=== PATIENT | male | born 1955 | race Caucasian/White ===

== ENCOUNTER → 2016-07-22 | Outpatient (CLI) | payer BC ==
[~2016-07-22] MED LIST: AMLO-110 PO; AMLO2.5T PO; ASCA500 PO; ASPEC81 PO; ATOR-26 PO; BRL90 PO; FLAX12003; GLUC10007; GLUC10007 PO; LSN5 PO; NTRSLP4 SL; OMEG10007 PO; VITACAP26; VNTHFA/IN INH; ZINC1CAP PO; ZINC1TAB PO
--- NOTE | 2016-07-22 14:02 | DIAGNOSTIC IMAGING REPORT ---
CHEST 2 VIEWS ROUTINE CLINICAL HISTORY: ACUTE BRONCHITIS dyspnea COMPARISON STUDY: No previous studies for comparison. FINDINGS: The bones soft tissues and hemidiaphragms are normal. The cardiomediastinal silhouette is normal. The lungs are clear. The pulmonary vasculature is normal. IMPRESSION: Negative chest. Electronically signed by: Diallo Lopes M.D. 07/22/2016 2:00 PM Dictated Date/Time: 07/22/2016 2:00 PM
== END | disposition home or self-care (01) ==
LOC: C.RAD 13:43
PROVIDERS: ATTEND Physician Assistant
DX: J20.9 Acute bronchitis, unspecified (principal)

== ENCOUNTER → 2016-08-01 | Outpatient (CLI) | payer BC ==
[~2016-08-01] MED LIST changes: +OPTIRAY 320 IV PRN
--- NOTE | 2016-08-01 13:07 | DIAGNOSTIC IMAGING REPORT ---
CHEST CT WITH CONTRAST CT DOSE: 258.64 mGy.cm HISTORY: Bronchiectasis CHEST PAIN TECHNIQUE: Multiaxial CT images of the chest were performed following the intravenous administration of contrast. COMPARISON: None. FINDINGS: The lungs are clear. The mediastinal vascular structures are within normal limits. No mediastinal or hilar lymphadenopathy. No pleural effusion or pneumothorax. Limited views of the upper abdomen demonstrate a normal liver and spleen. IMPRESSION: No significant abnormality identified within the chest. Electronically signed by: Diallo Lopes M.D. 08/01/2016 1:06 PM Dictated Date/Time: 08/01/2016 1:02 PM
== END | disposition home or self-care (01) ==
LOC: C.CTS 12:00
PROVIDERS: ATTEND Physician Assistant
DX: J20.9 Acute bronchitis, unspecified (principal); R07.9 Chest pain, unspecified; R13.10 Dysphagia, unspecified

== ENCOUNTER 2016-08-05 11:36 | Inpatient (IN) | payer BC ==
[~2016-08-05] VITALS: Ht 172.7 cm; Wt 76.5 kg
[~2016-08-05 11:36] MED LIST changes: -AMLO2.5T PO; -ASPEC81 PO; -ATOR-26 PO; -BRL90 PO; -FLAX12003; -GLUC10007 PO; -LSN5 PO; -NTRSLP4 SL; -OPTIRAY 320 IV PRN; -VITACAP26; -VNTHFA/IN INH; -ZINC1CAP PO; -ZINC1TAB PO
[2016-08-05] MEDS ORDERED: ALUMINUM/MAGNESIUM SUSP 30 ML UDC PO STA (11:47)
[2016-08-05] MEDS ORDERED: ASPIRIN 81 MG CHEW PO STA (11:47)
[2016-08-05] MEDS ORDERED: PANTOprazole SOD 40 MG TAB PO STA (11:47)
--- NOTE | 2016-08-05 11:56 | EMERGENCY ROOM VISIT NOTE ---
History Report prepared by Meseret: Bruna Beckham Under the Supervision of: Dr. Ari Bello D.O. First contact with patient: 11:45 Chief Complaint: CARDIAC ASSESSMENT Stated Complaint: BURNING & CHEST TIGHTNESS AND THROAT, DIZZY Nursing Triage Summary: pt to the ED with c/o worsening chest pain that has went into his jaw and throat and feels like it gets worse with movement and feeling light headed has been seeing PMD for this previously but got worse today History of Present Illness The patient is a 60 year old male who presents to the Emergency Room with complaints of intermittent chest pain that he describes as a burning over the last several weeks. The patient states that he has noticed the pain with exertion. He states that he has followed with his PCP for his discomfort and has had several tests done for his symptoms, but denies any cardiac workup. The patient states that a few months ago he had the flu and was on antibiotics and a steroid. He states that 1 week ago he had a normal CT scan done. The patient states that over the past week he has noticed increased burning in his chest. He additionally associates tightness in his sternum that radiates into his throat and jaw. The patient associates dizziness with his symptoms today. He denies any history of lung problems, previous [place] or previous heart catheterization. The patient denies any tobacco use, but reports occasional alcohol use. He reports a history of hypertension and a partial colectomy for a polyp that was precancerous. Source of History: patient Onset: last several weeks Position: chest Quality: burning Timing: intermittent Modifying Factors (Worsening): exertion Note: Associated Symptoms: tightness in sternum, tightness in jaw and throat, dizziness Review of Systems See HPI for pertinent positives & negatives. A total of 10 systems reviewed and were otherwise negative. Past Medical & Surgical Medical Problems: (1) Colonoscopic polypectomy (2) Hyperlipidemia Nec/Nos (3) Hypertension Nos (4) Lower gastrointestinal hemorrhage Family History No pertinent family history stated. Social History Smoking Status: Never Smoker Smokeless Tobacco Use: No Alcohol Use: occasionally Marital Status: Occupation Status: employed Current/Historical Medications Scheduled Amlodipine (Norvasc), 5 MG PO DAILY Glucosamine Sulfate (Glucosamine), DAILY Zinc Sulfate (Zinc Sulfate), 220 MG PO TID Miscellaneous Medications Flaxseed (Linseed) (Flaxseed Oil) Vitamins C & E (Vitamin C) Allergies Coded Allergies: Penicillamine (Verified Allergy, Severe, THROAT INFECTION, 06/17/10) Erythromycin (Verified Allergy, Unknown, UNKNOWN, 06/08/15) Penicillins (Verified Allergy, Unknown, RASH, 06/08/15) Azithromycin (Verified Adverse Reaction, Intermediate, DIGESTIVE PROBLEMS , 08/01/16) Macrolides and Ketolides (Verified Adverse Reaction, Mild, MILD, 08/01/16) Physical Exam Vital Signs Date Time Temp Pulse Resp B/P (MAP) Pulse Ox O2 Delivery O2 Flow Rate FiO2 08/05/16 16:20 87 18 155/94 96 Room Air 08/05/16 14:03 79 18 162/96 08/05/16 12:50 74 16 150/106 96 Room Air 08/05/16 12:12 95 Room Air 08/05/16 12:12 97 Room Air 08/05/16 12:11 89 17 167/108 97 Room Air 08/05/16 11:53 93 08/05/16 11:40 36.7 90 16 181/104 98 Room Air Physical Exam GENERAL: Patient is awake, alert, and in no acute distress. Patient is resting comfortably and showing no signs of anxiety EYES: The conjunctivae are clear. The pupils are round and reactive. EARS, NOSE, MOUTH AND THROAT: The nose is without any evidence of any deformity. Mucous membranes are moist tongue is midline NECK: The neck is nontender and supple. RESPIRATORY: Normal respiratory effort is noted there is no evidence of wheezing rhonchi or rales CARDIOVASCULAR: Regular rate and rhythm noted there no murmurs rubs or gallops normal S1 normal S2 GASTROINTESTINAL: The abdomen is soft. Bowel sounds are present in all quadrants. Abdomen is nontender MUSCULOSKELETAL/EXTREMITIES: There is no evidence of gross deformity full range of motion is noted in the hips and shoulders SKIN: There is no obvious evidence of any rash. There are no petechiae, pallor or cyanosis noted. NEUROLOGIC: Patient is awake alert and oriented x3 strength is symmetric patellar reflexes are 2+ bilaterally Medical Decision & Procedures ER Provider Diagnostic Interpretation: X-ray results as stated below per interpretation by me and the radiologist. CHEST ONE VIEW PORTABLE CLINICAL HISTORY: CHEST PAIN dyspnea COMPARISON STUDY: 07/22/2016 FINDINGS: The bones soft tissues and hemidiaphragms are normal. The cardiomediastinal silhouette is normal. The lungs are clear. The pulmonary vasculature is normal. IMPRESSION: Negative chest. Electronically signed by: Diallo Lopes M.D. 08/05/2016 12:16 PM Dictated Date/Time: 08/05/2016 12:16 PM Laboratory Results 08/05/16 12:00 Red Blood Count 5.48, Mean Corpuscular Volume 87.8, Mean Corpuscular Hemoglobin 30.1, Mean Corpuscular Hemoglobin Concent 34.3, Mean Platelet Volume 9.2, Neutrophils (%) (Auto) 67.9, Lymphocytes (%) (Auto) 16.9, Monocytes (%) (Auto) 12.7, Eosinophils (%) (Auto) 1.7, Basophils (%) (Auto) 0.4, Neutrophils # (Auto ) 3.25, Lymphocytes # (Auto) 0.81, Monocytes # (Auto) 0.61, Eosinophils # (Auto ) 0.08, Basophils # (Auto) 0.02 08/05/16 12:00 Test 08/05/16 12:00 White Blood Count 4.79 K/uL (4.8-10.8) Red Blood Count 5.48 M/uL (4.7-6.1) Hemoglobin 16.5 g/dL (14.0-18.0) Hematocrit 48.1 % (42-52) Mean Corpuscular Volume 87.8 fL (80-100) Mean Corpuscular Hemoglobin 30.1 pg (25-34) Mean Corpuscular Hemoglobin Concent 34.3 g/dl (32-36) Platelet Count 229 K/uL (130-400) Mean Platelet Volume 9.2 fL (7.4-10.4) Neutrophils (%) (Auto) 67.9 % Lymphocytes (%) (Auto) 16.9 % Monocytes (%) (Auto) 12.7 % Eosinophils (%) (Auto) 1.7 % Basophils (%) (Auto) 0.4 % Neutrophils # (Auto) 3.25 K/uL (1.4-6.5) Lymphocytes # (Auto) 0.81 K/uL (1.2-3.4) Monocytes # (Auto) 0.61 K/uL (0.11-0.59) Eosinophils # (Auto) 0.08 K/uL (0-0.5) Basophils # (Auto) 0.02 K/uL (0-0.2) RDW Standard Deviation 42.3 fL (36.4-46.3) RDW Coefficient of Variation 13.3 % (11.5-14.5) Immature Granulocyte % (Auto) 0.4 % Immature Granulocyte # (Auto) 0.02 K/uL (0.00-0.02) Prothrombin Time 10.7 SECONDS (9.0-12.0) Prothromb Time International Ratio 1.0 (0.9-1.1) Activated Partial Thromboplast Time 26.8 SECONDS (21.0-31.0) Partial Thromboplastin Ratio 1.0 D-Dimer 320 ug/L FEU (0-500) Anion Gap 7.0 mmol/L (3-11) Est Creatinine Clear Calc Drug Dose 102.6 ml/min Estimated GFR () 116.4 Estimated GFR (Non- 100.4 BUN/Creatinine Ratio 23.4 (10-20) Calcium Level 8.2 mg/dl (8.5-10.1) Total Bilirubin 0.5 mg/dl (0.2-1) Direct Bilirubin 0.1 mg/dl (0-0.2) Aspartate Amino Transf (AST/SGOT) 20 U/L (15-37) Alanine Aminotransferase (ALT/SGPT) 30 U/L (12-78) Alkaline Phosphatase 89 U/L (45-117) Total Creatine Kinase 70 U/L (39-308) Creatine Kinase MB < 0.5 ng/ml (0.5-3.6) Creatine Kinase MB Ratio (0-3.0) Troponin I < 0.015 ng/ml (0-0.045) Total Protein 7.2 gm/dl (6.4-8.2) Albumin 3.9 gm/dl (3.4-5.0) Lipase 127 U/L (73-393) Laboratory results per my review. Medications Administered Medications (Trade) Dose Ordered Sig/Shannan Route Start Time Stop Time Status Last Admin Dose Admin Aspirin (Aspirin Chew) 324 mg NOW STAT PO 08/05/16 11:47 08/05/16 11:49 DC 08/05/16 12:11 324 MG Al Hydroxide/Mg Hydroxide (Maalox Susp) 30 ml NOW STAT PO 08/05/16 11:47 08/05/16 11:49 DC 08/05/16 12:11 30 ML Pantoprazole Sodium (Protonix Tab) 40 mg NOW STAT PO 08/05/16 11:47 08/05/16 11:49 DC 08/05/16 12:11 40 MG Heparin Sodium (Porcine) (Heparin Sq 5000 Unit/0.5ml) 10,000 unit STK-MED ONCE .ROUTE 08/05/16 15:54 08/05/16 15:55 DC 08/05/16 16:04 6,000 UNIT Heparin Sodium/ Dextrose (Heparin 25,000 Unit/500ml D5W) 25,000 unit STK-MED ONCE .ROUTE 08/05/16 15:55 08/05/16 15:56 DC 08/05/16 16:06 25,000 UNIT ECG Rate (beats per minute): 89 Rhythm: normal sinus Findings: no ectopy, other (no acute ST segment abnormalities) Comparison ECG Date: 06/05/10 Change: no significant change ED Course 1146: The patient was evaluated in room A4B. A complete history and physical examination were performed. 1147: Ordered Protonix Tab 40 mg PO, Maalox Susp 30 ml PO, Aspirin 324 mg PO. 1309: I discussed the patients case with ROBBI Mcknight PA-C. She suggests having the patient stressed today. She will talk to Stephen Rodriguez, Cardiology about stressing the patient. 1310: I reevaluated the patient and he is resting comfortably. I discussed the exam findings with him and I discussed the treatment plan. He verbalized complete understanding and agreement. 1508: I discussed the patients case with Dr. Worthington, Cardiology. He state that the stress test was positive and should stay for further evaluation. ROBBI Mcknight PA-C is going to evaluate the patient for further treatment. 1509: Ordered Heparin Sodium/Dextrose 1 ea NA. Medical Decision Differential diagnosis: Etiologies such as cardiac ischemia, aortic dissection, pulmonary embolism, pneumonia, pneumothorax, musculoskeletal, infections, pericarditis, myocarditis , esophageal rupture, gastrointestinal, as well as others were entertained. Medication Reconciliation: I attest that I have personally reviewed the patient' s current medications list. Patient was found to have a slightly elevated blood pressure due to circumstances. I do not believe that the patient requires hypertension monitoring. The patient is a 60-year-old male who presented to the emergency department for an evaluation of discomfort in his chest. The patient has been noticing exertional chest pain for the last month. He states that he's been seen by his primary care physician but testing has not revealed a cause for his discomfort. The patient has no pain at this time. His EKG did not show any acute ST segment abnormalities in his initial cardiac biomarkers were negative. I discussed his case with the on-call [facility] hospitalist group and because of the patient 's symptoms and his timing to the emergency department we discussed his case with the on-call [facility] software testing specialist and he was able to have a stress test while he was in the emergency department. The stress test was very worrisome for cardiac ischemia. The patient was started on IV heparin in the emergency department. I discussed the patient's laboratory and radiographic studies with him. I also discussed the limitations of the emergency department workup for chest pain with him. The patient was agreeable to staying in the hospital and would likely require heart catheterization within the next 24-48 hours unless his symptoms were to change or his EKG become more consistent with an ST segment elevation [place]. Consults Time Called: 1309 Consulting Physician: ROBBI Mcknight PA-C Returned Call: 1304 I discussed the patients case with ROBBI Mcknight PA-C. She suggests having the patient stressed today. She will talk to Stephen Rodriguez Cardiology about stressing the patient. Additional Consults: Time Called: 1508 Consulted Physician: Dr. Worthington, Cardiology Returned Call: 1508 Additional Comments: I discussed the patients case with Dr. Worthington, Cardiology. He state that the stress test was positive and should stay for further evaluation. ROBBI Mcknight PA-C is going to evaluate the patient for further treatment. Impression Primary Impression: Unstable angina Additional Impression: Exertional chest pain Critical Care I have personally spent greater than 45 minutes of critical care time in the direct management of this patient. This includes bedside care, interpretation of diagnostic studies, and testing, discussion with consultants, patient, and family members, and other required patient management activities. This 45 minutes is in excess of all separately billable procedures. Scribe Attestation The scribe's documentation has been prepared under my direction and personally reviewed by me in its entirety. I confirm that the note above accurately reflects all work, treatment, procedures, and medical decision making performed by me. Departure Information Dispostion Being Evaluated By Hospitalist Referrals Ari Bartlett M.D. (PCP) Problem Qualifiers
[2016-08-05] MEDS ORDERED: VITACAP26 (12:09)
[2016-08-05] MEDS ORDERED: ZINC1CAP PO (12:09)
[2016-08-05] MEDS ORDERED: FLAX12003 (12:09)
[2016-08-05 12:11] LABS: BASO % 0.4 %; BASO ABS # 0.02 K/uL (0-0.2); COMPLETE YES; EOS % 1.7 %; HEMATOCRIT 48.1 % (42-52); IG% 0.4 %; LYMPH % 16.9 %; LYMPH ABS # 0.81 K/uL (1.2-3.4); MEAN CELL VOLUME 87.8 fL (80-100); MEAN CORPUSCULAR HEMOGLOBIN 30.1 pg (25-34); MEAN CORPUSCULAR HGB CONC 34.3 g/dl (32-36); MEAN PLATELET VOLUME 9.2 fL (7.4-10.4); MONO % 12.7 %; NEUT % 67.9 %; PLATELET COUNT 229 K/uL (130-400); RED BLOOD COUNT 5.48 M/uL (4.7-6.1); WHITE BLOOD COUNT 4.79 K/uL (4.8-10.8)
--- NOTE | 2016-08-05 12:18 | DIAGNOSTIC IMAGING REPORT ---
CHEST ONE VIEW PORTABLE CLINICAL HISTORY: CHEST PAIN dyspnea COMPARISON STUDY: 07/22/2016 FINDINGS: The bones soft tissues and hemidiaphragms are normal. The cardiomediastinal silhouette is normal. The lungs are clear. The pulmonary vasculature is normal. IMPRESSION: Negative chest. Electronically signed by: Diallo Lopes M.D. 08/05/2016 12:16 PM Dictated Date/Time: 08/05/2016 12:16 PM
[2016-08-05 12:20] LABS: PROTHROMBIN TIME (PATIENT) 10.7 SECONDS (9.0-12.0)
[2016-08-05 12:58] LABS: ALT/SGPT 30 U/L (12-78); AST/SGOT 20 U/L (15-37); BLOOD UREA NITROGEN 18 mg/dl (7-18); BUN/CREATININE RATIO 23.4 (10-20); CALCIUM 8.2 mg/dl (8.5-10.1); CARBON DIOXIDE 28 mmol/L (21-32); CHLORIDE 107 mmol/L (98-107); CREATININE 0.75 mg/dl (0.60-1.40); GLUCOSE 94 mg/dl (70-99); POTASSIUM 4.3 mmol/L (3.5-5.1); SODIUM 142 mmol/L (136-145)
[2016-08-05 13:04] LABS: ALKALINE PHOSPHATASE 89 U/L (45-117)
--- NOTE | 2016-08-05 14:07 | Medical Consult ---
Consultation Note Date of Service Aug 05, 2016. Consultation Note [facility] [address] [place] [address] Consultation Patient Name: Jose Martin Villalpando Unit Number: [id number] Date of : 1955 Patient Status: Registered Emergency Room Attending Doctor: Ari Bello DO Consultation Date & Time of Service: Aug 05, 2016 at 13:53 Chief Complaint: Burning & Chest Tightness And Throat, Dizzy Primary Care Physician: Ari You M.D. History of Present Illness Source: patient, clinic records, hospital records This patient is a pleasant 60-year-old male that presents emergency department with complaints of intermittent burning chest pain over the last month. The chest pain seems to be worse with any exertion. It is relieved with rest. Pain occasionally radiates to both sides of his neck. She denies any shortness of breath. He has noticed some intermittent dizziness that was particularly bad today while he was at work. He was walking when this occurred. He denies any heart palpitations. He denies any known cardiac history, but has never had a stress test. He follows with Geovanny Conner from pulmonary. The patient had a CT of his chest with contrast on 08/01 that did not reveal any significant abnormalities. Past Medical/Surgical History Medical Problems: Hypertension History of tubular adenoma of the colon status post partial colectomy Seasonal allergies Family History Family history of diabetes, heart disease, high blood pressure and cancer reported Father of suicide Social History Smoking Status: Never Smoker Smokeless Tobacco Use: No Drug Use: none Marital Status: Housing status: lives alone Occupational Status: employed Immunizations History of Influenza Vaccine: No History of Tetanus Vaccine?: Yes History of Pneumococcal: No History of Hepatitis B Vaccine: Unknown Multi-Drug Resistant Organisms History of MDRO: No Allergies Coded Allergies: Penicillamine (Verified Allergy, Severe, THROAT INFECTION, 06/17/10) Erythromycin (Verified Allergy, Unknown, UNKNOWN, 06/08/15) Penicillins (Verified Allergy, Unknown, RASH, 06/08/15) Azithromycin (Verified Adverse Reaction, Intermediate, DIGESTIVE PROBLEMS , 08/01/16) Macrolides and Ketolides (Verified Adverse Reaction, Mild, MILD, 08/01/16) Home Medications Scheduled Amlodipine (Norvasc), 5 MG PO DAILY Glucosamine Sulfate (Glucosamine), DAILY Zinc Sulfate (Zinc Sulfate), 220 MG PO TID Miscellaneous Medications Flaxseed (Linseed) (Flaxseed Oil) Vitamins C & E (Vitamin C) Review of Systems 10 system review performed and negative unless noted in HPI or below Physical Ex - H&P Physical Exam Vital Signs Date Time Temp Pulse Resp B/P (MAP) Pulse Ox O2 Delivery O2 Flow Rate FiO2 08/05/16 12:50 74 16 150/106 96 Room Air 08/05/16 12:12 95 Room Air 08/05/16 12:12 97 Room Air 08/05/16 12:11 89 17 167/108 97 Room Air 08/05/16 11:53 93 08/05/16 11:40 36.7 90 16 181/104 98 Room Air General Appearance: no apparent distress Head: normocephalic Eyes: EOMI Neck: no JVD Respiratory/Chest: chest non-tender, lungs clear Cardiovascular: regular rate, rhythm Abdomen/GI: normal bowel sounds, non tender, soft Extremities/Musculoskelatal: no calf tenderness, no pedal edema Neurologic/Psych: no motor/sensory deficits, oriented x 3 Skin: warm/dry Diagnostics - H&P Diagnostics Laboratory Results 08/05/16 12:00 Red Blood Count 5.48, Mean Corpuscular Volume 87.8, Mean Corpuscular Hemoglobin 30.1, Mean Corpuscular Hemoglobin Concent 34.3, Mean Platelet Volume 9.2, Neutrophils (%) (Auto) 67.9, Lymphocytes (%) (Auto) 16.9, Monocytes (%) (Auto) 12.7, Eosinophils (%) (Auto) 1.7, Basophils (%) (Auto) 0.4, Neutrophils # (Auto ) 3.25, Lymphocytes # (Auto) 0.81, Monocytes # (Auto) 0.61, Eosinophils # (Auto ) 0.08, Basophils # (Auto) 0.02 Test 08/05/16 12:00 White Blood Count 4.79 K/uL (4.8-10.8) Red Blood Count 5.48 M/uL (4.7-6.1) Hemoglobin 16.5 g/dL (14.0-18.0) Hematocrit 48.1 % (42-52) Mean Corpuscular Volume 87.8 fL (80-100) Mean Corpuscular Hemoglobin 30.1 pg (25-34) Mean Corpuscular Hemoglobin Concent 34.3 g/dl (32-36) Platelet Count 229 K/uL (130-400) Mean Platelet Volume 9.2 fL (7.4-10.4) Neutrophils (%) (Auto) 67.9 % Lymphocytes (%) (Auto) 16.9 % Monocytes (%) (Auto) 12.7 % Eosinophils (%) (Auto) 1.7 % Basophils (%) (Auto) 0.4 % Neutrophils # (Auto) 3.25 K/uL (1.4-6.5) Lymphocytes # (Auto) 0.81 K/uL (1.2-3.4) Monocytes # (Auto) 0.61 K/uL (0.11-0.59) Eosinophils # (Auto) 0.08 K/uL (0-0.5) Basophils # (Auto) 0.02 K/uL (0-0.2) RDW Standard Deviation 42.3 fL (36.4-46.3) RDW Coefficient of Variation 13.3 % (11.5-14.5) Immature Granulocyte % (Auto) 0.4 % Immature Granulocyte # (Auto) 0.02 K/uL (0.00-0.02) Prothrombin Time 10.7 SECONDS (9.0-12.0) Prothromb Time International Ratio 1.0 (0.9-1.1) Activated Partial Thromboplast Time 26.8 SECONDS (21.0-31.0) Partial Thromboplastin Ratio 1.0 Anion Gap 7.0 mmol/L (3-11) Est Creatinine Clear Calc Drug Dose 102.6 ml/min Estimated GFR () 116.4 Estimated GFR (Non- 100.4 BUN/Creatinine Ratio 23.4 (10-20) Calcium Level 8.2 mg/dl (8.5-10.1) Total Bilirubin 0.5 mg/dl (0.2-1) Direct Bilirubin 0.1 mg/dl (0-0.2) Aspartate Amino Transf (AST/SGOT) 20 U/L (15-37) Alanine Aminotransferase (ALT/SGPT) 30 U/L (12-78) Alkaline Phosphatase 89 U/L (45-117) Total Creatine Kinase 70 U/L (39-308) Creatine Kinase MB < 0.5 ng/ml (0.5-3.6) Creatine Kinase MB Ratio (0-3.0) Troponin I < 0.015 ng/ml (0-0.045) Total Protein 7.2 gm/dl (6.4-8.2) Albumin 3.9 gm/dl (3.4-5.0) Lipase 127 U/L (73-393) Results Past 24 Hours Test 08/05/16 12:00 Range/Units White Blood Count 4.79 4.8-10.8 K/uL Red Blood Count 5.48 4.7-6.1 M/uL Hemoglobin 16.5 14.0-18.0 g/dL Hematocrit 48.1 42-52 % Mean Corpuscular Volume 87.8 80-100 fL Mean Corpuscular Hemoglobin 30.1 25-34 pg Mean Corpuscular Hemoglobin Concent 34.3 32-36 g/dl Platelet Count 229 130-400 K/uL Mean Platelet Volume 9.2 7.4-10.4 fL Neutrophils (%) (Auto) 67.9 % Lymphocytes (%) (Auto) 16.9 % Monocytes (%) (Auto) 12.7 % Eosinophils (%) (Auto) 1.7 % Basophils (%) (Auto) 0.4 % Neutrophils # (Auto) 3.25 1.4-6.5 K/uL Lymphocytes # (Auto) 0.81 1.2-3.4 K/uL Monocytes # (Auto) 0.61 0.11-0.59 K/uL Eosinophils # (Auto) 0.08 0-0.5 K/uL Basophils # (Auto) 0.02 0-0.2 K/uL RDW Standard Deviation 42.3 36.4-46.3 fL RDW Coefficient of Variation 13.3 11.5-14.5 % Immature Granulocyte % (Auto) 0.4 % Immature Granulocyte # (Auto) 0.02 0.00-0.02 K/uL Prothrombin Time 10.7 9.0-12.0 SECONDS Prothromb Time International Ratio 1.0 0.9-1.1 Activated Partial Thromboplast Time 26.8 21.0-31.0 SECONDS Partial Thromboplastin Ratio 1.0 Sodium Level 142 136-145 mmol/L Potassium Level 4.3 3.5-5.1 mmol/L Chloride Level 107 98-107 mmol/L Carbon Dioxide Level 28 21-32 mmol/L Anion Gap 7.0 3-11 mmol/L Blood Urea Nitrogen 18 7-18 mg/dl Creatinine 0.75 0.60-1.40 mg/dl Est Creatinine Clear Calc Drug Dose 102.6 ml/min Estimated GFR () 116.4 Estimated GFR (Non- 100.4 BUN/Creatinine Ratio 23.4 10-20 Random Glucose 94 70-99 mg/dl Calcium Level 8.2 8.5-10.1 mg/dl Total Bilirubin 0.5 0.2-1 mg/dl Direct Bilirubin 0.1 0-0.2 mg/dl Aspartate Amino Transf (AST/SGOT) 20 15-37 U/L Alanine Aminotransferase (ALT/SGPT) 30 12-78 U/L Alkaline Phosphatase 89 45-117 U/L Total Creatine Kinase 70 39-308 U/L Creatine Kinase MB < 0.5 0.5-3.6 ng/ml Creatine Kinase MB Ratio 0-3.0 Troponin I < 0.015 0-0.045 ng/ml Total Protein 7.2 6.4-8.2 gm/dl Albumin 3.9 3.4-5.0 gm/dl Lipase 127 73-393 U/L Diagnostic Radiology Patient: JOSE MARTIN VILLALPANDO Address1: [address] [place] [address] Rec: [id number] Address2: [facility] ID: [id number] [facility] Zip: [place] [address] Date: 1955 Sex: M Room/Bed: Ref Phy: Ari Bartlett M.D. SC: MONO Marina Phy: Report #: [id number] [facility] Phy: Ari Bartlett M.D. Test: [id number] Admit Phy: Armament Aircraft Mechanic: TERESA Interpreting Phy: Diallo Lopes M.D. Diagnosis: BURNING & CHEST TIGHTNESS AND THROAT, DIZZY Ordering Phy: Ari Bello D.O. Service Date: 08/05/16 Admit Date: 08/05/16 MNE: [id number] CONF: DICTATED BY: Diallo Lopes M.D.]] CC: Ari Bello, Ari Obando M.D. [facility]: [~ rep ct add3]] CHEST ONE VIEW PORTABLE CLINICAL HISTORY: CHEST PAIN dyspnea COMPARISON STUDY: 07/22/2016 FINDINGS: The bones soft tissues and hemidiaphragms are normal. The cardiomediastinal silhouette is normal. The lungs are clear. The pulmonary vasculature is normal. IMPRESSION: Negative chest. Electronically signed by: Diallo Lopes M.D. 08/05/2016 12:16 PM Dictated Date/Time: 08/05/2016 12:16 PM The status of this report is Signed. Draft = Not yet reviewed or approved by Radiologist. Signed = Reviewed and approved by Radiologist. <AttendingPhy></AttendingPhy> <FamilyP EKG Normal sinus rhythm 89 bpm No ischemic changes noted Impression - Impression Assessment and Plan 60-year-old male presents emergency department with complaints of exertional chest pain over the last month. EKG shows no signs of ischemia. Initial troponin is negative. Regarding the patient's chest pain, differential dx include stable angina, GERD , PE, pulmonary infection, dissection among others. -I have added on a D dimer to r/o dissection and PE (he had a CT chest, but it was not a PE study). We will order a stress test today. If this is negative , the patient is stable to be discharged home. Follow-up will be arranged with his primary care provider within one week. If the stress test is abnormal, he will be admitted. The patient was also noted to be hypertensive. He does admit to having white coat hypertension. He was instructed to check his blood pressure at home twice daily. We will continue his Norvasc 5 mg daily as prescribed. Adjustments can be made as an oupt if necessary Thank you for this consultation. This chart was completed in part utilizing [employer] Voice Recognition software. Attempts were made to minimize the grammatical errors, random word insertions, pronoun errors and incomplete sentences. Any formal questions or concerns about the content, text or information contained within the body of this dictation should be directly addressed to the provider for clarification.
--- NOTE | 2016-08-05 15:49 | History and Physical ---
History & Physical Date of Service Aug 05, 2016. History & Physical Consultation Note [facility] [address] [place] [address] history and physical Patient Name: Jose Martin Villalpando Unit Number: [id number] Date of : 1955 Patient Status: Registered Emergency Room Attending Doctor: Ari Bello DO history and physical Date & Time of Service: Aug 05, 2016 at 13:53 Chief Complaint: Burning & Chest Tightness And Throat, Dizzy Primary Care Physician: Ari You M.D. History of Present Illness Source: patient, clinic records, hospital records This patient is a pleasant 60-year-old male that presents emergency department with complaints of intermittent burning chest pain over the last month. The chest pain seems to be worse with any exertion. It is relieved with rest. Pain occasionally radiates to both sides of his neck. She denies any shortness of breath. He has noticed some intermittent dizziness that was particularly bad today while he was at work. He was walking when this occurred. He denies any heart palpitations. He denies any known cardiac history, but has never had a stress test. He follows with Geovanny Conner from pulmonary. The patient had a CT of his chest with contrast on 08/01 that did not reveal any significant abnormalities. Past Medical/Surgical History Medical Problems: Hypertension History of tubular adenoma of the colon status post partial colectomy Seasonal allergies Family History Family history of diabetes, heart disease, high blood pressure and cancer reported Father of suicide Social History Smoking Status: Never Smoker Smokeless Tobacco Use: No Drug Use: none Marital Status: Housing status: lives alone Occupational Status: employed Immunizations History of Influenza Vaccine: No History of Tetanus Vaccine?: Yes History of Pneumococcal: No History of Hepatitis B Vaccine: Unknown Multi-Drug Resistant Organisms History of MDRO: No Allergies Coded Allergies: Penicillamine (Verified Allergy, Severe, THROAT INFECTION, 06/17/10) Erythromycin (Verified Allergy, Unknown, UNKNOWN, 06/08/15) Penicillins (Verified Allergy, Unknown, RASH, 06/08/15) Azithromycin (Verified Adverse Reaction, Intermediate, DIGESTIVE PROBLEMS , 08/01/16) Macrolides and Ketolides (Verified Adverse Reaction, Mild, MILD, 08/01/16) Home Medications Scheduled Amlodipine (Norvasc), 5 MG PO DAILY Glucosamine Sulfate (Glucosamine), DAILY Zinc Sulfate (Zinc Sulfate), 220 MG PO TID Miscellaneous Medications Flaxseed (Linseed) (Flaxseed Oil) Vitamins C & E (Vitamin C) Review of Systems 10 system review performed and negative unless noted in HPI or below Physical Ex - H&P Physical Exam Vital Signs Date Time Temp Pulse Resp B/P (MAP) Pulse Ox O2 Delivery O2 Flow Rate FiO2 08/05/16 12:50 74 16 150/106 96 Room Air 08/05/16 12:12 95 Room Air 08/05/16 12:12 97 Room Air 08/05/16 12:11 89 17 167/108 97 Room Air 08/05/16 11:53 93 08/05/16 11:40 36.7 90 16 181/104 98 Room Air General Appearance: no apparent distress Head: normocephalic Eyes: EOMI Neck: no JVD Respiratory/Chest: chest non-tender, lungs clear Cardiovascular: regular rate, rhythm Abdomen/GI: normal bowel sounds, non tender, soft Extremities/Musculoskelatal: no calf tenderness, no pedal edema Neurologic/Psych: no motor/sensory deficits, oriented x 3 Skin: warm/dry Diagnostics - H&P Diagnostics Laboratory Results 08/05/16 12:00 Red Blood Count 5.48, Mean Corpuscular Volume 87.8, Mean Corpuscular Hemoglobin 30.1, Mean Corpuscular Hemoglobin Concent 34.3, Mean Platelet Volume 9.2, Neutrophils (%) (Auto) 67.9, Lymphocytes (%) (Auto) 16.9, Monocytes (%) (Auto) 12.7, Eosinophils (%) (Auto) 1.7, Basophils (%) (Auto) 0.4, Neutrophils # (Auto ) 3.25, Lymphocytes # (Auto) 0.81, Monocytes # (Auto) 0.61, Eosinophils # (Auto ) 0.08, Basophils # (Auto) 0.02 Test 08/05/16 12:00 White Blood Count 4.79 K/uL (4.8-10.8) Red Blood Count 5.48 M/uL (4.7-6.1) Hemoglobin 16.5 g/dL (14.0-18.0) Hematocrit 48.1 % (42-52) Mean Corpuscular Volume 87.8 fL (80-100) Mean Corpuscular Hemoglobin 30.1 pg (25-34) Mean Corpuscular Hemoglobin Concent 34.3 g/dl (32-36) Platelet Count 229 K/uL (130-400) Mean Platelet Volume 9.2 fL (7.4-10.4) Neutrophils (%) (Auto) 67.9 % Lymphocytes (%) (Auto) 16.9 % Monocytes (%) (Auto) 12.7 % Eosinophils (%) (Auto) 1.7 % Basophils (%) (Auto) 0.4 % Neutrophils # (Auto) 3.25 K/uL (1.4-6.5) Lymphocytes # (Auto) 0.81 K/uL (1.2-3.4) Monocytes # (Auto) 0.61 K/uL (0.11-0.59) Eosinophils # (Auto) 0.08 K/uL (0-0.5) Basophils # (Auto) 0.02 K/uL (0-0.2) RDW Standard Deviation 42.3 fL (36.4-46.3) RDW Coefficient of Variation 13.3 % (11.5-14.5) Immature Granulocyte % (Auto) 0.4 % Immature Granulocyte # (Auto) 0.02 K/uL (0.00-0.02) Prothrombin Time 10.7 SECONDS (9.0-12.0) Prothromb Time International Ratio 1.0 (0.9-1.1) Activated Partial Thromboplast Time 26.8 SECONDS (21.0-31.0) Partial Thromboplastin Ratio 1.0 Anion Gap 7.0 mmol/L (3-11) Est Creatinine Clear Calc Drug Dose 102.6 ml/min Estimated GFR () 116.4 Estimated GFR (Non- 100.4 BUN/Creatinine Ratio 23.4 (10-20) Calcium Level 8.2 mg/dl (8.5-10.1) Total Bilirubin 0.5 mg/dl (0.2-1) Direct Bilirubin 0.1 mg/dl (0-0.2) Aspartate Amino Transf (AST/SGOT) 20 U/L (15-37) Alanine Aminotransferase (ALT/SGPT) 30 U/L (12-78) Alkaline Phosphatase 89 U/L (45-117) Total Creatine Kinase 70 U/L (39-308) Creatine Kinase MB < 0.5 ng/ml (0.5-3.6) Creatine Kinase MB Ratio (0-3.0) Troponin I < 0.015 ng/ml (0-0.045) Total Protein 7.2 gm/dl (6.4-8.2) Albumin 3.9 gm/dl (3.4-5.0) Lipase 127 U/L (73-393) Results Past 24 Hours Test 08/05/16 12:00 Range/Units White Blood Count 4.79 4.8-10.8 K/uL Red Blood Count 5.48 4.7-6.1 M/uL Hemoglobin 16.5 14.0-18.0 g/dL Hematocrit 48.1 42-52 % Mean Corpuscular Volume 87.8 80-100 fL Mean Corpuscular Hemoglobin 30.1 25-34 pg Mean Corpuscular Hemoglobin Concent 34.3 32-36 g/dl Platelet Count 229 130-400 K/uL Mean Platelet Volume 9.2 7.4-10.4 fL Neutrophils (%) (Auto) 67.9 % Lymphocytes (%) (Auto) 16.9 % Monocytes (%) (Auto) 12.7 % Eosinophils (%) (Auto) 1.7 % Basophils (%) (Auto) 0.4 % Neutrophils # (Auto) 3.25 1.4-6.5 K/uL Lymphocytes # (Auto) 0.81 1.2-3.4 K/uL Monocytes # (Auto) 0.61 0.11-0.59 K/uL Eosinophils # (Auto) 0.08 0-0.5 K/uL Basophils # (Auto) 0.02 0-0.2 K/uL RDW Standard Deviation 42.3 36.4-46.3 fL RDW Coefficient of Variation 13.3 11.5-14.5 % Immature Granulocyte % (Auto) 0.4 % Immature Granulocyte # (Auto) 0.02 0.00-0.02 K/uL Prothrombin Time 10.7 9.0-12.0 SECONDS Prothromb Time International Ratio 1.0 0.9-1.1 Activated Partial Thromboplast Time 26.8 21.0-31.0 SECONDS Partial Thromboplastin Ratio 1.0 Sodium Level 142 136-145 mmol/L Potassium Level 4.3 3.5-5.1 mmol/L Chloride Level 107 98-107 mmol/L Carbon Dioxide Level 28 21-32 mmol/L Anion Gap 7.0 3-11 mmol/L Blood Urea Nitrogen 18 7-18 mg/dl Creatinine 0.75 0.60-1.40 mg/dl Est Creatinine Clear Calc Drug Dose 102.6 ml/min Estimated GFR () 116.4 Estimated GFR (Non- 100.4 BUN/Creatinine Ratio 23.4 10-20 Random Glucose 94 70-99 mg/dl Calcium Level 8.2 8.5-10.1 mg/dl Total Bilirubin 0.5 0.2-1 mg/dl Direct Bilirubin 0.1 0-0.2 mg/dl Aspartate Amino Transf (AST/SGOT) 20 15-37 U/L Alanine Aminotransferase (ALT/SGPT) 30 12-78 U/L Alkaline Phosphatase 89 45-117 U/L Total Creatine Kinase 70 39-308 U/L Creatine Kinase MB < 0.5 0.5-3.6 ng/ml Creatine Kinase MB Ratio 0-3.0 Troponin I < 0.015 0-0.045 ng/ml Total Protein 7.2 6.4-8.2 gm/dl Albumin 3.9 3.4-5.0 gm/dl Lipase 127 73-393 U/L Diagnostic Radiology Patient: JOSE MARTIN VILLALPANDO Address1: [address] [place] [address] Rec: [id number] Address2: Acct ID: [id number] [facility] Zip: [place] [address] Date: 1955 Sex: M Room/Bed: Ref Phy: Ari Bartlett M.D. SC: MONO Att Phy: Report #: [id number] Chely Phy: Ari Bartlett M.D. Test: CXR1P Admit Phy: Machine Joiner Cementer: TERESA Interpreting Phy: Diallo Lopes M.D. Diagnosis: BURNING & CHEST TIGHTNESS AND THROAT, DIZZY Ordering Phy: Ari Bello D.O. Service Date: 08/05/16 Admit Date: 08/05/16 MNE: [id number] CONF: DICTATED BY: Diallo Lopes M.D.]] CC: Ace, Ari R., rAi Obando M.D. End: [~ rep ct add3]] CHEST ONE VIEW PORTABLE CLINICAL HISTORY: CHEST PAIN dyspnea COMPARISON STUDY: 07/22/2016 FINDINGS: The bones soft tissues and hemidiaphragms are normal. The cardiomediastinal silhouette is normal. The lungs are clear. The pulmonary vasculature is normal. IMPRESSION: Negative chest. Electronically signed by: Diallo Lopes M.D. 08/05/2016 12:16 PM Dictated Date/Time: 08/05/2016 12:16 PM The status of this report is Signed. Draft = Not yet reviewed or approved by Radiologist. Signed = Reviewed and approved by Radiologist. <AttendingPhy></AttendingPhy> <FamilyP EKG Normal sinus rhythm 89 bpm No ischemic changes noted Impression - Impression Assessment and Plan 60-year-old male presents emergency department with complaints of exertional chest pain over the last month. EKG shows no signs of ischemia. Initial troponin is negative. Regarding the patient's chest pain, differential dx include stable angina, GERD , PE, pulmonary infection, dissection among others. -stress test was ordered by ED physician. Telemarketing Sales Representative called with a + stress. -Admit to telemetry -begin heparin gtt -begin ASA 81 mg daily, Lopressor 12.5 mg po BID, lisinopril 2.5 mg daily, atorvastatin 20 mg daily -cardiology consult -NPO after midnight, likely cath in AM HTN -continue patient's Norvasc 5 mg daily if pressure stable DVT prophylaxis -heparin gtt -TEDS, SCDs CODE STATUS -LEVEL I FULL CODE This chart was completed in part utilizing [employer] Speech Voice Recognition software. Attempts were made to minimize the grammatical errors, random word insertions, pronoun errors and incomplete sentences. Any formal questions or concerns about the content, text or information contained within the body of this dictation should be directly addressed to the provider for clarification. I personally and independently interviewed and examined the patient I reviewed labs and imaging I agree with above mentioned physical exam, History and ROS I discussed and formulated the assessment and plan with Mrs. Urban 60-year-old male P/W recurrent , intermittent exertional chest pain (burning) rest of ROS is negative PE as above assessment: Chest pain R/O ACS dyslipidemia Plan: Stress test was positive for ischemia start heparin drip cardiac consult for cath SCD continue home meds lipitor/ASA Arcelia Mayberry [facility] Hospitalist
[2016-08-05] MEDS ORDERED: HEPARIN SOD 5000 UNIT/0.5 ML CARP ONE (15:54)
[2016-08-05] MEDS ORDERED: HEPARIN 25000 UNIT/500 ML D5W ONE (15:55)
[2016-08-05] MEDS ORDERED: NITROGLYCERIN 0.4 MG SL PER TAB CHARGE SL PRN (16:00)
[2016-08-05] MEDS ORDERED: ONDANSETRON INJ 2 MG/ML 2 ML VIAL IV PRN (16:00)
[2016-08-05] MEDS ORDERED: ACETAMINOPHEN 325 MG TAB PO PRN (16:00)
--- NOTE | 2016-08-05 16:10 | EXERCISE STRESS ECHO ---
*NOTICE TO RECEIVING [employer] This information is strictly Confidential and protected under [place] law. [place] law prohibits you from making any further disclosure of this information unless further disclosure is expressly permitted by the written consent of the person to whom it pertains or is authorized by law. A general authorization for the release of medical or other information is not sufficient for this purpose. Hospital accepts no responsibility if the information is made available to any other person, INCLUDING THE PATIENT. Interpretation Summary * Name: JOSE MARTIN RIVERA Study Date: 08/05/2016 02:17 PM BP: 167/103 mmHg * Patient Location: [facility] HR: 87 * : 1955 (M/d/yyyy) Gender: Male Height: 68 in * Age: 60 yrs Ethnicity: CA Weight: 176 lb * Ordering Physician: Ari Bello * Referring Physician: Self, Referred * Performed By: Yecenia Conner RCS * * Reason For Study: CHEST PAIN \\T\\ TIGHTNESS / CHEST BURNING / DIZZY / * BSA: 1.9 m2 * -- Conclusions -- * The left ventricle is borderline dilated. * There is borderline concentric left ventricular hypertrophy. * Left ventricular systolic function is normal. * Mild aortic regurgitation. * Markedly positive stress echocardiogram with both EKG and echocardiographic signs of inducible ischemia. Procedure Details * ECHOEX, CPT #35566 Left Ventricular Findings with Stress * Markedly positive stress echocardiogram with both EKG and echocardiographic signs of inducible ischemia. Left Ventricle * The left ventricle is borderline dilated. * There is borderline concentric left ventricular hypertrophy. * Left ventricular systolic function is normal. * The left ventricular wall motion is normal at rest. Right Ventricle * The right ventricle is normal in size and function. Atria * The left atrial size is normal. * Right atrial size is normal. Mitral Valve * The mitral valve is grossly normal. * Significant mitral regurgitation is absent. Tricuspid Valve * The tricuspid valve is not well visualized, but is grossly normal. Aortic Valve * The aortic valve opens well. * No hemodynamically significant valvular aortic stenosis. * Mild aortic regurgitation. Great Vessels * The aortic root is normal size. Pericardium * There is no pericardial effusion. Stress Parameters * The stress portion of this study was personally supervised by the undersigned interpreting physician. * Rest heart rate was '87' BPM. * Rest blood pressure was '167/103' * Maximum heart rate achieved was 157 bpm. * Maximum heart rate was 97 % of maximum age-predicted heart rate. * Maximum blood pressure was '199/108' * Total exercise time was '04:30' * Maximum exercise MET level achieved was '6.40' METS * Maximum treadmill speed was '2.50' miles per hour. * Maximum treadmill elevation was '12.00'% grade. Left Ventricular Findings with Stress * Baseline EKG was normal There were 1-2mm Upsloping and flate ST segment depressions at peak exertion whcih correlated with the onset of chest "burning" ST segments resolved after 10 minutes of recovery Baseline echo images were normal. Stress images reveal reduced augmentation, most pronounced on the anterior and lateral rogers. Chamber dilation was seen. Baseline BP was elevated with a normal BP response to exercise MMode 2D Measurements and Calculations IVSd 1.2 cm IVSs 1.1 cm LVIDd 5.3 cm LVIDs 3.9 cm LVPWd 1.3 cm LVPWs 1.4 cm IVS/LVPW 0.96 FS 26.6 % EDV(Teich) 133.0 ml ESV(Teich) 64.3 ml EF(Teich) 51.7 % EDV(cubed) 145.6 ml ESV(cubed) 57.5 ml EF(cubed) 60.5 % % IVS thick -7.96 % % LVPW thick 5.5 % LV mass(C)d 272.3 grams LV mass(C)dI 140.7 grams/m\\S\\2 LV mass(C)s 166.6 grams LV mass(C)sI 86.1 grams/m\\S\\2 SV(Teich) 68.7 ml SI(Teich) 35.5 ml/m\\S\\2 SV(cubed) 88.1 ml SI(cubed) 45.5 ml/m\\S\\2 Ao root diam 3.6 cm Ao root area 10.0 cm\\S\\2 LA dimension 2.8 cm LA/Ao 0.79 LVOT diam 2.0 cm LVOT area 3.0 cm\\S\\2 Doppler Measurements and Calculations Ao V2 max 131.8 cm/sec Ao max PG 7.0 mmHg Ao max PG (full) 2.1 mmHg ZAINA(V,A) 2.5 cm\\S\\2 ZAINA(V,D) 2.5 cm\\S\\2 AI max renzo 448.5 cm/sec AI max PG 80.4 mmHg AI dec slope 121.2 cm/sec\\S\\2 AI P1/2t 1083.7 msec LV V1 max PG 4.9 mmHg LV V1 max 110.2 cm/sec
[2016-08-05 16:48] VITALS: BP 173/104; PULSE 92; TEMP 36.9; O2SAT 99; Ht 172.7 cm; Wt 76.5 kg
[2016-08-05] MEDS ORDERED: HEPARIN 25,000 UNIT/500ML D5W 500 ML IV PRN ×2 (17:00→23:30)
[2016-08-05] MEDS ORDERED: ATORVASTATIN 40 MG TAB PO ONE (17:30)
[2016-08-05] MEDS: METOPROLOL TARTRATE 25 MG TAB PO SCH ×2 (17:40→23:05)
[2016-08-05 17:46] VITALS: BP 178/99
[2016-08-05] MEDS ORDERED: ENOXAPARIN 80 MG/0.8 ML SYR SQ ONE (18:00)
--- NOTE | 2016-08-05 18:41 | CARDIOLOGY CONSULTATION ---
DATE OF CONSULTATION: 08/05/2016 REFERRING PHYSICIAN: Dr. Arcelia Mayberry. CHIEF COMPLAINT: Chest pain. HISTORY OF PRESENT ILLNESS: Mr. João Villalpando is a 60-year-old gentleman without a known history of cardiac disease who has been struggling with exertional chest discomfort for nearly 2 months. The patient states that in the spring he suffered flu-like symptoms and was diagnosed with a pulmonary infection. The patient underwent 2 courses of antibiotics and steroid administration with relief of his constitutional symptoms and some breathing difficulties. However, the patient did notice that with exertion, he would experience a "burning" sensation in the precordium. This initially occurred with fairly strenuous activity and was relieved with rest. Over the past several weeks; however, it has progressed to the point where with even mild activity the patient had these symptoms. He has not had any symptoms at rest. He does not have radiation of the pain to the arms, neck, or back. The pain is moderate in intensity and once again is relieved with rest. Occasionally, the patient will have associated dizziness, but has not had presyncope or syncope. He denies orthopnea or paroxysmal nocturnal dyspnea. He is not aware of any additional palpitations. In general, the patient is an active individual who is accustomed to performing routine exercise; however, he has been severely limited over the past several months initially due to some pulmonary symptoms and more recently this chest discomfort. He has also had an element of fatigue and general tiredness recently. PAST MEDICAL HISTORY: Significant for 1. History of tubular adenoma and resection. 2. Gastroesophageal reflux disease. 3. Nephrolithiasis. 4. Allergic rhinitis. PAST SURGICAL HISTORY: Significant for bilateral hernia repair as well as a partial colectomy. FAMILY HISTORY: Significant for brother who has coronary artery disease in his 50s. SOCIAL HISTORY: The patient is a lifelong nonsmoker. He denies significant alcohol abuse. 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 REVIEW OF SYSTEMS: A complete review of systems was performed and the pertinent positives noted in the history of present illness, the remainder being negative. PHYSICAL EXAMINATION: GENERAL: The patient does not appear to be in acute distress. He is a pleasant individual who is alert and oriented. His mood and affect appeared normal. He answered all questions appropriately. VITAL SIGNS: Include a blood pressure of 155/94 with a pulse of 87. HEENT: Sclerae are anicteric. Pupils are equal, reactive to light and accommodation. Extraocular movements were intact. NECK: Palpation of submandibular region did not reveal any significant lymphadenopathy. The carotids are palpable bilaterally. There were no bruits on auscultation. There is no jugular venous distention. Thyroid is not enlarged. LUNGS: Auscultation of both lung knowles reveal them to be clear. There were no rales, wheezes or rhonchi. CARDIAC: Revealed him to be in a regular rhythm. There were no murmurs appreciated. S1, S2 appear to be normal and the PMI is not markedly displaced on palpation. ABDOMEN: Soft and nontender. EXTREMITIES: Evaluation of both wrists revealed radial pulses that were equal in intensity. There is no evidence of cyanosis or clubbing. Evaluation of the lower extremities did not reveal any significant peripheral edema. I did not appreciate any rashes on exam today. LABORATORY STUDIES: Include a white cell count of 4.7, hemoglobin of 16.5, and a platelet count of 229. Sodium is 142, potassium is 4.3, BUN was 18, creatinine was 0.75. Cardiac troponin was less than detectable limit. PT and INR was 10.7 and 1.0 respectively. The patient had a 12-lead EKG at the time of admission which was normal. There was no significant ST or T-wave changes. The patient did undergo stress echocardiography earlier today which not only reproduced his symptoms, but he had both EKG and echo evidence of inducible ischemia. Single view chest x-ray was obtained in the Emergency Room today which revealed no active cardiopulmonary disease. ASSESSMENT AND PLAN: 1. Unstable angina: The patient has exclusively exertional symptoms; however, they have been rapidly progressive over the past several weeks. This would suggest an unstable situation. Additionally, his stress test was concerning for ischemia at a very low work load and evidence of chamber dilation with symptoms suggestive of either multivessel or possibly left main disease. He has few risk factors for coronary disease other than his age and possibly family history. He has a history of hypertension that appears to be treated. His lipid status is unknown, but he is not currently on a lipid agent. Based on the nature of his symptoms and noninvasive testing, he was advised to consider coronary angiography. I described the risks, benefits, and alternatives to the patient and we will plan on proceeding tomorrow. The patient has been started on heparin, although he is not currently experiencing any symptoms and has normal biomarkers. He has received an aspirin. He has no contraindications to anticoagulation or history of significant bleeding subsequent to his colon resection remotely.
[2016-08-05 19:35] VITALS: BP 148/91; PULSE 77; TEMP 37.1; O2SAT 96
[2016-08-05 23:02] VITALS: BP_SYST 146; BP_SYST 168; BP_DIAS 94; BP_DIAS 97; PULSE 67; TEMP 36.7; O2SAT 99
[2016-08-05 23:49] LABS: PARTIAL THROMBOPLASTIN RATIO 1.3
[2016-08-06] VITALS (19 sets, daily range): BP systolic 109–165; BP diastolic 71–108; PULSE 58–104; TEMP 36.5–36.9; O2SAT 96–100
[2016-08-06 06:17] LABS: BASO % 0.8 %; BASO ABS # 0.04 K/uL (0-0.2); COMPLETE YES; EOS % 3.4 %; HEMATOCRIT 47.1 % (42-52); IG% 0.4 %; LYMPH % 20.8 %; LYMPH ABS # 1.04 K/uL (1.2-3.4); MEAN CELL VOLUME 86.4 fL (80-100); MEAN CORPUSCULAR HEMOGLOBIN 30.3 pg (25-34); MEAN PLATELET VOLUME 9.3 fL (7.4-10.4); MONO % 13.6 %; PLATELET COUNT 235 K/uL (130-400); RED BLOOD COUNT 5.45 M/uL (4.7-6.1)
[2016-08-06 06:33] LABS: PARTIAL THROMBOPLASTIN RATIO 2.5
[2016-08-06 06:59] LABS: BLOOD UREA NITROGEN 13 mg/dl (7-18); BUN/CREATININE RATIO 16.7 (10-20); CALCIUM 8.6 mg/dl (8.5-10.1); CARBON DIOXIDE 30 mmol/L (21-32); CHLORIDE 106 mmol/L (98-107); CREATININE 0.79 mg/dl (0.60-1.40); GLUCOSE 89 mg/dl (70-99); MAGNESIUM 2.4 mg/dl (1.8-2.4); POTASSIUM 4.2 mmol/L (3.5-5.1); SODIUM 140 mmol/L (136-145)
[2016-08-06 07:04] LABS: CHOLESTEROL 276 mg/dl (0-200); CHOLESTEROL/HDL RATIO 4.7; CKMB/CK RATIO 0.9 (0-3.0); HDL CHOLESTEROL 59 mg/dl; LDL CHOLESTEROL CALCULATED 195 mg/dl; TRIGLYCERIDES 111 mg/dl (0-150); VERY LOW DENSITY LIPOPROT CALC 22 mg/dl
[2016-08-06] MEDS: METOPROLOL TARTRATE 25 MG TAB PO SCH ×2 (07:37→21:36)
[2016-08-06] MEDS: ASPIRIN 81 MG ECTAB PO SCH (07:38)
[2016-08-06] MEDS: LISINOPRIL 2.5 MG TAB PO SCH (07:38)
[2016-08-06] MEDS ORDERED: HEPARIN SOD (PORCINE) 1000 UNIT/ML 10 ML VIAL ONE (08:50)
[2016-08-06] MEDS ORDERED: NiCARDipine HCL INJ 2.5 MG/ML 10 ML AMP ONE (08:50)
[2016-08-06] MEDS ORDERED: NITROGLYCERIN/D5W 100MCG/ML 20ML SYR ONE (08:51)
[2016-08-06] MEDS ORDERED: FENTANYL CITRATE INJ 50 MCG/1 ML 2 ML VIAL ONE ×2 (08:51→10:07)
[2016-08-06] MEDS ORDERED: MIDAZOLAM HCL 1 MG/ML 2ML VIAL ONE ×3 (08:51→10:07)
[2016-08-06] MEDS ORDERED: AMLODIPINE BESYLATE 5 MG TAB PO SCH (09:00)
[2016-08-06] MEDS ORDERED: ATORVASTATIN 20 MG TAB PO SCH (09:00)
--- NOTE | 2016-08-06 09:43 | Procedure Note ---
Pre-Mod Sedation Assessment General Date of Moderate Sedation: Aug 06, 2016. Vital Signs: Vital Signs Past 12 Hours Date Time Temp Pulse Resp B/P (MAP) Pulse Ox O2 Delivery O2 Flow Rate FiO2 08/06/16 08:00 Room Air 08/06/16 07:56 36.5 64 18 165/93 (117) 97 Room Air 08/06/16 04:08 36.6 62 18 150/79 (102) 98 08/06/16 04:00 Room Air 08/06/16 01:16 36.5 64 18 165/93 97 Room Air 08/06/16 00:01 Room Air 08/05/16 23:02 36.7 67 18 168/94 (118) 99 Room Air 146/97 (113) Review Cardiovascular: regular rate, rhythm, + extra beats Airway Class: III Pre-Sedation Airway Assessment Oral Cavity: WNL Able to Visualize Vocal Cords: No Short Thick Neck: No Hx of Sleep Apnea: No Smoking Status: Never Smoker Mallampati Classification: Class III ASA Classification: Class III Procedure Planning Contraindications-for Mod Sed: None Yes Notes The planned sedation has been discussed with the patient and consent obtained. I have identified the patient, determined the appropriateness of sedation and have assessed the patient immediately prior to the procedure. All medicine(s) and interventions are by my order.
[2016-08-06] MEDS ORDERED: TICAGRELOR 90 MG TAB PO ONE (10:08)
[2016-08-06] MEDS ORDERED: EPTIFIBATIDE 0.75 MG/ML 75MG VIAL IV ONE (10:48)
[2016-08-06] MEDS ORDERED: EPTIFIBATIDE 2 MG/ML 10 ML VIAL IV ONE (10:48)
[2016-08-06] MEDS ORDERED: SODIUM CHLORIDE 0.9% 1000ML 1,000 ML IV SCH (11:15)
--- NOTE | 2016-08-06 11:19 | DIAGNOSTIC IMAGING REPORT ---
HEAD CT NONCONTRAST CT DOSE: 614.27 mGy.cm HISTORY: Stroke Confusion s/p cath TECHNIQUE: Multiaxial CT images of the head were performed without the use of intravenous contrast. Comparison: None. Findings: The paranasal sinuses and mastoid air cells are clear. The calvarium and skull base are intact. The ventricles and sulci are within normal limits. There is no mass, hematoma, midline shift, or acute infarct. Note is made that there is contrast present from cardiac catheterization procedure. Impression: No acute intracranial abnormality. Electronically signed by: Diallo Lopes M.D. 08/06/2016 11:17 AM Dictated Date/Time: 08/06/2016 11:15 AM
--- NOTE | 2016-08-06 11:21 | Procedure Note ---
Post-Mod Sedation Assessment General Date of Moderate Sedation Aug 06, 2016. Vital Signs: Vital Signs Past 12 Hours Date Time Temp Pulse Resp B/P (MAP) Pulse Ox O2 Delivery O2 Flow Rate FiO2 08/06/16 08:00 Room Air 08/06/16 07:56 36.5 64 18 165/93 (117) 97 Room Air 08/06/16 04:08 36.6 62 18 150/79 (102) 98 08/06/16 04:00 Room Air 08/06/16 01:16 36.5 64 18 165/93 97 Room Air 08/06/16 00:01 Room Air Review - Discharge Criteria Vital Signs Stable: Yes Alert/Oriented/Conversant: No Returned to Baseline Mental St: No Nausea Absent/Minimal: Yes Pain/Discomfort/Absent/Minimal: No Normal/Baseline Respirations: Yes Active Bleeding?: No Pt Received D/C Instructions: N/A Prescriptions Given: None Specific Proced. D/C Criteria Distal Pulses Present (Cardiac: Yes Groin site assessed-Card Cath: N/A Voided Prior To Discharge: N/A Discharged Patients Adult Escort/Transportation: Yes
--- NOTE | 2016-08-06 13:12 | Critical Care Consultation ---
Critical Care Consultation Date of Consultation: Aug 06, 2016. Attending Physician: Marilyn Pedersen MD Reason for Consultation: PCI with drug-eluting stent to the LAD followed by confusion - rule out CVA Patient on Integrilin drip History of Present Illness Attending: Dr. Ramirez This is a 60-year-old male who was admitted yesterday for chest pain. Apparently he has had unstable angina for several weeks which has progressively gotten worse. Patient had a stress test yesterday which was concerning. He was then taken to the cardiac catheterization lab this morning by Dr. Archibald. He was found to have significant lesions in the LAD and received a drug-eluting stent. Patient also was found to have a small clot. During the process of trying to aspirate the clot, the patient became confused. The procedure was aborted and a stroke alert was called overhead. We responded to the cardiac catheterization lab and escorted the patient to the CT scanner. A CT scan of the head was completed and showed no evidence of acute stroke or acute changes. Patient was then transferred to intensive care room 111. 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 NIH scale was zero. There is no evidence of stroke other than the fact the patient could not recall what month this was. The patient had no loss of strength or function and no other neurological focal deficits. He was determined that TPA was not indicated. It was also suggested by the [facility] neurologist that patient undergo MRI/MRA of the brain and neck. The patient admits to some very mild chest burning which was similar to what occurred during the procedure. Otherwise he denies any pain, numbness, tingling. He does state that his memory recall is hazy like he is in a dream. The more discussion we have the more recollection he has. He has no slurred speech. He denies headache. With his glasses on he denies any blurred vision or diplopia. He has no shortness of breath. He has no leg pain. He denies recent illness or travel. He has no other acute complaints. Past Medical/Surgical History Medical Problems: (1) Colonoscopic polypectomy (2) Hyperlipidemia Nec/Nos (3) Hypertension Nos (4) Lower gastrointestinal hemorrhage Family History No history of stroke Family history of diabetes, heart disease, high blood pressure and cancer reported Father committed suicide Social History Smoking Status: Never Smoker Smokeless Tobacco Use: No Alcohol Use: occasionally Drug Use: none Marital Status: (many years ago. 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[employer]) Allergies Coded Allergies: Penicillamine (Verified Allergy, Severe, THROAT INFECTION, 06/17/10) Erythromycin (Verified Allergy, Unknown, UNKNOWN, 06/08/15) Penicillins (Verified Allergy, Unknown, RASH, 06/08/15) Azithromycin (Verified Adverse Reaction, Intermediate, DIGESTIVE PROBLEMS , 08/01/16) Macrolides and Ketolides (Verified Adverse Reaction, Mild, MILD, 08/01/16) Home Medications Scheduled Amlodipine (Norvasc), 5 MG PO DAILY Glucosamine Sulfate (Glucosamine), DAILY Zinc Sulfate (Zinc Sulfate), 220 MG PO TID Miscellaneous Medications Flaxseed (Linseed) (Flaxseed Oil) Vitamins C & E (Vitamin C) Current Inpatient Medications Current Inpatient Medications Medications (Trade) Dose Ordered Sig/Shannan Route Start Time Stop Time Status Last Admin Dose Admin Metoprolol Tartrate (Lopressor Tab) 12.5 mg BID PO 08/05/16 17:30 09/04/16 17:29 08/06/16 07:37 12.5 MG Lisinopril (Zestril Tab) 2.5 mg QAM PO 08/06/16 09:00 09/05/16 08:59 08/06/16 07:38 2.5 MG Aspirin (Ecotrin Tab) 81 mg QAM PO 08/06/16 09:00 09/05/16 08:59 08/06/16 07:38 81 MG Atorvastatin Calcium (Lipitor Tab) 20 mg QAM PO 08/06/16 09:00 09/05/16 08:59 08/06/16 07:38 20 MG Amlodipine Besylate (Norvasc Tab) 5 mg DAILY PO 08/06/16 09:00 09/05/16 08:59 08/06/16 07:38 5 MG Acetaminophen (Tylenol Tab) 650 mg Q4H PRN PO 08/05/16 16:00 09/04/16 15:59 Ondansetron HCl (Zofran Inj) 4 mg Q6H PRN IV 08/05/16 16:00 09/04/16 15:59 Nitroglycerin (Nitrostat Tab) 0.4 mg UD PRN SL 08/05/16 16:00 09/04/16 15:59 Heparin Sodium/ Dextrose 500 ml @ 26 mls/hr [id number] PRN IV 08/05/16 23:30 09/04/16 23:29 08/06/16 00:00 26 MLS/HR Sodium Chloride 1,000 ml @ 100 mls/hr Q10H IV 08/06/16 11:15 08/06/16 18:44 Ticagrelor (Brilinta Cap) 90 mg BID PO 08/06/16 21:00 09/05/16 20:59 Review of Systems A total of 12 systems was reviewed and is negative other than as listed above in the HPI Physical Exam Date Time Temp Pulse Resp B/P (MAP) Pulse Ox O2 Delivery O2 Flow Rate FiO2 08/06/16 11:00 76 16 145/66 (92) 97 Room Air 08/06/16 08:00 Room Air 08/06/16 07:56 36.5 64 18 165/93 (117) 97 Room Air 08/06/16 04:08 36.6 62 18 150/79 (102) 98 08/06/16 04:00 Room Air 08/06/16 01:16 36.5 64 18 165/93 97 Room Air 08/06/16 00:01 Room Air 08/05/16 23:02 36.7 67 18 168/94 (118) 99 Room Air 146/97 (113) 08/05/16 20:00 Room Air 08/05/16 19:35 37.1 77 16 148/91 (110) 96 Room Air 08/05/16 17:46 178/99 (125) 08/05/16 16:48 36.9 92 18 173/104 99 Room Air 08/05/16 16:48 36.7 87 18 155/94 96 08/05/16 16:20 87 18 155/94 96 Room Air 08/05/16 14:03 79 18 162/96 GENERAL : No acute distress. Some disorientation EYES: No icterus, gaze conjugate. PERRLA NOSE: No evidence of epistaxis MOUTH: No lesions or candidiasis. No facial droop NECK: Supple. No carotid bruits LUNGS: CTA B/L, no wheezes, rales or rhonchi HEART: Regular, rate controlled. No ectopy ABDOMEN: Soft, NT, ND, BS Present. No rebound tenderness EXTREMITIES: No LE edema, pedal pulses intact NEURO: A&OX3. Cerebellar function intact with rapid alternating movements and finger to nose. DTRs 2/4 bilaterally to bicep, brachioradialis, and patellar tendons.Gait and Romberg deferred. Able to lift both legs. Strength equal and appropriate to both upper extremities Laboratory Results Last 24 Hours Test 08/05/16 21:57 08/05/16 23:30 08/06/16 05:58 08/06/16 09:40 Total Creatine Kinase 63 U/L 69 U/L Creatine Kinase MB < 0.5 ng/ml 0.6 ng/ml Creatine Kinase MB Ratio 0.9 Troponin I 0.080 ng/ml < 0.015 ng/ml Activated Partial Thromboplast Time 32.8 SECONDS 64.4 SECONDS Partial Thromboplastin Ratio 1.3 2.5 White Blood Count 5.00 K/uL Red Blood Count 5.45 M/uL Hemoglobin 16.5 g/dL Hematocrit 47.1 % Mean Corpuscular Volume 86.4 fL Mean Corpuscular Hemoglobin 30.3 pg Mean Corpuscular Hemoglobin Concent 35.0 g/dl Platelet Count 235 K/uL Mean Platelet Volume 9.3 fL Neutrophils (%) (Auto) 61.0 % Lymphocytes (%) (Auto) 20.8 % Monocytes (%) (Auto) 13.6 % Eosinophils (%) (Auto) 3.4 % Basophils (%) (Auto) 0.8 % Neutrophils # (Auto) 3.05 K/uL Lymphocytes # (Auto) 1.04 K/uL Monocytes # (Auto) 0.68 K/uL Eosinophils # (Auto) 0.17 K/uL Basophils # (Auto) 0.04 K/uL RDW Standard Deviation 41.8 fL RDW Coefficient of Variation 13.2 % Immature Granulocyte % (Auto) 0.4 % Immature Granulocyte # (Auto) 0.02 K/uL Sodium Level 140 mmol/L Potassium Level 4.2 mmol/L Chloride Level 106 mmol/L Carbon Dioxide Level 30 mmol/L Anion Gap 4.0 mmol/L Blood Urea Nitrogen 13 mg/dl Creatinine 0.79 mg/dl Est Creatinine Clear Calc Drug Dose 97.4 ml/min Estimated GFR () 113.9 Estimated GFR (Non- 98.3 BUN/Creatinine Ratio 16.7 Random Glucose 89 mg/dl Calcium Level 8.6 mg/dl Magnesium Level 2.4 mg/dl Triglycerides Level 111 mg/dl Cholesterol Level 276 mg/dl HDL Cholesterol 59 mg/dl LDL Cholesterol, Calculated 195 mg/dl VLDL Cholesterol, Calculated 22 mg/dl Cholesterol/HDL Ratio 4.7 Hepatitis C Antibody Screen NEG Kaolin Activated Coagulation Time 279 SECONDS Test 08/06/16 10:18 Kaolin Activated Coagulation Time 114 SECONDS Diagnostic Results HEAD CT NONCONTRAST CT DOSE: 614.27 mGy.cm HISTORY: Stroke Confusion s/p cath TECHNIQUE: Multiaxial CT images of the head were performed without the use of intravenous contrast. Comparison: None. Findings: The paranasal sinuses and mastoid air cells are clear. The calvarium and skull base are intact. The ventricles and sulci are within normal limits. There is no mass, hematoma, midline shift, or acute infarct. Note is made that there is contrast present from cardiac catheterization procedure. Impression: No acute intracranial abnormality. Electronically signed by: Diallo Lopes M.D. 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 Aside from some residual confusion, no other focal deficits CT scan of the head negative May be residual from Versed Reviewed with [facility] neurologist via telemedicine No indication for TPA Monitor with strict precautions Obtain MRI/MRA of brain and neck Continue Ticagrelor (Brilinta) No indication for Plavix or aspirin for stroke symptoms per neurologist at [facility] consult Outpatient follow-up to resolution CAD Stress test yesterday with inducible ischemia Preserved LVEF, mild aoritc regur Cardiac catheterization today with lesion found at the LAD Drug-eluting stent placed Continue Integrilin drip per Dr. Archibald Monitor in ICU for 24 hours First troponin was negative at less than 0.015. Second troponin 0.080. Third troponin less than 0.015. Continue Brilinta per cardiology Continue beta westley for hypertension On Norvasc at home Monitor on telemetry Two for hyperlipidemia cholesterol 276 HDL 59 ELECTROLYTES Sodium 140 Potassium 4.2 Magnesium 2.4 Calcium 8.6 HEME Hemoglobin 16.5 Hematocrit 47.1 Platelet count 235 No active bleeding TR band in place to right radial access point RENAL BUN 13 Creatinine 0.79 Significant dye load with PCI Follow serial labs ID No recent illness or travel WBC 5.0 Neutrophil count 3.05 Lymphocytes 1.04 Eosinophils 0.17 Afebrile Check MRSA screening IV ACCESS Peripheral access in place No indication for central line NEURO See #1 above No other focal deficits Consult neuro MRI/MRA pending PULMONARY No smoking history Oxygenating well on room air CXR negative NUTRITION AHA diet as tolerated GI PROPHYLAXIS No indication at this point Continue to monitor DVT PROPHYLAXIS Currently on Integrilin and Brilinta Additional chemical prophylaxis per cardiology SCDs Ambulate as tolerated CCT: 40 minutes Thank you for including us in the care of this patient. Please refer to Dr. Ramirez's addendum for further recommendations I have personally evaluated and examined this patient. I agree with assessment and plan of Althea Cullen PA-C. MRI report reviewed, area concerning for possible small embolic CVA given temporal correlation to clot seen in coronary. Not a candidate for TPA, discussed with Jorge Archibald will need drooling antiplatelet therapy with Brilinta and aspirin. We'll continue Integrilin for 8 hours. My INH stroke scale was 0, the patient is having some mild word finding difficulties which may have been complicated with his procedural sedation.
--- NOTE | 2016-08-06 13:19 | DIAGNOSTIC IMAGING REPORT ---
MRI OF THE BRAIN WITHOUT IV CONTRAST CLINICAL HISTORY: Strokelike symptoms. COMPARISON STUDY: CT of the brain dated 08/06/2016. MRI of the brain dated 11/29/2012. TECHNIQUE: MRI of the brain was performed utilizing various T1 and T2-weighted sequences in the axial, sagittal, and coronal planes. IV contrast was not administered for this examination. FINDINGS: Brain parenchyma: There is minimal patchy subcortical and periventricular microangiopathic disease. There is no hemorrhage or mass effect. There is a questionable 6 mm focus of restricted diffusion versus artifact within the right genu of the corpus callosum. This is seen on axial diffusion image #15. No additional foci of restricted diffusion are identified. Yi-white matter differentiation is preserved. No extra-axial fluid collection is seen. The cerebellar tonsils are normal in configuration. Ventricles, sulci, and cisterns: Normal in configuration. Pituitary and sella: Unremarkable. Intracranial vasculature: Normal flow voids are maintained at the skull base. Orbits: The bony orbits are grossly intact. Orbital contents are normal in appearance. Sinuses and mastoids: There is trace mucosal thickening within the maxillary antra. The remaining paranasal sinuses are clear. The mastoid air cells are well pneumatized. Calvarium: Unremarkable. Cervical cord: Partially visualized cervical spinal cord is normal in morphology and signal intensity. IMPRESSION: 1. There is a questionable 6 mm focus of restricted diffusion versus artifact suggested within the right genu of the corpus callosum. Although the location is atypical, a tiny lacunar infarct is not excluded. 2. No additional foci of restricted diffusion are suspected. There is no hemorrhage or mass effect. Electronically signed by: Kraig Elias M.D. 08/06/2016 1:18 PM Dictated Date/Time: 08/06/2016 1:11 PM
[2016-08-06] MEDS ORDERED: EPTIFIBATIDE BOLUS / DRIP IV STA (13:39)
[2016-08-06] MEDS ORDERED: EPTIFIBATIDE INJ 75 MG PREMIXED IV SCH (14:00)
--- NOTE | 2016-08-06 14:09 | Cardiac Catheterization ---
Procedure Note Procedure Date Aug 06, 2016. 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 Worthington for high risk stress test in the setting of accelerating angina. Fount to have severe 90% ostial LAD disease with moderate to severe OM disease. Decision made to proceed with PCI of LAD. IVUS pre-procedure assessment - mildly calcified stenosis extending back from proximal segment to ostium. No significant involvement of left main or circumflex ostium. -- PCI -- Antithrombotic therapy: Heparin, Ticagrelor, Integrilin Procedure: Initial ACT prior to beginning PCI was >270. Ticagrelor 180mg administered when decision made to proceed with PCI LM cannulated with JL3.5 guide Rehabilitation Manager 50 wire passed across lesion into distal vessel LAD lesion predilated with 2.5 compliant balloon Dilated lesion stented with 3.5 x 28 Xience UDAY Subsequent ACT <150. Given 5000 heparin Additional sedation administered Stent post-dilated with 4.0 noncompliant balloon Post dilation angiogram revealed haziness in the left main concerning for thrombus Repeat IVUS showed no distal vessel complications, well-expanded stent landed proximally just at the ostium. Echodensity noted at the proximal end of stent/ distal LM c/w thrombus. Aspiration thrombectomy performed with removal of minimal debris IC integrilin bolus administered Soon after aspiration patient developed acute confusion, repeating questions, unable to remember where/when he was. No focal neurologic deficits On post angiogram LM thrombus no longer present in LM but new acute occlusion of very distal LAD as wrapped around apex. IC nicardipine and 2nd bolus of integrilin administered. ECG changes improved and minimal residual chest pain but acute confusion remained present. Decision made to complete procedure. Stat noncontrast head CT ordered and Stroke alert called for further evaluation. Arterial Closure: TR Band Summary: 1. Multivessel coronary artery disease - 95% ostial LAD stenosis - 60-70% OM disease 2. Successful PCI of ostial LAD with 3.5x28 Xience UDAY, post-dilated with 4.0 balloon. 3. Post procedure complicated by LM/intrastent thrombus treated with aspiration thrombectomy, IC integrilin with residual very distal/apical occlusion managed medically 4. Acute intraprocedure confusion/Stroke Alert Recommendations: Stat Head CT prior to transfer to ICU for additional neuro/critical care evaluation. Trend troponins, repeat limited echo. If no intracranial hemorrhage, continue integrilin for 10hrs. Continue DAPT with ASA/Ticagrelor for at least 1 year. Continue statin and ASCVD risk factor modification Further assessment of circumflex disease as an outpatient Hemodynamics Rest Ao: -- Final Ao: -- LV: -- Recommendations PCI without planned CABG Specimens None Radiation Exposure (mGy) -- Contrast (mls) -- Drains None Anesthesia Moderate Procedural Complication(s) distal LAD thrombus Disposition ICU ACC Data Cardiac Status Clinical evaluation leading to the procedure CAD Presntation: Positive Stress Test Anginal Classification: CCS III Heart Failure: No, NYHA Class: CCS I Cardiogenic Shock w/in 24Hrs: No Cardiac Arrest w/in 24Hrs: No Imaging studies past 6 months: Yes Stress studies past 6 months: Yes Standard Exercise Stress Test: No Stress Echocardiogram: Yes - Positive, Risk/Extent of Ischemia (High) Diagnostic Physician's Name: Lalito Worthingotn MD Closure Device Percutaneous Entry Location: Radial Closure Device: Radial Band Recommendations: PCI without planned CABG PCI Indication: + Stress Test Lesion Segment Name: Ostial LAD Culprit Artery: Yes Stenosis Prior to Rx (%): 95 Chronic Total Occlusion: No IVUS: Yes FFR: No Pre-Procedure AVIS Flow: 3 Previously Treated Lesion: No Lesion Complexity: Non-High/Non-C Lesion Length (mm): 20 Thrombus Present: Yes Bifurcation Lesion: No Guidewire Across Lesion: Yes Guidewire: Stenosis Post-Procedure (%): 0 Post-Procedure AVIS Flow: 3 Device(s) Deployed: Yes Intraprocedure Events Significant Dissection: No Perforation: No
[2016-08-06] MEDS ORDERED: PHARMACIST DISCHARGE MED REC CONSULT PRN (17:00)
--- NOTE | 2016-08-06 19:46 | DIAGNOSTIC IMAGING REPORT ---
ULTRASOUND OF THE CAROTID ARTERIES CLINICAL HISTORY: Stroke COMPARISON STUDY: None. TECHNIQUE: Real-time, grayscale, and color Doppler sonography of the carotid arteries was performed. Imaging reviewed in the transverse and longitudinal planes. NASCET criteria was utilized for stenosis calcification. FINDINGS: There is minimal atherosclerotic plaque present . The peak systolic velocity within the right internal carotid artery is 100 cm/sec. The systolic velocity ratio of right internal to common carotid artery is 0.8. The peak systolic velocity within the left internal carotid artery is 114 cm/sec. The systolic velocity ratio left internal to common carotid artery is 0.9. Antegrade flow is seen in the vertebral arteries. The external carotid arteries are patent. IMPRESSION: No evidence of hemodynamically significant carotid stenosis. Electronically signed by: Joe Blunt M.D. 08/06/2016 7:44 PM Dictated Date/Time: 08/06/2016 7:43 PM
--- NOTE | 2016-08-06 20:39 | DIAGNOSTIC IMAGING REPORT ---
MR ANGIOGRAPHY OF THE [place] OF MAN NO CONTRAST CLINICAL HISTORY: Acute stroke COMPARISON STUDY: None. A 3-D [id number] MR angiographic sequence of the [place] was performed. Both the source and projection images were reviewed. There is no evidence of major intracranial branch occlusion. There is a 50% diameter stenosis of the mid basilar artery. 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 IMPRESSION: 1. 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 08/06/2016 8:37 PM Dictated Date/Time: 08/06/2016 8:29 PM
[2016-08-06] MEDS: TICAGRELOR 90 MG TAB PO SCH (21:36)
[2016-08-06] MEDS ORDERED: Integrelin infusion --> STOP ORDER ONE (22:00)
[2016-08-07] VITALS (19 sets, daily range): BP systolic 108–164; BP diastolic 74–93; PULSE 53–99; TEMP 36.5–36.7; O2SAT 90–99
--- NOTE | 2016-08-07 00:18 | Hospitalist Progress Note ---
Hospitalist Progress Note Date of Service Aug 06, 2016. Subjective Pt evaluation today including: conversation w/ patient, conversation w/ hearing aid consultant (Critical Care, Cardiology, Neurology) Pt seen upon arrival to ICU after Stroke Alert this AM and then again in the late afternoon. He developed confusion in cathead worker after stent placement and aspiration thrombectomy performed prompting Stroke Alert being called. Pt had NIH stroke score of 0, but had some dissociative-like features, confusion, had trouble remembering sequence of events in time and space. Seemed to be more likely secondary to midazolam he received for sedation. CT head reviewed by me and was negative for hemorrhage. [place] Telestroke was performed with Viscose Department Worker and no TPA was given. MRI brain showed questionable 6 mm focus in corpus callosum that may be acute lacunar infarct. When seen later in day, pt had no further confusion. 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 He has these episodes about 4x/year. No further chest burning since his LAD stent placement. No SOB Remains on Integrilin gtt. BPs were running higher on diastolic side and RN reported to me she turned off his NS IVFs because of this. All tests and pt's condition were reviewed with him in detail All Other Systems: Reviewed and Negative Objective Vital Signs Date Time Temp Pulse Resp B/P (MAP) Pulse Ox O2 Delivery O2 Flow Rate FiO2 08/06/16 22:01 76 15 136/91 (106) 98 Room Air 08/06/16 21:30 79 16 133/93 (106) 99 Room Air 08/06/16 21:00 36.6 81 15 118/78 (91) 99 Room Air 08/06/16 20:00 Room Air 08/06/16 19:30 80 22 148/86 (106) 97 Room Air 08/06/16 19:00 104 18 141/90 (107) 97 Room Air 08/06/16 19:00 77 16 141/90 (107) 98 08/06/16 15:38 85 18 136/76 (96) 99 Room Air 08/06/16 15:18 36.8 77 18 150/100 (117) 99 Room Air 08/06/16 14:21 83 18 142/104 (117) 99 Room Air 08/06/16 13:41 66 16 146/99 (115) 100 Room Air 08/06/16 13:20 36.6 76 14 157/96 (116) 97 Room Air 08/06/16 12:15 79 14 97 Room Air 08/06/16 12:00 80 14 97 Room Air 08/06/16 12:00 97 Room Air 08/06/16 11:45 36.6 80 14 165/108 (127) 97 Room Air 08/06/16 11:30 36.5 67 16 146/80 (102) 97 Room Air 08/06/16 11:00 76 16 145/66 (92) 97 Room Air 08/06/16 08:00 Room Air 08/06/16 07:56 36.5 64 18 165/93 (117) 97 Room Air 08/06/16 04:08 36.6 62 18 150/79 (102) 98 08/06/16 04:00 Room Air 08/06/16 01:16 36.5 64 18 165/93 97 Room Air 08/06/16 00:01 Room Air Physical Exam General Appearance: WD/WN, no apparent distress Eyes: normal inspection, EOMI, sclerae normal ENT: hearing grossly normal, pharynx normal Neck: no JVD, no carotid bruits, trachea midline Respiratory/Chest: lungs clear, normal breath sounds, no respiratory distress, no accessory muscle use Cardiovascular: regular rate, rhythm, no edema, no gallop, no JVD, no murmur Abdomen: normal bowel sounds, non tender, soft, no organomegaly Extremities: normal range of motion, non-tender, normal inspection, no pedal edema, no calf tenderness Neurologic/Psychiatric: public health sanitarian technician II-XII nml as tested, no motor/sensory deficits, alert, normal mood/affect, oriented x 3 Skin: normal color, warm/dry, no rash Laboratory Results Last 24 Hours Test 08/06/16 05:58 08/06/16 06:18 08/06/16 09:40 08/06/16 10:18 White Blood Count 5.00 K/uL Red Blood Count 5.45 M/uL Hemoglobin 16.5 g/dL Hematocrit 47.1 % Mean Corpuscular Volume 86.4 fL Mean Corpuscular Hemoglobin 30.3 pg Mean Corpuscular Hemoglobin Concent 35.0 g/dl Platelet Count 235 K/uL Mean Platelet Volume 9.3 fL Neutrophils (%) (Auto) 61.0 % Lymphocytes (%) (Auto) 20.8 % Monocytes (%) (Auto) 13.6 % Eosinophils (%) (Auto) 3.4 % Basophils (%) (Auto) 0.8 % Neutrophils # (Auto) 3.05 K/uL Lymphocytes # (Auto) 1.04 K/uL Monocytes # (Auto) 0.68 K/uL Eosinophils # (Auto) 0.17 K/uL Basophils # (Auto) 0.04 K/uL RDW Standard Deviation 41.8 fL RDW Coefficient of Variation 13.2 % Immature Granulocyte % (Auto) 0.4 % Immature Granulocyte # (Auto) 0.02 K/uL Activated Partial Thromboplast Time 64.4 SECONDS Partial Thromboplastin Ratio 2.5 Sodium Level 140 mmol/L Potassium Level 4.2 mmol/L Chloride Level 106 mmol/L Carbon Dioxide Level 30 mmol/L Anion Gap 4.0 mmol/L Blood Urea Nitrogen 13 mg/dl Creatinine 0.79 mg/dl Est Creatinine Clear Calc Drug Dose 97.4 ml/min Estimated GFR () 113.9 Estimated GFR (Non- 98.3 BUN/Creatinine Ratio 16.7 Random Glucose 89 mg/dl Calcium Level 8.6 mg/dl Magnesium Level 2.4 mg/dl Total Creatine Kinase 69 U/L Creatine Kinase MB 0.6 ng/ml Creatine Kinase MB Ratio 0.9 Troponin I < 0.015 ng/ml Triglycerides Level 111 mg/dl Cholesterol Level 276 mg/dl HDL Cholesterol 59 mg/dl LDL Cholesterol, Calculated 195 mg/dl VLDL Cholesterol, Calculated 22 mg/dl Cholesterol/HDL Ratio 4.7 Hepatitis C Antibody Screen NEG Kaolin Activated Coagulation Time 279 SECONDS 114 SECONDS Test 08/06/16 11:28 08/06/16 23:00 Bedside Glucose 130 mg/dl Troponin I 5.880 ng/ml Assessment and Plan Pt is a 60-year-old male with a h/o HTN, hyperlipidemia (treated with flaxseed oil and lifestyle modification), who presents with exertional chest pain over the last 2 months seemingly getting worse. EKG initially shows no signs of ischemia. Initial troponin was negative. He had a stress ECHO which was grossly abnormal and positive for ischemia. He was placed on a heparin gtt overnight. Second troponin 0.08. He went for left heart cath and had severe CAD , multivessel, with UDAY placed at proximal LAD for 95% occlusion. He did require an aspiration thrombectomy during cath and a small clot went into distal LAD. SHortly after thrombectomy, he developed confusion during cath and stroke alert called. MRI brain shows possible 6mm lacunar infarct carpus callosum, but does not seem to fit clinically with his symptoms which were more likely related to effect of midazolam. Unstable angina, CAD now s/p UDAY ostial LAD for 95% occlusion, also with 60-70% stenosis OM. Small clot in distal LAD. Now troponin up to 5. Likely with Familial hypercholesterolemia with LDL 195. Brother with [place] age 62, father with hyperlipidemia but committed suicide age 48 so unknown if had premature CAD. -continue DAPT with ASA, Brillinta for at least 1 year -start high intensity statin Lipitor 80mg daily -check lipids and LFTs in 4-6 weeks -start lisinopril, metoprolol -check limited ECHO -Will need Cardiac Rehab after cleared by Cardiology -Appreciate Cardiology management-will need office f/u within 1-2 weeks -continue tele monitoring -trend troponin Confusion/Acute toxic encephalopathy likely secondary to Versed vs acute CVA of embolic nature. MRI brain with questionable 6 mm lacunar infarct corpus callosum -Neuro checks PT/OT/ST -Neuro consult-discussed case with Dr. Sherman -check Carotid US, MRA head -on ASA, statin -Neuro recommends consideration to repeat MRI in 1-2 days to see if artifact vs true CVA HTN-ok to keep MAP aorund 100 given possible acute CVA -hold home Norvasc 5 mg to keep MAP up now that on lisinopril and metoprolol DVT prophylaxis -TEDS, SCDs, could add on heparin SQ tomorrow after Integrilin gtt completed CODE STATUS -LEVEL I FULL CODE
[2016-08-07 05:23] LABS: BASO % 0.1 %; BASO ABS # 0.01 K/uL (0-0.2); COMPLETE YES; EOS % 1.5 %; HEMATOCRIT 44.8 % (42-52); IG% 0.4 %; LYMPH % 9.9 %; LYMPH ABS # 0.75 K/uL (1.2-3.4); MEAN CELL VOLUME 86.8 fL (80-100); MEAN CORPUSCULAR HEMOGLOBIN 30.8 pg (25-34); MEAN CORPUSCULAR HGB CONC 35.5 g/dl (32-36); MEAN PLATELET VOLUME 9.4 fL (7.4-10.4); MONO % 12.9 %; NEUT % 75.2 %; PLATELET COUNT 217 K/uL (130-400); RED BLOOD COUNT 5.16 M/uL (4.7-6.1); WHITE BLOOD COUNT 7.57 K/uL (4.8-10.8)
[2016-08-07 05:39] LABS: PARTIAL THROMBOPLASTIN RATIO 1.1
[2016-08-07 05:42] LABS: BUN/CREATININE RATIO 15.3 (10-20); CALCIUM 8.8 mg/dl (8.5-10.1); CREATININE 0.83 mg/dl (0.60-1.40); MAGNESIUM 2.3 mg/dl (1.8-2.4); POTASSIUM 4.2 mmol/L (3.5-5.1)
[2016-08-07 06:19] LABS: PHOSPHORUS 2.4 mg/dl (2.5-4.9)
[2016-08-07 07:57] LABS: ESTIMATED AVERAGE GLUCOSE 100 mg/dl; HA1C FLAG Normal (Normal)
[2016-08-07] MEDS: METOPROLOL TARTRATE 25 MG TAB PO SCH ×2 (07:58→20:57)
[2016-08-07] MEDS: ASPIRIN 81 MG ECTAB PO SCH (07:59)
[2016-08-07] MEDS ORDERED: OPTIRAY 320 IV PRN (08:00)
[2016-08-07] MEDS: LISINOPRIL 2.5 MG TAB PO SCH (08:00)
[2016-08-07] MEDS: ATORVASTATIN 40 MG TAB PO SCH (08:00)
[2016-08-07] MEDS: TICAGRELOR 90 MG TAB PO SCH ×2 (08:01→20:57)
--- NOTE | 2016-08-07 09:06 | DIAGNOSTIC IMAGING REPORT ---
CT brain angiogram HEAD ANGIO WITH CONTRAST CLINICAL HISTORY: Abnormal MRI atherosclerosis. TECHNIQUE: Transaxial acquisition with multi axial reformatted images COMPARISON STUDY: MRI dated 08/06/2016 FINDINGS: Smoothly marginated 40-50% narrowing of the mid basilar artery. Defect appears somewhat extrinsic or extraluminal although no abnormality in terms of brain parenchyma is identified. All remaining intracranial vessels are unremarkable. All major components of the anterior middle and posterior cerebral circulations are intact. IMPRESSION: 1. Smoothly marginated 40-50% narrowing of the mid basilar artery. 2. Intracranial vasculature is otherwise negative. Electronically signed by: Diallo Lopes M.D. 08/07/2016 9:05 AM Dictated Date/Time: 08/07/2016 8:59 AM
--- NOTE | 2016-08-07 09:18 | DIAGNOSTIC IMAGING REPORT ---
CT NECK ANGIO WITH CONTRAST CLINICAL HISTORY: Atherosclerotic disease. Unstable angina. ] ANEURYSM, COMPARISON STUDY: Carotid Doppler ultrasound dated 08/06/2016 , MR angiography dated 08/06/2016 TECHNIQUE: CT angiography was performed from the aortic arch to the skull base. MIP imaging was performed. The patient was scanned in a dynamic helical fashion during intravenous administration of 118 cc of Optiray 320. CT DOSE: Technique: CT angiogram of the carotid and vertebral arteries was obtained using intravenous contrast and 3-D reconstruction. NASCET criteria was utilized. Findings: The right internal carotid revealed a focal dissection of the high cervical right internal carotid. Superior to the dissection, there is a 7 mm saccular aneurysm. There is a 50% right internal carotid artery origin stenosis.. There is a 40% diameter stenosis of the right external carotid origin. The left internal carotid revealed a 40% stenosis of the internal carotid origin.. There is focal ectasia of the high cervical internal carotid. There is no evidence of focal aneurysm. There is no evidence of dissection. Both cervical internal carotids demonstrate a somewhat beaded appearance. There is no evidence of hemodynamically significant vertebral stenosis. There is no evidence of vertebral dissection. There is a 50% diameter basilar artery stenosis. IMPRESSION: 1. 50% stenosis of the right internal carotid artery origin 2. 40% stenosis of the left internal carotid artery origin 3. 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 Beaded ectasia of both cervical internal carotids 6. 50% basilar artery stenosis Electronically signed by: Joe Blunt M.D. 08/07/2016 9:17 AM Dictated Date/Time: 08/07/2016 8:59 AM
--- NOTE | 2016-08-07 09:33 | Critical Care Progress Note ---
Critical Care Progress Note Date of Service Aug 07, 2016. ICU Day ICU Day Number: [address] Ramirez Subjective No events overnight. States that he felt well overnight. oriented x 3. Denies any chest pain, SOB, weakness, numbness/ tingling of limbs ROS negative aside from above Objective General: ambulatory, not in acute distress Skin: no rashes noted, no suspicious lesions, no areas of inflammations/ lacerations/ erythema noted CVS: S1/ S2 noted, RRR, no rubs/ murmurs noted, no cyanosis RVS: Clear throughout bilaterally, not in acute respiratory distress, no wheezing/ rales/ crackles noted ENT:no erythema/ injection/ ulcerations noted in the pharynx, no lymphadenopathy , tongue midline Neck: inspection WNL, full ROM of neck, no bruits noted ABD: BSx4, no pain/ tenderness on palpation, no organomegaly MSK: inspection of all limbs WNL, motor and sensation intact in all limbs, no swelling/ pain on palpation of joints NVS: CN ii-xii WNL, PERRL, EOMI, sensation intact in all extremities Lymph: No lymphadenopathy palpable Current SOFA Score SOFA Score Response (Comments) Value Platelets (x10) > 150 0 Bilirubin (mg/dL) < 1.2 0 Panchito Coma Score 15 0 Level of Hypotension No Hypotension 0 Creatinine (mg/dL) < 1.2 0 Total 0 Assessment & Plan 1. Metabolic encephalopathy secondary to hypotensive episode during procedure vs TIA/ CVA 2. S/P stent placement LAD and partial clot removal 3. Elevated troponin most likely secondary to recent intervention 4. Hyperlipidemia NVS - alert and oriented x 3 this am - MRI revealed a questionable hypodensity in the corpus callosum - MRA revealed 50 % stenosis of mid basilar a and 7 mm Aneurysm of high right cervical - discussed with Dr Sherman, will repeat MRI and CTA H&N to assess the patient further CVS - continue to monitor on tele - continue ASA, Lisinopril, Atorvastatin and Metoprolol per CVS - amlodipine has been held - FLP reflected hyperlipidemia - Continue Brilinta RESP - O2 per nursing protocol GI - AHA diet - continue to monitor I&O DVT Prophylaxis - Brilinta and SCD Resident Physician Supervision Note: Dr. Staruss was resident physician during care of patient. I separately evaluated patient and did history and exam. I discussed the case with the resident and generally agree with the findings and plan. repeat imaging ordered, and stable for downgrade to telemetry status Documented By: Bruce Ramirez DO Consults & Procedures Consultants: Dr Archibald [facility] Dr Lane ANDERSON Procedures: Cardiac cath with stent Data Medications: Current Inpatient Medications Medications (Trade) Dose Ordered Sig/Shannan Route Start Time Stop Time Status Last Admin Dose Admin Metoprolol Tartrate (Lopressor Tab) 12.5 mg BID PO 08/05/16 17:30 09/04/16 17:29 08/07/16 07:58 12.5 MG Lisinopril (Zestril Tab) 2.5 mg QAM PO 08/06/16 09:00 09/05/16 08:59 08/07/16 08:00 2.5 MG Aspirin (Ecotrin Tab) 81 mg QAM PO 08/06/16 09:00 09/05/16 08:59 08/07/16 07:59 81 MG Amlodipine Besylate (Norvasc Tab) 5 mg DAILY PO 08/06/16 09:00 09/05/16 08:59 Future Hold 08/06/16 07:38 5 MG Acetaminophen (Tylenol Tab) 650 mg Q4H PRN PO 08/05/16 16:00 09/04/16 15:59 Ondansetron HCl (Zofran Inj) 4 mg Q6H PRN IV 08/05/16 16:00 09/04/16 15:59 Nitroglycerin (Nitrostat Tab) 0.4 mg UD PRN SL 08/05/16 16:00 09/04/16 15:59 Ticagrelor (Brilinta Cap) 90 mg BID PO 08/06/16 21:00 09/05/16 20:59 08/07/16 08:01 90 MG Atorvastatin Calcium (Lipitor Tab) 80 mg QAM PO 08/07/16 09:00 09/05/16 08:59 08/07/16 08:00 80 MG Miscellaneous Information (Pharmacist Discharge Med Rec Consult) 1 ea UD PRN N/A 08/06/16 17:00 09/05/16 16:59 Ioversol (Optiray 320) 100 ml UD PRN IV 08/07/16 08:00 08/11/16 07:59 Vital Signs: Date Time Temp Pulse Resp B/P (MAP) Pulse Ox O2 Delivery O2 Flow Rate FiO2 08/07/16 08:00 82 15 98 08/07/16 07:46 36.5 99 19 123/85 (98) 98 Room Air 08/07/16 07:45 Room Air 08/07/16 07:30 64 20 123/85 (98) 97 08/07/16 07:00 53 18 125/78 (94) 96 08/07/16 04:00 Room Air 08/07/16 03:30 54 14 121/75 (90) 98 Room Air 08/07/16 03:01 71 16 114/83 (93) 90 Room Air 08/07/16 02:30 68 18 108/79 (89) 97 Room Air 08/07/16 02:00 60 17 129/89 (102) 99 Room Air 08/07/16 01:30 70 16 138/80 (99) 97 Room Air 08/07/16 01:00 61 8 127/85 (99) 98 Room Air 08/07/16 00:30 58 15 122/87 (99) 99 Room Air 08/07/16 00:01 Room Air 08/07/16 00:00 36.7 65 18 138/84 (102) 99 Room Air 08/06/16 23:30 58 14 124/84 (97) 99 Room Air 08/06/16 22:30 64 18 134/88 (103) 96 Room Air 08/06/16 22:01 76 15 136/91 (106) 98 Room Air 08/06/16 21:30 79 16 133/93 (106) 99 Room Air 08/06/16 21:00 36.6 81 15 118/78 (91) 99 Room Air 08/06/16 20:00 Room Air 08/06/16 19:30 80 22 148/86 (106) 97 Room Air 08/06/16 19:00 104 18 141/90 (107) 97 Room Air 08/06/16 19:00 77 16 141/90 (107) 98 08/06/16 15:38 85 18 136/76 (96) 99 Room Air 08/06/16 15:18 36.8 77 18 150/100 (117) 99 Room Air 08/06/16 14:21 83 18 142/104 (117) 99 Room Air 08/06/16 13:41 66 16 146/99 (115) 100 Room Air 08/06/16 13:20 36.6 76 14 157/96 (116) 97 Room Air 08/06/16 12:15 79 14 97 Room Air 08/06/16 12:00 80 14 97 Room Air 08/06/16 12:00 97 Room Air 08/06/16 11:45 36.6 80 14 165/108 (127) 97 Room Air 08/06/16 11:30 36.5 67 16 146/80 (102) 97 Room Air 08/06/16 11:00 76 16 145/66 (92) 97 Room Air Laboratory Results: Last 24 Hours Test 08/06/16 09:40 08/06/16 10:18 08/06/16 11:28 08/06/16 23:00 Kaolin Activated Coagulation Time 279 SECONDS 114 SECONDS Bedside Glucose 130 mg/dl Troponin I 5.880 ng/ml Test 08/07/16 00:05 08/07/16 05:04 08/07/16 06:07 Bedside Glucose 84 mg/dl 91 mg/dl White Blood Count 7.57 K/uL Red Blood Count 5.16 M/uL Hemoglobin 15.9 g/dL Hematocrit 44.8 % Mean Corpuscular Volume 86.8 fL Mean Corpuscular Hemoglobin 30.8 pg Mean Corpuscular Hemoglobin Concent 35.5 g/dl Platelet Count 217 K/uL Mean Platelet Volume 9.4 fL Neutrophils (%) (Auto) 75.2 % Lymphocytes (%) (Auto) 9.9 % Monocytes (%) (Auto) 12.9 % Eosinophils (%) (Auto) 1.5 % Basophils (%) (Auto) 0.1 % Neutrophils # (Auto) 5.69 K/uL Lymphocytes # (Auto) 0.75 K/uL Monocytes # (Auto) 0.98 K/uL Eosinophils # (Auto) 0.11 K/uL Basophils # (Auto) 0.01 K/uL RDW Standard Deviation 41.8 fL RDW Coefficient of Variation 13.2 % Immature Granulocyte % (Auto) 0.4 % Immature Granulocyte # (Auto) 0.03 K/uL Activated Partial Thromboplast Time 27.3 SECONDS Partial Thromboplastin Ratio 1.1 Sodium Level 140 mmol/L Potassium Level 4.2 mmol/L Chloride Level 106 mmol/L Carbon Dioxide Level 30 mmol/L Anion Gap 4.0 mmol/L Blood Urea Nitrogen 13 mg/dl Creatinine 0.83 mg/dl Est Creatinine Clear Calc Drug Dose 92.7 ml/min Estimated GFR () 111.6 Estimated GFR (Non- 96.3 BUN/Creatinine Ratio 15.3 Random Glucose 90 mg/dl Calcium Level 8.8 mg/dl Phosphorus Level 2.4 mg/dl Magnesium Level 2.3 mg/dl Troponin I 7.530 ng/ml
--- NOTE | 2016-08-07 09:43 | DIAGNOSTIC IMAGING REPORT ---
MRI OF THE BRAIN WITHOUT AND WITH IV CONTRAST CLINICAL HISTORY: reevaluate questionable density on previous MRI mental status change COMPARISON STUDY: 08/06/2016 TECHNIQUE: Utilizing a 1.5 Tiffany magnet and dedicated coil, multiplanar, multiecho imaging of the brain was performed pre and postcontrast administration. IV administration of 8.5 mL of Gadavist contrast was uneventful. FINDINGS: Diffusion-weighted images again shows a focus of increased signal within the right corpus callosum. Current study shows punctate additional foci of increased signal or acute cortical ischemic environmental change analyst the right frontoparietal convexity. At least 3 and possibly 4 foci are present with none exceeding 4 mm in greatest diameter. Small punctate foci of increased signal are also seen within the right occipital lobe as well as medially adjacent to the temporal horn of the right lateral ventricle. These foci are not well seen at all additional sequences. Internal auditory canals are symmetric. Signal characteristics of the remainder of the cerebellar as well as cerebral hemispheres appear unremarkable. No significant or abnormal focus of abnormal postcontrast enhancement. IMPRESSION: 1. Progressive punctate foci of acute ischemic change. 2. These involve pre-existing foci within the right corpus callosum, as well as new foci of acute punctate ischemic change of the right frontoparietal convexity, right occipital lobe, and right temporal lobe. 3. No evidence for abnormal postcontrast enhancement. Electronically signed by: Diallo Lopes M.D. 08/07/2016 9:42 AM Dictated Date/Time: 08/07/2016 9:34 AM
--- NOTE | 2016-08-07 11:21 | Neurology Consultation ---
Neurology Consultation Date of Consultation: Aug 07, 2016. Attending Physician: Marilyn Pedersen MD Primary Care Physician: Ari You M.D. Reason for Consultation: Patient is a 60-year-old, who was asked see the request of Dr. Elver Chambers, for neurologic consultation regarding stroke History of Present Illness Source: patient, caregiver, hospital records This patient has a history of hypertension and dyslipidemia. He has a history of partial colectomy years ago for bleeding, precancerous polyp which resolved that problem. 3 years, the patient has had episodes of jagged flashing lights in his vision bilaterally lasting 20 minutes. These can be triggered by bright lights or other factors. They occur about 3 or 4 times a year. He never gets a headache afterwards. Patient has been having some chest pain. The last 3 weeks. 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 He's been having pain with exertion and has been worse over the last week. Pain is radiating up to the jaw and into the left arm. He is been dizzy and lightheaded with this. He came to the emergency room on August 05 at 1140 hours with a temperature 36.7, pulse 90 and regular, respiratory rate 16, O2 saturation 98%, and blood pressure 181/104. CBC and chem profile were unremarkable. Cholesterol was 276. Echocardiogram showed some borderline left ventricular hypertrophy no source of embolus. He was taken to the [facility] and he had a significant stenosis of the LAD. A stent was placed. During this procedure small clot was noted intravascularly. During aspiration piece broke off the patient became confused. There were no focal deficits including weakness, numbness, or aphasia. A stroke alert was called and a CT scan of the head was unremarkable. His age stroke scale is 0. Tele-stroke at [place] recommended no TPA. About 2 hours after the incident, patient was still slightly confused but much improved. MRI of the brain showed a questionable small acute infarct in the genu of the right corpus callosum . There were no other abnormalities noted. MR angiography of the head showed a possible 7 mm aneurysm high up on the right internal carotid artery. There was a 50% stenosis of the mid basilar artery as well. Carotid ultrasound was unremarkable. The patient did well clinically overnight with no new symptoms or problems. His mental status cleared to baseline. Around 0700 hours today, I discussed the imaging studies with the radiologist. Because of the questionable stroke and questionable aneurysm we decided to get additional studies today. Repeat MRI of the brain shows multiple (3 or 4) is new, punctate acute stroke in the right hemisphere and mostly a middle cerebral artery distribution. In addition there was the acute stroke seen again in the right corpus callosum genu. Finally, there were 2 right occipital acute infarcts of a punctate nature. None of these were present in the MRI of 08-06. CT angiography of the head and neck were remarkable for the 40-50% stenosis of the mid basilar artery. In addition the 7 mm saccular aneurysm at the top of the right internal carotid artery was seen and, in addition, just below this aneurysm, was a focal area of dissection. This dissection looks old. He had a trace amount of thrombus in it. In retrospect, comparing the MR angiography of the head from 08-[address] angiography of today, there seems to have been an area below the aneurysm where the vessel was wider with thrombus that was not present today. Patient has no complaint of headache, dizziness, vision problems, speech problems, weakness, numbness, pain, or balance problems. Past Medical/Surgical History Medical Problems: (1) Exertional chest pain Status: Acute (2) Unstable angina Status: Acute Acute stroke, likely embolic from cardiac cath procedure Hypertension Dyslipidemia History of lower GI hemorrhage and partial colectomy for precancerous, hemorrhagic polyp Bilateral inguinal hernia repair Pilonidal cyst removal as a teenager. Family History Mother age 78 of pancreatic cancer. She had a history of hypertension also. Father age 48 from suicide. He had a history of hypercholesterolemia. Social History The patient never smoked cigarettes. He will drink 1 glass of alcohol perhaps as much is once a week but mostly goes several months without alcohol. 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 He has no exposure to toxins or chemicals. Smoking Status: Never smoker Smokeless Tobacco Use: No Alcohol Use: occasionally Drug Use: none Marital Status: (many years ago. No children) Housing Status: lives alone Occupation Status: employed (industrial methods consultant at [employer]) Allergies Coded Allergies: Penicillamine (Verified Allergy, Severe, THROAT INFECTION, 06/17/10) Erythromycin (Verified Allergy, Unknown, UNKNOWN, 06/08/15) Penicillins (Verified Allergy, Unknown, RASH, 06/08/15) Azithromycin (Verified Adverse Reaction, Intermediate, DIGESTIVE PROBLEMS , 08/01/16) Macrolides and Ketolides (Verified Adverse Reaction, Mild, MILD, 08/01/16) Current Inpatient Medications Current Inpatient Medications Medications (Trade) Dose Ordered Sig/Shannan Route Start Time Stop Time Status Last Admin Dose Admin Metoprolol Tartrate (Lopressor Tab) 12.5 mg BID PO 08/05/16 17:30 09/04/16 17:29 08/07/16 07:58 12.5 MG Lisinopril (Zestril Tab) 2.5 mg QAM PO 08/06/16 09:00 09/05/16 08:59 08/07/16 08:00 2.5 MG Aspirin (Ecotrin Tab) 81 mg QAM PO 08/06/16 09:00 09/05/16 08:59 08/07/16 07:59 81 MG Amlodipine Besylate (Norvasc Tab) 5 mg DAILY PO 08/06/16 09:00 09/05/16 08:59 Future Hold 08/06/16 07:38 5 MG Acetaminophen (Tylenol Tab) 650 mg Q4H PRN PO 08/05/16 16:00 09/04/16 15:59 Ondansetron HCl (Zofran Inj) 4 mg Q6H PRN IV 08/05/16 16:00 09/04/16 15:59 Nitroglycerin (Nitrostat Tab) 0.4 mg UD PRN SL 08/05/16 16:00 09/04/16 15:59 Ticagrelor (Brilinta Cap) 90 mg BID PO 08/06/16 21:00 09/05/16 20:59 08/07/16 08:01 90 MG Atorvastatin Calcium (Lipitor Tab) 80 mg QAM PO 08/07/16 09:00 09/05/16 08:59 08/07/16 08:00 80 MG Miscellaneous Information (Pharmacist Discharge Med Rec Consult) 1 ea UD PRN N/A 08/06/16 17:00 09/05/16 16:59 Ioversol (Optiray 320) 100 ml UD PRN IV 08/07/16 08:00 08/11/16 07:59 Review of Systems Constitutional: No fever, No weakness, No fatigue Eyes: No worsening of vision, No diplopia ENT: No hearing loss, No tinnitus, No trouble swallowing Respiratory: No cough, No shortness of breath Cardiovascular: No chest pain, No palpitations Abdomen: No pain, No diarrhea Musculoskeletal: No joint pain, No muscle pain Genitourinary - Male: No dysuria, No urinary incontinence Neurologic: No memory loss, No weakness, No numbness/tingling, No vertigo, No balance problems Psychiatric: No depression symptoms, No anxiety Endocrine: No fatigue Hematologic / Lymphatic: No abnormal bleeding/bruising Integumentary: No rash Allergic / Immunologic: No hives Physical Exam Vital Signs (Past 24 Hrs): Date Time Temp Pulse Resp B/P (MAP) Pulse Ox O2 Delivery O2 Flow Rate FiO2 08/07/16 08:00 82 15 98 08/07/16 07:46 36.5 99 19 123/85 (98) 98 Room Air 08/07/16 07:45 Room Air 08/07/16 07:30 64 20 123/85 (98) 97 08/07/16 07:00 53 18 125/78 (94) 96 08/07/16 04:00 Room Air 08/07/16 03:30 54 14 121/75 (90) 98 Room Air 08/07/16 03:01 71 16 114/83 (93) 90 Room Air 08/07/16 02:30 68 18 108/79 (89) 97 Room Air 08/07/16 02:00 60 17 129/89 (102) 99 Room Air 08/07/16 01:30 70 16 138/80 (99) 97 Room Air 08/07/16 01:00 61 8 127/85 (99) 98 Room Air 08/07/16 00:30 58 15 122/87 (99) 99 Room Air 08/07/16 00:01 Room Air 08/07/16 00:00 36.7 65 18 138/84 (102) 99 Room Air 08/06/16 23:30 58 14 124/84 (97) 99 Room Air 08/06/16 22:30 64 18 134/88 (103) 96 Room Air 08/06/16 22:01 76 15 136/91 (106) 98 Room Air 08/06/16 21:30 79 16 133/93 (106) 99 Room Air 08/06/16 21:00 36.6 81 15 118/78 (91) 99 Room Air 08/06/16 20:00 Room Air 08/06/16 19:30 80 22 148/86 (106) 97 Room Air 08/06/16 19:00 104 18 141/90 (107) 97 Room Air 08/06/16 19:00 77 16 141/90 (107) 98 08/06/16 15:38 85 18 136/76 (96) 99 Room Air 08/06/16 15:18 36.8 77 18 150/100 (117) 99 Room Air 08/06/16 14:21 83 18 142/104 (117) 99 Room Air 08/06/16 13:41 66 16 146/99 (115) 100 Room Air 08/06/16 13:20 36.6 76 14 157/96 (116) 97 Room Air 08/06/16 12:15 79 14 97 Room Air 08/06/16 12:00 80 14 97 Room Air 08/06/16 12:00 97 Room Air 08/06/16 11:45 36.6 80 14 165/108 (127) 97 Room Air 08/06/16 11:30 36.5 67 16 146/80 (102) 97 Room Air 08/06/16 11:00 76 16 145/66 (92) 97 Room Air Patient is right-handed. The patient is awake and alert. Speech is normal without aphasia or dysarthria. Mentation and thought processes are intact with orientation and normal fund of knowledge. Mood and affect are normal and appropriate. Appearance and grooming are normal. The discs are sharp with positive venous pulsations. There are no exudates, hemorrhages, or blood vessel changes seen. Pupils are 4mm bilaterally and reactive to light. Extraocular eye muscles are intact without nystagmus. Visual acuity and visual knowles seem normal grossly to confrontation. There are no deficits to sensation of the face bilaterally. Corneal reflexes are positive bilaterally. Facial strength and symmetry is normal bilaterally. Hearing seems intact grossly to voice and finger rub. Palate moves well without asymmetry. There is normal sternocleidomastoid and trapezius strength bilaterally. Tongue is midline with good strength bilaterally. Neck is with full range of motion without discomfort. There are no cervical bruits. There are no cranial or ocular bruits. Heart is without murmur. Cervical, thoracic, and lumbar spine are nontender to palpation. Gait is narrow based with good arm swing bilaterally. Turns are stable. Stance with eyes open is normal. There is no ataxia with [id number] testing. There is good facility in the hands. There are no abnormal involuntary movements noted. Motor strength is 5/5 diffusely in the arms bilaterally including deltoids, biceps, brachioradialis, wrist flexors and extensors, insulation power unit tender, and intrinsic hand muscles. Motor strength is 5/5 diffusely in the legs bilaterally including hip flexors, quadriceps, hamstring, gastrocnemius, tibialis anterior, tibialis posterior, and peroneii muscles bilaterally. Toe extensors are normal and there is good bulk in the extensor digitorum brevis muscle bilaterally. The limbs have good tone without rigidity or spasticity, and there is no atrophy noted. Muscle bulk is normal, there is no tenderness, no myotonia noted to percussion, and no fasciculations seen. Sensory examination is intact to pin and touch throughout all four limbs. Reflexes are 1/4 in the biceps, triceps, brachioradialis, quadriceps, and Achilles tendons bilaterally. Toes are downgoing with plantar stimulation bilaterally. Peripheral pulses are present and of normal quality distally in all four limbs. There is no peripheral edema noted. Laboratory Results Past 24 Hours: 08/07/16 05:04 Red Blood Count 5.16, Mean Corpuscular Volume 86.8, Mean Corpuscular Hemoglobin 30.8, Mean Corpuscular Hemoglobin Concent 35.5, Mean Platelet Volume 9.4, Neutrophils (%) (Auto) 75.2, Lymphocytes (%) (Auto) 9.9, Monocytes (%) (Auto) 12.9, Eosinophils (%) (Auto) 1.5, Basophils (%) (Auto) 0.1, Neutrophils # (Auto ) 5.69, Lymphocytes # (Auto) 0.75, Monocytes # (Auto) 0.98, Eosinophils # (Auto ) 0.11, Basophils # (Auto) 0.01 08/07/16 05:04 Test 08/07/16 05:04 08/07/16 06:07 White Blood Count 7.57 K/uL (4.8-10.8) Red Blood Count 5.16 M/uL (4.7-6.1) Hemoglobin 15.9 g/dL (14.0-18.0) Hematocrit 44.8 % (42-52) Mean Corpuscular Volume 86.8 fL (80-100) Mean Corpuscular Hemoglobin 30.8 pg (25-34) Mean Corpuscular Hemoglobin Concent 35.5 g/dl (32-36) Platelet Count 217 K/uL (130-400) Mean Platelet Volume 9.4 fL (7.4-10.4) Neutrophils (%) (Auto) 75.2 % Lymphocytes (%) (Auto) 9.9 % Monocytes (%) (Auto) 12.9 % Eosinophils (%) (Auto) 1.5 % Basophils (%) (Auto) 0.1 % Neutrophils # (Auto) 5.69 K/uL (1.4-6.5) Lymphocytes # (Auto) 0.75 K/uL (1.2-3.4) Monocytes # (Auto) 0.98 K/uL (0.11-0.59) Eosinophils # (Auto) 0.11 K/uL (0-0.5) Basophils # (Auto) 0.01 K/uL (0-0.2) RDW Standard Deviation 41.8 fL (36.4-46.3) RDW Coefficient of Variation 13.2 % (11.5-14.5) Immature Granulocyte % (Auto) 0.4 % Immature Granulocyte # (Auto) 0.03 K/uL (0.00-0.02) Activated Partial Thromboplast Time 27.3 SECONDS (21.0-31.0) Partial Thromboplastin Ratio 1.1 Anion Gap 4.0 mmol/L (3-11) Est Creatinine Clear Calc Drug Dose 92.7 ml/min Estimated GFR () 111.6 Estimated GFR (Non- 96.3 BUN/Creatinine Ratio 15.3 (10-20) Calcium Level 8.8 mg/dl (8.5-10.1) Phosphorus Level 2.4 mg/dl (2.5-4.9) Magnesium Level 2.3 mg/dl (1.8-2.4) Troponin I 7.530 ng/ml (0-0.045) Bedside Glucose 91 mg/dl (70-99) Date/Time Source Procedure Growth Status 08/06/16 23:59 Nasal MRSA DNA Surveillance Screen - Final Specimen Negative for MRSA by DNA Probe Complete Imaging MRI OF THE BRAIN WITHOUT AND WITH IV CONTRAST CLINICAL HISTORY: reevaluate questionable density on previous MRI mental status change COMPARISON STUDY: 08/06/2016 TECHNIQUE: Utilizing a 1.5 Tiffany magnet and dedicated coil, multiplanar, multiecho imaging of the brain was performed pre and postcontrast administration. IV administration of 8.5 mL of Gadavist contrast was uneventful. FINDINGS: Diffusion-weighted images again shows a focus of increased signal within the right corpus callosum. 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 At least 3 and possibly 4 foci are present with none exceeding 4 mm in greatest diameter. Small punctate foci of increased signal are also seen within the right occipital lobe as well as medially adjacent to the temporal horn of the right lateral ventricle. These foci are not well seen at all additional sequences. Internal auditory canals are symmetric. Signal characteristics of the remainder of the cerebellar as well as cerebral hemispheres appear unremarkable. No significant or abnormal focus of abnormal postcontrast enhancement. IMPRESSION: 1. Progressive punctate foci of acute ischemic change. 2. These involve pre-existing foci within the right corpus callosum, as well as new foci of acute punctate ischemic change of the right frontoparietal convexity, right occipital lobe, and right temporal lobe. 3. No evidence for abnormal postcontrast enhancement. Electronically signed by: Diallo Lopes M.D. 08/07/2016 9:[address] brain angiogram HEAD ANGIO WITH CONTRAST CLINICAL HISTORY: Abnormal MRI atherosclerosis. TECHNIQUE: Transaxial acquisition with multi axial reformatted images COMPARISON STUDY: MRI dated 08/06/2016 FINDINGS: Smoothly marginated 40-50% narrowing of the mid basilar artery. Defect appears somewhat extrinsic or extraluminal although no abnormality in terms of brain parenchyma is identified. All remaining intracranial vessels are unremarkable. All major components of the anterior middle and posterior cerebral circulations are intact. IMPRESSION: 1. Smoothly marginated 40-50% narrowing of the mid basilar artery. 2. Intracranial vasculature is otherwise negative. Electronically signed by: Diallo Lopes M.D. 08/07/2016 9:[address] NECK ANGIO WITH CONTRAST CLINICAL HISTORY: Atherosclerotic disease. Unstable angina. ] ANEURYSM, COMPARISON STUDY: Carotid Doppler ultrasound dated 08/06/2016 , MR angiography dated 08/06/2016 TECHNIQUE: CT angiography was performed from the aortic arch to the skull base. MIP imaging was performed. The patient was scanned in a dynamic helical fashion during intravenous administration of 118 cc of Optiray 320. CT DOSE: Technique: CT angiogram of the carotid and vertebral arteries was obtained using intravenous contrast and 3-D reconstruction. NASCET criteria was utilized. Findings: The right internal carotid revealed a focal dissection of the high cervical right internal carotid. Superior to the dissection, there is a 7 mm saccular aneurysm. There is a 50% right internal carotid artery origin stenosis.. There is a 40% diameter stenosis of the right external carotid origin. The left internal carotid revealed a 40% stenosis of the internal carotid origin.. There is focal ectasia of the high cervical internal carotid. There is no evidence of focal aneurysm. There is no evidence of dissection. Both cervical internal carotids demonstrate a somewhat beaded appearance. There is no evidence of hemodynamically significant vertebral stenosis. There is no evidence of vertebral dissection. There is a 50% diameter basilar artery stenosis. IMPRESSION: 1. 50% stenosis of the right internal carotid artery origin 2. 40% stenosis of the left internal carotid artery origin 3. 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 Beaded ectasia of both cervical internal carotids 6. 50% basilar artery stenosis Electronically signed by: Joe Blunt M.D. Impression This patient is complicated radiographically and somewhat clinically and considerable time was spent consulting the radiologist in reviewing imaging studies, consulting with other clinicians on this case, and direct consultation with the patient at his bedside. 1. Acute stroke 6-21 This is likely embolic from his cardiac cath procedure. This is a very unusual series of events because the MRI yesterday only shows 1 acute infarct whereas today's MRI shows multiple right-sided infarcts in 2 different vascular distributions. The strokes are very small and clinically he is doing very well with an NIH stroke scale of 0. He is asymptomatic today. It is possible that he flipped a clot and most of the home on the area of focal dissection high up in the right carotid artery. It then flaked off and created a new events since yesterday afternoon. He has no other source of embolus. He has atherosclerosis with carotid narrowing and basilar artery narrowing. His risk factors for this are hypertension and hypercholesterolemia. 2. Incidental 7 mm saccular aneurysm seen high up on the right internal carotid artery. 3. Small area of focal dissection in the carotid artery just below the aneurysm which looks old. 4. Basilar artery narrowing 50% and carotid artery narrowing at origins up to 50% Plan 1. Continue duel antiplatelet therapy with 81 mg aspirin and 75 mg clopidogrel (or equivalent) 2. I really cannot see a reason to initiate anticoagulation in this patient. 3. Increase activity as able with physical, occupational, and speech therapy consults. 4. High-dose statin is indicated because of his elevated cholesterol. 5. Consultation with [facility] vascular neurosurgeons regarding the aneurysm, as an outpatient. I have spoken with Dr. Pedersen and Dr. Ramirez regarding this case including differential diagnosis, radiographic imaging results, and treatment decision making. Overall I spent a total of 120 minutes with this case.
--- NOTE | 2016-08-07 17:02 | CARDIOLOGY PROGRESS NOTE ---
DATE: 08/07/2016 SUBJECTIVE: This morning Mr. Villa claims to be feeling well. He states he has felt better today than he has in several weeks. He does not appear to have any difficulty with word finding limitation. He has no pain at the access site. He has been ambulatory around the room without his regular symptoms of burning in the epigastrium and substernal area. PHYSICAL EXAMINATION: GENERAL: On physical examination, he was alert and oriented. His mood and affect appeared normal. He answered all questions appropriately. VITAL SIGNS: Include blood pressure of 123/85 with pulse of 99. HEENT: Sclerae are anicteric. LUNGS: Auscultation of his lungs revealed them to be clear. CARDIAC: Revealed him to be in a regular rhythm. I do not appreciate any difficulty with mentation. LABORATORY STUDIES: Today included a white cell count of 7.5, hemoglobin of 15 and a platelet count of 217. Sodium is 140, potassium is 4.3, BUN was 13, creatinine was 0.83. Serial cardiac biomarkers were drawn, most recent was 4.9 down from 7.5 earlier this morning. A 12-lead EKG was obtained earlier this morning which revealed the patient to be in a sinus bradycardia, otherwise unremarkable. I reviewed the patient's imaging studies from earlier today including the results of his brain MRI and CT angiography. The patient also underwent a carotid duplex which did not reveal any evidence of stenosis. ASSESSMENT AND PLAN: 1. Unstable angina: The patient underwent percutaneous intervention involving the proximal LAD yesterday. He appears to have had some improvement in his symptoms and we have to see how he does in cardiac rehab. Based on the nature of his disease and recent intervention, he will be on high dose atorvastatin, and dual antiplatelet therapy. The patient does have residual disease in the circumflex distribution of unclear significance. At this point, it is unclear whether he has symptoms associated with this degree of stenosis, I think we will be able to materials handler this better once he has resumed some of his activity. 2. Neurologic event: The patient did appear to have some neurologic event during yesterdays procedure likely related to thrombus. This event is well detailed in Dr. Sherman's note. At this point, he appears to be neurologically intact without focal deficits. Naturally treatment of his coronary disease is also efficacious in treatment of his cerebrovascular disease. He will be maintained on dual antiplatelet therapy and high dose atorvastatin. 3. Hypertension. The patient was previously on amlodipine, it seems reasonable to change him to lisinopril, perhaps 5 mg daily. At this point, there does not appear to be any indication for beta blockade in addition to his other medical therapy. The patient has not had a myocardial infarction, has preserved LV systolic function. I think in this young individual with a baseline bradycardia who is also active, we can eliminate the beta-westley from his medical regimen.
--- NOTE | 2016-08-07 19:22 | CARDIAC CATH REPORT ---
PROCEDURES PERFORMED: 1. Left heart catheterization. 2. Selective coronary angiography. STAFF MEATMAN: Lalito Worthington MD INDICATIONS: Mr. João Villalpando is a 60-year-old gentleman, with a history of exertional chest discomfort. Prior to today's procedure, the patient underwent a stress echocardiography which was markedly positive for inducible ischemia. Based on the presence of his symptoms and noninvasive technique he was advised to undergo coronary angiography today. PROCEDURE IN DETAIL: The patient was informed of the risks, benefits and alternatives to the intended procedure. He understood such and wished to proceed. He was taken to the cardiac catheterization suite in a fasting state, conscious sedation was administered per protocol and the patient was monitored electrocardiographically throughout today's procedure. The right wrist was prepped and draped in the usual sterile fashion. This area was anesthetized using subcutaneous administration of lidocaine solution. The right radial artery was subsequently accessed using modified Seldinger technique and a sheath was placed over the guidewire at this site. This sheath was used to facilitate passage of the cardiac catheter for engagement of the coronary arteries. Coronary angiography as well as left heart catheterization. Images were taken in multiple orthogonal views prior to removal of the catheter. The patient tolerated this portion of the procedure well. There were no immediate complications. EQUIPMENT USED: 5-[employer] [place] 4. FINDINGS: HEMODYNAMICS: Opening aortic pressure was 130/88. Left ventricular pressure was 129/4 with an end-diastolic pressure of 8. SELECTIVE CORONARY ANGIOGRAPHY: 1. LEFT MAIN: The left main coronary artery was normal in size and caliber and trifurcated normally into the left anterior descending and left circumflex artery. 2. LEFT ANTERIOR DESCENDING: The left anterior descending artery was a large transapical artery which gave rise to two medium sized diagonal branches. Immediately after bifurcating from the left main there was an 80% stenosis in the proximal LAD. 3. LEFT CIRCUMFLEX: The left circumflex vessel is a nondominant vessel which had disease in two branches of the second OM which compromised 60-70% of the lumen. 4. RIGHT CORONARY ARTERY: The right coronary artery was a dominant vessel providing the PDA. There was discrete 50% stenosis in the mid portion of the vessel just prior to takeoff of the posterior descending artery. IMPRESSION: Obstructive coronary artery disease involving the left anterior descending and possibly the distal circumflex. PLAN: Based on the nature of the patient's symptoms he will be referred for immediate percutaneous intervention involving the left anterior descending artery.
--- NOTE | 2016-08-07 22:19 | Hospitalist Progress Note ---
Hospitalist Progress Note Date of Service Aug 07, 2016. Subjective Pt evaluation today including: conversation w/ patient, conversation w/ integrity consultant (Neurology, Cardiology) Pt feels very well today. No CP at all, no headache, no weakness, numbness, or tingling. We spent over 30 min discussing the findings on all of his imaging studies and in concert with Dr. Sherman from neurology who joined us later on in the conversation. All Other Systems: Reviewed and Negative Objective Vital Signs Date Time Temp Pulse Resp B/P (MAP) Pulse Ox O2 Delivery O2 Flow Rate FiO2 08/07/16 20:00 Room Air 08/07/16 19:08 36.5 82 18 119/74 (89) 95 Room Air 08/07/16 17:00 95 17 08/07/16 15:30 Room Air 08/07/16 15:00 98 20 08/07/16 13:00 84 23 08/07/16 12:31 36.7 80 18 164/93 (116) 98 Room Air 08/07/16 12:30 Room Air 08/07/16 11:00 87 20 08/07/16 08:00 82 15 98 08/07/16 07:46 36.5 99 19 123/85 (98) 98 Room Air 08/07/16 07:45 Room Air 08/07/16 07:30 64 20 123/85 (98) 97 08/07/16 07:00 53 18 125/78 (94) 96 08/07/16 04:00 Room Air 08/07/16 03:30 54 14 121/75 (90) 98 Room Air 08/07/16 03:01 71 16 114/83 (93) 90 Room Air 08/07/16 02:30 68 18 108/79 (89) 97 Room Air 08/07/16 02:00 60 17 129/89 (102) 99 Room Air 08/07/16 01:30 70 16 138/80 (99) 97 Room Air 08/07/16 01:00 61 8 127/85 (99) 98 Room Air 08/07/16 00:30 58 15 122/87 (99) 99 Room Air 08/07/16 00:01 Room Air 08/07/16 00:00 36.7 65 18 138/84 (102) 99 Room Air 08/06/16 23:30 58 14 124/84 (97) 99 Room Air 08/06/16 22:30 64 18 134/88 (103) 96 Room Air Physical Exam General Appearance: WD/WN, no apparent distress Eyes: normal inspection, sclerae normal ENT: hearing grossly normal Neck: trachea midline Respiratory/Chest: lungs clear, no accessory muscle use Cardiovascular: regular rate, rhythm, no edema, no gallop, no murmur Abdomen: normal bowel sounds, non tender, soft, no organomegaly Extremities: non-tender, normal inspection, no pedal edema, no calf tenderness Neurologic/Psychiatric: alert, normal mood/affect, oriented x 3 Skin: normal color, warm/dry, no rash Laboratory Results Last 24 Hours Test 08/06/16 23:00 08/07/16 00:05 08/07/16 05:04 08/07/16 06:07 Troponin I 5.880 ng/ml 7.530 ng/ml Bedside Glucose 84 mg/dl 91 mg/dl White Blood Count 7.57 K/uL Red Blood Count 5.16 M/uL Hemoglobin 15.9 g/dL Hematocrit 44.8 % Mean Corpuscular Volume 86.8 fL Mean Corpuscular Hemoglobin 30.8 pg Mean Corpuscular Hemoglobin Concent 35.5 g/dl Platelet Count 217 K/uL Mean Platelet Volume 9.4 fL Neutrophils (%) (Auto) 75.2 % Lymphocytes (%) (Auto) 9.9 % Monocytes (%) (Auto) 12.9 % Eosinophils (%) (Auto) 1.5 % Basophils (%) (Auto) 0.1 % Neutrophils # (Auto) 5.69 K/uL Lymphocytes # (Auto) 0.75 K/uL Monocytes # (Auto) 0.98 K/uL Eosinophils # (Auto) 0.11 K/uL Basophils # (Auto) 0.01 K/uL RDW Standard Deviation 41.8 fL RDW Coefficient of Variation 13.2 % Immature Granulocyte % (Auto) 0.4 % Immature Granulocyte # (Auto) 0.03 K/uL Activated Partial Thromboplast Time 27.3 SECONDS Partial Thromboplastin Ratio 1.1 Sodium Level 140 mmol/L Potassium Level 4.2 mmol/L Chloride Level 106 mmol/L Carbon Dioxide Level 30 mmol/L Anion Gap 4.0 mmol/L Blood Urea Nitrogen 13 mg/dl Creatinine 0.83 mg/dl Est Creatinine Clear Calc Drug Dose 92.7 ml/min Estimated GFR () 111.6 Estimated GFR (Non- 96.3 BUN/Creatinine Ratio 15.3 Random Glucose 90 mg/dl Calcium Level 8.8 mg/dl Phosphorus Level 2.4 mg/dl Magnesium Level 2.3 mg/dl Test 08/07/16 11:58 Troponin I 4.960 ng/ml Assessment and Plan Pt is a 60-year-old male with a h/o HTN, hyperlipidemia (treated with flaxseed oil and lifestyle modification), who presents with exertional chest pain over the last 2 months seemingly getting worse. EKG initially shows no signs of ischemia. Initial troponin was negative. He had a stress ECHO which was grossly abnormal and positive for ischemia. He was placed on a heparin gtt overnight. Second troponin 0.08. He went for left heart cath and had severe CAD , multivessel, with UDAY placed at proximal LAD for 95% occlusion. He did require an aspiration thrombectomy during cath and a small clot went into distal LAD. SHortly after thrombectomy, he developed confusion during cath and stroke alert called. Initial MRI brain showed possible 6mm lacunar infarct carpus callosum, but does not seem to fit clinically with his symptoms which were more likely related to effect of midazolam. The following day he had repeat brain MRI which showed multiple tiny punctate foci of acute ischemia all in right hemisphere but in multiple distributions of circulation, consistent with showered emboli. 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 Also found to have 50% stenosis of basilar artery and some moderate stenosis of LICA as well. Completely asymptomatic at this point. Unstable angina, CAD now s/p UDAY ostial LAD for 95% occlusion, also with 60-70% stenosis OM. Small clot in distal LAD. Troponin peaked at 7 after stent placement and then trended back down to 4. Likely with Familial hypercholesterolemia with LDL 195. Brother with OH age 62, father with hyperlipidemia but committed suicide age 48 so unknown if had premature CAD. -continue DAPT with ASA, Brillinta for at least 1 year -started high intensity statin Lipitor 80mg daily -check lipids and LFTs in 4-6 weeks -start lisinopril and increase dose to 5mg tomorrow -was initially started on metoprolol but Cardiology recommends discontinuing this as he did not have OH and is active with typical resting bradycardia -Will need Cardiac Rehab after cleared by Cardiology -Appreciate Cardiology management-will need office f/u within 1-2 weeks -continue tele monitoring Confusion/Acute toxic encephalopathy likely secondary to Versed/Acute CVA of embolic nature. Repeat MRI with multiple showered foci of punctate ischemia right hemisphere. Embolic CVAs from cardiac cath procedure. Pt asymptomatic now. 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 Sherman and Dr. Contreras of Vascular Surgery-- > Dr. Contreras recommends outpatient evaluation with Interventional Neuroradiology at [facility] for the aneurysm, no need for anticoagulation for the dissection as it is not the source of the acute CVAs as there were CVAs in the posterior circulation as well -continue on ASA, Brillinta, and high intensity statin -f/u with Neuroradiology interventional at [facility] as outpat -will need routine follow up on the ROYER HTN-ok to keep MAP around 100 given acute CVA -dc home Norvasc 5 mg -started lisinopril 5mg daily DVT prophylaxis -TEDS, SCDs, will not give chemical DVT prophylaxis given aneurysm and risk of bleeding CODE STATUS -LEVEL I FULL CODE Dispo-to home tomorrow
[2016-08-08 04:42] VITALS: BP 138/74; PULSE 74; TEMP 36.5; O2SAT 99
[2016-08-08 06:27] LABS: BASO % 0.2 %; BASO ABS # 0.01 K/uL (0-0.2); COMPLETE YES; EOS % 2.2 %; HEMATOCRIT 46.6 % (42-52); IG% 0.2 %; LYMPH % 15.1 %; LYMPH ABS # 0.96 K/uL (1.2-3.4); MEAN CELL VOLUME 86.8 fL (80-100); MEAN CORPUSCULAR HEMOGLOBIN 30.4 pg (25-34); MEAN PLATELET VOLUME 9.2 fL (7.4-10.4); MONO % 13.9 %; NEUT % 68.4 %; PLATELET COUNT 211 K/uL (130-400); RED BLOOD COUNT 5.37 M/uL (4.7-6.1); WHITE BLOOD COUNT 6.35 K/uL (4.8-10.8)
[2016-08-08 06:56] LABS: BUN/CREATININE RATIO 19.6 (10-20); CALCIUM 8.9 mg/dl (8.5-10.1); CREATININE 0.89 mg/dl (0.60-1.40); POTASSIUM 4.1 mmol/L (3.5-5.1)
[2016-08-08] MEDS: ASPIRIN 81 MG ECTAB PO SCH (08:01)
[2016-08-08] MEDS: ATORVASTATIN 40 MG TAB PO SCH (08:01)
[2016-08-08] MEDS: TICAGRELOR 90 MG TAB PO SCH (08:02)
[2016-08-08 08:04] VITALS: BP 103/72; PULSE 92; TEMP 36.8; O2SAT 99
--- NOTE | 2016-08-08 08:36 | Neurology Progress Notes ---
Neurology Progress Note Date of Service Aug 08, 2016. Subjective Patient is doing well. He has no complaint of pain or headache. He has no dizziness or vision problems. There is no new weakness or numbness. He has no balance problems. This morning, for short period of time, he had some slight burning in his lower chest/upper abdomen. He graded as a 1 out of 10. It is not present now. Nursing reports no events overnight. Blood pressure is normal and stable. CBC and chem profile were unremarkable. Objective Date Time Temp Pulse Resp B/P (MAP) Pulse Ox O2 Delivery O2 Flow Rate FiO2 08/08/16 08:04 36.8 92 16 103/72 (82) 99 Room Air 08/08/16 04:42 36.5 74 20 138/74 (95) 99 Room Air 08/08/16 04:00 Room Air 08/08/16 00:00 Room Air 08/07/16 23:42 36.7 99 18 138/75 (96) 99 Room Air 08/07/16 20:00 Room Air 08/07/16 19:08 36.5 82 18 119/74 (89) 95 Room Air 08/07/16 17:00 95 17 08/07/16 15:30 Room Air 08/07/16 15:00 98 20 08/07/16 13:00 84 23 08/07/16 12:31 36.7 80 18 164/93 (116) 98 Room Air 08/07/16 12:30 Room Air 08/07/16 11:00 87 20 Last 24 Hours Test 08/07/16 11:58 08/08/16 05:55 Troponin I 4.960 ng/ml White Blood Count 6.35 K/uL Red Blood Count 5.37 M/uL Hemoglobin 16.3 g/dL Hematocrit 46.6 % Mean Corpuscular Volume 86.8 fL Mean Corpuscular Hemoglobin 30.4 pg Mean Corpuscular Hemoglobin Concent 35.0 g/dl Platelet Count 211 K/uL Mean Platelet Volume 9.2 fL Neutrophils (%) (Auto) 68.4 % Lymphocytes (%) (Auto) 15.1 % Monocytes (%) (Auto) 13.9 % Eosinophils (%) (Auto) 2.2 % Basophils (%) (Auto) 0.2 % Neutrophils # (Auto) 4.35 K/uL Lymphocytes # (Auto) 0.96 K/uL Monocytes # (Auto) 0.88 K/uL Eosinophils # (Auto) 0.14 K/uL Basophils # (Auto) 0.01 K/uL RDW Standard Deviation 41.9 fL RDW Coefficient of Variation 13.3 % Immature Granulocyte % (Auto) 0.2 % Immature Granulocyte # (Auto) 0.01 K/uL Sodium Level 141 mmol/L Potassium Level 4.1 mmol/L Chloride Level 106 mmol/L Carbon Dioxide Level 26 mmol/L Anion Gap 9.0 mmol/L Blood Urea Nitrogen 17 mg/dl Creatinine 0.89 mg/dl Est Creatinine Clear Calc Drug Dose 86.4 ml/min Estimated GFR () 108.5 Estimated GFR (Non- 93.6 BUN/Creatinine Ratio 19.6 Random Glucose 87 mg/dl Calcium Level 8.9 mg/dl Exam: He is awake and alert. Speech and mentation is normal without aphasia or dysarthria. Mood and affect are normal and appropriate. Thought processes are intact. Extraocular eye muscles are intact without nystagmus. There is no facial droop. With outstretched arms, there is no drift. There is no resting, postural, or action tremor. Strength is symmetrical the limbs. Current Inpatient Medications Medications (Trade) Dose Ordered Sig/Shannan Route Start Time Stop Time Status Last Admin Dose Admin Aspirin (Ecotrin Tab) 81 mg QAM PO 08/06/16 09:00 09/05/16 08:59 08/08/16 08:01 81 MG Acetaminophen (Tylenol Tab) 650 mg Q4H PRN PO 08/05/16 16:00 09/04/16 15:59 Ondansetron HCl (Zofran Inj) 4 mg Q6H PRN IV 08/05/16 16:00 09/04/16 15:59 Nitroglycerin (Nitrostat Tab) 0.4 mg UD PRN SL 08/05/16 16:00 09/04/16 15:59 Ticagrelor (Brilinta Cap) 90 mg BID PO 08/06/16 21:00 09/05/16 20:59 08/08/16 08:02 90 MG Atorvastatin Calcium (Lipitor Tab) 80 mg QAM PO 08/07/16 09:00 09/05/16 08:59 08/08/16 08:01 80 MG Miscellaneous Information (Pharmacist Discharge Med Rec Consult) 1 ea UD PRN N/A 08/06/16 17:00 09/05/16 16:59 Ioversol (Optiray 320) 100 ml UD PRN IV 08/07/16 08:00 08/11/16 07:59 Lisinopril (Zestril Tab) 5 mg QAM PO 08/08/16 09:00 09/05/16 08:59 08/08/16 08:09 5 MG Impression 1. Acute stroke 08-06 This is likely embolic from his cardiac cath procedure. This is a very unusual series of events because the MRI 08-06 only showed 1 acute infarct, whereas MRI showed multiple right-sided infarcts in 2 different vascular distributions. The strokes are very small and clinically he is doing very well with an NIH stroke scale of 0. He is asymptomatic today and maintains an NIHSS of 0 It is possible that he flipped a clot during the procedure 08-06and most of it originally "hung up" on the area of focal dissection high up in the right carotid artery. It then flaked off by 08-07 and created the new punctate acute CVA's seen on MRI 08-07 . He has no other source of embolus. He has atherosclerosis with bilateral carotid narrowing and basilar artery narrowing. His risk factors for stroke are hypertension and hypercholesterolemia. 2. Incidental 7 mm saccular aneurysm seen high up on the right internal carotid artery. 3. Small area of focal dissection in the carotid artery just below the aneurysm , which looks old. 4. Basilar artery narrowing 50% and carotid artery narrowing at origins up to 50% Plan 1. Continue duel antiplatelet therapy with 81 mg aspirin and 75 mg clopidogrel (or equivalent) 2. I really cannot see a reason to initiate anticoagulation in this patient. 3. Increase activity as able with physical, occupational, and speech therapy consults. 4. High-dose statin is indicated because of his elevated cholesterol. 5. Consultation with [facility] vascular neurosurgeons regarding the aneurysm, as an outpatient. 6. No further neurologic testing or treatment recommendations to make on this patient, at this time. Please contact me if I can be of further assistance. I can follow-up as an outpatient in the next 1-2 weeks. No work or increased activity of any kind until I see him again in clinic.
[2016-08-08] MEDS ORDERED: LISINOPRIL 5 MG TAB PO SCH (09:00)
[2016-08-08 11:50] VITALS: BP 136/73; PULSE 81; TEMP 36.7; O2SAT 97
[2016-08-08] MEDS ORDERED: BRL90 PO (12:53)
[2016-08-08] MEDS ORDERED: ATOR-26 PO (12:53)
[2016-08-08] MEDS ORDERED: ASPEC81 PO (12:53)
[2016-08-08] MEDS ORDERED: NTRSLP4 SL (12:53)
[2016-08-08] MEDS ORDERED: LSN5 PO (12:53)
[2016-08-08 12:56] VITALS: BP 136/73; PULSE 81; TEMP 36.7; O2SAT 97
--- NOTE | 2016-08-08 13:02 | Discharge Instructions ---
Discharge Instructions Date of Service Aug 08, 2016. Admission Reason for Admission: Unstable Angina Discharge Discharge Diagnosis / Problem: Acute CVA, CAD and stent placement Discharge Goals Goal(s): Improve disease control, Diagnostic testing, Therapeutic intervention Activity Recommendations Activity Limitations: as noted below Exercise/Sports Limitations: until after follow-up appointment Shower/Bathe: no limitations Driving or Machine Use: no limitations . Instructions / Follow-Up Instructions / Follow-Up You were admitted with chest pain and found to have a severe blockage in your heart that was opened up with a stent. After your stent placement, you suffered several very tiny strokes as a result of blood clot formed in your heart that went to your brain. You will need to stay on the aspirin and Brillinta to prevent clot formation in your heart and brain in the future. Your cholesterol was extremely high and you were also started on atorvastatin to bring this down. You were found to have some moderate blockages of the carotid and basilar arteries that feed blood to your brain. These are managed with atorvastatin and your aspirin and should be followed routinely to assess for worsening. You were also found to have an aneurysm and a small dissection of the right carotid artery. A referral to the Vascular Neurosurgery team at [facility] is being arranged. You should expect to hear from [facility] within 1 week. If you do not, please reach out to us and we can facilitate that appointment further. Home Care: * Take your medications exactly as directed. Don't skip doses. * Remember that recovery after a heart stent takes time. Plan to rest for at lease 4-8 weeks while you recover. Then return to normal activity when your doctor says it's okay. * Ask your doctor about joining a heart rehabilitation program. * Tell your doctor if you are feeling depressed. Feelings of sadness are common Activity Recommendations: See above Activation of Emergency Medical System: Call 911, immediately, if you experience any of the following: Warning Signs and Symptoms of Stroke: * Sudden numbness or weakness of the face, arm or leg, especially on one side of the body * Sudden confusion, trouble speaking or understanding * Sudden trouble seeing in one or both eyes * Sudden trouble walking, dizziness, loss of balance or coordination * Sudden severe headache with no cause Do not delay calling 911 if you experience any warning signs or symptoms of a stroke. Delay in seeking medical attention may affect what treatments can be given to you. Risk Factors for Stroke: You can reduce your chances of stroke by working with your medical provider to adopt a healthy lifestyle. Some specific ways to lower your chance of stroke are: * If you are a smoker, now is the time to stop smoking cigarettes * If you are diabetic, improve the control of your blood sugars * Avoid excessive amounts of alcohol * Control high blood pressure * Lose weight if you are overweight * Be sure to lead an active lifestyle * Eat a healthy diet low in salt, cholesterol and fat You should know about other risk factors for stroke that you are unable to control. These include: * Age 55 years or older * Male gender * Certain racial groups: , or / * Family History of Stroke, Mini stroke or Heart Attack * Sickle Cell Disease Follow Up: It is important for you to keep your follow up appointments with your medical provider. , but it is important that you speak to someone if you are feeling overwhelmed by these feelings. * If you are having chest pain, call 911 for an ambulance. Do NOT drive yourself to the hospital. * Ask your family members to learn CPR. * Learn to take your own blood pressure and pulse. Keep a record of your results. Ask your doctor when you should seek emergency medical attention. He or she will tell you which blood pressure reading is dangerous. Lifestyle Changes: * Maintain a healthy weight. Get help to lose any extra pounds. * Cut back on salt. * Limit canned, dried, packaged, and fast foods. * Don't add salt to your food. * Season foods with herbs instead of salt when you cook. * Limit fatty foods. * Check your lipid levels regularly. (Your doctor can show you how to do this.) * Build up your activity according to your doctor's recommendation. * Ask your doctor when it's okay to resume sexual activity. * Tell your doctor about any erectile dysfunction (ED) medication you are taking. Some ED medications are not safe if you take certain heart medications. * Try to manage stress. Follow Up: It is important for you to keep your follow up appointments with your medical provider. Current Hospital Diet Patient's current hospital diet: AHA Diet (Heart Healthy) Discharge Diet Recommended Diet: AHA Diet (Heart Healthy) Procedures Procedures Performed: Cardiac catheterization MRI brain x 2 MRA head Carotid ultrasound CT angiogram head and neck Stress Echocardiogram Chest xray Pending Studies Studies pending at discharge: no Laboratory Results Hemoglobin A1c Test 08/06/16 06:18 Range/Units Estimated Average Glucose 100 mg/dl Hemoglobin A1c 5.1 4.5-5.6 % Lipid Panel Test 08/06/16 05:58 Range/Units Triglycerides Level 111 0-150 mg/dl Cholesterol Level 276 H 0-200 mg/dl HDL Cholesterol 59 mg/dl Cholesterol/HDL Ratio 4.7 LDL Cholesterol, Calculated 195 mg/dl Medical Emergencies . Who to Call and When: Medical Emergencies: If at any time you feel your situation is an emergency, please call 911 immediately. Call 911 immediately or go to your nearest Emergency Room if you experience any of the following: Warning Signs and Symptoms of a Heart Attack * Chest pain that is not relieved by medication * Shortness of breath . Non-Emergent Contact Non-Emergency issues call your: Primary Care Provider, Design Consultant Call Non-Emergent contact if: you have a fever, your pain is not controlled, your pain is worsening, your pain is unusual for you, your pain is concerning you, you have any medication questions . . "Provider Documentation" section prepared by Marilyn Pedersen. . AMI Core Measures Reason no ASA as I/P: Treatment provided - N/A Reason no ASA at D/C: Treatment provided - N/A Reason no statin as I/P: Treatment provided - N/A Reason no statin at D/C: Treatment provided - N/A VTE Core Measure Inpt VTE Proph given/why not?: Unfractionated heparin SQ, SCD's
--- NOTE | 2016-08-08 13:04 | Discharge Instructions ---
Discharge Instructions Date of Service Aug 08, 2016. Admission Reason for Admission: Unstable Angina Discharge Discharge Diagnosis / Problem: Acute CVA Discharge Goals Goal(s): Improve disease control, Therapeutic intervention Activity Recommendations Activity Limitations: as noted below Lifting Limitations: until after follow-up appointment . Instructions / Follow-Up Instructions / Follow-Up Risk Factors for Stroke: You can reduce your chances of stroke by working with your medical provider to adopt a healthy lifestyle. Some specific ways to lower your chance of stroke are: * If you are a smoker, now is the time to stop smoking cigarettes * If you are diabetic, improve the control of your blood sugars * Avoid excessive amounts of alcohol * Control high blood pressure * Lose weight if you are overweight * Be sure to lead an active lifestyle * Eat a healthy diet low in salt, cholesterol and fat You should know about other risk factors for stroke that you are unable to control. These include: * Age 55 years or older * Male gender * Certain racial groups: , or / * Family History of Stroke, Mini stroke or Heart Attack * Sickle Cell Disease Follow Up: It is important for you to keep your follow up appointments with your medical provider. Current Hospital Diet Patient's current hospital diet: AHA Diet (Heart Healthy) Discharge Diet Recommended Diet: AHA Diet (Heart Healthy) Procedures Procedures Performed: Cardiac catheterization MRI brain x 2 MRA head Carotid ultrasound CT angiogram head and neck Stress Echocardiogram Chest xray Pending Studies Studies pending at discharge: no Laboratory Results Hemoglobin A1c Test 08/06/16 06:18 Range/Units Estimated Average Glucose 100 mg/dl Hemoglobin A1c 5.1 4.5-5.6 % Lipid Panel Test 08/06/16 05:58 Range/Units Triglycerides Level 111 0-150 mg/dl Cholesterol Level 276 H 0-200 mg/dl HDL Cholesterol 59 mg/dl Cholesterol/HDL Ratio 4.7 LDL Cholesterol, Calculated 195 mg/dl Medical Emergencies . Who to Call and When: Medical Emergencies: Call 911 immediately if you experience any of the following warning signs and symptoms of Stroke: * Sudden numbness or weakness of the face, arm or leg, especially on one side of the body * Sudden confusion, trouble speaking or understanding * Sudden trouble seeing in one or both eyes * Sudden trouble walking, dizziness, loss of balance or coordination * Sudden severe headache with no cause Do not delay calling 911 if you experience any warning signs or symptoms of a stroke. Delay in seeking medical attention may affect what treatments can be given to you. . Non-Emergent Contact Non-Emergency issues call your: Primary Care Provider, Catering Truck Driver . . "Provider Documentation" section prepared by Marilyn Pedersen. . Stroke Core Measures Reason no t-PA for Stroke: Treatment not indicated Reason no antithrom by day 2: Treatment provided - N/A Reason no antithrom at D/C: Treatment provided - N/A Reason no statin at D/C: Treatment provided - N/A Reason no anticoag w/a fib: Treatment not indicated VTE Core Measure Inpt VTE Proph given/why not?: Unfractionated heparin SQ, SCD's
--- NOTE | 2016-08-08 14:07 | Pharmacy Progress Note ---
Pharmacist Stroke Counseling Date of Service Aug 08, 2016. Scope Pharmacy has been consulted to provide medication discharge counseling for this patient admitted with ischemic stroke as per the Pharmacist Discharge Counseling for Stroke Patients Protocol. Medications on Discharge New Medications: Atorvastatin (Lipitor) 80 Mg Tab 80 MG PO DAILY for 30 Days, #30 TAB Aspirin (Aspirin EC Low Dose) 81 Mg Ectab 81 MG PO QAM for 30 Days, #30 TAB Lisinopril (Lisinopril) 5 Mg Tab 5 MG PO QAM for 30 Days, #30 TAB Nitroglycerin (Nitrostat) 0.4 Mg/1 Tab Subl 0.4 MG SL UD PRN for Chest Pain, #15 TAB Take 1 tab q5 min and seek immediate medical attention Ticagrelor (Brilinta) 90 Mg Tab 90 MG PO BID for 30 Days, #60 TAB Continued Medications: Glucosamine Sulfate (Glucosamine) 1,000 Mg Tab DAILY Vitamins C & E (Vitamin C) 1 Cap Cap Zinc Sulfate (Zinc Sulfate) 220 Mg Cap 220 MG PO TID, CAP Discontinued Medications: Amlodipine (Norvasc) 5 Mg Tab 5 MG PO DAILY, 0 Refills Flaxseed (Linseed) (Flaxseed Oil) 1 Cap Cap Mr. Villalpando had both a cardiac catheterization and small strokes, and seemed very motivated to try medications for prevention. He wants to try the weekly pill organizer to ensure he doesn't forget any of his morning meds. Action The above medications, specifically ones for stroke treatment/prophylaxis, have been reviewed in detail with the patient prior to discharge. This includes indication, common adverse reactions, drug interactions, and medication administration. Medication counseling has been employed using the teach-back method to ensure understanding. Outcome The patient has demonstrated understanding of the medications. Please note, they are aware that the pharmacist will call them within 72 hours post-discharge to confirm that the appropriate medications are being taken and answer any further medication related questions the patient might have at that time. Contact information Individual to be contacted: João Villalpando Relationship to patient (if applicable): self Phone number: [phone] Best time to call: anytime except ethanol quality leader Thank you for allowing pharmacy to be involved in the care of this patient. Please call [phone] or [phone] with any additional questions
--- NOTE | 2016-08-08 22:33 | Discharge Summary ---
Discharge Summary Date of Service Aug 08, 2016. 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 carotid artery 7 mm saccular aneurysm Basilar artery stenosis Bilateral ROEYR Acute suspected toxic and metabolic encephalopathy likely secondary to Versed/ Acute CVA of embolic nature Immunizations: Have You Had Influenza Vaccine: No History of Tetanus Vaccine?: Yes History of Pneumococcal: No History of Hepatitis B Vaccine: Unknown Procedures: Cardiac catheterization MRI brain x 2 MRA head Carotid ultrasound CT angiogram head and neck Stress Echocardiogram Chest xray Consultations: Cardiology Neurology Critical Care Medicine Medication Reconciliation New Medications: Atorvastatin (Lipitor) 80 Mg Tab 80 MG PO DAILY for 30 Days, #30 TAB Aspirin (Aspirin EC Low Dose) 81 Mg Ectab 81 MG PO QAM for 30 Days, #30 TAB Lisinopril (Lisinopril) 5 Mg Tab 5 MG PO QAM for 30 Days, #30 TAB Nitroglycerin (Nitrostat) 0.4 Mg/1 Tab Subl 0.4 MG SL UD PRN for Chest Pain, #15 TAB Take 1 tab q5 min and seek immediate medical attention Ticagrelor (Brilinta) 90 Mg Tab 90 MG PO BID for 30 Days, #60 TAB Continued Medications: Glucosamine Sulfate (Glucosamine) 1,000 Mg Tab DAILY Vitamins C & E (Vitamin C) 1 Cap Cap Zinc Sulfate (Zinc Sulfate) 220 Mg Cap 220 MG PO TID, CAP Discontinued Medications: Amlodipine (Norvasc) 5 Mg Tab 5 MG PO DAILY, 0 Refills Flaxseed (Linseed) (Flaxseed Oil) 1 Cap Cap Discharge Exam Doing very well. No CP with ambulation of halls today. Had a 15 min episode of mid abdominal burning this AM when he woke up that resolved on its own and was nothing like his previous chest pain that brought him in. Physical Exam General Appearance: WD/WN, no apparent distress Eyes: normal inspection, sclerae normal ENT: hearing grossly normal Neck: trachea midline Respiratory/Chest: lungs clear, no accessory muscle use Cardiovascular: regular rate, rhythm, no edema, no gallop, no murmur Abdomen: normal bowel sounds, non tender, soft, no organomegaly Extremities: non-tender, normal inspection, no pedal edema, no calf tenderness Neurologic/Psychiatric: alert, normal mood/affect, oriented x 3 Skin: normal color, warm/dry, no rash Review of Systems: Constitutional: No fever Eyes: No worsening of vision ENT: No problem reported Respiratory: No shortness of breath, No dyspnea on exertion Cardiovascular: No chest pain Abdomen: No pain, No nausea Musculoskeletal: No problem reported Genitourinary - Male: No problem reported Neurologic: No problem reported Psychiatric: No problem reported Endocrine: No problem reported Hematologic / Lymphatic: No problem reported Integumentary: No problem reported Hospital Course Pt is a 60-year-old male with a h/o HTN, hyperlipidemia (treated with flaxseed oil and lifestyle modification), who presents with exertional chest pain over the last 2 months seemingly getting worse. EKG initially shows no signs of ischemia. Initial troponin was negative. He had a stress ECHO which was grossly abnormal and positive for ischemia. He was placed on a heparin gtt overnight. Second troponin 0.08. He went for left heart cath and had severe CAD , multivessel, with UDAY placed at proximal LAD for 95% occlusion. He did require an aspiration thrombectomy during cath and a small clot went into distal LAD. SHortly after thrombectomy, he developed confusion during cath and stroke alert called. Initial MRI brain showed possible 6mm lacunar infarct carpus callosum, but does not seem to fit clinically with his symptoms which were more likely related to effect of midazolam. The following day he had repeat brain MRI which showed multiple tiny punctate foci of acute ischemia all in right hemisphere but in multiple distributions of circulation, consistent with showered emboli. 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 Also found to have 50% stenosis of basilar artery and some moderate stenosis of LICA as well. Completely asymptomatic at this point. Unstable angina, CAD now s/p UDAY ostial LAD for 95% occlusion, also with 60-70% stenosis OM. Small clot in distal LAD occurred during aspiration thrombectomy causing troponin to increase and then peak at 7 after stent placement--> then trended back down to 4. Likely with Familial hypercholesterolemia with LDL 195. Brother with [place] age 62, father with hyperlipidemia but committed suicide age 48 so unknown if had premature CAD. -continue DAPT with ASA, Brillinta for at least 1 year -started high intensity statin Lipitor 80mg daily -check lipids and LFTs in 4-6 weeks -start lisinopril 5mg daily -was initially started on metoprolol but Cardiology recommends discontinuing this as he did not have [place] and is active with typical resting bradycardia -Will need Cardiac Rehab after cleared by Cardiology -Appreciate Cardiology management-will need office f/u within 1-2 weeks Confusion/Acute suspected toxic and metabolic encephalopathy likely secondary to Versed/Acute CVA of embolic nature. Repeat MRI with multiple showered foci of punctate ischemia right hemisphere. Embolic CVAs from cardiac cath procedure. Pt asymptomatic now. With RAVI focal dissection and incidental 7mm aneurysm RAVI Bilateral ROYER -Neuro checks performed and no change, NIH stroke score 0 and no tPA given -PT/OT/ST evals -Neuro consult-discussed case with Dr. Sherman and Dr. Contreras of Vascular Surgery-- > Dr. Contreras recommends outpatient evaluation with Interventional Neuroradiology /Vascular Neurosurgery at [facility] [place] for the aneurysm, no need for anticoagulation for the dissection as it is not the source of the acute CVAs as there were CVAs in the posterior circulation as well -continue on ASA, Brillinta, and high intensity statin -f/u with Neuroradiology interventional at [facility] [place] as outpat -will need routine follow up on the ROYER HTN-ok to keep MAP around 100 given acute CVA -dc home Norvasc 5 mg -started lisinopril 5mg daily DVT prophylaxis -TEDS, SCDs, will not give chemical DVT prophylaxis given aneurysm and risk of bleeding CODE STATUS -LEVEL I FULL CODE Dispo-to home Total Time Spent: Greater than 30 minutes This includes examination of the patient, discharge planning, medication reconciliation, and communication with other providers. Discharge Instructions Please refer to the electronic Patient Visit Report (Discharge Instructions) for additional information. Follow-Up PCP within 1 week Cardiology within 1-2 weeks Additional Copies To Lalito Worthington MD; ,Ari Oquendo M.D.
--- NOTE | 2016-08-11 14:03 | Pharmacy Progress Note ---
Pharmacist Post D/C Phone Note Date of phone call: Aug 11, 2016. Individual with whom pharmacist spoke to: Mr Villalpando The following questions were reviewed during the phone call with responses listed below each: Can you tell me the medications that you are currently taking as well as when and how you take each medication? - Mr Villalpando was able to recite the medications that he has taking. He does not use a pill organizer yet. He is not taking Norvasc. When have you missed any doses of your medications? - no What side effects are you having from your medications? - Patient is very hypervigilant right now. He denies bleeding. He does have some orthostatic hypotension but stands up slowly. What questions do you have about your medications? - Patient does not have questions about medications. What problems are you having obtaining your medications? - Patient had difficulty obtaining Brilinta on the day of discharge (able to obtain samples from physician's office) then will meat pickler from pharmacy. When is your next appointment with your primary care doctor? - Thursday with PCP Additional comments: - Mr Villalpando is hypervigilant about the different feelings he is having and is concerned that they could be a heart attack or stroke. He was very knowledgeable about his medications; he follows up closely with his physician. Medications Dose Route/Sig Max Daily Dose Days Date Category Dose Instructions Aspirin EC Low Dose (Aspirin) 81 Mg Ectab 81 Mg PO QAM 30 08/08/16 Rx Nitrostat (Nitroglycerin) 0.4 Mg/1 Tab Subl 0.4 Mg SL UD PRN 08/08/16 Rx Take 1 tab q5 min and seek immediate medical attention Lisinopril 5 Mg Tab 5 Mg PO QAM 30 08/08/16 Rx Lipitor (Atorvastatin Calcium) 80 Mg Tab 80 Mg PO DAILY 30 08/08/16 Rx Brilinta (Ticagrelor) 90 Mg Tab 90 Mg PO BID 30 08/08/16 Rx Zinc Sulfate 220 Mg Cap 220 Mg PO TID 08/05/16 Reported Vitamin C (Vitamins C & E) 1 Cap Cap 08/05/16 Reported Glucosamine (Glucosamine Sulfate) 1,000 Mg Tab DAILY 12/16/10 Reported As per the Pharmacist Discharge Counseling for Stroke Patients Protocol, this phone call has been completed within 72 hours of discharge. Thank you for allowing us to be involved in the care of this patient.
[2016-09-23] MEDS ORDERED: ATOR-26 PO (10:36)
[2016-09-23] MEDS ORDERED: AMLO2.5T PO (10:36)
[2016-12-23] MEDS ORDERED: ZINC1TAB PO (14:17)
[2016-12-23] MEDS ORDERED: VNTHFA/IN INH (14:17)
[2016-12-23] MEDS ORDERED: GLUC10007 PO (14:17)
== END 2016-08-08 14:28 | disposition home or self-care (01) | DRG 246 ==
LOC: C.EDB 11:38 → C.2T 15:56 → ENRESERV 16:10 → C.MSICU 08-06 11:17 → ENRESERV 08-07 15:57 → C.2T 08-07 18:47
PROVIDERS: ADMIT Internal Medicine; ATTEND Family Medicine
PROC: 027034Z Dilation of Coronary Artery, One Artery with Drug-eluting Intraluminal Device, Percutaneous Approach (ICD-10-PCS; principal; 2016-08-06 09:04)
PROC: B2111ZZ Fluoroscopy of Multiple Coronary Arteries using Low Osmolar Contrast (ICD-10-PCS; principal; 2016-08-06 09:04)
PROC: 4A023N7 Measurement of Cardiac Sampling and Pressure, Left Heart, Percutaneous Approach (ICD-10-PCS; principal; 2016-08-06 09:04)
DX: I25.110 Atherosclerotic heart disease of native coronary artery with unstable angina pectoris (principal); G92 Toxic encephalopathy; I97.810 Intraoperative cerebrovascular infarction during cardiac surgery; J30.2 Other seasonal allergic rhinitis; E78.4 Other hyperlipidemia; J30.9 Allergic rhinitis, unspecified; I67.1 Cerebral aneurysm, nonruptured; I65.1 Occlusion and stenosis of basilar artery; I65.23 Occlusion and stenosis of bilateral carotid arteries; Z79.899 Other long term (current) drug therapy; Z85.038 Personal history of other malignant neoplasm of large intestine; Z83.3 Family history of diabetes mellitus; Z82.49 Family history of ischemic heart disease and other diseases of the circulatory system; Z80.9 Family history of malignant neoplasm, unspecified; Z81.8 Family history of other mental and behavioral disorders; Z88.0 Allergy status to penicillin; Z88.8 Allergy status to other drugs, medicaments and biological substances; Z88.3 Allergy status to other anti-infective agents; Z87.442 Personal history of urinary calculi; Z86.010 Personal history of colon polyps; Z87.19 Personal history of other diseases of the digestive system

== ENCOUNTER → 2016-09-19 | Outpatient (CLI) | payer BC ==
[~2016-09-19] MED LIST changes: -AMLO-110 PO; +AMLO2.5T PO; -ASCA500 PO; +ASPEC81 PO; +ATOR-26 PO; +BRL90 PO; +LSN5 PO; +NTRSLP4 SL; -OMEG10007 PO; +VITACAP26; +ZINC1CAP PO
[2016-09-19 10:37] LABS: CHOLESTEROL/HDL RATIO 2.3
== END | disposition home or self-care (01) ==
LOC: C.LAB 09:09
PROVIDERS: ATTEND Physician Assistant
DX: E78.5 Hyperlipidemia, unspecified (principal)

== ENCOUNTER → 2016-12-30 | Outpatient (CLI) | payer BC ==
[~2016-12-30] MED LIST changes: -GLUC10007; +GLUC10007 PO; +VNTHFA/IN INH; -ZINC1CAP PO; +ZINC1TAB PO
--- NOTE | 2016-12-30 08:09 | DIAGNOSTIC IMAGING REPORT ---
GALLBLADDER-ABD LIMITED HISTORY: 61 years-old Male R07.89,K22.8 acute atypical chest pain with esophageal pain COMPARISON: Chest CT 08/01/2016 TECHNIQUE: Multiple real-time sonographic images of the abdominal right upper quadrant were obtained assessing grayscale appearance and color flow FINDINGS: Cyst with a thin internal septation is noted involving the superior pole right kidney, 3.6 x 5.7 x 4.6 cm. No definite associated soft tissue nodularity or mural thickening. The pancreas is partially obscured by bowel gas and appears unremarkable. The liver is within normal limits without intrahepatic biliary ductal dilation. No focal hepatic mass lesions identified. There is a suggested phrygian cap of the gallbladder. No shadowing cholelithiasis, gallbladder wall thickening or pericholecystic fluid collections. Common bile duct is normal, 3 mm. IMPRESSION: 1. No cholelithiasis or sonographic evidence of acute cholecystitis. 2. Cyst of the superior pole right kidney with thin interval internal septation overall measures up to 5.7 cm. No hydronephrosis identified. 3. No biliary ductal dilation. The above report was generated using voice recognition software. It may contain grammatical, syntax or spelling errors. Electronically signed by: oJnatan Quiroz M.D. 12/30/2016 8:08 AM Dictated Date/Time: 12/30/2016 8:03 AM
== END | disposition home or self-care (01) ==
LOC: C.ULTR 07:26
PROVIDERS: ATTEND Nurse Practitioner Adult Health
DX: K22.8 Other specified diseases of esophagus (principal); R50.9 Fever, unspecified; R07.89 Other chest pain; N28.1 Cyst of kidney, acquired

== ENCOUNTER 2017-05-04 10:07 | Emergency (ER) | payer BC, OTHER ==
[~2017-05-04] VITALS: Ht 172.7 cm; Wt 79.8 kg
[2017-05-04 10:15] VITALS: Ht 172.7 cm; Wt 79.8 kg
[2017-05-04] MEDS ORDERED: RANITIDINE HCL 50 MG/100 ML D5W IV STA (11:34)
[2017-05-04] MEDS ORDERED: PANTOprazole INJ 80 MG in DEXTROSE 5% 100ML 100 ML IV SCH (11:45)
[2017-05-04 12:00] LABS: BASO % 0.4 %; BASO ABS # 0.02 K/uL (0-0.2); EOS % 1.2 %; EOS ABS # 0.06 K/uL (0-0.5); HEMATOCRIT 43.3 % (42-52); HEMOGLOBIN 15.2 g/dL (14.0-18.0); IG# 0.01 K/uL (0.00-0.02); LYMPH % 13.6 %; LYMPH ABS # 0.66 K/uL (1.2-3.4); MEAN CELL VOLUME 87.1 fL (80-100); MEAN CORPUSCULAR HEMOGLOBIN 30.6 pg (25-34); MEAN CORPUSCULAR HGB CONC 35.1 g/dl (32-36); MONO ABS # 0.34 K/uL (0.11-0.59); NEUT % 77.6 %; NEUT ABS # 3.75 K/uL (1.4-6.5); PLATELET COUNT 229 K/uL (130-400); RED CELL DISTRIBUTION WIDTH CV 12.7 % (11.5-14.5); RED CELL DISTRIBUTION WIDTH SD 40.4 fL (36.4-46.3); WHITE BLOOD COUNT 4.84 K/uL (4.8-10.8)
[2017-05-04 12:08] LABS: ALBUMIN 4.1 gm/dl (3.4-5.0); CALCIUM 9.1 mg/dl (8.5-10.1); CREATININE 0.83 mg/dl (0.60-1.40); POTASSIUM 3.5 mmol/L (3.5-5.1)
[2017-05-04 12:09] LABS: PTT PATIENT 24.5 SECONDS (21.0-31.0)
[2017-05-04 12:10] LABS: TOTAL PROTEIN 7.5 gm/dl (6.4-8.2)
--- NOTE | 2017-05-04 12:22 | DIAGNOSTIC IMAGING REPORT ---
CHEST AND ABDOMEN 2 VIEWS HISTORY: EVALUATE GI BLEED/OBSTRUCTION SERIES COMPARISON: Chest 12/23/2016. FINDINGS: The lungs are clear. The heart is normal in size. No pneumoperitoneum. No pneumatosis. Suture material within the right side of the abdomen. The bowel gas pattern is unremarkable. No evidence for bowel obstruction. Vascular calcifications are noted within the abdomen and pelvis. Round calcifications within the left deep pelvis likely represent phleboliths. Punctate calcifications overlying the right kidney also favor vascular calcifications. No definite renal or ureteral calculi. IMPRESSION: No acute cardiopulmonary process. No evidence for bowel obstruction. Electronically signed by: Harry Arroyo M.D. 05/04/2017 12:21 PM Dictated Date/Time: 05/04/2017 12:19 PM
[2017-05-04] MEDS ORDERED: CLOP1TAB15 PO (12:32)
[2017-05-04 15:19] VITALS: BP 151/94; PULSE 77; TEMP 37; O2SAT 97
--- NOTE | 2017-05-04 20:58 | EMERGENCY ROOM VISIT NOTE ---
History First contact with patient: 10:59 Chief Complaint: GI ASSESSMENT Stated Complaint: DARK/BLACK STOOL Nursing Triage Summary: pt reports hx of rectal bleeding is on plavix for cardiac stent . noted black stool started fri.denies abdomnial pain or nausea History of Present Illness The patient is a 61 year old male who presents to the Emergency Room with complaints of black tarry stools since last , or 4-5 days ago. The patient is currently on Plavix and aspirin for prior history of LAD stenting and thrombolic CVA. He is currently under the management of Dr. Worthington, entomology professor. The patient has also had a prior history of massive GI hemorrhage from a polyp, resulting in a partial colectomy in 2012. The patient currently denies any abdominal pain, nausea, coffee-ground emesis, chest pain or shortness of breath. He does report feeling somewhat fatigued, but denies any other significant symptoms. Because of his Plavix use, he does not take NSAIDs. He denies any significant alcohol or caffeine use. The patient denies any pain on my exam. Review of Systems HEENT: Denies dizziness, visual problems, hearing loss, tinnitus. Denies difficulty swallowing or oral lesions. PULMONARY: Denies cough, shortness of breath, sputum production or hemoptysis. CARDIOVASCULAR: Denies chest pain, palpitations, dyspnea on exertion, orthopnea or peripheral edema. GASTROINTESTINAL: Denies diarrhea, constipation, nausea, vomiting, or abdominal pain. Otherwise see HPI. GENITOURINARY: Denies dysuria, frequency, urgency or nocturia. NEUROLOGIC: Denies history of epilepsy, CVA, TIA or chronic headaches. MUSCULOSKELETAL: Denies history of joint tenderness/swelling. SKIN: Denies rashes or lesions. PSYCHIATRIC: Denies history of depression or mental illness. ENDOCRINE: Denies history of diabetes or thyroid disorders. Past Medical/Surgical History Medical Problems: (1) Colonoscopic polypectomy (2) Hyperlipidemia Nec/Nos (3) Hypertension Nos (4) Lower gastrointestinal hemorrhage Family History Diabetes mellitus FHx: cancer Heart disease Hypertension Social History Smoking Status: Never Smoker Alcohol Use: occasionally Drug Use: none Marital Status: Housing Status: lives alone Occupation Status: employed Current/Historical Medications Scheduled Amlodipine (Norvasc), 2.5 MG PO DAILY Aspirin (Aspirin EC Low Dose), 81 MG PO QAM Atorvastatin (Lipitor), 80 MG PO DAILY Clopidogrel (Plavix), 75 MG PO DAILY Glucosamine Sulfate (Glucosamine), 1,000 MG PO DAILY Lisinopril (Lisinopril), 5 MG PO QAM Zinc Gluconate (Zinc), 50 MG PO DAILY Scheduled PRN Albuterol Hfa (Ventolin Hfa), 2-4 PUFFS INH Q6H PRN for SOB/Wheezing Nitroglycerin (Nitrostat), 0.4 MG SL UD PRN for Chest Pain Miscellaneous Medications Vitamins C & E (Vitamin C) Physical Exam Vital Signs Date Time Temp Pulse Resp B/P (MAP) Pulse Ox O2 Delivery O2 Flow Rate FiO2 05/04/17 15:19 37.0 77 19 151/94 97 05/04/17 13:52 37.0 67 16 153/91 98 Room Air 05/04/17 11:45 90 18 150/89 97 Room Air 05/04/17 10:15 36.9 100 20 163/97 99 Room Air Physical Exam CONSTITUTIONAL: Healthy and well nourished. Alert and oriented X 3 with positive affect. Patient does not appear in any acute distress. HEENT: Normocephalic, atraumatic. Pupils equal, round and reactive. No conjunctival pallor or scleral icterus. OROPHARYNX: No posterior pharyngeal erythema. NECK: Full active range of motion without discomfort. RESPIRATORY: Clear to auscultation bilaterally with no wheezing, crackles, rhonchi or stridor. CARDIOVASCULAR: Regular rate and rhythm with no murmurs, rubs or gallops. GASTROINTESTINAL: Bowel sounds present in all quadrants. Soft and nontender to palpation. No obvious hepatosplenomegaly. Prior surgical incisions are noted without palpable abdominal wall defects. MUSCULOSKELETAL: Full range of motion of all joints without discomfort. INTEGUMENTARY: No rash or other significant dermatologic conditions noted. HEMATOLOGIC: No ecchymosis or petechia. NEUROLOGIC: No focal neurologic deficits noted. Medical Decision & Procedures ER Provider Diagnostic Interpretation: My interpretation of an ECG shows a normal sinus rhythm of [address] elevation or other conduction abnormalities. My interpretation of an abdomen series with chest view does not show any acute processes or free air. Radiologist report is as follows: CHEST AND ABDOMEN 2 VIEWS HISTORY: EVALUATE GI BLEED/OBSTRUCTION SERIES COMPARISON: Chest 12/23/2016. FINDINGS: The lungs are clear. The heart is normal in size. No pneumoperitoneum. No pneumatosis. Suture material within the right side of the abdomen. The bowel gas pattern is unremarkable. No evidence for bowel obstruction. Vascular calcifications are noted within the abdomen and pelvis. Round calcifications within the left deep pelvis likely represent phleboliths. Punctate calcifications overlying the right kidney also favor vascular calcifications. No definite renal or ureteral calculi. IMPRESSION: No acute cardiopulmonary process. No evidence for bowel obstruction. Laboratory Results 05/04/17 11:45 Red Blood Count 4.97, Mean Corpuscular Volume 87.1, Mean Corpuscular Hemoglobin 30.6, Mean Corpuscular Hemoglobin Concent 35.1, Mean Platelet Volume 10.0, Neutrophils (%) (Auto) 77.6, Lymphocytes (%) (Auto) 13.6, Monocytes (%) (Auto) 7.0, Eosinophils (%) (Auto) 1.2, Basophils (%) (Auto) 0.4, Neutrophils # (Auto) 3.75, Lymphocytes # (Auto) 0.66, Monocytes # (Auto) 0.34, Eosinophils # (Auto) 0.06, Basophils # (Auto) 0.02 05/04/17 11:45 Test 05/04/17 00:00 05/04/17 11:45 Urine Color YELLOW Urine Appearance CLEAR (CLEAR) Urine pH 5.0 (4.5-7.5) Urine Specific [place] 1.029 (1.000-1.030) Urine Protein NEG (NEG) Urine Glucose (UA) NEG (NEG) Urine Ketones TRACE (NEG) Urine Occult Blood 2+ (NEG) Urine Nitrite NEG (NEG) Urine Bilirubin NEG (NEG) Urine Urobilinogen NEG (NEG) Urine Leukocyte Esterase NEG (NEG) Urine WBC (Auto) 1-5 /hpf (0-5) Urine RBC (Auto) >30 /hpf (0-4) Urine Hyaline Casts (Auto) 1-5 /lpf (0-5) Urine Epithelial Cells (Auto) 10-20 /lpf (0-5) Urine Bacteria (Auto) NEG (NEG) White Blood Count 4.84 K/uL (4.8-10.8) Red Blood Count 4.97 M/uL (4.7-6.1) Hemoglobin 15.2 g/dL (14.0-18.0) Hematocrit 43.3 % (42-52) Mean Corpuscular Volume 87.1 fL (80-100) Mean Corpuscular Hemoglobin 30.6 pg (25-34) Mean Corpuscular Hemoglobin Concent 35.1 g/dl (32-36) Platelet Count 229 K/uL (130-400) Mean Platelet Volume 10.0 fL (7.4-10.4) Neutrophils (%) (Auto) 77.6 % Lymphocytes (%) (Auto) 13.6 % Monocytes (%) (Auto) 7.0 % Eosinophils (%) (Auto) 1.2 % Basophils (%) (Auto) 0.4 % Neutrophils # (Auto) 3.75 K/uL (1.4-6.5) Lymphocytes # (Auto) 0.66 K/uL (1.2-3.4) Monocytes # (Auto) 0.34 K/uL (0.11-0.59) Eosinophils # (Auto) 0.06 K/uL (0-0.5) Basophils # (Auto) 0.02 K/uL (0-0.2) RDW Standard Deviation 40.4 fL (36.4-46.3) RDW Coefficient of Variation 12.7 % (11.5-14.5) Immature Granulocyte % (Auto) 0.2 % Immature Granulocyte # (Auto) 0.01 K/uL (0.00-0.02) Prothrombin Time 10.7 SECONDS (9.0-12.0) Prothromb Time International Ratio 1.0 (0.9-1.1) Activated Partial Thromboplast Time 24.5 SECONDS (21.0-31.0) Partial Thromboplastin Ratio 0.9 Anion Gap 7.0 mmol/L (3-11) Est Creatinine Clear Calc Drug Dose 91.5 ml/min Estimated GFR () 110.8 Estimated GFR (Non- 95.6 BUN/Creatinine Ratio 23.0 (10-20) Calcium Level 9.1 mg/dl (8.5-10.1) Total Bilirubin 0.6 mg/dl (0.2-1) Direct Bilirubin 0.1 mg/dl (0-0.2) Aspartate Amino Transf (AST/SGOT) 30 U/L (15-37) Alanine Aminotransferase (ALT/SGPT) 53 U/L (12-78) Alkaline Phosphatase 100 U/L (45-117) Total Creatine Kinase 84 U/L (39-308) Total Protein 7.5 gm/dl (6.4-8.2) Albumin 4.1 gm/dl (3.4-5.0) Lipase 121 U/L (73-393) The above labs were reviewed and were grossly normal. The patient is hemodynamically stable. Medications Administered Medications (Trade) Dose Ordered Sig/Shannan Route Start Time Stop Time Status Last Admin Dose Admin Ranitidine HCl (zANTac IV) 50 mg NOW STAT IV 05/04/17 11:34 05/04/17 11:36 DC 05/04/17 11:55 50 MG ED Course Patient history and physical exam were performed. Nurse's notes were reviewed. Vital signs were reviewed, showing an elevated blood pressure. Otherwise the patient is not tachycardic or febrile on my exam. The patient also does not appear in any acute distress. IV access was established, and labs were drawn.. IV access was established, and labs were drawn. It is noted that I performed a digital rectal exam with a positive hemoccult, even with no stool collected from the rectal vault. Labs were reviewed and were normal. ECG and abdomen obstruction series with a PA chest view was also normal. The case was discussed with Dr. Johnson, ED attending physician, who suggested discussing the case further with GI and cardiology. I initially discussed the case with PARIS Max who stated that she will call the office first aid instructor to have the patient set up for an upper endoscopy. She recommended that the patient take omeprazole 20 mg twice daily. She suggested that I discuss further Plavix and aspirin dosing with her entomology professor. I then discussed the case with Dr. Worthington, entomology professor who indicates that he has an appointment with the patient in 2 weeks. He suggested stopping the Plavix for now, but continuing with a baby aspirin daily. This information was relayed back to the patient, and he was in agreement with this plan. The patient was instructed to return to the emergency department for any developing abdominal pain, chest pain , palpitations, shortness of breath, coffee-ground emesis or other concerns. The patient was happy with plan of care, and voiced understanding of all discharge instructions. Medical Decision Patient presents to the emergency department with complaint of melanotic stools. Stool Hemoccult was positive. The patient is currently on both Plavix and aspirin. I suspect an upper GI bleed. The patient has not had any abdominal pain or coffee-ground emesis. He is hemodynamically stable on labs and with vital signs. The case was discussed with attending physician, entomology professor and gastroenterology group, and was felt that the patient was stable for outpatient endoscopy studies. Medication Reconcilliation Current Medication List: was personally reviewed by me Blood Pressure Screening Patient's blood pressure: Elevated blood pressure Blood pressure disposition: Did not require urgent referral Impression Primary Impression: Upper GI bleed Departure Information Referrals Pro,Ari Oquendo M.D. (PCP) Patient Instructions My [facility]
== END 2017-05-04 15:19 | disposition home or self-care (01) ==
LOC: C.EDB 10:09
DX: K92.2 Gastrointestinal hemorrhage, unspecified (principal); E78.5 Hyperlipidemia, unspecified; I10 Essential (primary) hypertension; Z79.82 Long term (current) use of aspirin; Z95.5 Presence of coronary angioplasty implant and graft; Z83.3 Family history of diabetes mellitus; Z82.49 Family history of ischemic heart disease and other diseases of the circulatory system

== ENCOUNTER 2017-06-15 17:42 | Inpatient (IN) | payer OTHER ==
[~2017-06-15] VITALS: Ht 172.7 cm; Wt 78.5 kg
[~2017-06-15 17:42] MED LIST changes: -ASPEC81 PO; +ASPI-320 PO; -BRL90 PO; +CLOP1TAB15 PO
--- NOTE | 2017-06-15 18:01 | EMERGENCY ROOM VISIT NOTE ---
History Report prepared by Meseret: Robin Barclay Under the Supervision of: Dr. Brandon Johnson D.O. First contact with patient: 17:52 Chief Complaint: CHEST PAIN Stated Complaint: CHEST PAIN,TIGHTNESS,BURNING,PAIN IN L ARM History of Present Illness The patient is a 61 year old male who presents to the Emergency Room with complaints of intermittent, exertional chest pain. Patient has a past medical history of a stent placed back in July 2016. He notes at that time he had an additional 70% lesion which they did not state as a complication with the initial stent. Patient notes that for the past week he has been having exertional chest pain. He describes as a burning in the middle to left of his chest. This resolves with rest. Currently his pain is a 0 out of 10. He also has left arm discomfort with this which started today. He also admits that the chest pain goes up into his neck. No other exacerbating or remitting factors. He has been taking his Plavix. He did take a baby aspirin this morning. Patient has been in contact with his PCP in regards this. Pt denies headache, change in vision, fevers, shortness of breath, nausea, vomiting, diarrhea, and pain with urination. Source of History: patient Onset: week ago Position: chest Symptom Intensity: currently 0/10 Quality: burning Timing: intermittent Modifying Factors (Worsening): exertion Modifying Factors (Relieving): rest Associated Symptoms: + neck pain, No fevers, No headache, No SOB, No nausea , No vomiting, No melena Note: Associated symptoms: left arm discomfort Denies: change in vision, pain with urination Review of Systems See HPI for pertinent positives & negatives. A total of 10 systems reviewed and were otherwise negative. Past Medical & Surgical Medical Problems: (1) Anemia (2) Chest pain (3) Colonoscopic polypectomy (4) Hyperlipidemia Nec/Nos (5) Hypertension Nos (6) Lower gastrointestinal hemorrhage Family History Diabetes mellitus FHx: cancer Heart disease Hypertension Social History Smoking Status: Never Smoker Alcohol Use: occasionally Drug Use: none Marital Status: Housing Status: lives alone Occupation Status: employed Current/Historical Medications Scheduled Amlodipine (Norvasc), 2.5 MG PO DAILY Ascorbic Acid (Ascorbic Acid), 1,000 MG PO QAM Aspirin (Aspirin EC Low Dose), 81 MG PO QAM Aspirin (Aspirin Ec), 81 MG PO QAM Atorvastatin (Lipitor), 80 MG PO DAILY Clopidogrel (Plavix), 75 MG PO DAILY Coenzyme Q10 (Ubidecarenone) (Co Q 10), 100 MG PO QAM Glucosamine Sulfate (Glucosamine), 1,000 MG PO DAILY Lisinopril (Lisinopril), 5 MG PO QAM Lisinopril (Zestril), 5 MG PO QAM Nitroglycerin (Nitrostat), 0.4 MG UT PRN Zinc Gluconate (Zinc), 50 MG PO QAM Scheduled PRN Albuterol Hfa (Ventolin Hfa), 2-4 PUFFS INH Q6H PRN for SOB/Wheezing Nitroglycerin (Nitrostat), 0.4 MG SL UD PRN for Chest Pain Miscellaneous Medications Vitamins C & E (Vitamin C) Allergies Coded Allergies: Penicillamine (Verified Allergy, Severe, THROAT INFECTION, 06/15/17) Erythromycin (Verified Allergy, Unknown, UNKNOWN, 06/15/17) Penicillins (Verified Allergy, Unknown, RASH, 06/15/17) Azithromycin (Verified Adverse Reaction, Intermediate, DIGESTIVE PROBLEMS , 06/15/17) Macrolides and Ketolides (Verified Adverse Reaction, Mild, MILD, 06/15/17) Physical Exam Vital Signs Date Time Temp Pulse Resp B/P (MAP) Pulse Ox O2 Delivery O2 Flow Rate FiO2 06/15/17 20:50 86 23 100 Room Air 06/15/17 20:20 91 16 96 06/15/17 19:50 90 20 99 06/15/17 19:20 92 16 100 06/15/17 19:09 98 21 98 Room Air 06/15/17 18:50 95 21 06/15/17 18:45 96 22 06/15/17 18:12 100 24 168/100 06/15/17 18:02 101 06/15/17 17:51 100 Room Air 06/15/17 17:51 37.0 88 16 168/100 100 Room Air Physical Exam GENERAL: Sitting up in bed, alert, well appearing, well nourished, no distress, non-toxic EYE EXAM: normal conjunctiva. OROPHARYNX: no exudate, no erythema, lips, buccal mucosa, and tongue normal and mucous membranes are moist NECK: supple, no nuchal rigidity, no adenopathy, non-tender LUNGS: Clear to auscultation. Normal chest wall mechanics HEART: no murmurs, S1 normal and S2 normal ABDOMEN: abdomen soft, non-tender, normo-active bowel sounds, no masses, no rebound or guarding. RECTAL: Heme positive. BACK: Back is symmetrical on inspection and there is no deformity, no midline tenderness, no CVA tenderness. SKIN: no rashes and no bruising UPPER EXTREMITIES: upper extremities are grossly normal. Radial pulses equal bilaterally. LOWER EXTREMITIES: No pitting edema. Calves are equal bilaterally. NEURO EXAM: Normal sensorium, cranial nerves II-XII grossly intact, normal speech, no gross weakness of arms, no gross weakness of legs. Medical Decision & Procedures ER Provider Diagnostic Interpretation: Radiology results as stated below per my review and the radiologist's interpretation: CHEST ONE VIEW PORTABLE CLINICAL HISTORY: Chest Pain dyspnea COMPARISON STUDY: 05/04/2017 FINDINGS: The bones soft tissues and hemidiaphragms are normal. The cardiomediastinal silhouette is normal. The lungs are clear. The pulmonary vasculature is normal. IMPRESSION: Negative chest. The above report was generated using voice recognition software. It may contain grammatical, syntax or spelling errors. Electronically signed by: Diallo Lopes M.D. 06/15/2017 6:45 PM Dictated Date/Time: 06/15/2017 6:44 PM Laboratory Results 06/15/17 18:09 Red Blood Count 2.97, Mean Corpuscular Volume 83.8, Mean Corpuscular Hemoglobin 28.3, Mean Corpuscular Hemoglobin Concent 33.7, Mean Platelet Volume 8.5, Neutrophils (%) (Auto) 69.8, Lymphocytes (%) (Auto) 16.0, Monocytes (%) (Auto) 9.5, Eosinophils (%) (Auto) 4.2, Basophils (%) (Auto) 0.5, Neutrophils # (Auto) 3.97, Lymphocytes # (Auto) 0.91, Monocytes # (Auto) 0.54, Eosinophils # (Auto) 0.24, Basophils # (Auto) 0.03 06/15/17 18:09 Test 06/15/17 18:09 White Blood Count 5.69 K/uL (4.8-10.8) Red Blood Count 2.97 M/uL (4.7-6.1) Hemoglobin 8.4 g/dL (14.0-18.0) Hematocrit 24.9 % (42-52) Mean Corpuscular Volume 83.8 fL (80-100) Mean Corpuscular Hemoglobin 28.3 pg (25-34) Mean Corpuscular Hemoglobin Concent 33.7 g/dl (32-36) Platelet Count 313 K/uL (130-400) Mean Platelet Volume 8.5 fL (7.4-10.4) Neutrophils (%) (Auto) 69.8 % Lymphocytes (%) (Auto) 16.0 % Monocytes (%) (Auto) 9.5 % Eosinophils (%) (Auto) 4.2 % Basophils (%) (Auto) 0.5 % Neutrophils # (Auto) 3.97 K/uL (1.4-6.5) Lymphocytes # (Auto) 0.91 K/uL (1.2-3.4) Monocytes # (Auto) 0.54 K/uL (0.11-0.59) Eosinophils # (Auto) 0.24 K/uL (0-0.5) Basophils # (Auto) 0.03 K/uL (0-0.2) RDW Standard Deviation 39.3 fL (36.4-46.3) RDW Coefficient of Variation 12.8 % (11.5-14.5) Immature Granulocyte % (Auto) 0.0 % Immature Granulocyte # (Auto) 0.00 K/uL (0.00-0.02) Hypochromasia PRESENT Anion Gap 6.0 mmol/L (3-11) Est Creatinine Clear Calc Drug Dose 117.1 ml/min Estimated GFR () 121.8 Estimated GFR (Non- 105.1 BUN/Creatinine Ratio 32.8 (10-20) Calcium Level 8.0 mg/dl (8.5-10.1) Total Bilirubin 0.3 mg/dl (0.2-1) Direct Bilirubin < 0.1 mg/dl (0-0.2) Aspartate Amino Transf (AST/SGOT) 34 U/L (15-37) Alanine Aminotransferase (ALT/SGPT) 51 U/L (12-78) Alkaline Phosphatase 85 U/L (45-117) Total Creatine Kinase 198 U/L (39-308) Creatine Kinase MB 1.9 ng/ml (0.5-3.6) Creatine Kinase MB Ratio 1.0 (0-3.0) Troponin I < 0.015 ng/ml (0-0.045) Total Protein 6.5 gm/dl (6.4-8.2) Albumin 3.6 gm/dl (3.4-5.0) Lipase 161 U/L (73-393) Laboratory results per my review. Medications Administered Medications (Trade) Dose Ordered Sig/Shannan Route Start Time Stop Time Status Last Admin Dose Admin Aspirin (Aspirin Chew) 81 mg NOW STAT PO 06/15/17 18:02 06/15/17 18:03 DC 06/15/17 18:20 81 MG Sodium Chloride 1,000 ml @ 100 mls/hr Q10H IV 06/15/17 20:30 06/16/17 06:29 06/15/17 23:04 100 MLS/HR ECG Per My Interpretation Indication: chest pain Rate (beats per minute): 98 Rhythm: sinus rhythm Findings: other (Normal axis. No PVCs.) ED Course ED COURSE: Vital signs were reviewed and showed hypertension and tachycardia. The patients medical record was reviewed The above diagnostic studies were performed and reviewed. ED treatments and interventions as stated above. 1751: The patient was evaluated in room C11B. A complete history and physical examination was performed. 1801: Ordered Aspirin 81mg PO 1828: I reevaluated the patient and performed a rectal examination. I also updated him of his current exam findings. 1925: Upon reevaluation, the patient is resting.I discussed my findings with the patient and he understands and agrees with the treatment plan. 1927: I discussed the patient's case with Dr. Calero, [facility] Hospitalist. The patient will be evaluated for further management and care. Based on the patients age, coexisting illnesses, exam and lab findings the decision to treat as an inpatient was made. The patient remained stable while under my care. The patient will be evaluated for further management. Medical Decision Differential diagnoses includes but is not limited to acute coronary syndrome, myocardial infarction, pericarditis, pulmonary embolus, aortic dissection, pneumonia, pneumothorax, musculoskeletal, shingles, esophageal. Patient is a 61-year-old male that presents to ER with exertional chest pain which is been present over the past week. He also admits to dark tarry stools which has been intermittent for the past month and a half. He does take Plavix. No chest pain at this point. Hemoglobin went from 15 to 8.4. BMP along with troponin was negative. EKG was unchanged. Chest x-ray unremarkable. Rectal was heme positive. Patient was typed and crossed. Discussed with internal medicine. Patient was admitted for exertional chest pain associated with symptomatic anemia while on Plavix. He did recently have a scope in the past month; per patient was negative. Medication Reconcilliation Current Medication List: was personally reviewed by me Blood Pressure Screening Patient's blood pressure: Elevated blood pressure Monitored by hospitalist. Consults Time Called: 1917 Consulting Physician: Dr. Calero, [facility] Hospitalist Returned Call: 1927 I discussed the patient's case with Dr. Calero, [facility] Hospitalist. The patient will be evaluated for further management and care. Impression Primary Impression: Symptomatic anemia Additional Impressions: Precordial chest pain Lower gastrointestinal hemorrhage Scribe Attestation The scribe's documentation has been prepared under my direction and personally reviewed by me in its entirety. I confirm that the note above accurately reflects all work, treatment, procedures, and medical decision making performed by me. Departure Information Dispostion Being Evaluated By Hospitalist Referrals Ari You M.D. (PCP) Patient Instructions My [facility] Problem Qualifiers
[2017-06-15] MEDS ORDERED: ASPIRIN 81 MG CHEW PO STA (18:02)
[2017-06-15 18:20] LABS: BASO % 0.5 %; BASO ABS # 0.03 K/uL (0-0.2); EOS % 4.2 %; EOS ABS # 0.24 K/uL (0-0.5); HEMATOCRIT 24.9 % (42-52); HEMOGLOBIN 8.4 g/dL (14.0-18.0); LYMPH ABS # 0.91 K/uL (1.2-3.4); MEAN CELL VOLUME 83.8 fL (80-100); MEAN CORPUSCULAR HEMOGLOBIN 28.3 pg (25-34); MEAN CORPUSCULAR HGB CONC 33.7 g/dl (32-36); MEAN PLATELET VOLUME 8.5 fL (7.4-10.4); MONO % 9.5 %; MONO ABS # 0.54 K/uL (0.11-0.59); NEUT % 69.8 %; NEUT ABS # 3.97 K/uL (1.4-6.5); PLATELET COUNT 313 K/uL (130-400); RED CELL DISTRIBUTION WIDTH CV 12.8 % (11.5-14.5); RED CELL DISTRIBUTION WIDTH SD 39.3 fL (36.4-46.3); WHITE BLOOD COUNT 5.69 K/uL (4.8-10.8)
[2017-06-15 18:37] LABS: BLOOD UREA NITROGEN 22 mg/dl (7-18); CARBON DIOXIDE 25 mmol/L (21-32); CREATININE 0.66 mg/dl (0.60-1.40); GLUCOSE 97 mg/dl (70-99); POTASSIUM 3.7 mmol/L (3.5-5.1); SODIUM 140 mmol/L (136-145)
[2017-06-15 18:42] LABS: CKMB 1.9 ng/ml (0.5-3.6)
--- NOTE | 2017-06-15 18:46 | DIAGNOSTIC IMAGING REPORT ---
CHEST ONE VIEW PORTABLE CLINICAL HISTORY: Chest Pain dyspnea COMPARISON STUDY: 05/04/2017 FINDINGS: The bones soft tissues and hemidiaphragms are normal. The cardiomediastinal silhouette is normal. The lungs are clear. The pulmonary vasculature is normal. IMPRESSION: Negative chest. The above report was generated using voice recognition software. It may contain grammatical, syntax or spelling errors. Electronically signed by: Diallo Lopes M.D. 06/15/2017 6:45 PM Dictated Date/Time: 06/15/2017 6:44 PM
--- NOTE | 2017-06-15 19:44 | History and Physical ---
History & Physical Date & Time of Service: Jun 15, 2017 at 19:44 Chief Complaint: Chest Pain,Tightness,Burning,Pain In L Arm Primary Care Physician: Ari You M.D. History of Present Illness Source: patient, hospital records 61 yo M w/ past medical history of CAD s/p cath showing 80% stenosis proximal LAD.s/p PCI/Stent (07/2016) presenting with intermittent chest pain x 1 week. Chest pain is substernal with burning quality and occurs with exertion particularly during exercise. It resolves within seconds after stopping activity. He denies meal association. No fevers, chills, nausea, vomiting, SOB. he does report some lightheadedness with exertion. Prior May 04 , noticed dark tarry stool x 3 days . He went to ED and was taken off plavix. PCP ordered labwork. he was told it was likely upper gi bleeding at emergency dept. He was not admitted. He had an endoscopy 05/28. he was told he had a gastric polyp and was told he could go back on plavix. 3 days after , he started noticing dark stool. He stopped plavix again 06/01-06/05, then he restarted it. He denies abdominal pain, diarrhea. +fatigue Per Cath report 07/2016, 80% stenosis of proximal LAD, Left Circumflex, 60-70 % stenosis of second OM. In the ED, patient arrived afebrile VSS. Hgb was 8.4/24.9, LFTS wnl, EKG was unremarkable. Initial troponin was negative. He was given ASA Past Medical/Surgical History Medical Problems: (1) Benign hypertension (2) Chest pain (3) Colonoscopic polypectomy (4) Exertional chest pain (5) Hematochezia (6) Hyperlipidemia Nec/Nos (7) Hypertension Nos (8) Lower gastrointestinal hemorrhage (9) Unstable angina (10) Upper GI bleed (11) Upper GI bleed Family History Diabetes mellitus FHx: cancer Heart disease Hypertension Social History Smoking Status: Never Smoker Smokeless Tobacco Use: No Alcohol Use: none Drug Use: none Marital Status: Housing status: lives alone Occupational Status: employed Immunizations History of Influenza Vaccine: No History of Tetanus Vaccine?: Yes History of Pneumococcal: No History of Hepatitis B Vaccine: Unknown Allergies Coded Allergies: Penicillamine (Verified Allergy, Severe, THROAT INFECTION, 06/15/17) Erythromycin (Verified Allergy, Unknown, UNKNOWN, 06/15/17) Penicillins (Verified Allergy, Unknown, RASH, 06/15/17) Azithromycin (Verified Adverse Reaction, Intermediate, DIGESTIVE PROBLEMS , 06/15/17) Macrolides and Ketolides (Verified Adverse Reaction, Mild, MILD, 06/15/17) Home Medications Scheduled Amlodipine (Norvasc), 2.5 MG PO DAILY Ascorbic Acid (Ascorbic Acid), 1,000 MG PO QAM Aspirin (Aspirin EC Low Dose), 81 MG PO QAM Aspirin (Aspirin Ec), 81 MG PO QAM Atorvastatin (Lipitor), 80 MG PO DAILY Clopidogrel (Plavix), 75 MG PO DAILY Coenzyme Q10 (Ubidecarenone) (Co Q 10), 100 MG PO QAM Glucosamine Sulfate (Glucosamine), 1,000 MG PO DAILY Lisinopril (Lisinopril), 5 MG PO QAM Lisinopril (Zestril), 5 MG PO QAM Nitroglycerin (Nitrostat), 0.4 MG UT PRN Zinc Gluconate (Zinc), 50 MG PO QAM Scheduled PRN Albuterol Hfa (Ventolin Hfa), 2-4 PUFFS INH Q6H PRN for SOB/Wheezing Nitroglycerin (Nitrostat), 0.4 MG SL UD PRN for Chest Pain Miscellaneous Medications Vitamins C & E (Vitamin C) Review of Systems Constitutional: + fatigue, No fever, No weakness Respiratory: No cough, No shortness of breath Cardiovascular: + chest pain, No edema, No palpitations Abdomen: + GI bleeding, No pain, No nausea, No vomiting Musculoskeletal: No swelling, No calf pain Genitourinary - Male: No dysuria, No urinary frequency, No urinary urgency Neurologic: No weakness, No numbness/tingling Hematologic / Lymphatic: + abnormal bleeding/bruising Integumentary: No rash, No itch Physical Exam Vital Signs Date Time Temp Pulse Resp B/P (MAP) Pulse Ox O2 Delivery O2 Flow Rate FiO2 06/15/17 19:09 98 21 98 Room Air 06/15/17 18:45 96 22 06/15/17 18:12 100 24 168/100 06/15/17 18:02 101 06/15/17 17:51 100 Room Air 06/15/17 17:51 37.0 88 16 168/100 100 Room Air GENERAL: alert, no distress EYE EXAM: pale conjunctiva, PERRL and EOM's grossly intact OROPHARYNX: no exudate, no erythema, lips, buccal mucosa, and tongue normal and mucous membranes are moist NECK: supple, no nuchal rigidity, no adenopathy, non-tender LUNGS: Clear to auscultation. Normal chest wall mechanics HEART: no murmurs, S1 normal and S2 normal ABDOMEN: abdomen soft, non-tender, normo-active bowel sounds, no masses, no rebound or guarding. BACK: Back is symmetrical on inspection and there is no deformity SKIN: no rashes and no bruising UPPER EXTREMITIES: upper extremities are grossly normal. LOWER EXTREMITIES: No pitting edema. NEURO EXAM: Normal sensorium, cranial nerves II-XII grossly intact, normal speech Diagnostics Laboratory Results Results Past 24 Hours Test 06/15/17 18:09 Range/Units White Blood Count 5.69 4.8-10.8 K/uL Red Blood Count 2.97 4.7-6.1 M/uL Hemoglobin 8.4 14.0-18.0 g/dL Hematocrit 24.9 42-52 % Mean Corpuscular Volume 83.8 80-100 fL Mean Corpuscular Hemoglobin 28.3 25-34 pg Mean Corpuscular Hemoglobin Concent 33.7 32-36 g/dl Platelet Count 313 130-400 K/uL Mean Platelet Volume 8.5 7.4-10.4 fL Neutrophils (%) (Auto) 69.8 % Lymphocytes (%) (Auto) 16.0 % Monocytes (%) (Auto) 9.5 % Eosinophils (%) (Auto) 4.2 % Basophils (%) (Auto) 0.5 % Neutrophils # (Auto) 3.97 1.4-6.5 K/uL Lymphocytes # (Auto) 0.91 1.2-3.4 K/uL Monocytes # (Auto) 0.54 0.11-0.59 K/uL Eosinophils # (Auto) 0.24 0-0.5 K/uL Basophils # (Auto) 0.03 0-0.2 K/uL RDW Standard Deviation 39.3 36.4-46.3 fL RDW Coefficient of Variation 12.8 11.5-14.5 % Immature Granulocyte % (Auto) 0.0 % Immature Granulocyte # (Auto) 0.00 0.00-0.02 K/uL Hypochromasia PRESENT Sodium Level 140 136-145 mmol/L Potassium Level 3.7 3.5-5.1 mmol/L Chloride Level 109 98-107 mmol/L Carbon Dioxide Level 25 21-32 mmol/L Anion Gap 6.0 3-11 mmol/L Blood Urea Nitrogen 22 7-18 mg/dl Creatinine 0.66 0.60-1.40 mg/dl Est Creatinine Clear Calc Drug Dose 117.1 ml/min Estimated GFR () 121.8 Estimated GFR (Non- 105.1 BUN/Creatinine Ratio 32.8 10-20 Random Glucose 97 70-99 mg/dl Calcium Level 8.0 8.5-10.1 mg/dl Total Creatine Kinase 198 39-308 U/L Creatine Kinase MB 1.9 0.5-3.6 ng/ml Creatine Kinase MB Ratio 1.0 0-3.0 Troponin I < 0.015 0-0.045 ng/ml Diagnostic Radiology CHEST ONE VIEW PORTABLE CLINICAL HISTORY: Chest Pain dyspnea COMPARISON STUDY: 05/04/2017 FINDINGS: The bones soft tissues and hemidiaphragms are normal. The cardiomediastinal silhouette is normal. The lungs are clear. The pulmonary vasculature is normal. IMPRESSION: Negative chest. CXR normal Normal EKG, No change from prior EKG Impression Assessment and Plan 61 yo M w/ past medical history of CAD s/p PCI/Stent (07/2016) presenting with intermittent chest pain x 1 week in addition to dark colored stools, EKG unremarkable, negative troponin, found to be anemic on arrival , VSS Admit to Telemetry Suspected GI Bleed, Anemia - hx of dark colored stools, anemia H/H(8.4/24.9) on arrival, VSS - suspect Upper GI bleed given history, although darci has History of tubular adenoma of the colon s/p partial colectomy, so risk of colonic bleed cannot be ruled out -positive stool heme occult in ED - NPO -Consult GI -IV Fluids -Blood typed and crossed , 2 units prbc on hold - check H/H q6H -Consider transfusion if Hgb<7 - Hold ASA, Plavix for bleeding Chest pain - intermittent exertional chest pain - neg EKG, neg Troponinx2 - check serial troponin - Given known CAD s/p stent, with ongoing Chest pain, consult to Cardiology placed CAD s/p PCI /stent -history of unstable angina -Cath report 07/2016, 80% stenosis of proximal LAD, Left Circumflex, 60-70 % stenosis of second OM. -ASA, Plavix held for suspected bleed. -Cards consult as aboe HTN -controlled -held Amlodipine, Lisinopril for suspected Bleed -continue to monitor Asthma -no evidence of exacerbation -albuterol inh if indicated , not in regular use DVT PPX: chemical ppx contraindicated due to likely bleed, SCD's Code status: DNR Attending addendum: I have physically seen this patient, have supervised the medical residents activities, and agree with the H&P unless as otherwise noted. Assessment and Plan: Symptomatic anemia due to presumptive upper GI bleed. Admit to monitored bed. H&H every 6 hours. Protonix bolus followed by drip. N.p.o. Present hemoglobin is 8.4, more likely in the low 7 range. Patient with history of coronary disease with residual 70% stenosis lesions and symptomatic chest discomfort, would target his hemoglobin to be 10. Transfuse 2 units PRBCs now. Consult gastroenterology. CAD/hypertension/coronary artery stent 08/02 / intermittent chest pain 1 week. The patient will be admitted to telemetry for serial cardiac enzymes, serial EKG's, cardiac rhythm monitoring and a 2-D echocardiogram with Dopplers. Transfuse as above. Hold aspirin, clopidogrel, amlodipine and lisinopril. Consult his nightclub manager Dr. Worthington Hyperlipidemia-- Hold Lipitor while he is n.p.o. Advanced Directives Existing Advance Directive: No Existing Living Will: No Existing Power of Lubricating Machine Tender: No Resuscitation Status FULL Resuscitation VTE Prophylaxis Will order VTE Prophylaxis: Yes Social Service Consult None Apply Note Total Time: Critical Care 30 - 74 minutes Resident Tracking Resident Involvement: Resident Care Provided Care Provided: Adult Hospital Medicine
[2017-06-15 19:45] LABS: ALBUMIN 3.6 gm/dl (3.4-5.0); ALKALINE PHOSPHATASE 85 U/L (45-117); ALT/SGPT 51 U/L (12-78); AST/SGOT 34 U/L (15-37); LIPASE 161 U/L (73-393); TOTAL PROTEIN 6.5 gm/dl (6.4-8.2)
[2017-06-15] MEDS ORDERED: MAGNESIUM HYDROXIDE SUSP 30 ML UDC PO PRN (20:30)
[2017-06-15] MEDS ORDERED: NITROGLYCERIN 0.4 MG SL PER TAB CHARGE SL PRN (20:30)
[2017-06-15] MEDS ORDERED: ONDANSETRON INJ 2 MG/ML 2 ML VIAL IV PRN (20:30)
[2017-06-15] MEDS ORDERED: POLYETHYLENE (MIRALAX) 17 GM PACK PO PRN (20:30)
[2017-06-15] MEDS ORDERED: SODIUM CHLORIDE 0.9% 1000ML 1,000 ML IV SCH (20:30)
[2017-06-15] MEDS ORDERED: ALUMINUM/MAGNESIUM/SIMETH (MAALOX MAX) 30 ML UDC PO PRN (20:30)
[2017-06-15] MEDS ORDERED: ACETAMINOPHEN 325 MG TAB PO PRN (20:30)
[2017-06-15] MEDS ORDERED: ALBUTEROL HFA 8 GM INHALER INH PRN (21:00)
[2017-06-15] MEDS ORDERED: ASPI81TA28 PO (21:00)
[2017-06-15] MEDS ORDERED: LISI-729 PO (21:03)
[2017-06-15] MEDS ORDERED: NITR0.4S UT (21:04)
[2017-06-15] MEDS ORDERED: ASCO100061 PO (21:06)
[2017-06-15] MEDS ORDERED: COEN1CAP17 PO (21:09)
[2017-06-15 22:30] VITALS: BP 144/87; PULSE 87; TEMP 36.8; Ht 172.7 cm; Wt 78.5 kg
[2017-06-15 22:40] LABS: HEMATOCRIT 25.2 % (42-52); HEMOGLOBIN 8.5 g/dL (14.0-18.0)
[2017-06-15] MEDS: PANTOprazole INJ 40 MG in DEXTROSE 5% 100ML 100 ML IV SCH (23:04)
[2017-06-16] VITALS (17 sets, daily range): BP systolic 109–158; BP diastolic 69–96; PULSE 73–94; TEMP 36.4–37.2; O2SAT 97–100
[2017-06-16 02:39] LABS: BASO % 0.5 %; BASO ABS # 0.02 K/uL (0-0.2); EOS ABS # 0.21 K/uL (0-0.5); HEMATOCRIT 22.3 % (42-52); HEMOGLOBIN 7.6 g/dL (14.0-18.0); IG# 0.01 K/uL (0.00-0.02); LYMPH % 24.6 %; LYMPH ABS # 1.03 K/uL (1.2-3.4); MEAN CELL VOLUME 83.2 fL (80-100); MEAN CORPUSCULAR HEMOGLOBIN 28.4 pg (25-34); MEAN CORPUSCULAR HGB CONC 34.1 g/dl (32-36); MEAN PLATELET VOLUME 8.5 fL (7.4-10.4); MONO % 8.1 %; MONO ABS # 0.34 K/uL (0.11-0.59); NEUT % 61.6 %; NEUT ABS # 2.58 K/uL (1.4-6.5); PLATELET COUNT 275 K/uL (130-400); RED CELL DISTRIBUTION WIDTH CV 12.7 % (11.5-14.5); RED CELL DISTRIBUTION WIDTH SD 38.8 fL (36.4-46.3); WHITE BLOOD COUNT 4.19 K/uL (4.8-10.8)
[2017-06-16 02:54] LABS: PTT PATIENT 23.1 SECONDS (21.0-31.0)
[2017-06-16] MEDS: PANTOprazole INJ 40 MG in DEXTROSE 5% 100ML 100 ML IV SCH ×2 (03:39→08:11)
--- NOTE | 2017-06-16 08:07 | Family Medicine Progress Note ---
Progress Note Date of Service June 16, 2017. Subjective Pt evaluation today including: conversation w/ patient, physical exam, chart review, lab review, review of studies, conversation w/ oncology consultant (Cardio, GI), review of inpatient medication list Patient denies acute overnight events and is comfortable at rest. He states he is physically fit at baseline and has noted weakness since episode of melena last month, but acutely worsening dyspnea and angina with exertion for the last week. He denies lashae bleeding or dark tarry stools this past week. He otherwise denies fevers/chills, headaches, palpitations at rest, dyspnea at rest , abdominal pain, lower extremity swelling or rashes. He is tolerating diet without nausea or vomiting, ambulating without exacerbating symptoms, and voiding and stooling appropriately. ROS is unremarkable except as noted above. Objective Vital Signs Date Time Temp Pulse Resp B/P (MAP) Pulse Ox O2 Delivery O2 Flow Rate FiO2 06/16/17 07:12 36.6 84 16 109/69 (82) 99 06/16/17 04:27 36.9 93 18 124/82 (96) 99 Room Air 06/16/17 04:00 Room Air 06/15/17 22:30 36.8 87 18 144/87 Room Air 06/15/17 22:01 129/89 06/15/17 21:55 87 21 98 Room Air 06/15/17 21:31 142/85 06/15/17 21:25 88 22 100 06/15/17 21:13 147/96 06/15/17 21:12 88 22 147/96 98 06/15/17 20:55 90 22 100 06/15/17 20:50 86 23 100 Room Air 06/15/17 20:20 91 16 96 06/15/17 19:50 90 20 99 06/15/17 19:20 92 16 100 06/15/17 19:09 98 21 98 Room Air 06/15/17 18:50 95 21 06/15/17 18:45 96 22 06/15/17 18:12 100 24 168/100 06/15/17 18:02 101 06/15/17 17:51 100 Room Air 06/15/17 17:51 37.0 88 16 168/100 100 Room Air Physical Exam General Appearance: WD/WN, no apparent distress Eyes: sclerae normal, + pertinent finding (pale conjunctiva) ENT: hearing grossly normal Neck: supple Respiratory/Chest: normal breath sounds, no respiratory distress, no accessory muscle use Cardiovascular: regular rate, rhythm, no JVD, no murmur Abdomen: normal bowel sounds, non tender, soft Extremities: no pedal edema, no calf tenderness Neurologic/Psychiatric: alert, normal mood/affect, oriented x 3 Skin: normal color, warm/dry, no rash Laboratory Results Results Past 24 Hours Test 06/15/17 18:09 06/15/17 22:30 06/16/17 02:20 06/16/17 08:49 Range/Units White Blood Count 5.69 4.19 4.8-10.8 K/uL Red Blood Count 2.97 2.68 4.7-6.1 M/uL Hemoglobin 8.4 8.5 7.6 7.7 14.0-18.0 g/dL Hematocrit 24.9 25.2 22.3 22.0 42-52 % Mean Corpuscular Volume 83.8 83.2 80-100 fL Mean Corpuscular Hemoglobin 28.3 28.4 25-34 pg Mean Corpuscular Hemoglobin Concent 33.7 34.1 32-36 g/dl Platelet Count 313 275 130-400 K/uL Mean Platelet Volume 8.5 8.5 7.4-10.4 fL Neutrophils (%) (Auto) 69.8 61.6 % Lymphocytes (%) (Auto) 16.0 24.6 % Monocytes (%) (Auto) 9.5 8.1 % Eosinophils (%) (Auto) 4.2 5.0 % Basophils (%) (Auto) 0.5 0.5 % Neutrophils # (Auto) 3.97 2.58 1.4-6.5 K/uL Lymphocytes # (Auto) 0.91 1.03 1.2-3.4 K/uL Monocytes # (Auto) 0.54 0.34 0.11-0.59 K/uL Eosinophils # (Auto) 0.24 0.21 0-0.5 K/uL Basophils # (Auto) 0.03 0.02 0-0.2 K/uL RDW Standard Deviation 39.3 38.8 36.4-46.3 fL RDW Coefficient of Variation 12.8 12.7 11.5-14.5 % Immature Granulocyte % (Auto) 0.0 0.2 % Immature Granulocyte # (Auto) 0.00 0.01 0.00-0.02 K/uL Hypochromasia PRESENT Sodium Level 140 140 136-145 mmol/L Potassium Level 3.7 3.9 3.5-5.1 mmol/L Chloride Level 109 110 98-107 mmol/L Carbon Dioxide Level 25 27 21-32 mmol/L Anion Gap 6.0 3.0 3-11 mmol/L Blood Urea Nitrogen 22 14 7-18 mg/dl Creatinine 0.66 0.64 0.60-1.40 mg/dl Est Creatinine Clear Calc Drug Dose 117.1 118.7 ml/min Estimated GFR () 121.8 123.3 Estimated GFR (Non- 105.1 106.4 BUN/Creatinine Ratio 32.8 21.3 10-20 Random Glucose 97 89 70-99 mg/dl Calcium Level 8.0 7.7 8.5-10.1 mg/dl Total Bilirubin 0.3 0.2-1 mg/dl Direct Bilirubin < 0.1 0-0.2 mg/dl Aspartate Amino Transf (AST/SGOT) 34 15-37 U/L Alanine Aminotransferase (ALT/SGPT) 51 12-78 U/L Alkaline Phosphatase 85 45-117 U/L Total Creatine Kinase 198 39-308 U/L Creatine Kinase MB 1.9 0.5-3.6 ng/ml Creatine Kinase MB Ratio 1.0 0-3.0 Troponin I < 0.015 < 0.015 < 0.015 0-0.045 ng/ml Total Protein 6.5 6.4-8.2 gm/dl Albumin 3.6 3.4-5.0 gm/dl Lipase 161 73-393 U/L Red Blood Cell Morphology Unremarkable Prothrombin Time 11.0 9.0-12.0 SECONDS Prothromb Time International Ratio 1.0 0.9-1.1 Activated Partial Thromboplast Time 23.1 21.0-31.0 SECONDS Partial Thromboplastin Ratio 0.9 Test 06/16/17 14:35 06/16/17 14:59 Range/Units Troponin I < 0.015 0-0.045 ng/ml Assessment and Plan 61 yo M w/ past medical history of CAD s/p PCI and stent placement (07/2016) presenting with exertional chest pain x 1 week in addition to dark colored stools. EKG unremarkable, negative troponin, found to be anemic on arrival, VSS. Anemia secondary to suspected GI bleed - Recent endoscopy in 05/2017 was normal. History of tubular adenoma of the colon s/p partial colectomy, so risk of colonic bleed cannot be ruled out. States he is due for colonoscopy - H/H 8.4/24.9 on arrival, VSS, FOBT+ - Hold aspirin and clopidogrel - s/p transfusion per cardiology recs (see below) - GI consulted, recommendations appreciated - Diet: clear fluids - PO pantoprazole 40mg BID - Check H/H q6H, consider transfusion if Hgb < 9-10 Exertional chest pain on background of CAD s/p stent (07/2016) with residual disease (80% stenosis of proximal LAD, left circumflex, 60-70 % stenosis of second OM) - GI consulted, recommendations appreciated - No acute ischemic changes on EKG, serial troponin negative - Given known CAD, cardiology recommends maintaining Hb ~10. Will hold off on invasive cardiac assessment for now - EKG PRN chest pain - Continue atorvastatin - Plan for eventual return to baby aspirin only once GI bleed controlled HTN - controlled - Amlodipine and lisinopril held for suspected bleed, will resume once Hb stable Asthma - no evidence of exacerbation - Albuterol PRN SOB/wheezing VTE ppx - SCD's - Chemical ppx contraindicated due to likely bleed Resident Physician Supervision Note: I interviewed and examined the patient. Discussed with Dr. Diego and agree with findings and plan as documented in the note. Any exceptions or clarifications are listed here: None Documented By: Brandon Villanueva feeling ok at rest notes dark stool for a while but actually has been less recently - but now counts down further vitals noted nad breathing unlabored no pallor or icterus symptomatic anemia - from GI bleeding - causing angina due to CAD - due to bleeding have to hold plavix for now, transfuse to mitigate angina, then consider scope w/u to eval for source of bleed. stable while at rest. Continued [facility] stay due to: other Discharge planning: home Resident Tracking Resident Involvement: Resident Care Provided Care Provided: Adult Hospital Medicine
[2017-06-16 08:56] LABS: HEMOGLOBIN 7.7 g/dL (14.0-18.0)
[2017-06-16] MEDS ORDERED: AMLODIPINE BESYLATE 5 MG TAB PO SCH (09:00)
[2017-06-16] MEDS ORDERED: LISINOPRIL 5 MG TAB PO SCH (09:00)
--- NOTE | 2017-06-16 09:29 | Cardiology Consultation ---
Cardiology Consultation Date of Consultation: June 16, 2017. Requesting Physician: Chad Reason for Consultation: chest pain Pt evaluation today including: conversation w/ patient, physical exam, chart review, lab review, review of studies, review of inpatient medication list, conversation w/ attending History of Present Illness The patient is a 61-year-old gentleman with a history of coronary artery disease having previously undergone percutaneous intervention on the LAD. He is known to have some residual stenosis in a circumflex branch. In April of this year the patient notice some melanotic presents to the emergency room [facility]. He was felt to have gastrointestinal bleeding and underwent outpatient evaluation. No definite bleeding source was found. The patient had stopped his Plavix for period of time and then restarted his Plavix after endoscopy. He again started to notice the development of melena and eventually stopped his Plavix again. Several days ago he began experience symptoms of chest discomfort. This was manifest primarily as a precordial chest pain and some left arm discomfort with activity. Originally this happen with moderate exertion but more recently it happens with little exertion at all. Patient states that even getting up to go to the bathroom at night or walking down the hallway at work will cause the symptoms. The chest discomfort and arm discomfort dissipated quickly once he has discontinued activity. At rest he has no symptoms of this nature. He has only mild dizziness and lightheadedness. He has not had syncope. He is aware of a rapid heart rate when he is active. He does not have palpitations at other times. Past Medical/Surgical History Coronary artery disease PCI to the LAD July 2016 67% stenosis of om 2 noted at the time of catheterization July 2016 TIA subsequent to catheterization in July 2016 Tubular adenoma Gastroesophageal reflux disease Nephrolithiasis Allergic rhinitis Malformation of the right carotid artery Hypertension Hyperlipidemia Past surgical history: Partial colectomy Inguinal hernia repair Family History Diabetes mellitus FHx: cancer Heart disease Hypertension Noncontributory given his known comorbidities Social History Smoking Status: Never Smoker History of Alcohol Use: No Currently employed at [employer]. Review of Systems Per HPI. He denied constitutional symptoms recently such as fevers chills or upper respiratory illness. He has not had any abdominal complaints such as abdominal pain, nausea, vomiting or change in his diet. All Other Systems: Reviewed and Negative Allergies Coded Allergies: Penicillamine (Verified Allergy, Severe, THROAT INFECTION, 06/15/17) Erythromycin (Verified Allergy, Unknown, UNKNOWN, 06/15/17) Penicillins (Verified Allergy, Unknown, RASH, 06/15/17) Azithromycin (Verified Adverse Reaction, Intermediate, DIGESTIVE PROBLEMS , 06/15/17) Macrolides and Ketolides (Verified Adverse Reaction, Mild, MILD, 06/15/17) Medications Current Inpatient Medications Medications (Trade) Dose Ordered Sig/Shannan Route Start Time Stop Time Status Last Admin Dose Admin Acetaminophen (Tylenol Tab) 650 mg Q4H PRN PO 06/15/17 20:30 07/15/17 20:29 Al Hydrox/Mg Hydrox/Simethicone (Maalox Max Susp) 15 ml Q4H PRN PO 06/15/17 20:30 07/15/17 20:29 Magnesium Hydroxide (Milk Of Magnesia Susp) 30 ml Q12H PRN PO 06/15/17 20:30 07/15/17 20:29 Ondansetron HCl (Zofran Inj) 4 mg Q6H PRN IV 06/15/17 20:30 07/15/17 20:29 Nitroglycerin (Nitrostat Tab) 0.4 mg UD PRN SL 06/15/17 20:30 07/15/17 20:29 Polyethylene (Miralax Powder Packet) 17 gm DAILY PRN PO 06/15/17 20:30 07/15/17 20:29 Pantoprazole Sodium 40 mg/ Dextrose 110 ml @ 20 mls/hr Q5H IV 06/15/17 22:30 07/15/17 22:29 06/16/17 08:11 20 MLS/HR Physical Exam Vital Signs Past 12 Hours Date Time Temp Pulse Resp B/P (MAP) Pulse Ox O2 Delivery O2 Flow Rate FiO2 06/16/17 08:00 99 Room Air 06/16/17 07:12 36.6 84 16 109/69 (82) 99 06/16/17 04:27 36.9 93 18 124/82 (96) 99 Room Air 06/16/17 04:00 Room Air 06/15/17 22:30 36.8 87 18 144/87 Room Air 06/15/17 22:01 129/89 06/15/17 21:55 87 21 98 Room Air 06/15/17 21:31 142/85 06/15/17 21:25 88 22 100 The patient is alert and oriented. Mood and affect appeared normal. He answered all questions appropriately. HEENT: Pupils are equal and reactive to light and accommodation. Extraocular movements are intact. The sclerae are anicteric. Neuro: Cranial nerves intact Neck: Patient's neck is supple. He has palpable carotid pulses bilaterally without bruits on auscultation. There is no evidence of jugular venous distention. The thyroid is not enlarged. Lungs: Clear to auscultation bilaterally. He has good air movement without use of accessory muscles. No rales wheezes or rhonchi. Cardiac: Heart demonstrates a regular rate and rhythm. Normal S1 and S2. No murmurs on examination. Pulses: The patient has palpable radial pulses bilaterally that are equal in intensity Extremities: There was no evidence of hypoperfusion. There is no cyanosis or clubbing. There is no edema. Skin: Pale. I did not appreciate any rashes on examination today. Data Laboratory Results: Last 24 Hours Test 06/15/17 18:09 06/15/17 22:30 06/16/17 02:20 06/16/17 08:49 White Blood Count 5.69 K/uL 4.19 K/uL Red Blood Count 2.97 M/uL 2.68 M/uL Hemoglobin 8.4 g/dL 8.5 g/dL 7.6 g/dL 7.7 g/dL Hematocrit 24.9 % 25.2 % 22.3 % 22.0 % Mean Corpuscular Volume 83.8 fL 83.2 fL Mean Corpuscular Hemoglobin 28.3 pg 28.4 pg Mean Corpuscular Hemoglobin Concent 33.7 g/dl 34.1 g/dl Platelet Count 313 K/uL 275 K/uL Mean Platelet Volume 8.5 fL 8.5 fL Neutrophils (%) (Auto) 69.8 % 61.6 % Lymphocytes (%) (Auto) 16.0 % 24.6 % Monocytes (%) (Auto) 9.5 % 8.1 % Eosinophils (%) (Auto) 4.2 % 5.0 % Basophils (%) (Auto) 0.5 % 0.5 % Neutrophils # (Auto) 3.97 K/uL 2.58 K/uL Lymphocytes # (Auto) 0.91 K/uL 1.03 K/uL Monocytes # (Auto) 0.54 K/uL 0.34 K/uL Eosinophils # (Auto) 0.24 K/uL 0.21 K/uL Basophils # (Auto) 0.03 K/uL 0.02 K/uL RDW Standard Deviation 39.3 fL 38.8 fL RDW Coefficient of Variation 12.8 % 12.7 % Immature Granulocyte % (Auto) 0.0 % 0.2 % Immature Granulocyte # (Auto) 0.00 K/uL 0.01 K/uL Hypochromasia PRESENT Sodium Level 140 mmol/L Potassium Level 3.7 mmol/L Chloride Level 109 mmol/L Carbon Dioxide Level 25 mmol/L Anion Gap 6.0 mmol/L Blood Urea Nitrogen 22 mg/dl Creatinine 0.66 mg/dl Est Creatinine Clear Calc Drug Dose 117.1 ml/min Estimated GFR () 121.8 Estimated GFR (Non- 105.1 BUN/Creatinine Ratio 32.8 Random Glucose 97 mg/dl Calcium Level 8.0 mg/dl Total Bilirubin 0.3 mg/dl Direct Bilirubin < 0.1 mg/dl Aspartate Amino Transf (AST/SGOT) 34 U/L Alanine Aminotransferase (ALT/SGPT) 51 U/L Alkaline Phosphatase 85 U/L Total Creatine Kinase 198 U/L Creatine Kinase MB 1.9 ng/ml Creatine Kinase MB Ratio 1.0 Troponin I < 0.015 ng/ml < 0.015 ng/ml Total Protein 6.5 gm/dl Albumin 3.6 gm/dl Lipase 161 U/L Red Blood Cell Morphology Unremarkable Prothrombin Time 11.0 SECONDS Prothromb Time International Ratio 1.0 Activated Partial Thromboplast Time 23.1 SECONDS Partial Thromboplastin Ratio 0.9 Imaging: Single-view chest x-ray obtained at the time of admission. Normal chest x-ray. EKG: Normal sinus rhythm. Normal EKG Telemetry reviewed: Occasional episodes of sinus tachycardia. No other arrhythmia. Assessment & Plan 1. Angina: The patient does have exertional angina. The symptoms are exclusively related to exertion. His become more significant recently and occurs with less exertion over the past few days. He is known to have coronary disease and some residual stenosis in an OM branch. However the likely explanation for his angina is blood loss. He is significantly anemic. His symptoms seem to coincide with blood loss and development of anemia. He has normal biomarkers. I think his symptoms will improve with transfusion. I would not advocate any coronary evaluation or intervention at this point other than transfusion. Once the patient's hemoglobin has returned to normal we have a better opportunity to assess any symptoms which may be related exclusively to the residual stenosis. While maintaining some anti-platelet regimen is ideal, this certainly could be interrupted to evaluate gastrointestinal hemorrhage. His intervention was quite remote and he no longer requires dual anti-platelet therapy. Continuing daily baby aspirin would be ideal. 2. Coronary artery disease: Patient will be continued on aggressive secondary prevention for coronary disease to include high-dose atorvastatin and anti- platelet therapy as dictated by his clinical course.
[2017-06-16 09:35] LABS: BLOOD UREA NITROGEN 14 mg/dl (7-18); CALCIUM 7.7 mg/dl (8.5-10.1); CARBON DIOXIDE 27 mmol/L (21-32); CREATININE 0.64 mg/dl (0.60-1.40); GLUCOSE 89 mg/dl (70-99); POTASSIUM 3.9 mmol/L (3.5-5.1); SODIUM 140 mmol/L (136-145)
--- NOTE | 2017-06-16 10:52 | Gastrointestinal Consultation ---
Gastrointestinal Consultation Date of Consultation: June 16, 2017 Attending Physician: Brandon Villanueva Consulting Physician: Susi Casiano Reason for Consultation: Gi bleed History of Present Illness Patient is a 61 year old male who presented to ED for c/o chest pain w exertion and progressive weakness. He has hx of CAD s/p PCI stent placement on LAD region in 2016. Currently on Plavix and ASA 81mg daily. Within the past week, he noticed that minimal activity such as walking short distances caused him to have pressure like chest pain w sometimes radiating to L arm. Denies any associated diaphoresis or SOB, light headedness, dizziness. He decided to come to ED for evaluation. Upon eval, he was noted to be a anemic w H/H of 10/09. His cardiac enzymes and EKG was normal. Pt had previously presented to ED in April for dark tarry stools x 3 days. Hgb at that time was normal at 15. He was taken off Plavix and underwent EGD evaluation by Dr. Mena on 05/28/17 and found to have small gastric polyps , mild erosive antral gastritis. He takes Omeprazole 20mg daily. Bx of stomach and small intestine normal w/o celiac sprue, gastric polyps were benign. He recently noticed that his stools are getting dark in color again. Denies any tarry appearance or rectal bleeding. Denies any abd pain, n/v, weight loss. Not on iron supplement or ingested Pepto Bismol recently. Of note, he did have hx of adenomatous polyp s/p partial colectomy in 2011. His last colonoscopy was in 2013, adenomatous polyps found, due for repeat back in 2016 Past Medical/Surgical History Medical Problems: (1) Chest pain Status: Acute (2) Exertional chest pain Status: Acute (3) Precordial chest pain Status: Acute (4) Symptomatic anemia Status: Acute (5) Unstable angina Status: Acute (6) Upper GI bleed Status: Acute Past Medical History: See above; HTN, Hyperlipidemia, Past Surgical History: See above; Pilonidal cyst removal, inguinal hernia repair. Family History Diabetes mellitus FHx: cancer Heart disease Hypertension Social History Smoking Status: Never Smoker Alcohol Use: occasionally Drug Use: none Marital Status: Housing Status: lives alone Occupation Status: employed Allergies Coded Allergies: Penicillamine (Verified Allergy, Severe, THROAT INFECTION, 06/15/17) Erythromycin (Verified Allergy, Unknown, UNKNOWN, 06/15/17) Penicillins (Verified Allergy, Unknown, RASH, 06/15/17) Azithromycin (Verified Adverse Reaction, Intermediate, DIGESTIVE PROBLEMS , 06/15/17) Macrolides and Ketolides (Verified Adverse Reaction, Mild, MILD, 06/15/17) Current Medications Home Meds and Scripts Medications Dose Route/Sig Max Daily Dose Days Date Category Dose Instructions Co Q 10 (Coenzyme Q10 (Ubidecarenone)) 100 Mg Cap 100 Mg PO QAM 06/15/17 Reported Ascorbic Acid 1,000 Mg Tab 1,000 Mg PO QAM 06/15/17 Reported Nitrostat (Nitroglycerin) 0.4 Mg Sub 0.4 Mg UT PRN 06/15/17 Reported NEEDED FOR CHEST PAIN : ONE TABLET UNDER THE TONGUE EVERY 5 MINUTES, UP TO 3 DOSES. Zestril (Lisinopril) 5 Mg Tab 5 Mg PO QAM 06/15/17 Reported Aspirin Ec (Aspirin) 81 Mg Tab 81 Mg PO QAM 06/15/17 Reported Plavix (Clopidogrel Bisulfate) 75 Mg Tab 75 Mg PO DAILY 05/04/17 Reported Zinc (Zinc Gluconate) 50 Mg Tab 50 Mg PO QAM 12/23/16 Reported Glucosamine (Glucosamine Sulfate) 1,000 Mg Tab 1,000 Mg PO DAILY 12/23/16 Reported Ventolin Hfa (Albuterol) 200 Puffs/26663 Mcg Aers 2-4 Puffs INH Q6H PRN 12/23/16 Reported Lipitor (Atorvastatin Calcium) 80 Mg Tab 80 Mg PO DAILY 09/23/16 Reported Norvasc (Amlodipine Besylate) 2.5 Mg Tab 2.5 Mg PO DAILY 09/23/16 Reported Aspirin EC Low Dose (Aspirin) 81 Mg Ectab 81 Mg PO QAM 30 08/08/16 Rx Nitrostat (Nitroglycerin) 0.4 Mg/1 Tab Subl 0.4 Mg SL UD PRN 08/08/16 Rx Take 1 tab q5 min and seek immediate medical attention Lisinopril 5 Mg Tab 5 Mg PO QAM 30 08/08/16 Rx Vitamin C (Vitamins C & E) 1 Cap Cap 08/05/16 Reported Review of Systems Constitutional: + weakness, No fever, No chills, No weight loss Respiratory: + dyspnea on exertion, No cough Cardiac: + see HPI, + chest pain Abdomen: + see HPI, No pain, No nausea, No vomiting Physical Exam Date Time Temp Pulse Resp B/P (MAP) Pulse Ox O2 Delivery O2 Flow Rate FiO2 06/16/17 10:35 36.9 82 16 131/82 98 06/16/17 10:20 37.0 82 16 119/74 97 06/16/17 10:02 36.4 94 16 156/88 100 06/16/17 08:00 99 Room Air 06/16/17 07:12 36.6 84 16 109/69 (82) 99 06/16/17 04:27 36.9 93 18 124/82 (96) 99 Room Air 06/16/17 04:00 Room Air 06/15/17 22:30 36.8 87 18 144/87 Room Air 06/15/17 22:01 129/89 06/15/17 21:55 87 21 98 Room Air 06/15/17 21:31 142/85 06/15/17 21:25 88 22 100 06/15/17 21:13 147/96 06/15/17 21:12 88 22 147/96 98 06/15/17 20:55 90 22 100 06/15/17 20:50 86 23 100 Room Air 06/15/17 20:20 91 16 96 06/15/17 19:50 90 20 99 06/15/17 19:20 92 16 100 06/15/17 19:09 98 21 98 Room Air 06/15/17 18:50 95 21 06/15/17 18:45 96 22 06/15/17 18:12 100 24 168/100 06/15/17 18:02 101 06/15/17 17:51 100 Room Air 06/15/17 17:51 37.0 88 16 168/100 100 Room Air General Appearance: WD/WN, no apparent distress Eyes: normal inspection, PERRL, EOMI Neck: supple, no JVD, trachea midline Respiratory/Chest: normal breath sounds, no respiratory distress, no accessory muscle use Cardiovascular: regular rate, rhythm, no gallop, no murmur Abdomen: normal bowel sounds, non tender, soft Extremities: normal inspection, no pedal edema, no calf tenderness Neurologic/Psych: alert, normal mood/affect, oriented x 3 Skin: normal color, no jaundice, no rash Laboratory Results Last 24 Hours Test 06/15/17 18:09 06/15/17 22:30 06/16/17 02:20 06/16/17 08:49 White Blood Count 5.69 K/uL 4.19 K/uL Red Blood Count 2.97 M/uL 2.68 M/uL Hemoglobin 8.4 g/dL 8.5 g/dL 7.6 g/dL 7.7 g/dL Hematocrit 24.9 % 25.2 % 22.3 % 22.0 % Mean Corpuscular Volume 83.8 fL 83.2 fL Mean Corpuscular Hemoglobin 28.3 pg 28.4 pg Mean Corpuscular Hemoglobin Concent 33.7 g/dl 34.1 g/dl Platelet Count 313 K/uL 275 K/uL Mean Platelet Volume 8.5 fL 8.5 fL Neutrophils (%) (Auto) 69.8 % 61.6 % Lymphocytes (%) (Auto) 16.0 % 24.6 % Monocytes (%) (Auto) 9.5 % 8.1 % Eosinophils (%) (Auto) 4.2 % 5.0 % Basophils (%) (Auto) 0.5 % 0.5 % Neutrophils # (Auto) 3.97 K/uL 2.58 K/uL Lymphocytes # (Auto) 0.91 K/uL 1.03 K/uL Monocytes # (Auto) 0.54 K/uL 0.34 K/uL Eosinophils # (Auto) 0.24 K/uL 0.21 K/uL Basophils # (Auto) 0.03 K/uL 0.02 K/uL RDW Standard Deviation 39.3 fL 38.8 fL RDW Coefficient of Variation 12.8 % 12.7 % Immature Granulocyte % (Auto) 0.0 % 0.2 % Immature Granulocyte # (Auto) 0.00 K/uL 0.01 K/uL Hypochromasia PRESENT Sodium Level 140 mmol/L 140 mmol/L Potassium Level 3.7 mmol/L 3.9 mmol/L Chloride Level 109 mmol/L 110 mmol/L Carbon Dioxide Level 25 mmol/L 27 mmol/L Anion Gap 6.0 mmol/L 3.0 mmol/L Blood Urea Nitrogen 22 mg/dl 14 mg/dl Creatinine 0.66 mg/dl 0.64 mg/dl Est Creatinine Clear Calc Drug Dose 117.1 ml/min 118.7 ml/min Estimated GFR () 121.8 123.3 Estimated GFR (Non- 105.1 106.4 BUN/Creatinine Ratio 32.8 21.3 Random Glucose 97 mg/dl 89 mg/dl Calcium Level 8.0 mg/dl 7.7 mg/dl Total Bilirubin 0.3 mg/dl Direct Bilirubin < 0.1 mg/dl Aspartate Amino Transf (AST/SGOT) 34 U/L Alanine Aminotransferase (ALT/SGPT) 51 U/L Alkaline Phosphatase 85 U/L Total Creatine Kinase 198 U/L Creatine Kinase MB 1.9 ng/ml Creatine Kinase MB Ratio 1.0 Troponin I < 0.015 ng/ml < 0.015 ng/ml < 0.015 ng/ml Total Protein 6.5 gm/dl Albumin 3.6 gm/dl Lipase 161 U/L Red Blood Cell Morphology Unremarkable Prothrombin Time 11.0 SECONDS Prothromb Time International Ratio 1.0 Activated Partial Thromboplast Time 23.1 SECONDS Partial Thromboplastin Ratio 0.9 Impression Patient is a 61 year old male who presented with angina on exertion, progressive weakness, found to be anemic on admission. He has hx of CAD w LAD stent placement in 2017. Cardiac enzyme, EKG normal on presentation. In speaking w primary team, they had consulted Dr. 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 Suspected his symptoms were primarily from his anemia and had recommended keeping his Hgb >10 He had recent EGD for dark tarry stools on 05/28 and found to have benign gastric polyps, mild gastric erosions and benign stomach, small bowel bx. He is overdue for his colonoscopy. Hx of adenomatous polyp w partial colectomy Plan - Agree with blood transfusion, monitor H/H - Protonix 40mg PO BID; DC'd PPI gtt - CL diet - Will discuss w Dr. Casiano about colonoscopy eval ->plan for repeat EGD and colonoscopy eval tomorrow. Bowel prep ordered, pls keep him on CL diet today, NPO after midnight. If EGD/colonoscopy w/o source of GI bleeding, can discuss about VCE eval. I saw and evaluated the patient. He presents with anemia and a history of dark stool. His most recent upper endoscopy showed no evidence of a upper GI source. Physical examination No obvious distress No scleral icterus noted Impression: Patient with a history of anemia, unclear if this is a GI etiology. I would suggest checking the stool for occult blood. We are certainly happy to provide endoscopic evaluation with upper endoscopy and colonoscopy which is to be arranged for tomorrow. If the Hemoccult is negative he may want to consider further evaluation for other causes of anemia. Recommendation Bowel preparation ordered Upper endoscopy and colonoscopy to be scheduled for tomorrow Please send stool for occult blood
[2017-06-16 16:52] LABS: HEMATOCRIT 29.2 % (42-52); HEMOGLOBIN 10.2 g/dL (14.0-18.0)
[2017-06-16] MEDS ORDERED: POLYETHYLENE (MIRALAX) 17 GM PACK PO ONE ×2 (17:00→21:00)
[2017-06-16] MEDS ORDERED: BISACODYL 5 MG TABEC PO ONE (17:00)
[2017-06-16] MEDS: PANTOprazole SOD 40 MG TAB PO SCH (21:05)
[2017-06-17] VITALS (7 sets, daily range): BP systolic 118–157; BP diastolic 75–92; PULSE 70–80; TEMP 36.5–36.6; O2SAT 99–100
[2017-06-17 06:52] LABS: BASO % 0.8 %; BASO ABS # 0.04 K/uL (0-0.2); EOS % 4.3 %; EOS ABS # 0.22 K/uL (0-0.5); HEMATOCRIT 30.5 % (42-52); HEMOGLOBIN 10.2 g/dL (14.0-18.0); IG# 0.01 K/uL (0.00-0.02); LYMPH % 18.6 %; LYMPH ABS # 0.94 K/uL (1.2-3.4); MEAN CELL VOLUME 83.8 fL (80-100); MEAN CORPUSCULAR HGB CONC 33.4 g/dl (32-36); MEAN PLATELET VOLUME 8.9 fL (7.4-10.4); MONO % 11.5 %; MONO ABS # 0.58 K/uL (0.11-0.59); NEUT % 64.6 %; NEUT ABS # 3.27 K/uL (1.4-6.5); PLATELET COUNT 301 K/uL (130-400); RED CELL DISTRIBUTION WIDTH CV 12.9 % (11.5-14.5); RED CELL DISTRIBUTION WIDTH SD 39.4 fL (36.4-46.3); WHITE BLOOD COUNT 5.06 K/uL (4.8-10.8)
[2017-06-17 07:24] LABS: CALCIUM 8.4 mg/dl (8.5-10.1); CREATININE 0.66 mg/dl (0.60-1.40); POTASSIUM 3.8 mmol/L (3.5-5.1)
[2017-06-17] MEDS: ASPIRIN 81 MG ECTAB PO SCH ×2 (08:22→14:59)
[2017-06-17] MEDS: PANTOprazole SOD 40 MG TAB PO SCH ×2 (08:22→14:59)
--- NOTE | 2017-06-17 11:57 | History & Physical Bridge Note ---
H&P Re-Evaluation Bridge Note: I have examined the patient, reviewed the History & Physical and in the interval since the performance of the History & Physical I have noted the following changes of clinical significance: No changes noted
[2017-06-17] MEDS ORDERED: LIDOCAINE HCL 2% 2 ML VIAL (20MG/ML) ONE (12:43)
[2017-06-17] MEDS ORDERED: PROPOFOL IV EMULSION 10 MG/ML 20 ML VIAL ONE (12:43)
--- NOTE | 2017-06-17 12:46 | GI REPORT ---
Patient Name: João Villalpando Procedure Date: 06/17/2017 12:11 PM Date of : 1955 Admit Type: Inpatient Age: 61 Gender: Male Attending MD: Susi Casiano DO Procedure: Upper GI endoscopy Providers: Susi Casiano DO Referring MD: Rina Gotti MD Indications: Melena Medicines: Monitored Anesthesia Care Complications: No immediate complications. Estimated blood loss: Minimal. Estimated Blood Loss: Estimated blood loss was minimal. Procedure: Pre-Anesthesia Assessment: - Prior to the procedure, a History and Physical was performed, and patient medications, allergies and sensitivities were reviewed. The patient's tolerance of previous anesthesia was reviewed. - The risks and benefits of the procedure and the sedation options and risks were discussed with the patient. All questions were answered and informed consent was obtained. - Patient identification and proposed procedure were verified prior to the procedure by the physician, the nurse and the cable television installer. The procedure was verified in the procedure room. - Pre-procedure physical examination revealed no contraindications to sedation. - ASA Grade Assessment: III - A patient with severe systemic disease. - After reviewing the risks and benefits, the patient was deemed in satisfactory condition to undergo the procedure. - The anesthesia plan was to use monitored anesthesia care (MAC). - Immediately prior to administration of medications, the patient was re-assessed for adequacy to receive sedatives. - The heart rate, respiratory rate, oxygen saturations, blood pressure, adequacy of pulmonary ventilation, and response to care were monitored throughout the procedure. - The physical status of the patient was re-assessed after the procedure. After obtaining informed consent, the endoscope was passed under direct vision. Throughout the procedure, the patient's blood pressure, pulse, and oxygen saturations were monitored continuously. The scope was introduced through the mouth, and advanced to the fourth part of duodenum. The upper GI endoscopy was accomplished without difficulty. The patient tolerated the procedure well. Findings: The examined esophagus was normal. The entire examined stomach was normal. The examined duodenum was normal. Impression: - Normal esophagus. - Normal stomach. - Normal examined duodenum. Recommendation: - Perform a colonoscopy today. Susi Casiano D.O. Susi Casiano DO 06/17/2017 12:46:20 PM This report has been signed electronically. Note Initiated On: 06/17/2017 12:11 PM Number of Addenda: 0 I attest to the content of the Intraoperative Record and orders documented therein, exceptions below {[id number]}
--- NOTE | 2017-06-17 12:57 | GI REPORT ---
Patient Name: João Villalpando Procedure Date: 06/17/2017 12:22 PM Date of : 1955 Admit Type: Inpatient Age: 61 Gender: Male Attending MD: Susi Casiano DO Procedure: Colonoscopy Providers: Susi Casiano DO Referring MD: Referred Self Indications: Melena Medicines: Monitored Anesthesia Care Complications: No immediate complications. Estimated blood loss: Minimal. Estimated Blood Loss: Estimated blood loss was minimal. Procedure: Pre-Anesthesia Assessment: - Prior to the procedure, a History and Physical was performed, and patient medications, allergies and sensitivities were reviewed. The patient's tolerance of previous anesthesia was reviewed. - The risks and benefits of the procedure and the sedation options and risks were discussed with the patient. All questions were answered and informed consent was obtained. - Patient identification and proposed procedure were verified prior to the procedure by the physician, the nurse and the cylinder machine operator. The procedure was verified in the procedure room. - Pre-procedure physical examination revealed no contraindications to sedation. - ASA Grade Assessment: III - A patient with severe systemic disease. - After reviewing the risks and benefits, the patient was deemed in satisfactory condition to undergo the procedure. - The anesthesia plan was to use monitored anesthesia care (MAC). - Immediately prior to administration of medications, the patient was re-assessed for adequacy to receive sedatives. - The heart rate, respiratory rate, oxygen saturations, blood pressure, adequacy of pulmonary ventilation, and response to care were monitored throughout the procedure. - The physical status of the patient was re-assessed after the procedure. After I obtained informed consent, the scope was passed under direct vision. Throughout the procedure, the patient's blood pressure, pulse, and oxygen saturations were monitored continuously. The scope was introduced through the anus and advanced to the ileocolonic anastomosis. The colonoscopy was performed without difficulty. The patient tolerated the procedure well. The quality of the bowel preparation was good. Findings: The perianal and digital rectal examinations were normal. Pertinent negatives include normal sphincter tone. The terminal ileum appeared normal. One small localized angioectasia without bleeding was found at the anastomosis. Coagulation for hemostasis using argon plasma at 1 liter/minute and 20 mitchell was successful. Estimated blood loss: none. Two sessile polyps were found in the rectum. The polyps were 3 to 5 mm in size. These polyps were removed with a cold snare. Resection and retrieval were complete. Estimated blood loss was minimal. Internal hemorrhoids were found during retroflexion. The hemorrhoids were mild. The exam was otherwise without abnormality. Impression: - The examined portion of the ileum was normal. - One non-bleeding colonic angioectasia. Treated with argon plasma coagulation (APC). - Two 3 to 5 mm polyps in the rectum, removed with a cold snare. Resected and retrieved. - Internal hemorrhoids. - The examination was otherwise normal. Recommendation: - [facility] care. - Advance diet as tolerated today. - Await pathology results. - Repeat colonoscopy in 3 - 5 years for surveillance based on pathology results. - If melena recurrs could consider a wireless capsule endoscopy or a discussion with cardiology about the need of dual antiplatelets. Susi Casiano D.O. Susi Casiano, 06/17/2017 12:56:50 PM This report has been signed electronically. Note Initiated On: 06/17/2017 12:22 PM Number of Addenda: 0 I attest to the content of the Intraoperative Record and orders documented therein, exceptions below {[id number]}
--- NOTE | 2017-06-17 13:10 | Anesthesiology Progress Note ---
Anesthesia Post Op Note Date & Time June 17, 2017 at 13:10 Vital Signs Pain Intensity: 0 Vital Signs Past 12 Hours Date Time Temp Pulse Resp B/P (MAP) Pulse Ox O2 Delivery O2 Flow Rate FiO2 06/17/17 12:50 82 16 107/65 (79) 100 Room Air 06/17/17 11:41 36.5 80 16 157/82 (107) 99 06/17/17 11:23 36.7 76 20 139/97 (111) 100 Room Air 06/17/17 08:00 99 Room Air 06/17/17 07:29 36.5 80 16 118/77 (91) 99 06/17/17 04:00 Room Air 06/17/17 04:00 36.6 80 16 137/75 (95) 99 Notes Mental Status: alert / awake / arousable, participated in evaluation Pt Amnestic to Procedure: Yes Nausea / Vomiting: adequately controlled Pain: adequately controlled Airway Patency, RR, SpO2: stable & adequate BP & HR: stable & adequate Hydration State: stable & adequate Anesthetic Complications: no major complications apparent
--- NOTE | 2017-06-17 14:31 | Progress Note ---
Progress Note Date of Service June 17, 2017. Progress Note The patient underwent upper endoscopy and colonoscopy this afternoon. The upper endoscopy was notable for no significant findings. The colonoscopy was notable for an AVM at the ileocolonic anastomosis. This was treated with argon plasma coagulation. He was also found to have 2 polyps in the rectum and internal hemorrhoids. Recommendations Patient may restart aspirin Follow-up with Gastroenterology as needed If melena recurs would recommend a wireless capsule endoscopy. Based on the patient's history we suspect his is likely related to use of dual antiplatelet agents. Please call with any questions or concerns (GI to sign off)
--- NOTE | 2017-06-17 16:46 | Discharge Instructions ---
Discharge Instructions Date of Service June 17, 2017. Admission Reason for Admission: Anemia, Chest Pain Discharge Discharge Diagnosis / Problem: Symptomatic anemia Discharge Goals Goal(s): Improve function, Diagnostic testing, Therapeutic intervention Activity Recommendations Activity Limitations: resume your previous activity . Instructions / Follow-Up Instructions / Follow-Up You were admitted to the hospital with exertional chest pain and found to have hemoglobin as low as 7.6. The studies on your heart did not show evidence of a heart attack. Given your cardiac history, cardiology wanted to aim for hemoglobin levels of 10 , and you were transfused 2 units of blood. Given your previous bleeding history, gastroenterology recommended scoping to check both the upper and lower parts of the GI system. The EGD (upper scope) was completely normal. The colonoscopy (lower scope) showed a small area of angiectasia (thin walled, intestinal mucosa over prominent blood vessel) and two polyps. None of these area were actively bleeding but could have had chronic oozing that led to your ongoing fall in hemoglobin levels. At time of discharge, your labs and vitals are stable, and you have more energy and no chest pain/shortness of breath symptoms with movement. You are being discharged on all your previous medications, EXCEPT clopidogrel ( Plavix). Please follow up with your PCP, and have him check your hemoglobin levels in 1 week. Follow up with cardiology in 1 month, or sooner if repeat chest symptoms. Follow up with gastroenterology for capsule endoscopy. These specialist appointments will be arranged for you. If you are not called with appointment times in 48 hours, please call the hospital back. If you notice symptoms return of blood in stool/dark tarry stools, please seek medical attention urgently. Thank you for allowing us to participate in your care. Current Hospital Diet Patient's current hospital diet: Regular Diet Discharge Diet Recommended Diet: AHA Diet (Heart Healthy) Procedures Procedures Performed: EGD and Colonoscopy with polypectomy and APC to AVM at [facility] Pending Studies Studies pending at discharge: no Medical Emergencies . Who to Call and When: Medical Emergencies: If at any time you feel your situation is an emergency, please call 911 immediately. . Non-Emergent Contact Non-Emergency issues call your: Primary Care Provider, Dry Molder, Rehabilitation Therapy Technician . . "Provider Documentation" section prepared by Kelsey Diego. . Resident Tracking Resident Involvement: Resident Care Provided Care Provided: Adult [facility] Medicine
--- NOTE | 2017-06-17 16:52 | Discharge Summary ---
Discharge Summary Date of Service June 17, 2017. Discharge Summary Admission Date: Jun 15, 2017 at 20:50 Discharge Date: June 17, 2017 Discharge Disposition: Home Principal Diagnosis: Symptomatic anemia Problems/Secondary Diagnoses: CAD Immunizations: Have You Had Influenza Vaccine: No History of Tetanus Vaccine?: Yes History of Pneumococcal: No History of Hepatitis B Vaccine: Unknown Procedures: EGD. Colonoscopy. Consultations: Cardiology. Gastroenterology. Medication Reconciliation Continued Medications: Albuterol Hfa (Ventolin Hfa) 200 Puffs/29597 Mcg Aers 2-4 PUFFS INH Q6H PRN for SOB/Wheezing, #1 INHALER Amlodipine (Norvasc) 2.5 Mg Tab 2.5 MG PO DAILY, TAB Ascorbic Acid (Ascorbic Acid) 1,000 Mg Tab 1000 MG PO QAM Aspirin (Aspirin EC Low Dose) 81 Mg Ectab 81 MG PO QAM for 30 Days, #30 TAB Aspirin (Aspirin Ec) 81 Mg Tab 81 MG PO QAM Atorvastatin (Lipitor) 80 Mg Tab 80 MG PO DAILY, TAB Coenzyme Q10 (Ubidecarenone) (Co Q 10) 100 Mg Cap 100 MG PO QAM Glucosamine Sulfate (Glucosamine) 1,000 Mg Tab 1000 MG PO DAILY, TAB Lisinopril (Lisinopril) 5 Mg Tab 5 MG PO QAM for 30 Days, #30 TAB Lisinopril (Zestril) 5 Mg Tab 5 MG PO QAM, TAB Nitroglycerin (Nitrostat) 0.4 Mg/1 Tab Subl 0.4 MG SL UD PRN for Chest Pain, #15 TAB Take 1 tab q5 min and seek immediate medical attention Nitroglycerin (Nitrostat) 0.4 Mg Sub 0.4 MG UT PRN, BTL NEEDED FOR CHEST PAIN : ONE TABLET UNDER THE TONGUE EVERY 5 MINUTES, UP TO 3 DOSES. Vitamins C & E (Vitamin C) 1 Cap Cap Zinc Gluconate (Zinc) 50 Mg Tab 50 MG PO QAM Discontinued Medications: Clopidogrel (Plavix) 75 Mg Tab 75 MG PO DAILY Discharge Exam Patient denies acute overnight events and is comfortable at rest. He states he is feeling less fatigued and notes no cardiac symptoms on ambulation/exertion since transfusion. He denies lashae bleeding or dark tarry stools. No fevers/ chills, headaches, palpitations, dyspnea, abdominal pain, lower extremity swelling or rashes. He is tolerating diet without nausea or vomiting, and voiding and stooling appropriately. ROS is unremarkable except as noted above. Physical Exam General Appearance: WD/WN, no apparent distress Eyes: sclerae normal ENT: hearing grossly normal Neck: supple Respiratory/Chest: normal breath sounds, no respiratory distress, no accessory muscle use Cardiovascular: regular rate, rhythm, no JVD, no murmur Abdomen: normal bowel sounds, non tender, soft Extremities: no pedal edema, no calf tenderness Neurologic/Psychiatric: alert, normal mood/affect, oriented x 3 Skin: normal color, warm/dry, no rash Hospital Course 61 yo M w/ past medical history of CAD s/p PCI and stent placement (07/2016) presenting with exertional chest pain x 1 week in addition to dark colored stools. EKG unremarkable, negative troponin, found to be anemic on arrival, VSS. Anemia secondary to suspected GI bleed Recent endoscopy in 05/2017 was normal. History of tubular adenoma of the colon s/p partial colectomy. GI consulted. - H/H 8.4/24.9 on arrival, VSS, FOBT+ - Aspirin and clopidogrel held initially - s/p transfusion of 2 units pRBC per cardiology recs (see below) - EGD normal. - Colonoscopy showed non-bleeding angiectasia and 2 polyps - Scheduling in process for outpatient capsule endoscopy Exertional chest pain on bkgd of CAD s/p stent (07/2016) with residual disease ( 80% stenosis of proximal LAD, left circumflex, 60-70 % stenosis of second OM) Cardiology consulted. - No acute ischemic changes on EKG, serial troponin negative - Given known CAD, cardiology recommends maintaining Hb ~10. No invasive cardiac assessment given resolution of symptoms post transfusion - Continue atorvastatin - Discharged on aspirin only. Clopidogrel discontinued per cardiology. - Follow up with cardiology in 1 month, or sooner if cardiac symptoms/concerns HTN - controlled - Conintue amlodipine and lisinopril Asthma - no evidence of exacerbation - Albuterol PRN SOB/wheezing VTE ppx - SCD's - Chemical ppx contraindicated due to likely bleed Resident Physician Supervision Note: I interviewed and examined the patient. Discussed with Dr. Diego and agree with findings and plan as documented in the note. Any exceptions or clarifications are listed here: None Documented By: Brandon Villanueva feeling better scopes discussed with pt wants to go home vitals noted nad breathing unlabored no pallor or icterus symptomatic anemia - from GI bleeding - causing angina due to CAD - due to bleeding -- scopes no source UGI, a few questionable sources LGI (polyps, AVM at anastomosis) - w/u further w capsule endoscopy, OK to resume asa, ok to conitnue to hold plavix. CBC next week then periodically -- consider Fe replacement (and/or checking levels) if counts don't improve over next few weeks Total Time Spent: Greater than 30 minutes This includes examination of the patient, discharge planning, medication reconciliation, and communication with other providers. Discharge Instructions Please refer to the electronic Patient Visit Report (Discharge Instructions) for additional information. Additional Copies To Ari You M.D. Resident Tracking Resident Involvement: Resident Care Provided Care Provided: Adult Hospital Medicine
== END 2017-06-17 17:50 | disposition home or self-care (01) | DRG 379 ==
LOC: C.EDB 17:43 → C.MED 20:50 → ENRESERV 21:39 → CANBEDREQ 06-17 16:05
PROVIDERS: ADMIT Hospitalist; ATTEND Family Medicine
DX: K92.2 Gastrointestinal hemorrhage, unspecified (principal); D64.9 Anemia, unspecified; I25.10 Atherosclerotic heart disease of native coronary artery without angina pectoris; J45.909 Unspecified asthma, uncomplicated; K63.5 Polyp of colon; E78.5 Hyperlipidemia, unspecified; I10 Essential (primary) hypertension; Z95.5 Presence of coronary angioplasty implant and graft; Z79.82 Long term (current) use of aspirin; Z88.0 Allergy status to penicillin; Z88.1 Allergy status to other antibiotic agents; Z88.3 Allergy status to other anti-infective agents; Z82.49 Family history of ischemic heart disease and other diseases of the circulatory system; Z66 Do not resuscitate

== ENCOUNTER 2017-06-24 10:15 | Inpatient (IN) | payer OTHER ==
[~2017-06-24] VITALS: Ht 172.7 cm; Wt 77.7 kg
[2017-06-24] VITALS (20 sets, daily range): BP systolic 130–168; BP diastolic 81–97; PULSE 74–96; TEMP 36.6–37.3; O2SAT 97–100; Ht 172.7 cm; Wt 77.7 kg
[~2017-06-24 10:15] MED LIST changes: +ASCO100061 PO; +ASPI81TA28 PO; -CLOP1TAB15 PO; +COEN1CAP17 PO; +LISI-729 PO; +NITR0.4S UT
[2017-06-24] MEDS ORDERED: SODIUM CHLORIDE 0.9% 1000ML 1,000 ML IV STA (10:33)
[2017-06-24 11:17] LABS: HEMATOCRIT 18.2 % (42-52); HEMOGLOBIN 6.3 g/dL (14.0-18.0); MEAN CELL VOLUME 81.6 fL (80-100); MEAN CORPUSCULAR HEMOGLOBIN 28.3 pg (25-34); MEAN CORPUSCULAR HGB CONC 34.6 g/dl (32-36); MEAN PLATELET VOLUME 8.4 fL (7.4-10.4); PLATELET COUNT 222 K/uL (130-400); RED CELL DISTRIBUTION WIDTH CV 13.8 % (11.5-14.5); RED CELL DISTRIBUTION WIDTH SD 41.9 fL (36.4-46.3); WHITE BLOOD COUNT 4.49 K/uL (4.8-10.8)
[2017-06-24 11:18] LABS: PTT PATIENT 20.5 SECONDS (21.0-31.0)
[2017-06-24 11:28] LABS: ALBUMIN 3.1 gm/dl (3.4-5.0); CALCIUM 7.8 mg/dl (8.5-10.1); CREATININE 0.71 mg/dl (0.60-1.40); POTASSIUM 3.8 mmol/L (3.5-5.1)
[2017-06-24 11:31] LABS: TOTAL PROTEIN 5.7 gm/dl (6.4-8.2)
[2017-06-24 11:34] LABS: BASO % 0.4 %; BASO ABS # 0.02 K/uL (0-0.2); EOS ABS # 0.09 K/uL (0-0.5); IG# 0.02 K/uL (0.00-0.02); LYMPH % 15.1 %; LYMPH ABS # 0.68 K/uL (1.2-3.4); MONO % 9.6 %; MONO ABS # 0.43 K/uL (0.11-0.59); NEUT % 72.5 %; NEUT ABS # 3.25 K/uL (1.4-6.5)
[2017-06-24] MEDS ORDERED: NITROGLYCERIN 0.4 MG SL PER TAB CHARGE SL PRN (13:45)
[2017-06-24] MEDS ORDERED: POLYETHYLENE (MIRALAX) 17 GM PACK PO PRN (13:45)
[2017-06-24] MEDS ORDERED: MAGNESIUM HYDROXIDE SUSP 30 ML UDC PO PRN (13:45)
[2017-06-24] MEDS ORDERED: ACETAMINOPHEN 325 MG TAB PO PRN (13:45)
[2017-06-24] MEDS ORDERED: ALUMINUM/MAGNESIUM/SIMETH (MAALOX MAX) 30 ML UDC PO PRN (13:45)
[2017-06-24] MEDS ORDERED: ONDANSETRON INJ 2 MG/ML 2 ML VIAL IV PRN (13:45)
--- NOTE | 2017-06-24 13:53 | History and Physical ---
History & Physical Date & Time of Service: June 24, 2017 at 13:50 Chief Complaint: Chest Pain, Gi Blood Loss Primary Care Physician: Ari You M.D. History of Present Illness Source: patient Mr. Villalpando is a 61 y/o male with PMHx of Multiple Polyps, Large Adenomatous Polyp S/P Partial Colectomy (2011), CAD S/P PCI, HTN, and HLD who presents to the ED c/o weakness and dark colored stool. Patient reports that this started back around May 04, 2017 with melanotic stool and stopped Plavix but continued Aspirin. States stool turned back to normal color. He underwent EGD on 05/28 which had benign gastric polyps and mild erosive antral gastritis but states his stools remained the same normal color. He was started back on Plavix and states his stool turned back to a darker color approx. 3 days later. He states they have not turned black like the first time but darker than his normal. He was then admitted June 15-June 17 due to anemia and had EGD and Colonoscopy with normal EGD and colonoscopy showing polyps (clipped), one angioectasia that was cauterized, and internal hemorrhoids. He was D/Cd with a hemoglobin on 10 and had outpatient labs that he states dropped to 8. He now presents with Hgb 6.3. He states he is still having dark stool but states they are not black and no BRBPR. He has become more fatigued and reports exertional chest pain. Currently not having chest pain and feels like he is starting to feel a bit better. He has been off Plavix approx. 9 days. Still on ASA 81 mg daily but did not take that today. He denies any abdominal pain with this. No personal or family H/O celiacs, UC, Crohn's. He states he is prone to polyps but states he has been tested for familial adenomatous polyposis and this was negative. He follows with [facility]. Past Medical/Surgical History Medical Problems: (1) Anemia (2) Benign hypertension (3) Chest pain (4) Chest pain (5) Colonoscopic polypectomy (6) Exertional chest pain (7) Hematochezia (8) Hyperlipidemia Nec/Nos (9) Hypertension Nos (10) Lower gastrointestinal hemorrhage (11) Precordial chest pain (12) Symptomatic anemia (13) Symptomatic anemia (14) Unstable angina (15) Upper GI bleed (16) Upper GI bleed Family History Diabetes mellitus FHx: cancer Heart disease Hypertension Social History Smoking Status: Never Smoker Drug Use: none Marital Status: Housing status: lives alone Occupational Status: employed Immunizations History of Influenza Vaccine: No History of Tetanus Vaccine?: Yes History of Pneumococcal: No History of Hepatitis B Vaccine: Unknown Allergies Coded Allergies: Penicillamine (Verified Allergy, Severe, THROAT INFECTION, 06/24/17) Acetaminophen (Verified Allergy, Intermediate, syncope, 06/24/17) Cat Dander (Verified Allergy, Intermediate, unknown, 06/24/17) Oxycodone (Verified Allergy, Intermediate, syncope, 06/24/17) Erythromycin (Verified Allergy, Unknown, UNKNOWN, 06/24/17) Lactose Intolerance (GI) (Unverified Allergy, Unknown, ABDOMINAL DISCOMFORT/ADVERSE GI SYMPTOMS, 06/24/17) Penicillins (Verified Allergy, Unknown, RASH, 06/24/17) Azithromycin (Verified Adverse Reaction, Intermediate, DIGESTIVE PROBLEMS , 06/24/17) Macrolides and Ketolides (Verified Adverse Reaction, Mild, MILD, 06/24/17) Home Medications Scheduled Amlodipine (Norvasc), 2.5 MG PO DAILY Ascorbic Acid (Ascorbic Acid), 1,000 MG PO QAM Aspirin (Aspirin Ec), 81 MG PO QAM Atorvastatin (Lipitor), 80 MG PO DAILY Coenzyme Q10 (Ubidecarenone) (Co Q 10), 100 MG PO QAM Glucosamine Sulfate (Glucosamine), 1,000 MG PO DAILY Lisinopril (Zestril), 5 MG PO QAM Nitroglycerin (Nitrostat), 0.4 MG UT PRN Zinc Gluconate (Zinc), 50 MG PO QAM Scheduled PRN Albuterol Hfa (Ventolin Hfa), 2-4 PUFFS INH Q6H PRN for SOB/Wheezing Review of Systems Constitutional: + fatigue (resolving), No fever, No chills ENT: No nasal symptoms, No sore throat Respiratory: No cough, No shortness of breath Cardiovascular: + chest pain (exertional (prior to arrival) - resolved), No orthopnea, No palpitations Abdomen: No pain, No nausea, No vomiting, No diarrhea, No constipation, No GI bleeding (stool has been dark brown and no BRBPR) Genitourinary - Male: No hematuria, No dysuria Hematologic / Lymphatic: No abnormal bleeding/bruising Integumentary: No rash Physical Exam Vital Signs Date Time Temp Pulse Resp B/P (MAP) Pulse Ox O2 Delivery O2 Flow Rate FiO2 06/24/17 13:46 36.8 88 29 156/94 100 06/24/17 13:32 37.1 87 29 149/90 100 06/24/17 13:27 88 06/24/17 13:15 37.2 96 25 144/88 100 06/24/17 12:58 36.9 90 20 146/81 98 06/24/17 12:45 91 27 128/84 06/24/17 12:42 36.7 91 20 168/94 98 06/24/17 12:33 168/94 06/24/17 12:15 90 41 06/24/17 12:00 100 29 137/84 06/24/17 11:45 98 27 06/24/17 11:30 100 21 06/24/17 11:30 100 Room Air 06/24/17 11:15 96 24 98 06/24/17 11:00 104 26 138/85 98 06/24/17 10:57 105 06/24/17 10:57 100 Room Air 06/24/17 10:53 141/92 06/24/17 10:21 37.0 114 20 127/76 100 Room Air General Appearance: WD/WN, no apparent distress Head: normocephalic, atraumatic Eyes: sclerae normal ENT: hearing grossly normal Neck: supple, no JVD, trachea midline Respiratory/Chest: lungs clear, normal breath sounds, no respiratory distress, no accessory muscle use Cardiovascular: regular rate, rhythm, no gallop, no murmur Abdomen/GI: normal bowel sounds, non tender, soft Extremities/Musculoskelatal: no calf tenderness, no pedal edema Neurologic/Psych: alert, oriented x 3 Skin: normal color, warm/dry Diagnostics Laboratory Results Results Past 24 Hours Test 06/24/17 10:45 06/24/17 12:30 Range/Units White Blood Count 4.49 4.8-10.8 K/uL Red Blood Count 2.23 4.7-6.1 M/uL Hemoglobin 6.3 14.0-18.0 g/dL Hematocrit 18.2 42-52 % Mean Corpuscular Volume 81.6 80-100 fL Mean Corpuscular Hemoglobin 28.3 25-34 pg Mean Corpuscular Hemoglobin Concent 34.6 32-36 g/dl Platelet Count 222 130-400 K/uL Mean Platelet Volume 8.4 7.4-10.4 fL Neutrophils (%) (Auto) 72.5 % Lymphocytes (%) (Auto) 15.1 % Monocytes (%) (Auto) 9.6 % Eosinophils (%) (Auto) 2.0 % Basophils (%) (Auto) 0.4 % Neutrophils # (Auto) 3.25 1.4-6.5 K/uL Lymphocytes # (Auto) 0.68 1.2-3.4 K/uL Monocytes # (Auto) 0.43 0.11-0.59 K/uL Eosinophils # (Auto) 0.09 0-0.5 K/uL Basophils # (Auto) 0.02 0-0.2 K/uL RDW Standard Deviation 41.9 36.4-46.3 fL RDW Coefficient of Variation 13.8 11.5-14.5 % Immature Granulocyte % (Auto) 0.4 % Immature Granulocyte # (Auto) 0.02 0.00-0.02 K/uL Hypochromasia PRESENT Prothrombin Time 10.4 9.0-12.0 SECONDS Prothromb Time International Ratio 1.0 0.9-1.1 Activated Partial Thromboplast Time 20.5 21.0-31.0 SECONDS Partial Thromboplastin Ratio 0.8 Sodium Level 142 136-145 mmol/L Potassium Level 3.8 3.5-5.1 mmol/L Chloride Level 112 98-107 mmol/L Carbon Dioxide Level 25 21-32 mmol/L Anion Gap 5.0 3-11 mmol/L Blood Urea Nitrogen 24 7-18 mg/dl Creatinine 0.71 0.60-1.40 mg/dl Est Creatinine Clear Calc Drug Dose 107.0 ml/min Estimated GFR () 118.2 Estimated GFR (Non- 102.0 BUN/Creatinine Ratio 33.6 10-20 Random Glucose 101 70-99 mg/dl Calcium Level 7.8 8.5-10.1 mg/dl Total Bilirubin 0.4 0.2-1 mg/dl Direct Bilirubin 0.1 0-0.2 mg/dl Aspartate Amino Transf (AST/SGOT) 20 15-37 U/L Alanine Aminotransferase (ALT/SGPT) 29 12-78 U/L Alkaline Phosphatase 68 45-117 U/L Total Protein 5.7 6.4-8.2 gm/dl Albumin 3.1 3.4-5.0 gm/dl Lipase 165 73-393 U/L Urine Color YELLOW Urine Appearance CLEAR CLEAR Urine pH 5.0 4.5-7.5 Urine Specific [place] 1.019 1.000-1.030 Urine Protein NEG NEG Urine Glucose (UA) NEG NEG Urine Ketones NEG NEG Urine Occult Blood NEG NEG Urine Nitrite NEG NEG Urine Bilirubin NEG NEG Urine Urobilinogen NEG NEG Urine Leukocyte Esterase SMALL NEG Urine WBC (Auto) 1-5 0-5 /hpf Urine RBC (Auto) 0-4 0-4 /hpf Urine Hyaline Casts (Auto) 1-5 0-5 /lpf Urine Epithelial Cells (Auto) 0-5 0-5 /lpf Urine Bacteria (Auto) NEG NEG EKG Sinus tachycardia Otherwise normal ECG When compared with ECG of 15-JUN-2017 17:51, No significant change was found Confirmed by DELMY EMERSON ([id number]) on 06/24/2017 12:55:23 PM Impression Assessment and Plan Mr. Villalpando is a 61 y/o male with PMHx of Multiple Polyps, Large Adenomatous Polyp S/P Partial Colectomy (2011), CAD S/P PCI, HTN, and HLD who presents to the ED c/o weakness and dark colored stool. Acute Blood Loss Anemia - GI Bleed: - Generally this is a chronic loss but is acutely exacerbated. Had recent EGD/ Colonoscopy which only showed colon polyps, one angioectasia, and internal hemorrhoids - is due for consultation for capsule study by [facility] - Hemoglobin currently 6.3 with transfusion initiated in ED and will continue to monitor and transfuse as necessary - Protonix 40 mg BID which can likely be reduced given normal EGD so recently - Hold ASA; Has been off Plavix approx. 9 days - Clear liquid diet and NPO after midnight except meds - Consult GI [facility] Exertional Chest Pain: - Likely in the setting of anemia. Only occurred with activity and currently resolved. No SOB or diaphoresis. No radiation of pain - Obtain troponin and trend given cardiac history - some element of demand ischemia may be present CAD S/P PCI (2016) and HTN and HLD: - Patient is nearing the 1 year cheryl of his stent placement. He follows with Dr. Worthington who plans to indefinitely stop Plavix - ASA on hold due to above - Norvasc 2.5 mg daily; Lisinopril 5 mg daily; Lipitor 80 mg daily Allergies: - Ventolin PRN for allergies (mostly cats) - rarely uses DVT Prophylaxis: SCDs 2/2 GIB Code Status: FULL RESUSCITATION Disposition: From Home Resident Physician Supervision Note: I was present with Maria Fernanda MILLER during the history and exam. I discussed the case with the PA and agree with the findings and plan as documented in the note. Any exceptions or clarifications are listed here: 61 y/o M Hx colonic Polyps including a large adenomatous polyp - partial colectomy 2011, CAD, HTN, HPL. He has had an extensive workup for GI blood loss. He was pending additional evaluation for pill endoscopy. An AVM was found, however, this does not appear to be the source of his blood loss. He presents with dark stools, increasing fatigue and exertional CP. He was found to have a Hb of 6.3 OE AAO x 3 S1,2 R CTAB NT, ND No CCE P: Pt is admitted for transfusions and additional GI workup Reg his CP - we suspect some angina resulting from demand due to his low Hb - we would choose to reassess following transfusion. We will trend a trop while he is hospitalized regardless due to his CAD history. Cont Norvasc, Lisinopril for HTN Documented By: Lane Jaquez Advanced Directives Existing Living Will: Yes Existing Power of Set Up Mold Technician: Yes Resuscitation Status VTE Prophylaxis Will order VTE Prophylaxis: Yes
--- NOTE | 2017-06-24 14:17 | EMERGENCY ROOM VISIT NOTE ---
History Report prepared by Meseret: Jas Dinero Under the Supervision of: Dr. Brandon Johnson D.O. First contact with patient: 10:28 Chief Complaint: OTHER COMPLAINT Stated Complaint: CHEST PAIN, GI BLOOD LOSS History of Present Illness The patient is a 61 year old male who presents to the Emergency Room with complaints of constant rectal bleeding. The patient states that he has had dark colored stool since he was started on Plavix about three weeks ago. He was seen in the ED 10 days ago for chest pain/SOB, and was found to be anemic. He was heme positive on rectal exam. The patient was admitted to the hospital for GI bleed. He had endoscopy and colonoscopy one week ago without any definite bleeding source identified, and had several polyps clipped. His lowest hemoglobin in the hospital was 7.6. The patient was discharged with a hemoglobin around 10. He had his blood counts checked again today, and was found to have a hemoglobin of 8. He was referred to the ED. The patient states that he currently has chest pain with exertion and SOB as he did previously. He rates his pain as a 5/10 in severity when present, and describes it has a "heaviness". He currently has no pain. The patient states that he currently feels worse that he did 10 days ago. He notes that he had a cardiac stent placed one year ago, and states that he feels worse than when he had the stent placed. Pt denies headache, change in vision, fevers, nausea, vomiting, diarrhea , or pain with urination Source of History: patient Onset: Three weeks ago Symptom Intensity: hemoglobin of 8. Quality: other (GI bleeding) Timing: constant Associated Symptoms: + chest pain (with exertion), + SOB, No fevers, No headache, No nausea, No vomiting, No diarrhea, No urinary symptoms Review of Systems See HPI for pertinent positives & negatives. A total of 10 systems reviewed and were otherwise negative. Past Medical & Surgical Medical Problems: (1) Anemia (2) Chest pain (3) Colonoscopic polypectomy (4) Hyperlipidemia Nec/Nos (5) Hypertension Nos (6) Lower gastrointestinal hemorrhage (7) Symptomatic anemia Family History Diabetes mellitus FHx: cancer Heart disease Hypertension Social History Smoking Status: Never Smoker Alcohol Use: occasionally Drug Use: none Marital Status: Housing Status: lives alone Occupation Status: employed Current/Historical Medications Scheduled Amlodipine (Norvasc), 2.5 MG PO DAILY Ascorbic Acid (Ascorbic Acid), 1,000 MG PO QAM Aspirin (Aspirin Ec), 81 MG PO QAM Atorvastatin (Lipitor), 80 MG PO DAILY Coenzyme Q10 (Ubidecarenone) (Co Q 10), 100 MG PO QAM Glucosamine Sulfate (Glucosamine), 1,000 MG PO DAILY Lisinopril (Zestril), 5 MG PO QAM Nitroglycerin (Nitrostat), 0.4 MG UT PRN Zinc Gluconate (Zinc), 50 MG PO QAM Scheduled PRN Albuterol Hfa (Ventolin Hfa), 2-4 PUFFS INH Q6H PRN for SOB/Wheezing Allergies Coded Allergies: Penicillamine (Verified Allergy, Severe, THROAT INFECTION, 06/24/17) Cat Dander (Verified Allergy, Intermediate, unknown, 06/24/17) Erythromycin (Verified Allergy, Unknown, UNKNOWN, 06/24/17) Lactose Intolerance (GI) (Unverified Allergy, Unknown, ABDOMINAL DISCOMFORT/ADVERSE GI SYMPTOMS, 06/24/17) Penicillins (Verified Allergy, Unknown, RASH, 06/24/17) Azithromycin (Verified Adverse Reaction, Intermediate, DIGESTIVE PROBLEMS , 06/24/17) Macrolides and Ketolides (Verified Adverse Reaction, Mild, MILD, 06/24/17) Physical Exam Vital Signs Date Time Temp Pulse Resp B/P (MAP) Pulse Ox O2 Delivery O2 Flow Rate FiO2 06/24/17 14:00 154/87 06/24/17 13:50 102 28 100 06/24/17 13:46 36.8 88 29 156/94 100 06/24/17 13:45 156/94 06/24/17 13:32 37.1 87 29 149/90 100 06/24/17 13:30 149/90 06/24/17 13:27 88 06/24/17 13:20 90 21 100 06/24/17 13:15 37.2 96 25 144/88 100 06/24/17 13:15 144/88 06/24/17 13:00 147/80 06/24/17 12:58 36.9 90 20 146/81 98 06/24/17 12:50 90 24 06/24/17 12:45 91 27 128/84 06/24/17 12:42 36.7 91 20 168/94 98 06/24/17 12:33 168/94 06/24/17 12:15 90 41 06/24/17 12:00 100 29 137/84 06/24/17 11:45 98 27 06/24/17 11:30 100 21 06/24/17 11:30 100 Room Air 06/24/17 11:15 96 24 98 06/24/17 11:00 104 26 138/85 98 06/24/17 10:57 105 06/24/17 10:57 100 Room Air 06/24/17 10:53 141/92 06/24/17 10:21 37.0 114 20 127/76 100 Room Air Physical Exam GENERAL: Sitting up in bed, alert, well appearing, well nourished, no distress, non-toxic EYE EXAM: normal conjunctiva. OROPHARYNX: no exudate, no erythema, lips, buccal mucosa, and tongue normal and mucous membranes are moist NECK: supple, no nuchal rigidity, no adenopathy, non-tender LUNGS: Clear to auscultation. Normal chest wall mechanics HEART: no murmurs, S1 normal and S2 normal ABDOMEN: abdomen soft, non-tender, normo-active bowel sounds, no masses, no rebound or guarding. BACK: Back is symmetrical on inspection and there is no deformity, no midline tenderness, no CVA tenderness. SKIN: no rashes and no bruising UPPER EXTREMITIES: upper extremities are grossly normal. LOWER EXTREMITIES: No pitting edema. NEURO EXAM: Normal sensorium, cranial nerves II-XII grossly intact, normal speech, no gross weakness of arms, no gross weakness of legs. No drift. Medical Decision & Procedures Laboratory Results 06/24/17 10:45 Red Blood Count 2.23, Mean Corpuscular Volume 81.6, Mean Corpuscular Hemoglobin 28.3, Mean Corpuscular Hemoglobin Concent 34.6, Mean Platelet Volume 8.4, Neutrophils (%) (Auto) 72.5, Lymphocytes (%) (Auto) 15.1, Monocytes (%) (Auto) 9.6, Eosinophils (%) (Auto) 2.0, Basophils (%) (Auto) 0.4, Neutrophils # (Auto) 3.25, Lymphocytes # (Auto) 0.68, Monocytes # (Auto) 0.43, Eosinophils # (Auto) 0.09, Basophils # (Auto) 0.02 06/24/17 10:45 Test 06/24/17 10:45 06/24/17 12:30 White Blood Count 4.49 K/uL (4.8-10.8) Red Blood Count 2.23 M/uL (4.7-6.1) Hemoglobin 6.3 g/dL (14.0-18.0) Hematocrit 18.2 % (42-52) Mean Corpuscular Volume 81.6 fL (80-100) Mean Corpuscular Hemoglobin 28.3 pg (25-34) Mean Corpuscular Hemoglobin Concent 34.6 g/dl (32-36) Platelet Count 222 K/uL (130-400) Mean Platelet Volume 8.4 fL (7.4-10.4) Neutrophils (%) (Auto) 72.5 % Lymphocytes (%) (Auto) 15.1 % Monocytes (%) (Auto) 9.6 % Eosinophils (%) (Auto) 2.0 % Basophils (%) (Auto) 0.4 % Neutrophils # (Auto) 3.25 K/uL (1.4-6.5) Lymphocytes # (Auto) 0.68 K/uL (1.2-3.4) Monocytes # (Auto) 0.43 K/uL (0.11-0.59) Eosinophils # (Auto) 0.09 K/uL (0-0.5) Basophils # (Auto) 0.02 K/uL (0-0.2) RDW Standard Deviation 41.9 fL (36.4-46.3) RDW Coefficient of Variation 13.8 % (11.5-14.5) Immature Granulocyte % (Auto) 0.4 % Immature Granulocyte # (Auto) 0.02 K/uL (0.00-0.02) Hypochromasia PRESENT Prothrombin Time 10.4 SECONDS (9.0-12.0) Prothromb Time International Ratio 1.0 (0.9-1.1) Activated Partial Thromboplast Time 20.5 SECONDS (21.0-31.0) Partial Thromboplastin Ratio 0.8 Anion Gap 5.0 mmol/L (3-11) Est Creatinine Clear Calc Drug Dose 107.0 ml/min Estimated GFR () 118.2 Estimated GFR (Non- 102.0 BUN/Creatinine Ratio 33.6 (10-20) Calcium Level 7.8 mg/dl (8.5-10.1) Total Bilirubin 0.4 mg/dl (0.2-1) Direct Bilirubin 0.1 mg/dl (0-0.2) Aspartate Amino Transf (AST/SGOT) 20 U/L (15-37) Alanine Aminotransferase (ALT/SGPT) 29 U/L (12-78) Alkaline Phosphatase 68 U/L (45-117) Total Protein 5.7 gm/dl (6.4-8.2) Albumin 3.1 gm/dl (3.4-5.0) Lipase 165 U/L (73-393) Urine Color YELLOW Urine Appearance CLEAR (CLEAR) Urine pH 5.0 (4.5-7.5) Urine Specific [place] 1.019 (1.000-1.030) Urine Protein NEG (NEG) Urine Glucose (UA) NEG (NEG) Urine Ketones NEG (NEG) Urine Occult Blood NEG (NEG) Urine Nitrite NEG (NEG) Urine Bilirubin NEG (NEG) Urine Urobilinogen NEG (NEG) Urine Leukocyte Esterase SMALL (NEG) Urine WBC (Auto) 1-5 /hpf (0-5) Urine RBC (Auto) 0-4 /hpf (0-4) Urine Hyaline Casts (Auto) 1-5 /lpf (0-5) Urine Epithelial Cells (Auto) 0-5 /lpf (0-5) Urine Bacteria (Auto) NEG (NEG) Laboratory results per my review. Medications Administered Medications (Trade) Dose Ordered Sig/Shannan Route Start Time Stop Time Status Last Admin Dose Admin Sodium Chloride 1,000 ml @ 999 mls/hr Q1H1M STAT IV 06/24/17 10:33 06/24/17 11:33 DC 06/24/17 10:56 999 MLS/HR ECG Per My Interpretation Indication: chest pain Rate (beats per minute): 102 Rhythm: sinus tachycardia Findings: other (Normal axis. No PVCs. ) ED Course ED COURSE: Vital signs were reviewed and showed tachycardia The patients medical record was reviewed The above diagnostic studies were performed and reviewed. ED treatments and interventions as stated above. 1033: The patient was evaluated in room B9. A complete history and physical examination was performed. Ordered Sodium Chloride 1000 ml @ 999 mls/hr IV. 1140: Upon reevaluation, the patient is resting comfortably. He consented to receiving blood transfusions. I discussed my findings with the patient and he understands and agrees with the treatment plan. Based on the patients age, coexisting illnesses, exam and lab findings the decision to treat as an inpatient was made. The patient remained stable while under my care. The patient will be evaluated for further management. Medical Decision Differential diagnosis includes etiologies such as diverticulosis, AVM, coagulopathy, colitis, inflammatory bowel disease, malignancy, [place] tear, esophagitis, peptic ulcer disease, variceal bleed, gastritis, epistaxis, fissure, hemorrhoids, as well as others were entertained. Patient is a 61-year-old male that presents the ER for exertional chest pain shortness of breath. He was just discharged last week following admission for a GI bleed where they found a questionable AVM and 2 polyps. They stopped the Plavix. He was transfused 2 units per review of his chart. He presents today as he is significantly more tired, weak and having exertional chest pain shortness of breath again. Last stent was a year ago. IVs were established and blood work was obtained. He admits to dark tarry stools again. Hemoglobin was 6.3. He was typed and crossed for 2 units and transfused while in the ER. He was slightly tachycardic. He remained stable. No reversal agents were used as he is not on any anticoagulation at this time. He was updated at bedside. Discussed with internal medicine. Patient was admitted to internal medicine for a persistent lower GI bleed question if it is secondary to the AVM previously found. Medication Reconcilliation Current Medication List: was personally reviewed by me Blood Pressure Screening Patient's blood pressure: Normal blood pressure Blood pressure disposition: Did not require urgent referral Consults Time Called: 1140 Consulting Physician: Dr. Jaquez - [facility] – [place] Hospitalist Returned Call: 1142 Dr. Jaquez was made aware of the patient's case. The patient will evaluate the patient for further management. Impression Primary Impression: Symptomatic anemia Additional Impression: Lower gastrointestinal hemorrhage Critical Care I have personally spent 35 minutes of critical care time in the direct management of this patient. This includes bedside care, interpretation of diagnostic studies, and testing, discussion with consultants, patient, and family members, and other required patient management activities. This 35 minutes is in excess of all separately billable procedures. Scribe Attestation The scribe's documentation has been prepared under my direction and personally reviewed by me in its entirety. I confirm that the note above accurately reflects all work, treatment, procedures, and medical decision making performed by me. Departure Information Dispostion Being Evaluated By Hospitalist Referrals Ari You M.D. (PCP) Patient Instructions My [facility] Problem Qualifiers
--- NOTE | 2017-06-24 14:37 | Gastrointestinal Consultation ---
Gastrointestinal Consultation Date of Consultation: June 24, 2017 Attending Physician: Betzy Consulting Physician: Iqra Reason for Consultation: GIB, anemia History of Present Illness Patient is a 61 year old male with history of CAD s/p PCI stent placement on ASA and plavix recently admitted with symptomatic anemia who is s/p EGD/ Colonoscopy w/ discharge home less than a week ago. Noted he had felt okay at discharge, denied abd pain, nausea, vomiting, BRB. He had continued melena, fatigue, weakness. Notes this progressed and over the past few days he felt his stools got darker. Noted paleness. In the ED he is hypertensive, tachycardiac w / HGB 6.3. Denies fever, chills, CP, SOB EGD 06/17/17: WNL Colonoscopy 06/17/17: The examined portion of the ileum was normal.One non- bleeding colonic angioectasia. Treated with argon plasma coagulation (APC). Two 3 to 5 mm polyps in the rectum, removed with a cold snare. Resected and retrieved. Internal hemorrhoids. The examination was otherwise normal. Past Medical/Surgical History Medical Problems: (1) Chest pain Status: Acute (2) Exertional chest pain Status: Acute (3) Precordial chest pain Status: Acute (4) Symptomatic anemia Status: Acute (5) Unstable angina Status: Acute (6) Upper GI bleed Status: Acute Past Medical History: HTN, Hyperlipidemia, GIB Past Surgical History: EGD, colonoscopy, Pilonidal cyst removal, inguinal hernia repair. Family History Diabetes mellitus FHx: cancer Heart disease Hypertension Social History Smoking Status: Never Smoker Alcohol Use: occasionally Drug Use: none Marital Status: Housing Status: lives alone Occupation Status: employed Allergies Coded Allergies: Penicillamine (Verified Allergy, Severe, THROAT INFECTION, 06/24/17) Acetaminophen (Verified Allergy, Intermediate, syncope, 06/24/17) Cat Dander (Verified Allergy, Intermediate, unknown, 06/24/17) Oxycodone (Verified Allergy, Intermediate, syncope, 06/24/17) Erythromycin (Verified Allergy, Unknown, UNKNOWN, 06/24/17) Lactose Intolerance (GI) (Unverified Allergy, Unknown, ABDOMINAL DISCOMFORT/ADVERSE GI SYMPTOMS, 06/24/17) Penicillins (Verified Allergy, Unknown, RASH, 06/24/17) Azithromycin (Verified Adverse Reaction, Intermediate, DIGESTIVE PROBLEMS , 06/24/17) Macrolides and Ketolides (Verified Adverse Reaction, Mild, MILD, 06/24/17) Current Medications Home Meds and Scripts Medications Dose Route/Sig Max Daily Dose Days Date Category Dose Instructions Co Q 10 (Coenzyme Q10 (Ubidecarenone)) 100 Mg Cap 100 Mg PO QAM 06/15/17 Reported Ascorbic Acid 1,000 Mg Tab 1,000 Mg PO QAM 06/15/17 Reported Nitrostat (Nitroglycerin) 0.4 Mg Sub 0.4 Mg UT PRN 06/15/17 Reported NEEDED FOR CHEST PAIN : ONE TABLET UNDER THE TONGUE EVERY 5 MINUTES, UP TO 3 DOSES. Zestril (Lisinopril) 5 Mg Tab 5 Mg PO QAM 06/15/17 Reported Aspirin Ec (Aspirin) 81 Mg Tab 81 Mg PO QAM 06/15/17 Reported Zinc (Zinc Gluconate) 50 Mg Tab 50 Mg PO QAM 12/23/16 Reported Glucosamine (Glucosamine Sulfate) 1,000 Mg Tab 1,000 Mg PO DAILY 12/23/16 Reported Ventolin Hfa (Albuterol) 200 Puffs/59940 Mcg Aers 2-4 Puffs INH Q6H PRN 12/23/16 Reported Lipitor (Atorvastatin Calcium) 80 Mg Tab 80 Mg PO DAILY 09/23/16 Reported Norvasc (Amlodipine Besylate) 2.5 Mg Tab 2.5 Mg PO DAILY 09/23/16 Reported Review of Systems Constitutional: No fever, No chills Respiratory: No cough, No shortness of breath Cardiac: No chest pain, No edema Abdomen: + GI bleeding (dark stools), No pain, No nausea, No vomiting, No diarrhea, No constipation Physical Exam Date Time Temp Pulse Resp B/P (MAP) Pulse Ox O2 Delivery O2 Flow Rate FiO2 06/24/17 14:28 37.1 93 20 147/90 99 06/24/17 14:00 154/87 06/24/17 13:50 102 28 100 06/24/17 13:46 36.8 88 29 156/94 100 06/24/17 13:45 156/94 06/24/17 13:32 37.1 87 29 149/90 100 06/24/17 13:30 149/90 06/24/17 13:27 88 06/24/17 13:20 90 21 100 06/24/17 13:15 37.2 96 25 144/88 100 06/24/17 13:15 144/88 06/24/17 13:00 147/80 06/24/17 12:58 36.9 90 20 146/81 98 06/24/17 12:50 90 24 06/24/17 12:45 91 27 128/84 06/24/17 12:42 36.7 91 20 168/94 98 06/24/17 12:33 168/94 06/24/17 12:15 90 41 06/24/17 12:00 100 29 137/84 06/24/17 11:45 98 27 06/24/17 11:30 100 21 06/24/17 11:30 100 Room Air 06/24/17 11:15 96 24 98 06/24/17 11:00 104 26 138/85 98 06/24/17 10:57 105 06/24/17 10:57 100 Room Air 06/24/17 10:53 141/92 06/24/17 10:21 37.0 114 20 127/76 100 Room Air General Appearance: no apparent distress Eyes: PERRL ENT: hearing grossly normal Neck: supple, trachea midline Respiratory/Chest: lungs clear, normal breath sounds, no respiratory distress, no accessory muscle use Cardiovascular: regular rate, rhythm Abdomen: normal bowel sounds, non tender, soft, no organomegaly, no pulsatile mass Neurologic/Psych: alert, normal mood/affect, oriented x 3 Skin: + pallor Laboratory Results Last 24 Hours Test 06/24/17 10:45 06/24/17 12:30 White Blood Count 4.49 K/uL Red Blood Count 2.23 M/uL Hemoglobin 6.3 g/dL Hematocrit 18.2 % Mean Corpuscular Volume 81.6 fL Mean Corpuscular Hemoglobin 28.3 pg Mean Corpuscular Hemoglobin Concent 34.6 g/dl Platelet Count 222 K/uL Mean Platelet Volume 8.4 fL Neutrophils (%) (Auto) 72.5 % Lymphocytes (%) (Auto) 15.1 % Monocytes (%) (Auto) 9.6 % Eosinophils (%) (Auto) 2.0 % Basophils (%) (Auto) 0.4 % Neutrophils # (Auto) 3.25 K/uL Lymphocytes # (Auto) 0.68 K/uL Monocytes # (Auto) 0.43 K/uL Eosinophils # (Auto) 0.09 K/uL Basophils # (Auto) 0.02 K/uL RDW Standard Deviation 41.9 fL RDW Coefficient of Variation 13.8 % Immature Granulocyte % (Auto) 0.4 % Immature Granulocyte # (Auto) 0.02 K/uL Hypochromasia PRESENT Prothrombin Time 10.4 SECONDS Prothromb Time International Ratio 1.0 Activated Partial Thromboplast Time 20.5 SECONDS Partial Thromboplastin Ratio 0.8 Sodium Level 142 mmol/L Potassium Level 3.8 mmol/L Chloride Level 112 mmol/L Carbon Dioxide Level 25 mmol/L Anion Gap 5.0 mmol/L Blood Urea Nitrogen 24 mg/dl Creatinine 0.71 mg/dl Est Creatinine Clear Calc Drug Dose 107.0 ml/min Estimated GFR () 118.2 Estimated GFR (Non- 102.0 BUN/Creatinine Ratio 33.6 Random Glucose 101 mg/dl Calcium Level 7.8 mg/dl Total Bilirubin 0.4 mg/dl Direct Bilirubin 0.1 mg/dl Aspartate Amino Transf (AST/SGOT) 20 U/L Alanine Aminotransferase (ALT/SGPT) 29 U/L Alkaline Phosphatase 68 U/L Total Protein 5.7 gm/dl Albumin 3.1 gm/dl Lipase 165 U/L Urine Color YELLOW Urine Appearance CLEAR Urine pH 5.0 Urine Specific [place] 1.019 Urine Protein NEG Urine Glucose (UA) NEG Urine Ketones NEG Urine Occult Blood NEG Urine Nitrite NEG Urine Bilirubin NEG Urine Urobilinogen NEG Urine Leukocyte Esterase SMALL Urine WBC (Auto) 1-5 /hpf Urine RBC (Auto) 0-4 /hpf Urine Hyaline Casts (Auto) 1-5 /lpf Urine Epithelial Cells (Auto) 0-5 /lpf Urine Bacteria (Auto) NEG Impression Patient is a 61 year old male w/ history of CAD s/p stenting on ASA, plavix recently discharged following admission for anemia. Recent EGD negative, colon w / AVMs treated with APC. Continued melena, progressive weakness and palor as OP , HGB on admission 6.3 Plan - Trend H&H - Transfuse PRN - Monitor output - PO PPI - Would recommend D/C ASA and plavix - Clear liquids - Tentative plan for repeat colonoscopy on 06/26/17 - Will need OP VCE - GI to follow, please call with any acute changes, questions or concerns I have seen and examined the patient with PARIS Montes whose note reflects our findings and plan. Patient with chronic anemia whih is now acutely worse. Has known colonic AVMs which were just treated and small polyps removed on 06/17. EGD was negative. Will plan for a repeat colonoscopy once he has been adequately resuscitated.
[2017-06-24] MEDS ORDERED: ALBUTEROL HFA 8 GM INHALER INH PRN (15:00)
[2017-06-24 19:20] LABS: HEMATOCRIT 22.6 % (42-52); HEMOGLOBIN 8.1 g/dL (14.0-18.0)
[2017-06-24] MEDS: PANTOprazole SOD 40 MG TAB PO SCH (20:34)
[2017-06-24] MEDS ORDERED: PANTOprazole INJ 40 MG in SYRINGE 0 ML IV SCH (21:00)
[2017-06-24 23:44] LABS: HEMATOCRIT 27.7 % (42-52); HEMOGLOBIN 9.6 g/dL (14.0-18.0)
[2017-06-25] VITALS (9 sets, daily range): BP systolic 120–152; BP diastolic 81–93; PULSE 70–88; TEMP 36.7–37.3; O2SAT 98–100
[2017-06-25 04:14] LABS: HEMATOCRIT 25.6 % (42-52); HEMOGLOBIN 8.8 g/dL (14.0-18.0); MEAN CELL VOLUME 82.3 fL (80-100); MEAN CORPUSCULAR HEMOGLOBIN 28.3 pg (25-34); MEAN CORPUSCULAR HGB CONC 34.4 g/dl (32-36); MEAN PLATELET VOLUME 8.5 fL (7.4-10.4); PLATELET COUNT 188 K/uL (130-400); RED CELL DISTRIBUTION WIDTH CV 13.8 % (11.5-14.5); RED CELL DISTRIBUTION WIDTH SD 41.7 fL (36.4-46.3); WHITE BLOOD COUNT 5.78 K/uL (4.8-10.8)
[2017-06-25 04:52] LABS: CALCIUM 7.5 mg/dl (8.5-10.1); CREATININE 0.69 mg/dl (0.60-1.40); POTASSIUM 3.5 mmol/L (3.5-5.1)
[2017-06-25] MEDS: PANTOprazole SOD 40 MG TAB PO SCH ×2 (08:17→21:16)
[2017-06-25] MEDS: LISINOPRIL 5 MG TAB PO SCH (08:17)
[2017-06-25] MEDS: AMLODIPINE BESYLATE 5 MG TAB PO SCH (08:18)
[2017-06-25] MEDS: ATORVASTATIN 40 MG TAB PO SCH (08:19)
--- NOTE | 2017-06-25 10:59 | Cardiology Follow-Up ---
Subjective Date of Service: June 25, 2017. Pt evaluation today including: conversation w/ patient, physical exam, chart review, lab review, review of studies, review of inpatient medication list, conversation w/ attending History of Present Illness The patient is a 61-year-old gentleman with history of coronary artery disease having undergone percutaneous intervention involving the LAD nearly 1 year ago. He was admitted to [facility] last week with symptoms chest discomfort. This occurred with exertion. He describes as a severe pressure sensation with some mild dizziness, lightheadedness and dyspnea associated with even mild activity. He was discovered to be severely anemic. His symptoms appear to have resolved with blood transfusion. At the time of his discharge a few days ago his hemoglobin was 10 and his symptoms of exertional angina had resolved. Over the past few days the patient once again noticed a change in the color of his stool. He described it as a ice tea color. Over that period of time he once again began to develop progressive symptoms of dizziness, lightheadedness dyspnea on exertion and exertional chest discomfort. His symptoms of chest discomfort resolved with discontinuation of activity. He estimates the extent of the episodes being 30 seconds to a minute. The patient underwent transfusion last evening. This morning feels much better. He denies any symptoms of abdominal discomfort. Social History Smoking Status: Never Smoker History of Alcohol Use: No Review of Systems Respiratory: No cough, No shortness of breath Cardiac: No chest pain, No edema Objective Vital Signs Past 12 Hours Date Time Temp Pulse Resp B/P (MAP) Pulse Ox O2 Delivery O2 Flow Rate FiO2 06/25/17 08:00 98 Room Air 06/25/17 07:06 36.7 80 20 128/89 (102) 98 Room Air 06/25/17 04:00 Room Air 06/25/17 03:55 37.0 79 18 137/93 (108) 98 Room Air 06/25/17 00:30 36.9 88 18 152/85 (107) 98 Room Air 06/25/17 00:01 Room Air Last Recorded Weight-Kilograms: 79.500 Physical Exam The patient is alert and oriented. Mood and affect appeared normal. He answered all questions appropriately. HEENT: Pupils are equal and reactive to light and accommodation. Extraocular movements are intact. The sclerae are anicteric. Neuro: Cranial nerves intact Neck: Patient's neck is supple. He has palpable carotid pulses bilaterally without bruits on auscultation. There is no evidence of jugular venous distention. The thyroid is not enlarged. Lungs: Clear to auscultation bilaterally. He has good air movement without use of accessory muscles. No rales wheezes or rhonchi. Cardiac: Heart demonstrates a regular rate and rhythm. Normal S1 and S2. No murmurs on examination. Pulses: The patient has palpable radial pulses bilaterally that are equal in intensity Extremities: There was no evidence of hypoperfusion. There is no cyanosis or clubbing. There is no edema. Skin: I did not appreciate any rashes on examination today. Data Laboratory Results: Last 24 Hours Test 06/24/17 12:30 06/24/17 15:48 06/24/17 19:11 06/24/17 23:37 Urine Color YELLOW Urine Appearance CLEAR Urine pH 5.0 Urine Specific [place] 1.019 Urine Protein NEG Urine Glucose (UA) NEG Urine Ketones NEG Urine Occult Blood NEG Urine Nitrite NEG Urine Bilirubin NEG Urine Urobilinogen NEG Urine Leukocyte Esterase SMALL Urine WBC (Auto) 1-5 /hpf Urine RBC (Auto) 0-4 /hpf Urine Hyaline Casts (Auto) 1-5 /lpf Urine Epithelial Cells (Auto) 0-5 /lpf Urine Bacteria (Auto) NEG Troponin I 0.040 ng/ml 0.113 ng/ml Hemoglobin 8.1 g/dL 9.6 g/dL Hematocrit 22.6 % 27.7 % Test 06/25/17 03:56 White Blood Count 5.78 K/uL Red Blood Count 3.11 M/uL Hemoglobin 8.8 g/dL Hematocrit 25.6 % Mean Corpuscular Volume 82.3 fL Mean Corpuscular Hemoglobin 28.3 pg Mean Corpuscular Hemoglobin Concent 34.4 g/dl RDW Standard Deviation 41.7 fL RDW Coefficient of Variation 13.8 % Platelet Count 188 K/uL Mean Platelet Volume 8.5 fL Sodium Level 141 mmol/L Potassium Level 3.5 mmol/L Chloride Level 112 mmol/L Carbon Dioxide Level 25 mmol/L Anion Gap 4.0 mmol/L Blood Urea Nitrogen 12 mg/dl Creatinine 0.69 mg/dl Est Creatinine Clear Calc Drug Dose 110.1 ml/min Estimated GFR () 119.6 Estimated GFR (Non- 103.2 BUN/Creatinine Ratio 17.5 Random Glucose 93 mg/dl Calcium Level 7.5 mg/dl Troponin I 0.094 ng/ml EKG: Normal sinus rhythm. No ST or T-wave changes Telemetry reviewed: No significant arrhythmia Assessment and Plan 1. Angina: Patient certainly has exertional angina. This was true when he was admitted last week with a low hemoglobin. He is known to have fixed coronary disease with some residual stenosis in a branch vessel. With this causes symptoms are simply overall ischemia is unclear. I do not believe this represents an acute coronary syndrome. His symptoms resolved with transfusion. At this point I would not pursue any additional cardiac workup. I suspect his symptoms will resolve once his bleeding issues have been addressed. He stop Plavix at the last admission and does not require that medication at this point. If there is some concern regarding his aspirin use a could be interrupted temporarily. However, long-term aspirin use will be beneficial.
--- NOTE | 2017-06-25 11:34 | Hospitalist Progress Note ---
Hospitalist Progress Note Date of Service June 25, 2017. (Christina Hutchison ., SHINC) Subjective Pt evaluation today including: conversation w/ patient, physical exam, chart review, lab review, review of inpatient medication list Pain: None PO Intake: Tolerating clear liquids Voiding: no voiding problems The patient reports feeling better after receiving blood transfusions yesterday. He still feels somewhat fatigued, but he denies any shortness of breath, dizziness, or chest pain with exertion today. He denies any bowel movements so far today and denies BRBPR. The patient denies fevers, chills, sweats, chest pain, palpitations, claudication, cough, wheezing, shortness of breath, nausea, vomiting, abdominal pain, dysuria, hematuria, urinary retention , paralysis, weakness, numbness and tingling. Additional Comments: See HPI for pertinent positives and negatives. All other systems reviewed and negative. (Christina Hutchison ., PA-C) Objective Vital Signs Date Time Temp Pulse Resp B/P (MAP) Pulse Ox O2 Delivery O2 Flow Rate FiO2 06/25/17 11:19 37.3 70 18 132/83 (99) 98 06/25/17 08:00 98 Room Air 06/25/17 07:06 36.7 80 20 128/89 (102) 98 Room Air 06/25/17 04:00 Room Air 06/25/17 03:55 37.0 79 18 137/93 (108) 98 Room Air 06/25/17 00:30 36.9 88 18 152/85 (107) 98 Room Air 06/25/17 00:01 Room Air 06/24/17 22:14 36.6 87 20 145/94 100 06/24/17 21:13 36.7 86 18 143/85 99 06/24/17 20:33 37.0 87 18 150/87 100 06/24/17 20:15 37.1 79 20 148/89 100 06/24/17 20:08 37.3 74 19 144/90 (108) 97 Room Air 06/24/17 20:02 37.0 82 20 150/97 100 06/24/17 20:00 Room Air 06/24/17 17:16 37.1 81 20 150/86 99 06/24/17 17:00 36.9 85 22 151/86 100 06/24/17 16:51 37.0 86 20 137/84 (101) 98 Nasal Cannula 06/24/17 16:30 37.0 81 20 147/82 99 06/24/17 16:00 98 Room Air 06/24/17 16:00 37.0 82 20 137/84 98 06/24/17 15:20 37.1 90 22 152/88 99 06/24/17 15:18 37.1 84 16 130/90 100 06/24/17 14:32 37.1 88 37 150/88 100 06/24/17 14:30 88 37 150/88 100 06/24/17 14:28 37.1 93 20 147/90 99 06/24/17 14:28 147/90 06/24/17 14:25 86 28 99 06/24/17 14:20 84 35 98 06/24/17 14:15 89 23 150/90 100 06/24/17 14:10 89 32 98 06/24/17 14:05 89 28 100 06/24/17 14:00 154/87 06/24/17 13:50 102 28 100 06/24/17 13:46 36.8 88 29 156/94 100 06/24/17 13:45 156/94 06/24/17 13:32 37.1 87 29 149/90 100 06/24/17 13:30 149/90 06/24/17 13:27 88 06/24/17 13:20 90 21 100 06/24/17 13:15 37.2 96 25 144/88 100 06/24/17 13:15 144/88 06/24/17 13:00 147/80 06/24/17 12:58 36.9 90 20 146/81 98 06/24/17 12:50 90 24 06/24/17 12:45 91 27 128/84 06/24/17 12:42 36.7 91 20 168/94 98 06/24/17 12:33 168/94 06/24/17 12:15 90 41 06/24/17 12:00 100 29 137/84 06/24/17 11:45 98 27 06/24/17 11:30 100 21 06/24/17 11:30 100 Room Air (Christina Hutchison, SHINC) Physical Exam Notes: General appearance: Well-developed, well-nourished, no apparent distress Head: Normocephalic, atraumatic Eyes: Normal inspection, PERRL, EOMI ENT: +Pale mucous membranes. Normal ENT inspection, hearing grossly normal, pharynx normal Neck: Supple, no JVD, trachea midline Respiratory/Chest: Lungs clear to auscultation, normal breath sounds, no respiratory distress Cardiovascular: Regular rate & rhythm, no gallop, no murmur Abdomen/GI: Normal bowel sounds, non-tender, soft Extremities/Musculoskeletal: Normal inspection, no calf tenderness, no pedal edema Neurological/Psych: Alert, normal mood/affect, oriented x 3 Skin: Normal color, warm/dry, no rash (Christina Hutchison, MERARI) Laboratory Results Last 24 Hours Test 06/24/17 12:30 06/24/17 15:48 06/24/17 19:11 06/24/17 23:37 Urine Color YELLOW Urine Appearance CLEAR Urine pH 5.0 Urine Specific [place] 1.019 Urine Protein NEG Urine Glucose (UA) NEG Urine Ketones NEG Urine Occult Blood NEG Urine Nitrite NEG Urine Bilirubin NEG Urine Urobilinogen NEG Urine Leukocyte Esterase SMALL Urine WBC (Auto) 1-5 /hpf Urine RBC (Auto) 0-4 /hpf Urine Hyaline Casts (Auto) 1-5 /lpf Urine Epithelial Cells (Auto) 0-5 /lpf Urine Bacteria (Auto) NEG Troponin I 0.040 ng/ml 0.113 ng/ml Hemoglobin 8.1 g/dL 9.6 g/dL Hematocrit 22.6 % 27.7 % Test 06/25/17 03:56 06/25/17 11:06 White Blood Count 5.78 K/uL Red Blood Count 3.11 M/uL Hemoglobin 8.8 g/dL Hematocrit 25.6 % Mean Corpuscular Volume 82.3 fL Mean Corpuscular Hemoglobin 28.3 pg Mean Corpuscular Hemoglobin Concent 34.4 g/dl RDW Standard Deviation 41.7 fL RDW Coefficient of Variation 13.8 % Platelet Count 188 K/uL Mean Platelet Volume 8.5 fL Sodium Level 141 mmol/L Potassium Level 3.5 mmol/L Chloride Level 112 mmol/L Carbon Dioxide Level 25 mmol/L Anion Gap 4.0 mmol/L Blood Urea Nitrogen 12 mg/dl Creatinine 0.69 mg/dl Est Creatinine Clear Calc Drug Dose 110.1 ml/min Estimated GFR () 119.6 Estimated GFR (Non- 103.2 BUN/Creatinine Ratio 17.5 Random Glucose 93 mg/dl Calcium Level 7.5 mg/dl Troponin I 0.094 ng/ml (Christina Hutchison ., MERARI) Assessment and Plan 61 y/o male with a history of CAD s/p stent 2016, HTN, HLD, large adenomatous polyp s/p partial colectomy 2011, multiple colonic polyps and AVM who presents to the ED with weakness and dark colored stool. Acute Blood Loss Anemia secondary to acute on chronic GI bleed--improving - Admit to telemetry. No acute events overnight. Pt in sinus rhythm with HR 70s -80s - Admitted last week for the same. Colonoscopy at that time showed non- bleeding colonic angioectasia, treated w/argon plasma coagulation. 2 rectal polyps removed. Internal hemorrhoids noted. EGD at that time was normal. - S/p 3 units PRBCs - Last Hgb up to 9.5, up from 6.3 on admission - GI consulted, appreciate recs: Continue clear liquid diet today and PO PPI. NPO after midnight. Repeat colonoscopy tomorrow. Pt will need outpatient VCE. - Continue Protonix 40 mg PO BID - Hold ASA for now. Per cardiology, pt can stop Plavix all together but should resume ASA when able - Clear liquid diet and NPO after midnight except meds Exertional Chest Pain--resolved - Troponin became mildly elevated, peaked at 0.113 and now trending down - Likely demand ischemia secondary to acute anemia CAD S/P PCI (2017), HTN, HLD--stable - Cardiology consulted due to elevated troponin, appreciate recs: Would not obtain additional cardiac workup. Does not need Plavix anymore but should continue ASA when able. - ASA on hold due to above - Continue Norvasc 2.5 mg daily; Lisinopril 5 mg daily; Lipitor 80 mg daily Allergies: - Ventolin PRN for allergies (mostly cats) - rarely uses DVT Prophylaxis - SCDs for now due to GIB Code Status -Level I, FULL RESUSCITATION STATUS (Christina Hutchison ., SHINC) Supervising Note Dr. Ayoub I performed a history and physical examination on the patient. I reviewed above note and agree with it. I discussed plan with APC and patient. During my face to face encounter with the patient, I answered all of the patient's questions. Will have colonoscopy in AM. Unsure of cause of bleeding, hoping to find AVM in ascending colon. If no source of bleeding, may need capsule endoscopy. will hold plavix for now. (Yash Ayoub M.D.)
[2017-06-25] MEDS ORDERED: BISACODYL 5 MG TABEC PO ONE (12:00)
[2017-06-25 12:01] LABS: HEMATOCRIT 27.9 % (42-52); HEMOGLOBIN 9.5 g/dL (14.0-18.0)
[2017-06-25] MEDS: POLYETHYLENE (MIRALAX) 17 GM PACK PO SCH ×2 (12:15→17:02)
--- NOTE | 2017-06-25 12:15 | Gastroenterology Progress Note ---
Progress Note Date of Service: June 25, 2017 Subjective Pt evaluation today including: conversation w/ patient, physical exam, chart review, lab review, review of studies, review of inpatient medication list Mr. Villalpando is a 61-year-old male who has history of CAD status post PCI stent approximately a year ago. He experienced melena and underwent EGD(normal)/ Colonoscopy on 06/17/17 with one non bleeding colonic angioectasia tx with APC. Returned to the ED yesterday morning with SOB. Hb was 6.3, down from 10 on 06/17 with report of dark red BMs x about one week and reports has not been w/or melena or hematochezia since May. Denies abdominal pain, nausea or vomiting. Now off Plavix and aspirin since admission. He received 3 units of RBCs. Hb today 9.5. Review of Systems Constitutional: No fever ENT: No hearing loss Respiratory: No cough Cardiac: No chest pain Abdomen: + GI bleeding, No pain, No nausea, No vomiting, No diarrhea, No constipation Male : No dysuria Neuro: No memory loss Psych: No depression symptoms Heme: No abnormal bleeding/bruising Endo: No fatigue Skin: No rash Medications Current Inpatient Medications Medications (Trade) Dose Ordered Sig/Shannan Route Start Time Stop Time Status Last Admin Dose Admin Acetaminophen (Tylenol Tab) 650 mg Q4H PRN PO 06/24/17 13:45 07/24/17 13:44 Al Hydrox/Mg Hydrox/Simethicone (Maalox Max Susp) 15 ml Q4H PRN PO 06/24/17 13:45 07/24/17 13:44 Magnesium Hydroxide (Milk Of Magnesia Susp) 30 ml Q12H PRN PO 06/24/17 13:45 07/24/17 13:44 Ondansetron HCl (Zofran Inj) 4 mg Q6H PRN IV 06/24/17 13:45 07/24/17 13:44 Nitroglycerin (Nitrostat Tab) 0.4 mg UD PRN SL 06/24/17 13:45 07/24/17 13:44 Polyethylene (Miralax Powder Packet) 17 gm DAILY PRN PO 06/24/17 13:45 07/24/17 13:44 Albuterol (Ventolin Hfa Inhaler) 2 puffs Q6H PRN INH 06/24/17 15:00 07/24/17 14:59 Amlodipine Besylate (Norvasc Tab) 2.5 mg DAILY PO 06/25/17 09:00 07/25/17 08:59 06/25/17 08:18 2.5 MG Atorvastatin Calcium (Lipitor Tab) 80 mg DAILY PO 06/25/17 09:00 07/25/17 08:59 06/25/17 08:19 80 MG Lisinopril (Zestril Tab) 5 mg QAM PO 06/25/17 09:00 07/25/17 08:59 06/25/17 08:17 5 MG Pantoprazole Sodium (Protonix Tab) 40 mg BID PO 06/24/17 21:00 06/28/17 09:01 06/25/17 08:17 40 MG Polyethylene (Miralax Powder Packet) 68 gm TODAY@1200,1700 PO 06/25/17 12:00 06/25/17 17:01 Polyethylene (Miralax Powder Packet) 68 gm 0400 PO 06/26/17 04:00 06/26/17 05:00 Objective Vital Signs Date Time Temp Pulse Resp B/P (MAP) Pulse Ox O2 Delivery O2 Flow Rate FiO2 06/25/17 11:19 37.3 70 18 132/83 (99) 98 06/25/17 08:00 98 Room Air 06/25/17 07:06 36.7 80 20 128/89 (102) 98 Room Air 06/25/17 04:00 Room Air 06/25/17 03:55 37.0 79 18 137/93 (108) 98 Room Air 06/25/17 00:30 36.9 88 18 152/85 (107) 98 Room Air 06/25/17 00:01 Room Air 06/24/17 22:14 36.6 87 20 145/94 100 06/24/17 21:13 36.7 86 18 143/85 99 06/24/17 20:33 37.0 87 18 150/87 100 06/24/17 20:15 37.1 79 20 148/89 100 06/24/17 20:08 37.3 74 19 144/90 (108) 97 Room Air 06/24/17 20:02 37.0 82 20 150/97 100 06/24/17 20:00 Room Air 06/24/17 17:16 37.1 81 20 150/86 99 06/24/17 17:00 36.9 85 22 151/86 100 06/24/17 16:51 37.0 86 20 137/84 (101) 98 Nasal Cannula 06/24/17 16:30 37.0 81 20 147/82 99 06/24/17 16:00 98 Room Air 06/24/17 16:00 37.0 82 20 137/84 98 06/24/17 15:20 37.1 90 22 152/88 99 06/24/17 15:18 37.1 84 16 130/90 100 06/24/17 14:32 37.1 88 37 150/88 100 06/24/17 14:30 88 37 150/88 100 06/24/17 14:28 37.1 93 20 147/90 99 06/24/17 14:28 147/90 06/24/17 14:25 86 28 99 06/24/17 14:20 84 35 98 06/24/17 14:15 89 23 150/90 100 06/24/17 14:10 89 32 98 06/24/17 14:05 89 28 100 06/24/17 14:00 154/87 06/24/17 13:50 102 28 100 06/24/17 13:46 36.8 88 29 156/94 100 06/24/17 13:45 156/94 06/24/17 13:32 37.1 87 29 149/90 100 06/24/17 13:30 149/90 06/24/17 13:27 88 06/24/17 13:20 90 21 100 06/24/17 13:15 37.2 96 25 144/88 100 06/24/17 13:15 144/88 06/24/17 13:00 147/80 06/24/17 12:58 36.9 90 20 146/81 98 06/24/17 12:50 90 24 06/24/17 12:45 91 27 128/84 06/24/17 12:42 36.7 91 20 168/94 98 06/24/17 12:33 168/94 06/24/17 12:15 90 41 Physical Exam General Appearance: no apparent distress ENT: pharynx normal Neck: no JVD Respiratory/Chest: lungs clear, normal breath sounds Cardiovascular: regular rate, rhythm, no JVD, no murmur Abdomen: non tender, soft Extremities: normal inspection, no pedal edema Neurologic/Psych: alert, normal mood/affect, oriented x 3 Skin: normal color, no jaundice, no rash Laboratory Results Last 24 Hours Test 06/24/17 12:30 06/24/17 15:48 06/24/17 19:11 06/24/17 23:37 Urine Color YELLOW Urine Appearance CLEAR Urine pH 5.0 Urine Specific [place] 1.019 Urine Protein NEG Urine Glucose (UA) NEG Urine Ketones NEG Urine Occult Blood NEG Urine Nitrite NEG Urine Bilirubin NEG Urine Urobilinogen NEG Urine Leukocyte Esterase SMALL Urine WBC (Auto) 1-5 /hpf Urine RBC (Auto) 0-4 /hpf Urine Hyaline Casts (Auto) 1-5 /lpf Urine Epithelial Cells (Auto) 0-5 /lpf Urine Bacteria (Auto) NEG Troponin I 0.040 ng/ml 0.113 ng/ml Hemoglobin 8.1 g/dL 9.6 g/dL Hematocrit 22.6 % 27.7 % Test 06/25/17 03:56 06/25/17 11:38 White Blood Count 5.78 K/uL Red Blood Count 3.11 M/uL Hemoglobin 8.8 g/dL 9.5 g/dL Hematocrit 25.6 % 27.9 % Mean Corpuscular Volume 82.3 fL Mean Corpuscular Hemoglobin 28.3 pg Mean Corpuscular Hemoglobin Concent 34.4 g/dl RDW Standard Deviation 41.7 fL RDW Coefficient of Variation 13.8 % Platelet Count 188 K/uL Mean Platelet Volume 8.5 fL Sodium Level 141 mmol/L Potassium Level 3.5 mmol/L Chloride Level 112 mmol/L Carbon Dioxide Level 25 mmol/L Anion Gap 4.0 mmol/L Blood Urea Nitrogen 12 mg/dl Creatinine 0.69 mg/dl Est Creatinine Clear Calc Drug Dose 110.1 ml/min Estimated GFR () 119.6 Estimated GFR (Non- 103.2 BUN/Creatinine Ratio 17.5 Random Glucose 93 mg/dl Calcium Level 7.5 mg/dl Troponin I 0.094 ng/ml Assessment and Plan Mr. Villalpando is a 61 yr old male with hematochezia, anemia. Plan: 1. Colonoscopy tomorrow by Dr. Escalona. 2. Clear liqs today, npo x meds tomorrow. 3. Plan for OP video capsule. 4. Further recommendations to follow endoscopy. I have seen and examined the patient with PARIS Briseno whose note reflects our findings and plan. Colonoscopy tomorrow. Will plan to treat any visible AVMs. Will likely also need an outpatient VCE to evaluate the small bowel for AVMs.
[2017-06-25 17:18] LABS: HEMATOCRIT 28.6 % (42-52); HEMOGLOBIN 9.8 g/dL (14.0-18.0)
[2017-06-25 23:22] LABS: HEMATOCRIT 26.5 % (42-52)
[2017-06-26] VITALS (12 sets, daily range): BP systolic 109–127; BP diastolic 63–87; PULSE 66–105; TEMP 36.5–37.1; O2SAT 97–99
[2017-06-26] MEDS ORDERED: POLYETHYLENE (MIRALAX) 17 GM PACK PO SCH (04:00)
[2017-06-26 06:33] LABS: HEMATOCRIT 29.4 % (42-52); MEAN CELL VOLUME 82.6 fL (80-100); MEAN CORPUSCULAR HEMOGLOBIN 28.1 pg (25-34); MEAN PLATELET VOLUME 8.7 fL (7.4-10.4); PLATELET COUNT 205 K/uL (130-400); RED CELL DISTRIBUTION WIDTH CV 13.9 % (11.5-14.5); RED CELL DISTRIBUTION WIDTH SD 42.5 fL (36.4-46.3); WHITE BLOOD COUNT 4.62 K/uL (4.8-10.8)
[2017-06-26 07:13] LABS: CREATININE 0.72 mg/dl (0.60-1.40); POTASSIUM 3.6 mmol/L (3.5-5.1)
[2017-06-26] MEDS: LISINOPRIL 5 MG TAB PO SCH (08:30)
[2017-06-26] MEDS: AMLODIPINE BESYLATE 5 MG TAB PO SCH (08:30)
[2017-06-26] MEDS: ATORVASTATIN 40 MG TAB PO SCH (08:31)
[2017-06-26] MEDS: PANTOprazole SOD 40 MG TAB PO SCH ×2 (08:35→21:01)
[2017-06-26] MEDS ORDERED: LIDOCAINE HCL 2% 2 ML VIAL (20MG/ML) ONE (10:39)
[2017-06-26] MEDS ORDERED: PROPOFOL IV EMULSION 10 MG/ML 20 ML VIAL ONE (10:39)
--- NOTE | 2017-06-26 10:46 | Endo History and Physical ---
History & Physical Date of Service: June 26, 2017. Chief Complaint: anemia; melena Referring Physician: Dr. Casiano History of Present Illness anemia; melena Past Surgical History Hx Cardiac Surgery: Yes (Stent (UDAY)) Hx Pacemaker: No Hx Abdominal Surgery: Yes (Hernia repair bilateral with mesh, partial colectomy ) Hx Post-Op Nausea and Vomiting: No Hx Cancer Surgery: No Hx Thoracic Surgery: No Hx Orthopedic: No Hx Urinary Tract Surgery: No Social History Smoking Status: Never Smoker Hx Substance Use: No Hx Alcohol Use: No Allergies Coded Allergies: Penicillamine (Verified Allergy, Severe, THROAT INFECTION, 06/24/17) Acetaminophen (Verified Allergy, Intermediate, syncope, 06/24/17) Cat Dander (Verified Allergy, Intermediate, unknown, 06/24/17) Oxycodone (Verified Allergy, Intermediate, syncope, 06/24/17) Erythromycin (Verified Allergy, Unknown, UNKNOWN, 06/24/17) Lactose Intolerance (GI) (Unverified Allergy, Unknown, ABDOMINAL DISCOMFORT/ADVERSE GI SYMPTOMS, 06/24/17) Penicillins (Verified Allergy, Unknown, RASH, 06/24/17) Azithromycin (Verified Adverse Reaction, Intermediate, DIGESTIVE PROBLEMS , 06/24/17) Macrolides and Ketolides (Verified Adverse Reaction, Mild, MILD, 06/24/17) Current Medications Reported Home Medications Medications Dose Route/Sig Max Daily Dose Days Date Category Dose Instructions Co Q 10 (Coenzyme Q10 (Ubidecarenone)) 100 Mg Cap 100 Mg PO QAM 06/15/17 Reported Ascorbic Acid 1,000 Mg Tab 1,000 Mg PO QAM 06/15/17 Reported Nitrostat (Nitroglycerin) 0.4 Mg Sub 0.4 Mg UT PRN 06/15/17 Reported NEEDED FOR CHEST PAIN : ONE TABLET UNDER THE TONGUE EVERY 5 MINUTES, UP TO 3 DOSES. Zestril (Lisinopril) 5 Mg Tab 5 Mg PO QAM 06/15/17 Reported Aspirin Ec (Aspirin) 81 Mg Tab 81 Mg PO QAM 06/15/17 Reported Zinc (Zinc Gluconate) 50 Mg Tab 50 Mg PO QAM 12/23/16 Reported Glucosamine (Glucosamine Sulfate) 1,000 Mg Tab 1,000 Mg PO DAILY 12/23/16 Reported Ventolin Hfa (Albuterol) 200 Puffs/62114 Mcg Aers 2-4 Puffs INH Q6H PRN 12/23/16 Reported Lipitor (Atorvastatin Calcium) 80 Mg Tab 80 Mg PO DAILY 09/23/16 Reported Norvasc (Amlodipine Besylate) 2.5 Mg Tab 2.5 Mg PO DAILY 09/23/16 Reported Vital Signs Weight (Kilograms): 77.600 Height (Feet): 5 Height (Inches): 8.00 Date Time Temp Pulse Resp B/P (MAP) Pulse Ox O2 Delivery O2 Flow Rate FiO2 06/26/17 08:00 98 Room Air 06/26/17 07:36 36.8 67 18 120/86 (97) 99 06/26/17 04:00 99 Room Air 06/26/17 03:41 36.8 71 19 126/87 (100) 99 Room Air 06/26/17 00:13 37.1 72 17 123/78 (93) 99 Room Air 06/26/17 00:00 99 Room Air 06/25/17 20:03 36.7 77 20 120/81 (94) 100 Room Air 06/25/17 20:00 98 Room Air 06/25/17 16:00 36.8 80 18 126/83 (97) 98 Room Air 06/25/17 16:00 98 Room Air 06/25/17 12:00 98 Room Air 06/25/17 11:19 37.3 70 18 132/83 (99) 98 Physical Exam General Appearance: WD/WN, no apparent distress Assessment and Plan Colonoscopy today
--- NOTE | 2017-06-26 11:36 | GI REPORT ---
Patient Name: João Villalpando Procedure Date: 06/26/2017 11:06 AM Date of : 1955 Admit Type: Inpatient Age: 61 Gender: Male Attending MD: Kellen Escalona DO Procedure: Colonoscopy Providers: Kellen Escalona DO Referring MD: Susi Mota DO Indications: Melena, Acute post hemorrhagic anemia Medicines: Propofol per Anesthesia Complications: No immediate complications. Estimated blood loss: Minimal. Estimated Blood Loss: Estimated blood loss was minimal. Procedure: Pre-Anesthesia Assessment: - Prior to the procedure, a History and Physical was performed, and patient medications, allergies and sensitivities were reviewed. The patient's tolerance of previous anesthesia was reviewed. - The risks and benefits of the procedure and the sedation options and risks were discussed with the patient. All questions were answered and informed consent was obtained. - Patient identification and proposed procedure were verified prior to the procedure by the physician and the nurse. The procedure was verified in the pre-procedure area in the procedure room. - Mental Status Examination: alert and oriented. Airway Examination: normal oropharyngeal airway and neck mobility. Respiratory Examination: clear to auscultation. CV Examination: normal. Abdominal Examination: bowel sounds present, abdomen soft and non-tender, no masses or organomegaly noted. - ASA Grade Assessment: III - A patient with severe systemic disease. After I obtained informed consent, the scope was passed under direct vision. Throughout the procedure, the patient's blood pressure, pulse, and oxygen saturations were monitored continuously. The scope was introduced through the anus and advanced to the ileocolonic anastomosis. The colonoscopy was performed without difficulty. The patient tolerated the procedure well. The quality of the bowel preparation was good. Findings: The perianal and digital rectal examinations were normal. Pertinent negatives include normal sphincter tone and no palpable rectal lesions. There was evidence of a prior end-to-side ileo-colonic anastomosis in the ascending colon. This was patent and was characterized by ulceration and visible sutures. The anastomosis was traversed. Coagulation for hemostasis using argon plasma at 1.2 liters/minute and 20 mitchell was successful. Estimated blood loss: none. A 6 mm polyp was found in the sigmoid colon. The polyp was sessile. The polyp was removed with a cold snare. Resection and retrieval were complete. Verification of patient identification for the specimen was done by the physician and nurse using the patient's name and date. Estimated blood loss was minimal. External and internal hemorrhoids were found during retroflexion and during perianal exam. Impression: - No fresh or altered blood. Liquid green stool. - Patent end-to-side ileo-colonic anastomosis. There is a non-bleeding ulceration at the anastomosis. Treated with argon plasma coagulation (APC). - One 6 mm polyp in the sigmoid colon, removed with a cold snare. Resected and retrieved. - External and internal hemorrhoids. Recommendation: - Await pathology results. - Outpatient VCE with patency capsule prior to actual VCE. Consent obtained today for this to be done as an outpatient. - Advance diet as tolerated. - [facility] care. Kellen Escalona D.O. Kellen Escalona DO 06/26/2017 11:35:13 AM This report has been signed electronically. Note Initiated On: 06/26/2017 11:06 AM Number of Addenda: 0 I attest to the content of the Intraoperative Record and orders documented therein, exceptions below {[id number]}
--- NOTE | 2017-06-26 11:40 | Anesthesiology Progress Note ---
Anesthesia Post Op Note Date & Time June 26, 2017 at 11:40 Vital Signs Pain Intensity: 0.0 Vital Signs Past 12 Hours Date Time Temp Pulse Resp B/P (MAP) Pulse Ox O2 Delivery O2 Flow Rate FiO2 06/26/17 11:30 97 12 106/71 (83) 99 Nasal Cannula 2 06/26/17 10:50 37.0 90 18 140/87 (104) 100 Room Air 06/26/17 08:00 98 Room Air 06/26/17 07:36 36.8 67 18 120/86 (97) 99 06/26/17 04:00 99 Room Air 06/26/17 03:41 36.8 71 19 126/87 (100) 99 Room Air 06/26/17 00:13 37.1 72 17 123/78 (93) 99 Room Air 06/26/17 00:00 99 Room Air Notes Mental Status: alert / awake / arousable, participated in evaluation Pt Amnestic to Procedure: Yes Nausea / Vomiting: adequately controlled Pain: adequately controlled Airway Patency, RR, SpO2: stable & adequate BP & HR: stable & adequate Hydration State: stable & adequate Anesthetic Complications: no major complications apparent
--- NOTE | 2017-06-26 13:11 | Progress Note ---
Progress Note Date of Service June 26, 2017. Progress Note Ulceration noted at the ileo-colonic anastomosis. no active bleeding. APC used to cauterize area. No fresh or altered blood throughout the lower small intestine or colon. small polyp removed. - OK to advance diet. - Discharge to home when deemed appropriate by primary service. - Outpatient VCE to be arranged.
--- NOTE | 2017-06-26 14:07 | Hospitalist Progress Note ---
Hospitalist Progress Note Date of Service June 26, 2017. (Christina Hutchison ., SHINC) Subjective Pt evaluation today including: conversation w/ patient, physical exam, chart review, lab review, review of inpatient medication list Pain: None PO Intake: NPO for colonoscopy Voiding: no voiding problems Examined patient prior to colonoscopy. He reports feeling well. He denies any shortness of breath, fatigue, or chest pain. He is urinating without trouble. He has not seen any other signs of overt bleeding or melena. The patient denies fevers, chills, sweats, chest pain, palpitations, claudication, cough, wheezing, shortness of breath, nausea, vomiting, abdominal pain, dysuria, hematuria, urinary retention, paralysis, weakness, numbness and tingling. Additional Comments: See HPI for pertinent positives and negatives. All other systems reviewed and negative. (Christina Hutchison, SHINC) Objective Vital Signs Date Time Temp Pulse Resp B/P (MAP) Pulse Ox O2 Delivery O2 Flow Rate FiO2 06/26/17 12:00 98 Room Air 06/26/17 12:00 36.8 66 20 115/77 (90) 99 Room Air 06/26/17 12:00 67 16 135/90 (105) 100 Nasal Cannula 06/26/17 11:45 83 16 140/83 (102) 100 Nasal Cannula 06/26/17 11:30 97 12 106/71 (83) 99 Nasal Cannula 2 06/26/17 10:50 37.0 90 18 140/87 (104) 100 Room Air 06/26/17 08:00 98 Room Air 06/26/17 07:36 36.8 67 18 120/86 (97) 99 06/26/17 04:00 99 Room Air 06/26/17 03:41 36.8 71 19 126/87 (100) 99 Room Air 06/26/17 00:13 37.1 72 17 123/78 (93) 99 Room Air 06/26/17 00:00 99 Room Air 06/25/17 20:03 36.7 77 20 120/81 (94) 100 Room Air 06/25/17 20:00 98 Room Air 06/25/17 16:00 36.8 80 18 126/83 (97) 98 Room Air 06/25/17 16:00 98 Room Air (Christina Hutchison PA-C) Physical Exam Notes: General appearance: Well-developed, well-nourished, no apparent distress Head: Normocephalic, atraumatic Eyes: Normal inspection, PERRL, EOMI ENT: Normal ENT inspection, hearing grossly normal, pharynx normal Neck: Supple, no JVD, trachea midline Respiratory/Chest: Lungs clear to auscultation, normal breath sounds, no respiratory distress Cardiovascular: Regular rate & rhythm, no gallop, no murmur Abdomen/GI: Normal bowel sounds, non-tender, soft Extremities/Musculoskeletal: Normal inspection, no calf tenderness, no pedal edema Neurological/Psych: Alert, normal mood/affect, oriented x 3 Skin: Normal color, warm/dry, no rash (Christina Hutchison PA-C) Laboratory Results Last 24 Hours Test 06/25/17 17:01 06/25/17 23:04 06/26/17 06:15 Hemoglobin 9.8 g/dL 9.0 g/dL 10.0 g/dL Hematocrit 28.6 % 26.5 % 29.4 % White Blood Count 4.62 K/uL Red Blood Count 3.56 M/uL Mean Corpuscular Volume 82.6 fL Mean Corpuscular Hemoglobin 28.1 pg Mean Corpuscular Hemoglobin Concent 34.0 g/dl RDW Standard Deviation 42.5 fL RDW Coefficient of Variation 13.9 % Platelet Count 205 K/uL Mean Platelet Volume 8.7 fL Sodium Level 140 mmol/L Potassium Level 3.6 mmol/L Chloride Level 110 mmol/L Carbon Dioxide Level 26 mmol/L Anion Gap 4.0 mmol/L Blood Urea Nitrogen 8 mg/dl Creatinine 0.72 mg/dl Est Creatinine Clear Calc Drug Dose 105.5 ml/min Estimated GFR () 117.5 Estimated GFR (Non- 101.4 BUN/Creatinine Ratio 10.9 Random Glucose 87 mg/dl Calcium Level 8.0 mg/dl (Christina Hutchison PA-C) Diagnostic Results Colonoscopy: Patient Name: João Villalpando Procedure Date: 06/26/2017 11:06 AM Date of : 1955 Admit Type: Inpatient Age: 61 Gender: Male Attending MD: Kellen Escalona DO Procedure: Colonoscopy Providers: Kellen Escalona DO Referring MD: Susi Mota DO Indications: Melena, Acute post hemorrhagic anemia Medicines: Propofol per Anesthesia Complications: No immediate complications. Estimated blood loss: Minimal. Estimated Blood Loss: Estimated blood loss was minimal. Procedure: Pre-Anesthesia Assessment: - Prior to the procedure, a History and Physical was performed, and patient medications, allergies and sensitivities were reviewed. The patient's tolerance of previous anesthesia was reviewed. - The risks and benefits of the procedure and the sedation options and risks were discussed with the patient. All questions were answered and informed consent was obtained. - Patient identification and proposed procedure were verified prior to the procedure by the physician and the nurse. The procedure was verified in the pre-procedure area in the procedure room. - Mental Status Examination: alert and oriented. Airway Examination: normal oropharyngeal airway and neck mobility. Respiratory Examination: clear to auscultation. CV Examination: normal. Abdominal Examination: bowel sounds present, abdomen soft and non-tender, no masses or organomegaly noted. - ASA Grade Assessment: III - A patient with severe systemic disease. After I obtained informed consent, the scope was passed under direct vision. Throughout the procedure, the patient's blood pressure, pulse, and oxygen saturations were monitored continuously. The scope was introduced through the anus and advanced to the ileocolonic anastomosis. The colonoscopy was performed without difficulty. The patient tolerated the procedure well. The quality of the bowel preparation was good. Findings: The perianal and digital rectal examinations were normal. Pertinent negatives include normal sphincter tone and no palpable rectal lesions. There was evidence of a prior end-to-side ileo-colonic anastomosis in the ascending colon. This was patent and was characterized by ulceration and visible sutures. The anastomosis was traversed. Coagulation for hemostasis using argon plasma at 1.2 liters/minute and 20 mitchell was successful. Estimated blood loss: none. A 6 mm polyp was found in the sigmoid colon. The polyp was sessile. The polyp was removed with a cold snare. Resection and retrieval were complete. Verification of patient identification for the specimen was done by the physician and nurse using the patient's name and date. Estimated blood loss was minimal. External and internal hemorrhoids were found during retroflexion and during perianal exam. Impression: - No fresh or altered blood. Liquid green stool. - Patent end-to-side ileo-colonic anastomosis. There is a non-bleeding ulceration at the anastomosis. Treated with argon plasma coagulation (APC). - One 6 mm polyp in the sigmoid colon, removed with a cold snare. Resected and retrieved. - External and internal hemorrhoids. Recommendation: - Await pathology results. - Outpatient VCE with patency capsule prior to actual VCE. Consent obtained today for this to be done as an outpatient. - Advance diet as tolerated. - [facility] to [facility] care. (Christina Hutchison ., MERARI) Assessment and Plan 61 y/o male with a history of CAD s/p stent 2016, HTN, HLD, large adenomatous polyp s/p partial colectomy 2011, multiple colonic polyps and AVM who presents to the ED with weakness and dark colored stool. Acute Blood Loss Anemia secondary to acute on chronic GI bleed--improving - Admit to telemetry. No acute events overnight. Pt in sinus rhythm with HR 60s -90s - Admitted last week for the same. Colonoscopy at that time showed non- bleeding colonic angioectasia, treated w/argon plasma coagulation. 2 rectal polyps removed. Internal hemorrhoids noted. EGD at that time was normal. - S/p 3 units PRBCs on 06/24 - Hgb 10.0 on 06/26, up from 9.0 - GI consulted, appreciate recs: OK to advance diet. Will plan for outpatient VCE. - Colonoscopy shows non-bleeding ulceration at ileo-colonic anastomosis, treated with argon plasma coagulation. 6 mm polyp in sigmoid colon which was removed. External and internal hemorrhoids noted. - Continue Protonix 40 mg PO BID - Hold ASA for now. Per cardiology, pt can stop Plavix all together but should resume ASA when able - Advance diet as tolerated Exertional Chest Pain--resolved - Troponin became mildly elevated, peaked at 0.113 and now trending down - Likely demand ischemia secondary to acute anemia CAD S/P PCI (2016), HTN, HLD--stable - Cardiology consulted due to elevated troponin, appreciate recs: Would not obtain additional cardiac workup. Does not need Plavix anymore but should continue ASA when able. - ASA on hold due to above - Continue Norvasc 2.5 mg daily; Lisinopril 5 mg daily; Lipitor 80 mg daily Allergies: - Ventolin PRN for allergies (mostly cats) - rarely uses DVT Prophylaxis - SCDs for now due to GIB Code Status -Level I, FULL RESUSCITATION STATUS (Christina Hutchison, PA-C) Supervising Note Dr. Ayoub I performed a history and physical examination on the patient. I reviewed above note and agree with it. I discussed plan with APC and patient. During my face to face encounter with the patient, I answered all of the patient's questions. Will continue to hold asa. and plavix. will likely resume asa at discharge (Yash Ayoub M.D.)
[2017-06-27] VITALS (8 sets, daily range): BP systolic 116–136; BP diastolic 70–76; PULSE 73–94; TEMP 36.6–36.9; O2SAT 97–98
[2017-06-27 06:39] LABS: HEMATOCRIT 28.5 % (42-52); HEMOGLOBIN 9.7 g/dL (14.0-18.0); MEAN CELL VOLUME 82.1 fL (80-100); MEAN PLATELET VOLUME 9.1 fL (7.4-10.4); PLATELET COUNT 228 K/uL (130-400); RED CELL DISTRIBUTION WIDTH SD 42.5 fL (36.4-46.3); WHITE BLOOD COUNT 5.27 K/uL (4.8-10.8)
[2017-06-27 07:06] LABS: CALCIUM 7.9 mg/dl (8.5-10.1); CREATININE 0.85 mg/dl (0.60-1.40); POTASSIUM 3.8 mmol/L (3.5-5.1)
[2017-06-27] MEDS: AMLODIPINE BESYLATE 5 MG TAB PO SCH (08:27)
[2017-06-27] MEDS: LISINOPRIL 5 MG TAB PO SCH (08:27)
[2017-06-27] MEDS: ATORVASTATIN 40 MG TAB PO SCH (08:28)
[2017-06-27] MEDS: PANTOprazole SOD 40 MG TAB PO SCH (08:28)
--- NOTE | 2017-06-27 12:52 | Discharge Instructions ---
Discharge Instructions Date of Service June 27, 2017. Admission Reason for Admission: Symptomatic Anemia Discharge Discharge Diagnosis / Problem: Symptomatic Anemia Discharge Goals Goal(s): Decrease discomfort, Improve function Activity Recommendations Activity Limitations: resume your previous activity . Current Hospital Diet Patient's current hospital diet: AHA Diet (Heart Healthy) Discharge Diet Recommended Diet: Regular Diet Pending Studies Studies pending at discharge: no Medical Emergencies . Who to Call and When: Medical Emergencies: If at any time you feel your situation is an emergency, please call 911 immediately. . Non-Emergent Contact Non-Emergency issues call your: Primary Care Provider Call Non-Emergent contact if: you have any medication questions . . "Provider Documentation" section prepared by Yash Ayoub. .
--- NOTE | 2017-06-30 10:42 | Discharge Summary ---
Discharge Summary Date of Service June 30, 2017. Discharge Summary Admission Date: June 24, 2017 at 13:42 Discharge Date: June 27, 2017 Discharge Disposition: Home Principal Diagnosis: Symptomatic Anemia Problems/Secondary Diagnoses: as noted below Immunizations: Have You Had Influenza Vaccine: No History of Tetanus Vaccine?: Yes History of Pneumococcal: No History of Hepatitis B Vaccine: Unknown Procedures: Colonoscopy Impression: - No fresh or altered blood. Liquid green stool. - Patent end-to-side ileo-colonic anastomosis. There is a non-bleeding ulceration at the anastomosis. Treated with argon plasma coagulation (APC). - One 6 mm polyp in the sigmoid colon, removed with a cold snare. Resected and retrieved. - External and internal hemorrhoids. Recommendation: - Await pathology results. - Outpatient VCE with patency capsule prior to actual VCE. Consent obtained today for this to be done as an outpatient. - Advance diet as tolerated. - [facility] to [facility] care. Medication Reconciliation Continued Medications: Albuterol Hfa (Ventolin Hfa) 200 Puffs/82644 Mcg Aers 2-4 PUFFS INH Q6H PRN for SOB/Wheezing, #1 INHALER Amlodipine (Norvasc) 2.5 Mg Tab 2.5 MG PO DAILY, TAB Ascorbic Acid (Ascorbic Acid) 1,000 Mg Tab 1000 MG PO QAM Aspirin (Aspirin Ec) 81 Mg Tab 81 MG PO QAM Atorvastatin (Lipitor) 80 Mg Tab 80 MG PO DAILY, TAB Coenzyme Q10 (Ubidecarenone) (Co Q 10) 100 Mg Cap 100 MG PO QAM Glucosamine Sulfate (Glucosamine) 1,000 Mg Tab 1000 MG PO DAILY, TAB Lisinopril (Zestril) 5 Mg Tab 5 MG PO QAM, TAB Nitroglycerin (Nitrostat) 0.4 Mg Sub 0.4 MG UT PRN, BTL NEEDED FOR CHEST PAIN : ONE TABLET UNDER THE TONGUE EVERY 5 MINUTES, UP TO 3 DOSES. Zinc Gluconate (Zinc) 50 Mg Tab 50 MG PO QAM Discharge Exam Physical Exam Notes: General appearance: Well-developed, well-nourished, no apparent distress Head: Normocephalic, atraumatic Eyes: Normal inspection, PERRL, EOMI ENT: Normal ENT inspection, hearing grossly normal, pharynx normal Neck: Supple, no JVD, trachea midline Respiratory/Chest: Lungs clear to auscultation, normal breath sounds, no respiratory distress Cardiovascular: Regular rate & rhythm, no gallop, no murmur Abdomen/GI: Normal bowel sounds, non-tender, soft Extremities/Musculoskeletal: Normal inspection, no calf tenderness, no pedal edema Neurological/Psych: Alert, normal mood/affect, oriented x 3 Skin: Normal color, warm/dry, no rash Review of Systems: Constitutional: No fever, No chills Eyes: No worsening of vision ENT: No hearing loss Respiratory: No cough Cardiovascular: No chest pain Abdomen: No pain, No nausea Musculoskeletal: No joint pain Psychiatric: No depression symptoms Endocrine: No fatigue Hematologic / Lymphatic: No abnormal bleeding/bruising Integumentary: No rash Hospital Course 61 y/o male with a history of CAD s/p stent 2016, HTN, HLD, large adenomatous polyp s/p partial colectomy 2011, multiple colonic polyps and AVM who presents to the ED with weakness and dark colored stool. Acute Blood Loss Anemia secondary to acute on chronic GI bleed--improving - Admit to telemetry. No acute events overnight. Pt in sinus rhythm with HR 60s -90s - Admitted last week for the same. Colonoscopy at that time showed non- bleeding colonic angioectasia, treated w/argon plasma coagulation. 2 rectal polyps removed. Internal hemorrhoids noted. EGD at that time was normal. - S/p 3 units PRBCs on 06/24 - Hgb 9.7 on day of discharge up from 9.0 - GI consulted, appreciate recs: OK to advance diet. Will plan for outpatient VCE. -patient tolerated diet. - Colonoscopy shows non-bleeding ulceration at ileo-colonic anastomosis, treated with argon plasma coagulation. 6 mm polyp in sigmoid colon which was removed. External and internal hemorrhoids noted. - Continue Protonix 40 mg PO BID - Hold ASA for now. Per cardiology, pt can stop Plavix all together but should resume ASA when able will restart ASA as outpatient -Given no signs of bleeding and stable hemoglobin, patient will be discharged Exertional Chest Pain--resolved - Troponin became mildly elevated, peaked at 0.113 and now trending down - Likely demand ischemia secondary to acute anemia CAD S/P PCI (2016), HTN, HLD--stable - Cardiology consulted due to elevated troponin, appreciate recs: Would not obtain additional cardiac workup. Does not need Plavix anymore but should continue ASA when able. - ASA on hold due to above - Continue Norvasc 2.5 mg daily; Lisinopril 5 mg daily; Lipitor 80 mg daily Allergies: - Ventolin PRN for allergies (mostly cats) - rarely uses DVT Prophylaxis - SCDs for now due to GIB Code Status -Level I, FULL RESUSCITATION STATUS Total Time Spent: Greater than 30 minutes This includes examination of the patient, discharge planning, medication reconciliation, and communication with other providers. Discharge Instructions Please refer to the electronic Patient Visit Report (Discharge Instructions) for additional information. Follow-Up as noted in discharge instructions Additional Copies To Ari You M.D.
== END 2017-06-27 14:31 | disposition home or self-care (01) | DRG 378 ==
LOC: C.EDB 10:17 → C.2E 13:42 → ENRESERV 13:58
PROVIDERS: ADMIT Internal Medicine; ATTEND Hospitalist
PROC: 0DBN8ZX Excision of Sigmoid Colon, Via Natural or Artificial Opening Endoscopic, Diagnostic (ICD-10-PCS; principal; 2017-06-26 10:32)
PROC: 0W3P8ZZ Control Bleeding in Gastrointestinal Tract, Via Natural or Artificial Opening Endoscopic (ICD-10-PCS; principal; 2017-06-26 10:32)
DX: K92.2 Gastrointestinal hemorrhage, unspecified (principal); D62 Acute posthemorrhagic anemia; K63.3 Ulcer of intestine; I24.8 Other forms of acute ischemic heart disease; K64.4 Residual hemorrhoidal skin tags; K64.8 Other hemorrhoids; I11.9 Hypertensive heart disease without heart failure; I25.10 Atherosclerotic heart disease of native coronary artery without angina pectoris; E78.5 Hyperlipidemia, unspecified; E73.9 Lactose intolerance, unspecified; Z79.899 Other long term (current) drug therapy; Z79.82 Long term (current) use of aspirin; Z86.010 Personal history of colon polyps; Z95.5 Presence of coronary angioplasty implant and graft; Z88.0 Allergy status to penicillin; Z91.048 Other nonmedicinal substance allergy status; Z88.1 Allergy status to other antibiotic agents; Z82.49 Family history of ischemic heart disease and other diseases of the circulatory system; Z83.3 Family history of diabetes mellitus

== ENCOUNTER → 2017-06-29 | Outpatient (CLI) | payer OTHER ==
[2017-06-29 14:45] LABS: HEMATOCRIT 29.5 % (42-52); HEMOGLOBIN 9.9 g/dL (14.0-18.0); MEAN CELL VOLUME 82.2 fL (80-100); MEAN CORPUSCULAR HEMOGLOBIN 27.6 pg (25-34); MEAN CORPUSCULAR HGB CONC 33.6 g/dl (32-36); MEAN PLATELET VOLUME 9.3 fL (7.4-10.4); PLATELET COUNT 265 K/uL (130-400); RED CELL DISTRIBUTION WIDTH CV 13.8 % (11.5-14.5); WHITE BLOOD COUNT 6.68 K/uL (4.8-10.8)
== END | disposition home or self-care (01) ==
LOC: C.LAB 13:30
PROVIDERS: ATTEND Internal Medicine
DX: D64.9 Anemia, unspecified (principal)

== ENCOUNTER → 2017-07-02 | Outpatient (CLI) | payer OTHER ==
[~2017-07-02] MED LIST changes: -ASPI-320 PO; -LSN5 PO; -NTRSLP4 SL; -VITACAP26
[2017-07-02 09:44] LABS: BASO % 0.6 %; BASO ABS # 0.03 K/uL (0-0.2); EOS % 3.6 %; EOS ABS # 0.19 K/uL (0-0.5); HEMOGLOBIN 9.3 g/dL (14.0-18.0); IG# 0.02 K/uL (0.00-0.02); LYMPH % 15.9 %; LYMPH ABS # 0.83 K/uL (1.2-3.4); MEAN CELL VOLUME 81.9 fL (80-100); MEAN CORPUSCULAR HEMOGLOBIN 26.3 pg (25-34); MEAN CORPUSCULAR HGB CONC 32.1 g/dl (32-36); MEAN PLATELET VOLUME 9.2 fL (7.4-10.4); MONO % 9.2 %; MONO ABS # 0.48 K/uL (0.11-0.59); NEUT % 70.3 %; NEUT ABS # 3.66 K/uL (1.4-6.5); PLATELET COUNT 288 K/uL (130-400); RED CELL DISTRIBUTION WIDTH CV 14.3 % (11.5-14.5); RED CELL DISTRIBUTION WIDTH SD 43.4 fL (36.4-46.3); WHITE BLOOD COUNT 5.21 K/uL (4.8-10.8)
== END | disposition home or self-care (01) ==
LOC: C.LAB1850 08:44
PROVIDERS: ATTEND Internal Medicine
DX: R71.0 Precipitous drop in hematocrit (principal)

== ENCOUNTER → 2017-07-03 | Outpatient (CLI) | payer OTHER ==
[2017-07-03 12:38] LABS: BASO % 0.3 %; BASO ABS # 0.02 K/uL (0-0.2); EOS % 2.9 %; EOS ABS # 0.17 K/uL (0-0.5); HEMATOCRIT 26.6 % (42-52); HEMOGLOBIN 8.6 g/dL (14.0-18.0); IG# 0.02 K/uL (0.00-0.02); LYMPH % 13.7 %; MEAN CELL VOLUME 82.1 fL (80-100); MEAN CORPUSCULAR HEMOGLOBIN 26.5 pg (25-34); MEAN CORPUSCULAR HGB CONC 32.3 g/dl (32-36); MEAN PLATELET VOLUME 9.2 fL (7.4-10.4); MONO % 8.6 %; NEUT % 74.2 %; NEUT ABS # 4.33 K/uL (1.4-6.5); PLATELET COUNT 301 K/uL (130-400); RED CELL DISTRIBUTION WIDTH CV 14.5 % (11.5-14.5); WHITE BLOOD COUNT 5.84 K/uL (4.8-10.8)
== END | disposition home or self-care (01) ==
LOC: C.LAB1850 09:51
PROVIDERS: ATTEND Internal Medicine
DX: D64.9 Anemia, unspecified (principal)

== ENCOUNTER → 2017-07-04 | Outpatient (CLI) | payer OTHER ==
[2017-07-04 09:26] LABS: HEMATOCRIT 27.5 % (42-52); MEAN CELL VOLUME 82.3 fL (80-100); MEAN CORPUSCULAR HEMOGLOBIN 26.9 pg (25-34); MEAN CORPUSCULAR HGB CONC 32.7 g/dl (32-36); PLATELET COUNT 324 K/uL (130-400); RED CELL DISTRIBUTION WIDTH CV 14.9 % (11.5-14.5); RED CELL DISTRIBUTION WIDTH SD 44.7 fL (36.4-46.3); WHITE BLOOD COUNT 5.78 K/uL (4.8-10.8)
== END | disposition home or self-care (01) ==
LOC: C.LAB1850 08:42
PROVIDERS: ATTEND Internal Medicine
DX: D64.9 Anemia, unspecified (principal)

== ENCOUNTER → 2017-07-06 | Outpatient (CLI) | payer OTHER ==
[2017-07-06 12:37] LABS: BASO % 0.2 %; BASO ABS # 0.01 K/uL (0-0.2); EOS % 3.5 %; EOS ABS # 0.17 K/uL (0-0.5); HEMATOCRIT 27.7 % (42-52); HEMOGLOBIN 8.9 g/dL (14.0-18.0); IG# 0.01 K/uL (0.00-0.02); LYMPH % 16.7 %; LYMPH ABS # 0.82 K/uL (1.2-3.4); MEAN CELL VOLUME 82.7 fL (80-100); MEAN CORPUSCULAR HEMOGLOBIN 26.6 pg (25-34); MEAN CORPUSCULAR HGB CONC 32.1 g/dl (32-36); MONO ABS # 0.44 K/uL (0.11-0.59); NEUT % 70.4 %; NEUT ABS # 3.45 K/uL (1.4-6.5); PLATELET COUNT 334 K/uL (130-400); RED CELL DISTRIBUTION WIDTH CV 15.1 % (11.5-14.5); RED CELL DISTRIBUTION WIDTH SD 45.3 fL (36.4-46.3)
== END | disposition home or self-care (01) ==
LOC: C.LAB1850 10:50
PROVIDERS: ATTEND Internal Medicine
DX: D64.9 Anemia, unspecified (principal)

== ENCOUNTER → 2017-09-21 | Outpatient (CLI) | payer OTHER ==
[~2017-09-21] MED LIST changes: +FERR1TAB23 PO
[2017-09-21 12:37] LABS: BASO % 0.5 %; BASO ABS # 0.03 K/uL (0-0.2); EOS % 2.6 %; EOS ABS # 0.16 K/uL (0-0.5); HEMATOCRIT 43.4 % (42-52); HEMOGLOBIN 13.7 g/dL (14.0-18.0); IG# 0.01 K/uL (0.00-0.02); LYMPH % 15.4 %; LYMPH ABS # 0.96 K/uL (1.2-3.4); MEAN CORPUSCULAR HEMOGLOBIN 25.6 pg (25-34); MEAN CORPUSCULAR HGB CONC 31.6 g/dl (32-36); MEAN PLATELET VOLUME 9.7 fL (7.4-10.4); MONO % 11.2 %; NEUT % 70.1 %; NEUT ABS # 4.37 K/uL (1.4-6.5); PLATELET COUNT 293 K/uL (130-400); RED CELL DISTRIBUTION WIDTH CV 19.7 % (11.5-14.5); RED CELL DISTRIBUTION WIDTH SD 58.4 fL (36.4-46.3); WHITE BLOOD COUNT 6.23 K/uL (4.8-10.8)
== END | disposition home or self-care (01) ==
LOC: C.LAB1850 11:22
PROVIDERS: ATTEND Physician Assistant
DX: D64.9 Anemia, unspecified (principal)

== ENCOUNTER 2021-01-14 20:17 | Observation (INO) ==
[2021-01-15] MEDS ORDERED: SODIUM CHLORIDE 0.9% 1000ML 1,000 ML IV ONE (00:10)
[2021-01-15 00:17] LABS: Basophils # (auto) 0.01 K/uL (0-0.2); Basophils % (auto) 0.1 %; Eosinophils # (auto) 0.01 K/uL (0-0.5); Eosinophils % (auto) 0.1 %; Hematocrit (blood only) 51.3 % (42-52); Hemoglobin 16.8 g/dL (14.0-18.0); Immature Granulocytes # (auto) 0.02 K/uL (0.00-0.02); Immature Granulocytes % (auto) 0.1 %; Lymphocytes # (auto) 1.55 K/uL (1.2-3.4); Lymphocytes % (auto) 9.3 %; Mean Corpuscular Hemoglobin 29.3 pg (25-34); Mean Corpuscular Hgb Conc 32.7 g/dL (32-36); Mean Corpuscular Volume 89.4 fL (80-100); Mean Platelet Volume 9.6 fL (7.4-10.4); Monocytes # (auto) 0.62 K/uL (0.11-0.59); Monocytes % (auto) 3.7 %; Neutrophils # (auto) 14.47 K/uL (1.4-6.5); Neutrophils % (auto) 86.7 %; Platelet Count 371 K/uL (130-400); RDW Coefficient of Variation 12.9 % (11.5-14.5); RDW Standard Deviation 42.5 fL (36.4-46.3); Red Blood Count 5.74 M/uL (4.7-6.1); White Blood Count 16.68 K/uL (4.8-10.8)
[2021-01-15 00:40] LABS: BUN Creatinine Ratio 17.8 (10-20); Calcium 9.9 mg/dl (8.5-10.1); Creatinine Clr Calc Pharmacy 53.5 ml/min; Est GFR (African American) 66.8 ml/min; Est GFR (Non-African American) 57.7 ml/min; Potassium 4.1 mmol/L (3.5-5.1)
[2021-01-15 00:42] LABS: Globulin 4.2 gm/dl (2.5-4.0); Total Protein 8.2 gm/dl (6.4-8.2)
[2021-01-15 01:00] LABS: Appearance Urine Cloudy (Clear); Bacteria Urine Automated Negative (Negative); Blood Urine 3+ (Negative); Color Urine Orange; Epithelial Cell Urine Auto >30 /lpf (0-5); Glucose Urine UA Negative (Negative); Ketones Urine 1+ (Negative); Leukocyte Esterase Urine 2+ (Negative); Nitrite Urine Positive (Negative); Protein Urine 3+ (Negative); Specific Gravity Urine 1.026 (1.000-1.030); Urobilinogen Urine Negative (Negative); WBC Urine Automated >30 /hpf (0-5); pH Urine 5.5 (4.5-7.5)
[2021-01-15 01:03] LABS: Bilirubin Urine 1+ (Negative)
[2021-01-15] MEDS ORDERED: OPTIRAY 320 100ml IV ONE (01:25)
[2021-01-15] MEDS ORDERED: FAMOTIDINE 20MG/5ML IV PUSH IV STA (03:45)
--- NOTE | 2021-01-15 03:49 | Emergency Department Note ---
History of Present Illness General Chief complaint: Abdominal Pain Stated complaint: ABDOMINAL PAIN, CONSTIPATION Time Seen by Provider: 01/15/21 00:01 History of Present Illness Maximum Pain Intensity: 6 This 65-year-old presents to the ER complaining of abdominal pain and constipation Location: Mid abdomen Quality: Discomfort Severity: Moderate Duration: Today Timing: Today Context: Patient was concerned and came in Modifying factors: better with rest; worse with activity Patient had prior bowel surgeries. No history of bowel obstruction. Patient felt constipated and tried medication but this did not help. Patient denies chest pain, dyspnea, fevers, flulike illness. Home Medications Medication Instructions Recorded Confirmed Type ascorbic acid (vitamin C) 1,000 mg 1,000 mg PO QAM tab 08/03/18 01/07/21 History tablet coenzyme Q10 10 mg capsule 10 mg PO QAM cap 08/03/18 01/07/21 History zinc gluconate 50 mg tablet 50 mg PO QAM tab 08/03/18 01/07/21 History aspirin 81 mg tablet,delayed 81 mg PO QAM tab 08/23/18 01/07/21 History release glucosamine sulfate 500 mg tablet 500 mg PO QAM 08/23/18 01/07/21 History (Glucosamine) nitroglycerin 0.4 mg sublingual 0.4 mg SL ONCE PRN #25 tab 08/23/18 01/07/21 History tablet albuterol sulfate 90 mcg/actuation 2 puffs INHALATION Q6H PRN #3 gm 02/24/19 01/07/21 Rx aerosol inhaler atorvastatin 80 mg tablet 80 mg PO QAM #90 tab 09/05/20 01/07/21 Rx lisinopril 5 mg tablet 5 mg PO QAM #90 tab 09/05/20 01/07/21 Rx cholecalciferol (vitamin D3) 50 4,000 unit PO QAM cap 09/20/20 01/07/21 History mcg (2,000 unit) capsule amlodipine 2.5 mg tablet 2.5 mg PO QAM #90 tab 11/20/20 01/07/21 Rx tadalafil 5 mg tablet (Cialis) 5 mg PO DAILY #90 tab 12/03/20 01/07/21 Rx tamsulosin 0.4 mg capsule (Flomax) 0.4 mg PO QAM 30 Days #30 cap 12/14/20 01/07/21 Rx ciprofloxacin HCl 500 mg tablet 500 mg PO Q12H #6 tab 01/07/21 Rx (Cipro) ciprofloxacin HCl 500 mg tablet 500 mg PO Q12H #6 tab 01/07/21 01/07/21 Rx (Cipro) oxycodone-acetaminophen 5 mg-325 1 tab PO Q8H PRN #7 tab 01/07/21 Rx mg tablet (Percocet) phenazopyridine 200 mg tablet 200 mg PO Q8H PRN #10 tab 01/07/21 01/07/21 Rx (Pyridium) tamsulosin 0.4 mg capsule 0.4 mg PO HS #30 cap 01/07/21 01/07/21 Rx Allergies Allergy/AdvReac Type Severity Reaction Status Date / Time penicillamine Allergy Severe Throat Verified 01/07/21 07:54 infection cat dander Allergy Mild Congestion Verified 01/07/21 07:54 lactose Allergy Mild Abdominal Verified 01/07/21 07:54 discomfort, adverse GI symptpoms Macrolide Antibiotics Allergy Mild Rash, Verified 01/07/21 07:54 diarrhea Penicillins Allergy Mild Rash Verified 01/07/21 07:54 oxycodone AdvReac Intermediate Syncope Verified 01/07/21 07:54 erythromycin base AdvReac Mild Diarrhea Verified 01/07/21 07:54 Past Med/Surg History Medical History Allergy to cats Reason for inhaler per pt (denies asthma/copd) Basilar artery stenosis BPH (benign prostatic hyperplasia) CAD (coronary artery disease) 2017 (stent x1), 2018 (stent x1), Follows with Dr. 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 40% diameter stenosis of the right internal carotid artery origin. 70% diameter stenosis of the left internal carotid artery origin. Chronic web/dissection of the high cervical left internal carotid artery origin. 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 Calcification within the high right vertebral artery with probable underlying luminal narrowing. CVA (cerebral vascular accident) 2017 (during cardiac cath/stent) Depression with anxiety GERD without esophagitis Hearing loss History of GI bleed Hyperlipidemia Hypertension IBS (irritable bowel syndrome) Kidney stone Nephrolithiasis Sciatica Sensorineural hearing loss (SNHL) of left ear with restricted hearing of right ear Solitary thyroid nodule Tinnitus Surgical History History of cardiac cath 2017 (stent x1), 2018 (stent x1) History of colonoscopy History of esophagogastroduodenoscopy (EGD) History of inguinal hernia repair, bilateral Right (2006), left (2010) History of lithotripsy History of surgery laparoscopic enterectomy - 2018 > 1 stent LAD History of tooth extraction History of urinary tract surgery age 6 > blockage corrected Status post small bowel resection 2018 Family History Grandmother (Paternal) Alzheimer disease Brother Heart disease Myocardial infarction COPD (chronic obstructive pulmonary disease) Grandmother (Maternal) Diabetes Mother Pancreatic cancer Heart disease Cancer Hypertension Other No family history of adverse response to anesthesia No family history of allergies No family history of bleeding disorder Denies family history of Rheumatoid arthritis Ovarian cancer Prostate cancer Hearing loss Bipolar disorder Crohn's disease Depression Kidney disease Breast cancer Schizophrenia Lung cancer Colorectal cancer Stroke Asthma Social History Smoking Status: Never smoker Second Hand Exposure: No; Hx Alcohol Use: Yes Alcohol type: wine Hx Substance Use: No Preferred Language: Setswana Communication Ability: Effective Hearing Ability: Normal 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 Beliefs That Will Affect Care: None marital status: Single Current Living Situation: Alone current occupational status: employed 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 Feels Safe at Home: Yes Childhood Exposure to Second-Hand Smoke: No Dental Care, Regularly: Yes Physical Activity Frequency: Daily Seatbelt Use: always Sunscreen Use: Yes Assistive Devices: Glasses Review of Systems A total of 10 systems reviewed and were otherwise negative Physical Exam Vital Signs Vital Signs - 24 hr 01/14/21 20:20 01/15/21 00:02 01/15/21 00:20 Temperature 36.5 C Temperature Source Temporal Artery Scan Pulse Rate 144 H 73 Pulse Rate [Apical] 85 Pulse Rate from SpO2 Sensor 73 Pulse Rhythm Regular Pulse Strength Normal Respiratory Rate 20 20 19 Respiratory Effort / Characteristics Non-Labored Non-Labored Respiratory Depth Normal Normal Respiratory Pattern Regular Blood Pressure 136/81 127/85 Blood Pressure [Right Arm] 128/93 Blood Pressure Mean 99 99 Blood Pressure Mean [Right Arm] 104 Blood Pressure Position Sitting Pulse Oximetry 95 98 99 Oxygen Delivery Method Room Air Room Air Room Air Sepsis Recent Fever Within 48 Hours No Sepsis New/Unexplained Change in Mental Status No Sepsis Action Taken by Nursing No Action Required 01/15/21 01:25 01/15/21 02:00 01/15/21 03:00 Temperature Temperature Source Pulse Rate 92 H 77 86 Pulse Rate [Apical] Pulse Rate from SpO2 Sensor 77 84 Pulse Rhythm Pulse Strength Respiratory Rate 13 18 15 Respiratory Effort / Characteristics Respiratory Depth Respiratory Pattern Blood Pressure 159/90 H 134/90 149/83 H Blood Pressure [Right Arm] Blood Pressure Mean 113 104 105 Blood Pressure Mean [Right Arm] Blood Pressure Position Pulse Oximetry 100 97 96 Oxygen Delivery Method Room Air Room Air Room Air Sepsis Recent Fever Within 48 Hours Sepsis New/Unexplained Change in Mental Status Sepsis Action Taken by Nursing VITALS: Vitals are noted on the nurse's note and reviewed by myself. Vital signs stable. GENERAL: Pleasant male, in no acute distress, nondiaphoretic, well-developed well-nourished. SKIN: The skin was without rashes, erythema, edema, or bruising. There is no tenting of the skin. Capillary reflex less than 2 seconds. HEAD: Normocephalic atraumatic. EARS: External auditory canals clear, EYES: Pupils equal round and reactive to light and accommodation. Conjunctivae without injection, sclerae without icterus. Extraocular movements intact. NOSE: Patent, turbinates without inflammation or discharge. MOUTH: Mucous membranes moist. Pharynx without erythema or exudate. Uvula midline. Airway patent. Tongue does not deviate. NECK: Supple without nuchal rigidity. No lymphadenopathy. No thyromegaly. Cervical spine is nontender. No JVD. HEART: Regular rate and rhythm LUNGS: Clear to auscultation bilaterally without wheezes, rales or rhonchi. No retractions or accessory muscle use. ABDOMEN: Positive bowel sounds x 4. Normal tympanic percussion. Soft, tender to palpation mid abdomen, without masses or organomegaly. Godoy sign negative. No guarding or rebound tenderness. No CVA tenderness MUSCULOSKELETAL: No muscle atrophy, erythema, or edema noted. NEURO: Patient was alert and oriented to person place and time. Normal sensation to light and sharp touch. No focal neurological deficits. Course Administered Medications Ceftriaxone Sodium (Rocephin) 1,000 mg in 50 mls @ 100 mls/hr IV NOW STA Stop: 01/15/21 04:19 Last Admin: 01/15/21 03:57 Dose: 100 mls/hr Documented by: [id number] Discontinued Medications Famotidine (Famotidine 20mg/5ml Iv Push) 20 mg IV ONE STA Stop: 01/15/21 03:46 Last Admin: 01/15/21 03:57 Dose: 20 mg Documented by: [id number] Sodium Chloride (Nss 1000ml) 1,000 mls @ 999 mls/hr IV .Q1H1M ONE Stop: 01/15/21 01:10 Last Infusion: 01/15/21 01:14 Dose: 0 mls/hr Documented by: [id number] Admin: 01/15/21 00:13 Dose: 999 mls/hr Documented by: [id number] Ioversol (Optiray 320 100ml) 92 ml IV ONCE ONE Stop: 01/15/21 01:26 Last Admin: 01/15/21 01:25 Dose: 92 ml Documented by: [id number] Medical Decision Making Medical Records Attestation: I reviewed the patient's medical records. Home Medications Current Medication List: was personally reviewed by me Laboratory Data Attestation: I reviewed the patient's lab results. Result diagrams: 01/14/21 23:50 01/14/21 23:50 Lab Results 01/14/21 01/14/21 01/15/21 Range/Units 23:50 23:50 00:42 WBC 16.68 H (4.8-10.8) K/uL RBC 5.74 (4.7-6.1) M/uL Hgb 16.8 (14.0-18.0) g/dL Hct 51.3 (42-52) % MCV 89.4 (80-100) fL MCH 29.3 (25-34) pg MCHC 32.7 (32-36) g/dL RDW Std Deviation 42.5 (36.4-46.3) fL RDW Coeff of Harika 12.9 (11.5-14.5) % Plt Count 371 (130-400) K/uL MPV 9.6 (7.4-10.4) fL Immature Gran % (Auto) 0.1 % Neut % (Auto) 86.7 % Lymph % (Auto) 9.3 % [place] % (Auto) 3.7 % Eos % (Auto) 0.1 % Baso % (Auto) 0.1 % Neut # (Auto) 14.47 H (1.4-6.5) K/uL Lymph # (Auto) 1.55 (1.2-3.4) K/uL [place] # (Auto) 0.62 H (0.11-0.59) K/uL Eos # (Auto) 0.01 (0-0.5) K/uL Baso # (Auto) 0.01 (0-0.2) K/uL Immature Gran # (Auto) 0.02 (0.00-0.02) K/uL Sodium 135 L (136-145) mmol/L Potassium 4.1 (3.5-5.1) mmol/L Chloride 101 (98-107) mmol/L Carbon Dioxide 29 (21-32) mmol/L Anion Gap 5.0 (3-11) BUN 23 H (7-18) mg/dl Creatinine 1.30 (0.6-1.4) mg/dl Est Cr Clr Drug Dosing 53.5 ml/min Est GFR ( Amer) 66.8 ml/min Est GFR (Non-Af Amer) 57.7 ml/min BUN/Creatinine Ratio 17.8 (10-20) Glucose 133 H (70-99) mg/dl Calcium 9.9 (8.5-10.1) mg/dl Total Bilirubin 1.0 (0.2-1) mg/dl AST 20 (15-37) U/L ALT 32 (12-78) U/L Alkaline Phosphatase 104 (45-117) U/L Total Protein 8.2 (6.4-8.2) gm/dl Albumin 4.0 (3.4-5.0) gm/dl Globulin 4.2 H (2.5-4.0) gm/dl Albumin/Globulin Ratio 1.0 (0.9-2) Lipase 127 (73-393) U/L Urine Color [place] Urine Appearance Cloudy A (Clear) Urine pH 5.5 (4.5-7.5) Ur Specific [place] 1.026 (1.000-1.030) Urine Protein 3+ H (Negative) Urine Glucose (UA) Negative (Negative) Urine Ketones 1+ H (Negative) Urine Blood 3+ H (Negative) Urine Nitrite Positive A (Negative) Urine Bilirubin 1+ H (Negative) Urine Urobilinogen Negative (Negative) Ur Leukocyte Esterase 2+ H (Negative) Urine WBC (Auto) >30 H (0-5) /hpf Urine RBC (Auto) 5-10 H (0-4) /hpf U Hyaline Cast (Auto) 1-5 (0-5) /lpf U Epithel Cells (Auto) >30 H (0-5) /lpf Urine Bacteria (Auto) Negative (Negative) Ur Renal Epithelial Cell Not Reportable Granular Casts 1-5 H (0) /lpf Urine Yeast Budding A (None Prsent) Imaging Data Attestation: I personally reviewed and interpreted this imaging study as follows: MDM Narrative Prior records/ancillary studies reviewed. Triage Nursing notes reviewed. Additional history obtained from nursing. The patient's history was concerning for abdominal pain. Differential diagnosis: Etiologies such as appendicitis, diverticulitis, PUD, biliary pathology, UTI, pancreatitis, obstruction, mesenteric ischemia, aortic pathology, infections, inflammatory bowel disease, renal colic, as well as others were entertained. Physical examination findings: As above. ER treatment provided: An order was placed for continuous cardiac monitoring. The monitor shows a rate of 60-100 with a sinus rhythm. IV fluids, Pepcid Zofran On reassessment the patient felt better. Diagnostics interpreted by me: ECG: Ordered for abdominal pain EKG: Normal sinus, poor baseline, no acute ST-T wave changes. Rate of 88. Impression normal sinus rhythm interpreted by myself I think arrhythmia is unlikely. EKG shows normal sinus rhythm with no interval abnormalities such as QT prolongation or WPW. There are no findings to suggest Brugada syndrome. Cardiac monitoring in the emergency department reveals no tachycardic or bradycardic dysrhythmia. Hypertrophic cardiomyopathy was considered but there are no clear historical elements pointing toward this. EKG is not suggestive. The QRS voltage is not extremely large and there are no suggestive Q waves. The labs revealed urine concerning for infection sent for culture. Leukocytosis Imaging studies: Preliminary Findings Only See Final Report For Complete Findings CT ABDOMEN & PELVIS With Contrast: Comparison to October 04, 2020. Surgical clips and aviva in the right lower quadrant from previous partial boubacar wel resection. There appears to be a ileocolic anastomosis. There is a large amount of stool in the lower right colon measuring 7 cm in diameter consistent with constipation. The distal ileum demonstrates mild wall thickening suggesting mild inflammation. No definite surrounding fat stranding is seen. Scattered gas fluid levels within fluid-filled moderately dilated small bowel consistent with partial small bowel obstruction versus ileus or gastroenteritis. There is a small amount of free fluid in the pelvis. No abscess. Mild fatty infiltration of the liver. No focal liver lesion is seen. The gallbladder, pancreas, spleen, adrenal glands, and left kidney are unremarkable. The right kidney demonstrates a 6.1 cm simple cyst. No follow-up is necessary. There is a left-sided double-J ureteral stent in standard position. No hydronephrosis is seen. Skeletal structures show mild degenerative changes. No fracture or subluxation. Radiologist: Wojciech Chatterjee MD Consultation: A consultation was placed with the hospitalist. The case was discussed and diagnostics were reviewed. The patient was evaluated in the ER for further treatment. Exam and history seem consistent with possible partial bowel obstruction and UTI. No prior urine culture for review Medicine was consulted. Results reviewed with patient. Patient is agreeable treatment plan of admission. By the evaluation outlined above emergent etiologies such as appendicitis, diverticulitis, PUD, biliary pathology, pancreatitis, mesenteric ischemia, aortic pathology, inflammatory bowel disease, renal colic, as well as others were deemed relatively unlikely. The pt informed about the findings as listed above. All questions were answered and pleased with the treatment. The chart was completed utilizing [employer] Speech voice recognition software. Grammatical errors, random word insertions, pronoun errors, and incomplete sentences are an occassional consequence of this system due to software limitations, ambient noise, and hardware issues. Any formal questions or concerns about the content, text, or information contained within the body of this dictation should be directly addressed to the physician physiotherapist's assistant for clarification. Impression & Plan Small bowel obstruction, partial, Acute UTI Discharge Plan Visit Data Chief Complaint: Abdominal Pain Stated Complaint: ABDOMINAL PAIN, CONSTIPATION ED Provider: Negrita Flores ED Midlevel Provider: Tiny Salas Discharge Problem: Small bowel obstruction, partial, Acute UTI Patient Disposition: Being Evaluated by Hospitalist Condition: Good Forms Stand Alone Forms: My [facility] Prescriptions Prescriptions: No Action lisinopril 5 mg tablet 5 mg PO QAM Qty: 90 RF: 3 atorvastatin 80 mg tablet 80 mg PO QAM Qty: 90 RF: 3 cholecalciferol (vitamin D3) 50 mcg (2,000 unit) capsule 4,000 unit PO QAM RF: 0 amlodipine 2.5 mg tablet 2.5 mg PO QAM Qty: 90 RF: 3 tadalafil [Cialis] 5 mg tablet 5 mg PO DAILY Qty: 90 RF: 0 oxycodone-acetaminophen [Percocet] 5-325 mg tablet 1 tab PO Q8H PRN (Reason: pain) Qty: 7 RF: 0 albuterol sulfate 90 mcg/actuation HFA aerosol inhaler 2 puffs inhalation Q6H PRN (Reason: allergy to cats) Qty: 3 RF: 1 zinc gluconate 50 mg tablet 50 mg PO QAM RF: 0 ascorbic acid (vitamin C) 1,000 mg tablet 1,000 mg PO QAM RF: 0 coenzyme Q10 10 mg capsule 10 mg PO QAM RF: 0 aspirin 81 mg tablet,delayed release (DR/EC) 81 mg PO QAM RF: 0 glucosamine sulfate [Glucosamine] 500 mg tablet 500 mg PO QAM RF: 0 nitroglycerin 0.4 mg tablet, sublingual 0.4 mg SL ONCE PRN (Reason: Chest Pain) Qty: 25 RF: 0 tamsulosin [Flomax] 0.4 mg capsule 0.4 mg PO QAM 30 Days Qty: 30 RF: 2 phenazopyridine [Pyridium] 200 mg tablet 200 mg PO Q8H PRN (Reason: pain) Qty: 10 RF: 0 ciprofloxacin HCl [Cipro] 500 mg tablet 500 mg PO Q12H Qty: 6 RF: 0 tamsulosin 0.4 mg capsule 0.4 mg PO HS Qty: 30 RF: 0 ciprofloxacin HCl [Cipro] 500 mg tablet 500 mg PO Q12H Qty: 6 RF: 0 Referrals Referrals: Ari You MD [Primary Care Provider] -
[2021-01-15] MEDS ORDERED: cefTRIAXone SODIUM 1,000 MG/50 ML BAG IV STA (03:50)
--- NOTE | 2021-01-15 04:22 | History & Physical Report ---
Date of Service January 15, 2021 Assessment & Plan (1) Small bowel obstruction, partial: Plan: Patient is a 65 year old male with PMHx BPH, CAD s/p stent, CVA, GERD, IBS, Bowel resection 2017, who presents with 2 day history of abdominal pain and nausea. SBO -CT ab/pelv stat read noting scattered gas fluid levels within fluid-filled moderately dilated small bowel consistent with partial small bowel obstruction vs ileus or gastroenteritis. Also noted is a large amount of stool in the lower R colon measuring 7cm in diameter consistent with constipation. -NPO for bowel rest, hold home meds while NPO -NSS 125ml/hr x2L -IV Zofran PRN for nausea -Will hold on NG tube placement at this time as patient's symptoms appear fairly well controlled -Gen Surg consulted Dysuria -In the setting of recent ureteral stent placement -Recent completion of course of Ciprofloxacin -Received 1 dose of Rocephin in the ED -Will hold on further abx until urine culture returns or if patients urinary symptoms worsen Dispo: Med/Surg FEN: NPO, NSS 125 ml/hr x2L DVT: SCDs Code: Full History of Present Illness Chief Complaint: Abdominal Pain Primary Care Provider: Ari You MD Patient is a 65 year old male with PMHx BPH, CAD s/p stent, CVA, GERD, IBS, Bowel resection 2017, who presents with 2 day history of abdominal pain and nausea. Patient notes that since his bowel resection in 2018 for a polyp and GI bleed, he has had at least 4 episodes similar to this one where he would get excruciating abdominal pain that would last a few days and then resolve. He notes the last he can recall was in April where it lasted about 4 days and again more recently, though he does not remember the exact details of that. He notes that this episode started 2 days ago when he experienced b/l upper quadrant abdominal pain that was 10/10. He also notes minimal flatus or bowel movements for at least 1 week now. He feels this may have been associated with the recent opioids he had been taking for recent ureteral stent placement L on 01/07/21 for his renal stone. He notes he does still experiencing some burning and discomfort with urination, but has recently completed a course of Ciprofloxacin post the stent placement. He otherwise only notes some nausea at this time, stating that the abdominal pain currently is minimal. He notes that he did vomit 1x yesterday when he tried drinking miralax to help resolve his constipation. He denies any fever, chills, SOB, chest pain, headache, bloody stools, hematemesis. Med Hx: BPH, CAD s/p stent, CVA, GERD, IBS, Gastric bleed requiring surgical intervention Surg Hx: Bowel resection 2018, L ureteral stent placement, coronary stent placement Soc Hx: denies tobacco, alcohol, illicit drug use Allergies Allergy/AdvReac Type Severity Reaction Status Date / Time penicillamine Allergy Severe Throat Verified 01/07/21 07:54 infection cat dander Allergy Mild Congestion Verified 01/07/21 07:54 lactose Allergy Mild Abdominal Verified 01/07/21 07:54 discomfort, adverse GI symptpoms Macrolide Antibiotics Allergy Mild Rash, Verified 01/07/21 07:54 diarrhea Penicillins Allergy Mild Rash Verified 01/07/21 07:54 oxycodone AdvReac Intermediate Syncope Verified 01/07/21 07:54 erythromycin base AdvReac Mild Diarrhea Verified 01/07/21 07:54 Home Medications Medication Instructions Recorded Confirmed Type ascorbic acid (vitamin C) 1,000 mg 1,000 mg PO QAM tab 08/03/18 01/15/21 History tablet coenzyme Q10 10 mg capsule 10 mg PO QAM cap 08/03/18 01/15/21 History zinc gluconate 50 mg tablet 50 mg PO QAM tab 08/03/18 01/15/21 History aspirin 81 mg tablet,delayed 81 mg PO QAM tab 08/23/18 01/15/21 History release glucosamine sulfate 500 mg tablet 500 mg PO QAM 08/23/18 01/15/21 History (Glucosamine) nitroglycerin 0.4 mg sublingual 0.4 mg SL ONCE PRN #25 tab 08/23/18 01/15/21 History tablet albuterol sulfate 90 mcg/actuation 2 puffs INHALATION Q6H PRN #3 gm 02/24/19 01/15/21 Rx aerosol inhaler atorvastatin 80 mg tablet 80 mg PO QAM #90 tab 09/05/20 01/15/21 Rx lisinopril 5 mg tablet 5 mg PO QAM #90 tab 09/05/20 01/15/21 Rx cholecalciferol (vitamin D3) 50 4,000 unit PO QAM cap 09/20/20 01/15/21 History mcg (2,000 unit) capsule amlodipine 2.5 mg tablet 2.5 mg PO QAM #90 tab 11/20/20 01/15/21 Rx tadalafil 5 mg tablet (Cialis) 5 mg PO DAILY #90 tab 12/03/20 01/15/21 Rx tamsulosin 0.4 mg capsule (Flomax) 0.4 mg PO QAM 30 Days #30 cap 12/14/20 01/15/21 Rx oxycodone-acetaminophen 5 mg-325 1 tab PO Q8H PRN #7 tab 01/07/21 01/15/21 Rx mg tablet (Percocet) phenazopyridine 200 mg tablet 200 mg PO Q8H PRN #10 tab 01/07/21 01/15/21 Rx (Pyridium) tamsulosin 0.4 mg capsule 0.4 mg PO HS #30 cap 01/07/21 01/15/21 Rx Past Med/Surg History Medical History Allergy to cats Reason for inhaler per pt (denies asthma/copd) Basilar artery stenosis BPH (benign prostatic hyperplasia) CAD (coronary artery disease) 2017 (stent x1), 2018 (stent x1), Follows with Dr. 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 40% diameter stenosis of the right internal carotid artery origin. 70% diameter stenosis of the left internal carotid artery origin. Chronic web/dissection of the high cervical left internal carotid artery origin. 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 Calcification within the high right vertebral artery with probable underlying luminal narrowing. CVA (cerebral vascular accident) 2016 (during cardiac cath/stent) Depression with anxiety GERD without esophagitis Hearing loss History of GI bleed Hyperlipidemia Hypertension IBS (irritable bowel syndrome) Kidney stone Nephrolithiasis Sciatica Sensorineural hearing loss (SNHL) of left ear with restricted hearing of right ear Solitary thyroid nodule Tinnitus Surgical History History of cardiac cath 2017 (stent x1), 2018 (stent x1) History of colonoscopy History of esophagogastroduodenoscopy (EGD) History of inguinal hernia repair, bilateral Right (2006), left (2010) History of lithotripsy History of surgery laparoscopic enterectomy - 2018 > 1 stent LAD History of tooth extraction History of urinary tract surgery age 6 > blockage corrected Status post small bowel resection 2018 Family History Grandmother (Paternal) Alzheimer disease Brother Heart disease Myocardial infarction COPD (chronic obstructive pulmonary disease) Grandmother (Maternal) Diabetes Mother Pancreatic cancer Heart disease Cancer Hypertension Other No family history of adverse response to anesthesia No family history of allergies No family history of bleeding disorder Denies family history of Rheumatoid arthritis Ovarian cancer Prostate cancer Hearing loss Bipolar disorder Crohn's disease Depression Kidney disease Breast cancer Schizophrenia Lung cancer Colorectal cancer Stroke Asthma Social History Smoking Status: Never smoker Second Hand Exposure: No; Hx Alcohol Use: No Hx Substance Use: No Preferred Language: Trinidadian Communication Ability: Effective Hearing Ability: Normal Crucible Packer Required: Yes Beliefs That Will Affect Care: None marital status: Single Current Living Situation: Spouse current occupational status: employed 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 Feels Safe at Home: Yes Childhood Exposure to Second-Hand Smoke: No Dental Care, Regularly: Yes Physical Activity Frequency: Daily Seatbelt Use: always Sunscreen Use: Yes Assistive Devices: Glasses Review of Systems Review of Systems: All systems reviewed & are unremarkable except as noted in Subjective Physical Exam Constitutional: WD/WN, vitals as above Eyes: PERRL, conjunctivae normal, anicteric sclerae ENMT: external ear and nose normal, oropharynx normal Neck: trachea midline, no thyromegaly Respiratory: normal respiratory effort, lungs clear to auscultation Cardiovascular: RRR, no murmur, no edema Gastrointestinal (Abdomen): Inspection/Auscultation: abdomen normal to inspection, + abdomen distended and + hypoactive bowel sounds Percussion/Palpation: + abdomen tender (mild ttp in the upper quadrants b/l ) and abdomen soft; no guarding and abdomen not rigid Musculoskeletal: no cyanosis or clubbing, extremities motor strength 5/5 Skin: no rashes, warm and dry Neurologic: PERRL, EOMI, accommodation nl, no face palsy, no dysarthria Psychiatric: A+Ox3, euthymic affect Results & Data Results & Data ([place]) Vital Signs (Past 12 Hours) Vital Signs Temp Pulse Pulse Resp BP BP Pulse Ox 01/15/21 03:00 86 15 149/83 H 96 01/15/21 02:00 77 18 134/90 97 01/15/21 01:25 92 H 13 159/90 H 100 01/15/21 00:20 73 19 127/85 99 01/15/21 00:02 85 20 128/93 98 01/14/21 20:20 36.5 C 144 H 20 136/81 95 Supervising Physician Co-Signing Physician Notes Attending addendum: I have physically seen this patient, have supervised the medical residents activities, and agree with the H&P unless as otherwise noted. Assessment and Plan: Partial small bowel obstruction- History of prior colon resection NPO NSS at 125 mils per hour x2 L Zofran 4 mg IV every 6 hours as needed Famotidine 20 mg IV every 12 hours Zosyn 4.5 g IV every 8 hours Consult general surgery Remaining orders and notations as noted Resident Activity Tracking Resident Involvement: Resident Care Provided Care Provided: Adult Hospital Medicine
[2021-01-15] MEDS ORDERED: ONDANSETRON INJ 2 MG/ML 2 ML VIAL IV PRN (04:31)
--- NOTE | 2021-01-15 04:44 | Surgery Consultation ---
Date of Consultation January 15, 2021 Assessment & Plan (1) Small bowel obstruction, partial: Patient is being admitted on the hospitalist service. We recommend proceeding as follows: Provide analgesics Provide antiemetics Hydration measures with IV fluids to be employed Bowel rest with n.p.o. status As patient has not had any nausea or vomiting I feel we can hold off on placement of NG tube. If nausea or vomiting ensue if the patient's abdominal exam worsens this modality may be needed I suspect the patient's partial small bowel obstruction may be either related to gastroenteritis or adhesions from previous surgery. Hopefully this will resolve with conservative measures and will not require surgical intervention. We will continue to follow along while the patient is hospitalized Supervising Physician Co-Signing Physician Notes I personally saw and evaluated the patient with Adiel Bueno PA-C and agree with the assessment and plan 65-year-old male with history of small and large bowel resection here with Opioid-induced constipation versus partial small bowel obstruction versus anastomotic stricture CT images results were reviewed, he may have a chronic stricture of his small bowel anastomosis causing him intermittent abdominal pain and constipation We will treat him as a partial small bowel obstruction keep him n.p.o. and monitor his abdominal exam which is currently benign He may need to be on a stool softener or laxative chronically once this resolves We will follow along History of Present Illness Reason for Consultation: Partial small bowel obstruction History of Present Illness Is a 65-year-old male who presented the emergency department secondary abdominal pain that has been ongoing for several days. The patient notes he has a sharp gas-like pain throughout his abdomen. He does not note any provocative factors the pain does not radiate and he notes that the pain will come and go and often resolve on its own. As the pain has been ongoing for several days he felt it was best to seek medical attention in the emergency department. Patient notes that he has not had any nausea vomiting. He denies any fevers, shakes, chills. He notes that his most recent bowel movement was approximately 2 and half days ago. Does note that he has been able to pass flatus. Patient notes that he has had prior abdominal surgeries. He has had a partial colon resection (he believes this is a sending colon) and he also had a partial small bowel rese ction. Both of these surgeries were done at [facility] in [place]. In the emergency department the patient had labs and imaging which I independently reviewed. CT scan of the abdomen and pelvis was performed. Scattered gas/fluid levels were noted in the small bowel which were concerning for partial small bowel obstruction or an ileus secondary to gastroenteritis. Labs include a CBC her white blood cell count was 16.6. Hemoglobin, hematocrit, and platelet count are all within normal range. Chemistry profile showed sodium is 135. Potassium and creatinine were both within normal range. There is a slight elevation of his BUN at 23. There is no significant elevation of LFTs or lipase. At the time of interview the patient was resting comfortably in bed he was in no distress. Allergies Allergy/AdvReac Type Severity Reaction Status Date / Time penicillamine Allergy Severe Throat Verified 01/07/21 07:54 infection cat dander Allergy Mild Congestion Verified 01/07/21 07:54 lactose Allergy Mild Abdominal Verified 01/07/21 07:54 discomfort, adverse GI symptpoms Macrolide Antibiotics Allergy Mild Rash, Verified 01/07/21 07:54 diarrhea Penicillins Allergy Mild Rash Verified 01/07/21 07:54 oxycodone AdvReac Intermediate Syncope Verified 01/07/21 07:54 erythromycin base AdvReac Mild Diarrhea Verified 01/07/21 07:54 Home Medications Medication Instructions Recorded Confirmed Type ascorbic acid (vitamin C) 1,000 mg 1,000 mg PO QAM tab 08/03/18 01/15/21 History tablet coenzyme Q10 10 mg capsule 10 mg PO QAM cap 08/03/18 01/15/21 History zinc gluconate 50 mg tablet 50 mg PO QAM tab 08/03/18 01/15/21 History aspirin 81 mg tablet,delayed 81 mg PO QAM tab 08/23/18 01/15/21 History release glucosamine sulfate 500 mg tablet 500 mg PO QAM 08/23/18 01/15/21 History (Glucosamine) nitroglycerin 0.4 mg sublingual 0.4 mg SL ONCE PRN #25 tab 08/23/18 01/15/21 History tablet albuterol sulfate 90 mcg/actuation 2 puffs INHALATION Q6H PRN #3 gm 02/24/19 01/15/21 Rx aerosol inhaler atorvastatin 80 mg tablet 80 mg PO QAM #90 tab 09/05/20 01/15/21 Rx lisinopril 5 mg tablet 5 mg PO QAM #90 tab 09/05/20 01/15/21 Rx cholecalciferol (vitamin D3) 50 4,000 unit PO QAM cap 09/20/20 01/15/21 History mcg (2,000 unit) capsule amlodipine 2.5 mg tablet 2.5 mg PO QAM #90 tab 11/20/20 01/15/21 Rx tadalafil 5 mg tablet (Cialis) 5 mg PO DAILY #90 tab 12/03/20 01/15/21 Rx tamsulosin 0.4 mg capsule (Flomax) 0.4 mg PO QAM 30 Days #30 cap 12/14/20 01/15/21 Rx oxycodone-acetaminophen 5 mg-325 1 tab PO Q8H PRN #7 tab 01/07/21 01/15/21 Rx mg tablet (Percocet) phenazopyridine 200 mg tablet 200 mg PO Q8H PRN #10 tab 01/07/21 01/15/21 Rx (Pyridium) tamsulosin 0.4 mg capsule 0.4 mg PO HS #30 cap 01/07/21 01/15/21 Rx Patient History Medical History Allergy to cats Reason for inhaler per pt (denies asthma/copd) Basilar artery stenosis BPH (benign prostatic hyperplasia) CAD (coronary artery disease) 2016 (stent x1), 2018 (stent x1), Follows with Dr. 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 40% diameter stenosis of the right internal carotid artery origin. 70% diameter stenosis of the left internal carotid artery origin. Chronic web/dissection of the high cervical left internal carotid artery origin. 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 Calcification within the high right vertebral artery with probable underlying luminal narrowing. CVA (cerebral vascular accident) 2016 (during cardiac cath/stent) Depression with anxiety GERD without esophagitis Hearing loss History of GI bleed Hyperlipidemia Hypertension IBS (irritable bowel syndrome) Kidney stone Nephrolithiasis Sciatica Sensorineural hearing loss (SNHL) of left ear with restricted hearing of right ear Solitary thyroid nodule Tinnitus Surgical History History of cardiac cath 2017 (stent x1), 2018 (stent x1) History of colonoscopy History of esophagogastroduodenoscopy (EGD) History of inguinal hernia repair, bilateral Right (2006), left (2010) History of lithotripsy History of surgery laparoscopic enterectomy - 2018 > 1 stent LAD History of tooth extraction History of urinary tract surgery age 6 > blockage corrected Status post small bowel resection 2018 Family History Grandmother (Paternal) Alzheimer disease Brother Heart disease Myocardial infarction COPD (chronic obstructive pulmonary disease) Grandmother (Maternal) Diabetes Mother Pancreatic cancer Heart disease Cancer Hypertension Other No family history of adverse response to anesthesia No family history of allergies No family history of bleeding disorder Denies family history of Rheumatoid arthritis Ovarian cancer Prostate cancer Hearing loss Bipolar disorder Crohn's disease Depression Kidney disease Breast cancer Schizophrenia Lung cancer Colorectal cancer Stroke Asthma Social History Smoking Status: Never smoker Second Hand Exposure: No; Hx Alcohol Use: Yes Alcohol type: wine Hx Substance Use: No Preferred Language: Scottish Communication Ability: Effective Hearing Ability: Normal Clock Repairer Required: No Beliefs That Will Affect Care: None marital status: Single Current Living Situation: Alone current occupational status: employed 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 Feels Safe at Home: Yes Childhood Exposure to Second-Hand Smoke: No Dental Care, Regularly: Yes Physical Activity Frequency: Daily Seatbelt Use: always Sunscreen Use: Yes Assistive Devices: Glasses Review of Systems Constitutional: no fever and no chills Eyes: + corrective lenses Ear, Nose, Mouth, Throat: no ear pain Respiratory: no cough and no dyspnea Cardiovascular: no chest pain Gastrointestinal: + abdominal pain and + constipation; no nausea and no vomiting Genitourinary: no dysuria Musculoskeletal: no back pain Integumentary: no rash Neurologic: no localized weakness Physical Exam Constitutional: well developed and well nourished; no acute distress Eyes: no conjunctival abnormality Wears glasses ENMT: Ears: no hearing impairment Mouth: no oropharynx abnormality Neck: trachea midline Respiratory: normal respiratory effort; no respiratory distress and no labored breathing Cardiovascular: Rate/Rhythm: regular rate and regular rhythm Gastrointestinal (Abdomen): Abdomen is soft and nondistended, bowel sounds are present, there is minimal pain with palpation Musculoskeletal: No calf tenderness Skin: no rashes Neurologic: moves all extremities Psychiatric: A+Ox3, euthymic affect Results & Data ([facility]) Vital Signs (Past 12 Hours) Vital Signs Temp Pulse Pulse Resp BP BP Pulse Ox 01/15/21 03:00 86 15 149/83 H 96 01/15/21 02:00 77 18 134/90 97 01/15/21 01:25 92 H 13 159/90 H 100 01/15/21 00:20 73 19 127/85 99 01/15/21 00:02 85 20 128/93 98 01/14/21 20:20 36.5 C 144 H 20 136/81 95 PG Care Time/CCT Total # of Minutes Spent Total Time Spent with Patient: Total time spent is greater than 50% in coordination of care (as documented) at patient's floor/unit and/or counseling patient: Coding Level of Care Code 62255 Inpt Consult Level 5 Diagnoses Small bowel obstruction, partial K56.600
[2021-01-15] MEDS: SODIUM CHLORIDE 0.9% 1000ML 1,000 ML IV SCH ×2 (05:26→15:00)
--- NOTE | 2021-01-15 08:43 | CT Scan Report ---
CT abd pelvis IV con only CLINICAL HISTORY: mid abd pain, no BM COMPARISON STUDY: 10/04/2020 CT DOSE: 280.90 mGy.cm TECHNIQUE: Standard CT of the Abdomen and Pelvis was performed with IV contrast. A dose lowering linda hnique was utilized adhering to the principles of ALARA. Contrast Volume: Optiray 320, 92 ml. The patient did not receive oral contrast. FINDINGS: Lung base: The lung bases are clear. Abdominal cavity: There is no evidence for abdominal mass, adenopathy or ascites. Liver: There is homogeneous fatty attenuation of the liver parenchyma. There is no evidence for enhan cing mass lesion. Spleen: There is homogeneous attenuation of the splenic parenchyma. There is no enhancing mass lesion . Pancreas: There is homogeneous attenuation of the pancreatic parenchyma. There is no evidence for mas s lesion or peripancreatic fluid collection. Gall Bladder: The gallbladder is well distended with no evidence for intraluminal calculi, wall thick ening or pericholecystic edema. Adrenal glands: The adrenal glands are normal in size and attenuation. There is no evidence for enhan cing mass lesion. Kidneys: There is homogeneous attenuation of the renal parenchyma bilaterally. There is no evidence f or renal calculus or hydronephrosis. There is no evidence for enhancing mass. A double-J ureteral ana nt is present on the left. A sharply defined 6.1 cm simple cyst is again seen on the right. No furthe r follow-up is necessary of this benign finding. Bowel: Compared to the previous study, there is evidence for partial right colonic resection end to e nd distal ileum anastomosis. There is narrowing at this site of anastomosis with moderate dilatation of the small bowel loops proximal to this site. Fluid levels are present in the findings are characte ristic of a partial small bowel obstruction related to the narrowing/adhesions at the site of anastom osis. Moderate fecal stasis is seen involving the right side of the colon. The transverse and distal colon are decompressed. There are no inflammatory changes present. There is no evidence for free air. Bladder: The bladder is within normal limits with no evidence for focal mass, calculus or diverticulu m. Contrast layers in the dependent portion of the bladder on these delayed images. : There is no evidence for pelvic mass or adenopathy. There is small amount of free fluid seen with in the pelvis which is unusual for a male patient. This may relate to weeping related to the bowel ob struction. The prostate is mildly to moderately enlarged. Vasculature: There is no evidence for aneurysmal dilatation of the abdominal aorta. Osseous structures: There is no acute osseous pathology. Mild degenerative changes are seen within th e spine. IMPRESSION: 1. Evidence for previous right colonic bowel resection and ileocolonic anastomosis. There is also bright dence for partial distal ileal resection with end to end anastomosis. There is narrowing at the site of anastomosis producing moderate dilatation of the small bowel loops proximal to this site. The find ings represent a partial small bowel obstruction at this site. 2. There is also moderate fecal stasis in the right-sided colon with decompression of the colon dista lly. 3. Additional nonacute findings are delineated above. ACT 112: Positive. There are findings on this exam that require communication between the performing entity and the patient following Patient Test Result Information Act ([place] Act 112) guidelines. Electronically signed by: Sven Fuller M.D. 01/15/2021 8:41 AM
--- NOTE | 2021-01-15 13:24 | Electrocardiogram Report ---
Test Reason : Blood Pressure : / mmHG Vent. Rate : 088 BPM Atrial Rate : 088 BPM P-R Int : 132 ms QRS Dur : 088 ms QT Int : 362 ms P-R-T Axes : 081 037 066 degrees QTc Int : 438 ms Normal sinus rhythm Normal ECG When compared with ECG of 06-NOV-2020 12:21, No significant change was found Confirmed by Lalito Worthington ([id number]) on 01/15/2021 1:24:27 PM Referred By: REFERRED SELF Confirmed By:Donovan Worthington
[2021-01-15] MEDS ORDERED: cefTRIAXone SODIUM 1000MG/50ML D5W IV ONE (16:47)
[2021-01-15] MEDS: cefTRIAXone SODIUM 1,000 MG in DEXTROSE 5% 50 ML IV SCH ×2 (16:51→17:42)
--- NOTE | 2021-01-15 17:04 | Communication Note ---
Date of Service: January 15, 2021 Agree with assessment and plan put in place by Dr. Estes and surgical team. Only change is we are going to give a dose of Rocephin due to his possible UTI. If cultures return negative discontinue antibiotics. Patient feeling progressively better throughout the day and having no nausea at this time. Patient not explicitly hungry. We will hold off feeding patient until tomorrow morning for we will start off with clear liquids and progress as tolerated. Question about having a ureteral stent removed by urology while he is here as he had a stent removal scheduled for tomorrow at 1 PM. Will discuss with urology.
--- NOTE | 2021-01-15 19:07 | Communication Note ---
Date of Service: January 15, 2021 65 y/o male admitted earlier this morning by the overnight team. I re-examined him late this afternoon. He notes less abdominal pain compared to admission. He notes flatus, no bowel movement. Upon exam, afebrile. Alert and oriented. CV regular. Lungs CTA. Abdomen with mild tenderness mid abdomen, (+) BS. Impression 1) SBO, risk factors include prior surgeries and PO pain medication from recent urologic procedure. 2) Ureteral stent, scheduled to be removed in clinic tomorrow. 3) Question UTI, noted history of recent urological instrumentation Plan Improving, but advise holding off on clears until tomorrow AM. If continues to improve, consider clears in AM Will reach out to urology tomorrow AM Continue Rocephin until culture back
--- NOTE | 2021-01-16 05:38 | Billing Data ---
Date of Service January 16, 2021 Coding Level of Care Code INT OBSERVATION CARE 71M LVL 3
--- NOTE | 2021-01-16 09:13 | Surgery Progress Note ---
Date of Service January 16, 2021 Assessment & Plan (1) Small bowel obstruction, partial: Plan: resolving advance diet as joel home sometime in next 24 hours if tolerates diet seen with Dr. Gamble Admission and Anticipated Discharge Date Admission Date: January 15, 2021 Subjective bowels moved and increasing flatus, starting clears this AM Physical Exam Gastrointestinal (Abdomen): Inspection/Auscultation: abdomen not distended Percussion/Palpation: abdomen soft; abdomen nontender Results & Data ([facility]) Vital Signs (Past 12 Hours) Vital Signs Temp Pulse Resp BP Pulse Ox 01/16/21 06:28 36.4 C L 77 16 139/83 98 01/15/21 22:40 36.5 C 73 16 131/79 96 PG Care Time/CCT Total # of Minutes Spent Total Time Spent with Patient: Total time spent is greater than 50% in coordination of care (as documented) at patient's floor/unit and/or counseling patient: Coding Level of Care Code 22100 Subseq Hosp Care Lvl 1 Diagnoses Small bowel obstruction, partial K56.600
[2021-01-16] MEDS ORDERED: INFLUENZA VIRUS QUAD VACCINE 0.5 ML SYR IM ONE (12:00)
[2021-01-16] MEDS ORDERED: cefTRIAXone SODIUM 1,000 MG in DEXTROSE 5% 50 ML IV SCH (16:30)
--- NOTE | 2021-01-16 18:21 | Discharge Summary ---
Date of Service January 16, 2021 Admission HPI Per Admitting Provider Patient is a 65 year old male with PMHx BPH, CAD s/p stent, CVA, GERD, IBS, Bowel resection 2017, who presents with 2 day history of abdominal pain and nausea. Patient notes that since his bowel resection in 2018 for a polyp and GI bleed, he has had at least 4 episodes similar to this one where he would get excruciating abdominal pain that would last a few days and then resolve. He notes the last he can recall was in April where it lasted about 4 days and again more recently, though he does not remember the exact details of that. He notes that this episode started 2 days ago when he experienced b/l upper quadrant abdominal pain that was 10/10. He also notes minimal flatus or bowel movements for at least 1 week now. He feels this may have been associated with the recent opioids he had been taking for recent ureteral stent placement L on 01/07/21 for his renal stone. He notes he does still experiencing some burning and discomfort with urination, but has recently completed a course of Ciprofloxacin post the stent placement. He otherwise only notes some nausea at this time, stating that the abdominal pain currently is minimal. He notes that he did vomit 1x yesterday when he tried drinking miralax to help resolve his constipation. He denies any fever, chills, SOB, chest pain, headache, bloody stools, hematemesis. Med Hx: BPH, CAD s/p stent, CVA, GERD, IBS, Gastric bleed requiring surgical intervention Surg Hx: Bowel resection 2018, L ureteral stent placement, coronary stent placement Soc Hx: denies tobacco, alcohol, illicit drug use Principal Diagnosis Small bowel obstruction Discharge Exam Constitutional WD/WN, vitals as above Eyes + anicteric sclerae Neck normal visual inspection and trachea midline Respiratory normal respiratory effort, lungs clear to auscultation Cardiovascular RRR, no murmur, no edema Gastrointestinal (Abdomen) normal bowel sounds, soft, nontender, no hepatosplenomegaly Skin no rashes, warm and dry Neurologic moves all extremities Psychiatric A+Ox3, euthymic affect Discharge Data Allergies Allergy/AdvReac Type Severity Reaction Status Date / Time penicillamine Allergy Severe Throat Verified 01/07/21 07:54 infection cat dander Allergy Mild Congestion Verified 01/07/21 07:54 lactose Allergy Mild Abdominal Verified 01/07/21 07:54 discomfort, adverse GI symptpoms Macrolide Antibiotics Allergy Mild Rash, Verified 01/07/21 07:54 diarrhea Penicillins Allergy Mild Rash Verified 01/07/21 07:54 oxycodone AdvReac Intermediate Syncope Verified 01/07/21 07:54 erythromycin base AdvReac Mild Diarrhea Verified 01/07/21 07:54 Consultations 01/15/21 03:21 ED Decision to Admit Stat 01/15/21 07:09 Consult General Surgery Routine Ordered Studies 01/15/21 00:10 CT abd pelvis IV con only Urgent Hospital Course (1) Small bowel obstruction, partial: Patient is a 65 year old male with PMHx BPH, CAD s/p stent, CVA, GERD, IBS, Bowel resection 2018, who presents with 2 day history of abdominal pain and nausea. SBO -CT ab/pelv stat read noting scattered gas fluid levels within fluid-filled moderately dilated small bowel consistent with partial small bowel obstruction vs ileus or gastroenteritis. Also noted is a large amount of stool in the lower R colon measuring 7cm in diameter consistent with constipation. -GEN surgeon was consulted and recommended bowel rest without NG tube -Today GEN surge stated that he could be discharged within 24 hours as long as he tolerated food -Advanced diet today clear liquids for breakfast and chicken and rice for lunch without complication -IV fluids were discontinued Dysuria -In the setting of recent ureteral stent placement, has upcoming follow-up with urology for stent removal -Positive UA with some symptoms of flank pain with urination -Recent completion of course of Ciprofloxacin -Received 1 dose of Rocephin in the ED and 1 dose yesterday in the hospital. -Sent home with 5 days of Bactrim DS. Dispo: Home FEN: Regular Code: Full Total Time Total Time Spent Total Time Spent (In Minutes): 30 Discharge Plan Discharge Items Patient Disposition: Home - Self-Care Reason For Visit: SBO Discharge Diagnosis: SBO Condition on Discharge: Good Activity: Resume your previous activity Non-emergency contact: Primary Care Provider and Urologist Call non-emergency contact if: your symptoms worsen Follow-up/Referrals: Ari You MD [Primary Care Provider] - 01/23/21 10:15 am Diet: Heart Healthy and Low Fiber Addtl Attending Provider Instructions: You were hospitalized at [facility] for evaluation of abdominal pain and nausea. A cat scan was ordered and showed evidence of a partial small bowel obstruction. You were treated with IV fluids, pain and anti- nausea medications. General surgery was consulted during your stay and recommended no operative involvement. Your symptoms improved by the time of discharge and you were able to tolerate a low fiber diet without recurrent pain or nausea. Please continue to gradually advance your diet at home. If symptoms recur, take a step back (ie go from regular diet back to liquids). As for your urine, we did treat with you an antibiotic while under our care due to concerns of infection. We would like you to continue the antibiotic Bactrim twice daily for the next 5 days or until you are seen by Urology. Please follow up with your urologist as an outpatient to have your stent removed. Pending Studies at Discharge: No Stand-Alone Forms: My [facility], Smoking Cessation Medications and DC Order Prescriptions: New sulfamethoxazole-trimethoprim [Bactrim DS] 800-160 mg tablet 1 tab PO Q12H 5 Days Qty: 10 RF: 0 Continued lisinopril 5 mg tablet 5 mg PO QAM Qty: 90 RF: 3 atorvastatin 80 mg tablet 80 mg PO QAM Qty: 90 RF: 3 cholecalciferol (vitamin D3) 50 mcg (2,000 unit) capsule 4,000 unit PO QAM RF: 0 amlodipine 2.5 mg tablet 2.5 mg PO QAM Qty: 90 RF: 3 tadalafil [Cialis] 5 mg tablet 5 mg PO DAILY Qty: 90 RF: 0 oxycodone-acetaminophen [Percocet] 5-325 mg tablet 1 tab PO Q8H PRN (Reason: pain) Qty: 7 RF: 0 albuterol sulfate 90 mcg/actuation HFA aerosol inhaler 2 puffs inhalation Q6H PRN (Reason: allergy to cats) Qty: 3 RF: 1 zinc gluconate 50 mg tablet 50 mg PO QAM RF: 0 ascorbic acid (vitamin C) 1,000 mg tablet 1,000 mg PO QAM RF: 0 coenzyme Q10 10 mg capsule 10 mg PO QAM RF: 0 aspirin 81 mg tablet,delayed release (DR/EC) 81 mg PO QAM RF: 0 glucosamine sulfate [Glucosamine] 500 mg tablet 500 mg PO QAM RF: 0 nitroglycerin 0.4 mg tablet, sublingual 0.4 mg SL ONCE PRN (Reason: Chest Pain) Qty: 25 RF: 0 tamsulosin [Flomax] 0.4 mg capsule 0.4 mg PO QAM 30 Days Qty: 30 RF: 2 phenazopyridine [Pyridium] 200 mg tablet 200 mg PO Q8H PRN (Reason: pain) Qty: 10 RF: 0 tamsulosin 0.4 mg capsule 0.4 mg PO HS Qty: 30 RF: 0 Discharge Orders: Discharge Order (Routine); Ordered 01/16/21 Ordered By: Yisel Rodriguez Admission Data Admit Date/Time: 01/15/21 04:31 Attending Provider: Jesus Dhillon Admit Provider: Jae Estes Primary Care Provider: Ari You Other Providers: Lui Calero ; Jose Manuel Gamble Other Interventions: Discharge Summary Assessment (RN) Last Done: 01/16/21 16:13 Supervising Physician Co-Signing Physician Notes I also saw the patient confirmed miller portions of the history and physical exa mination. Agree with the impression and plan as noted in the resident documentation. Upon our second exam after lunch, the patient reported that he tolerated solid food at lunch without any abdominal pain, nausea, or vomiting. He has had a bowel movement, both overnight and a second bowel movement in the interim between breakfast and lunch. Reviewed gradual increase in diet; discussed smaller, more frequent meals. Discussed signs and symptoms for which he should return to the hospital. Upon exam, he is afebrile. 139/83, 77, 16, 90% room air Alert and oriented. No distress appreciated. Heart regular Lungs clear Abdomen soft nontender with normoactive bowel sounds Urine culture shows less than 1000 colonies, preliminary. Agree with discharge to home today Outpatient follow-up with urology for ureteral stent removal Bactrim DS 1 p.o. twice daily for 5 days, pending both final urine culture and follow-up with urology Resident Activity Tracking Resident Involvement: Resident Care Provided Care Provided: Adult [facility] Medicine
== END 2021-01-16 17:17 | disposition home or self-care (01) ==
LOC: EDINP 20:17 → ED 20:17 → SUATTDRO 01-15 04:31 → 3N 01-15 08:00

== ENCOUNTER 2021-10-06 04:02 | Inpatient (IN) ==
--- NOTE | 2021-10-06 04:42 | Emergency Department Note ---
Impression & Plan Small bowel obstruction ADMIT ED Provider Note HPI: The patient is a 65-year-old gentleman with history of small bowel obstruction, presents the emergency department with a chief complaint of mid abdominal pain that is been worsening since about 4 PM yesterday afternoon. Patient states he had 1 episode of emesis earlier this morning.On arrival here to the ED the jesus ent is hemodynamically stable, he is in no acute distress. ROS: - GI: Abdominal pain, nausea and vomiting *10 point review systems was conducted and is otherwise negative unless stated above *Outpatient medications and allergy history reviewed PE: General: Alert, NAD HEENT: Normocephalic, atraumatic Eyes: Extraocular eye movement is intact, no scleral erythema Pulmonary: Clear to auscultation bilaterally, no wheezing Cardio: Regular rate and rhythm GI: Abdomen is soft, Moderate tenderness over the mid abdomen to palpation without guarding or rigidity : No suprapubic tenderness MSK: No evidence of trauma or malformation of the extremities, no edema Skin: No evidence of rash Neuro: Alert, no focal deficits Psychiatric: Cooperative monitoring and evaluation advisor: - An order was placed for continuous cardiac monitoring - Patient was noted to be in Sinus rhythm with a rate of 80 Medical Decision Making: Patient presented to the emergency department chief complaint of abdominal pain, he had an episode of vomiting as well, he has a history of a small bowel obstruction that previously did require surgical correction and partial Bowel resection in 2019. IV was established, lab work obtained, patient was given pain medication and Zofran for symptoms as well as IV fluid. CT imaging of the abdomen pelvis was obtained that does show evidence of a small bowel obstruction with a transition point. Patient has not had any active vomiting here in the ED therefore NG tube was not placed. Lab work shows Leukocytosis which I suspect is reactive, otherwise no critical electrolyte abnormalities are noted. Case was discussed with the on-call resident physician for the admitting [facility], patient was admitted in stable condition for further management. Diagnosis: 1.Small bowel obstruction 2.Abdominal pain, acute 3.Nausea Disposition: Admission Diallo Calvo DO Emergency Medicine Past Med/Surg History Medical History (Updated 10/06/21 @ 19:17 by Diallo Calvo DO) Allergy to cats Reason for inhaler per pt (denies asthma/copd) Basilar artery stenosis BPH (benign prostatic hyperplasia) CAD (coronary artery disease) 2016 (stent x1), 2018 (stent x1), Follows with Dr. 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 40% diameter stenosis of the right internal carotid artery origin. 70% diameter stenosis of the left internal carotid artery origin. Chronic web/dissection of the high cervical left internal carotid artery origin. 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 Calcification within the high right vertebral artery with probable underlying luminal narrowing. CVA (cerebral vascular accident) 2017 (during cardiac cath/stent) Depression with anxiety GERD without esophagitis History of GI bleed Hyperlipidemia Hypertension IBS (irritable bowel syndrome) Kidney stone Nephrolithiasis Sciatica Sensorineural hearing loss (SNHL) of left ear with restricted hearing of right e ar Small bowel obstruction, partial Solitary thyroid nodule Tinnitus Surgical History History of cardiac cath 2017 (stent x1), 2018 (stent x1) History of colonoscopy History of esophagogastroduodenoscopy (EGD) History of inguinal hernia repair, bilateral Right (2006), left (2010) History of lithotripsy History of surgery laparoscopic enterectomy - 2018 > 1 stent LAD History of tooth extraction History of urinary tract surgery age 6 > blockage corrected Status post small bowel resection 2018 Family History Grandmother (Paternal) Alzheimer disease Brother Heart disease Myocardial infarction COPD (chronic obstructive pulmonary disease) Grandmother (Maternal) Diabetes Mother Pancreatic cancer Heart disease Cancer Hypertension Other No family history of adverse response to anesthesia No family history of allergies No family history of bleeding disorder Denies family history of Rheumatoid arthritis Ovarian cancer Prostate cancer Hearing loss Bipolar disorder Crohn's disease Depression Kidney disease Breast cancer Schizophrenia Lung cancer Colorectal cancer Stroke Asthma Social History Smoking Status: Never smoker Second Hand Exposure: No; Do You Dip or Chew Tobacco: No; Tobacco Cessation Education Requested by Patient: No Hx Alcohol Use: Yes Alcohol type: wine Hx Substance Use: No Preferred Language: Palauan Communication Ability: Effective Hearing Ability: Normal Mineralogy Teacher Required: No Beliefs That Will Affect Care: None marital status: Single Current Living Situation: Spouse current occupational status: employed 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 Other Information That Helps Us Care for You: No Feels Safe at Home: Yes Safety Concerns: Feels Safe At This Time Childhood Exposure to Second-Hand Smoke: No Dental Care, Regularly: Yes Physical Activity Frequency: Daily Seatbelt Use: always Sunscreen Use: Yes Assistive Devices: Glasses Allergies Allergies Allergy/AdvReac Type Severity Reaction Status Date / Time penicillamine Allergy Severe Throat Verified 09/02/21 09:25 infection cat dander Allergy Mild Congestion Verified 09/02/21 09:25 lactose Allergy Mild Abdominal Verified 09/02/21 09:25 discomfort, adverse GI symptpoms Macrolide Antibiotics Allergy Mild Rash, Verified 09/02/21 09:25 diarrhea Penicillins Allergy Mild Rash Verified 09/02/21 09:25 oxycodone AdvReac Intermediate Syncope Verified 09/02/21 09:25 erythromycin base AdvReac Mild Diarrhea Verified 09/02/21 09:25 Home Meds Home Medications Medication Instructions Recorded Confirmed ascorbic acid (vitamin C) 1,000 mg 1,000 mg PO QAM 08/03/18 09/02/21 tablet coenzyme Q10 10 mg capsule 10 mg PO QAM 08/03/18 09/02/21 zinc gluconate 50 mg tablet 50 mg PO QAM 08/03/18 09/02/21 aspirin 81 mg tablet,delayed 81 mg PO QAM 08/23/18 09/02/21 release glucosamine sulfate 500 mg tablet 500 mg PO QAM 08/23/18 09/02/21 (Glucosamine) nitroglycerin 0.4 mg sublingual 0.4 mg sublingual ONCE PRN Chest 08/23/18 09/02/21 tablet Pain #25 tabs cholecalciferol (vitamin D3) 50 4,000 unit PO QAM 09/20/20 09/02/21 mcg (2,000 unit) capsule Previous Rx's Medication Instructions Recorded albuterol sulfate 90 mcg/actuation 2 puffs inhalation Q6H PRN allergy 02/24/19 aerosol inhaler to cats #3 grams tadalafil 5 mg tablet (Cialis) 5 mg PO DAILY #90 tabs 04/09/21 tamoxifen 10 mg tablet 10 mg PO BID #180 tabs 07/04/21 amlodipine 2.5 mg tablet 2.5 mg PO QAM #90 tabs 09/02/21 atorvastatin 80 mg tablet 80 mg PO QAM #90 tabs 09/02/21 lisinopril 5 mg tablet 5 mg PO QAM #90 tabs 09/02/21 Results & Data (ED) Vital Signs Vital Signs - 24 hr 10/06/21 04:09 10/06/21 05:33 10/06/21 05:40 Temperature 37.1 C Temperature Source Temporal Artery Scan Pulse Rate 91 H 75 Pulse Rate [Apical] 88 Respiratory Rate 16 18 19 Respiratory Effort / Characteristics Non-Labored Spontaneous Respiratory Depth Normal Respiratory Pattern Regular Blood Pressure 144/94 H Blood Pressure [Right Arm] 138/83 Blood Pressure Mean 110 Blood Pressure Mean [Right Arm] 101 Blood Pressure Position [Right Arm] Pulse Oximetry 96 97 94 Oxygen Delivery Method Room Air Room Air Sepsis Recent Fever Within 48 Hours Yes Sepsis New/Unexplained Change in Mental Status No Sepsis Action Taken by Nursing No Action Required 10/06/21 07:33 Temperature Temperature Source Pulse Rate Pulse Rate [Apical] 81 Respiratory Rate 18 Respiratory Effort / Characteristics Respiratory Depth Respiratory Pattern Blood Pressure Blood Pressure [Right Arm] 152/89 H Blood Pressure Mean Blood Pressure Mean [Right Arm] 110 Blood Pressure Position [Right Arm] Semi-fowlers Pulse Oximetry 95 Oxygen Delivery Method Room Air Sepsis Recent Fever Within 48 Hours Sepsis New/Unexplained Change in Mental Status Sepsis Action Taken by Nursing Laboratory Data Result diagrams: 10/06/21 04:55 10/06/21 04:55 Lab Results 10/06/21 10/06/21 10/06/21 Range/Units 04:55 04:55 05:35 WBC 16.69 H (4.8-10.8) K/ul RBC 5.81 (4.63-6.08) M/uL Hgb 17.4 (14.0-18.0) g/dl Hct 50.0 (40.1-51.0) % MCV 86.1 (80.0-100.0) fL MCH 29.9 (25.0-34.0) pg MCHC 34.8 (32.0-36.0) g/dL RDW Std Deviation 40.2 (36.4-46.3) fL RDW Coeff of Harika 13.0 (11.5-14.5) % Plt Count 273 (130-400) K/uL MPV 9.0 L (9.4-12.4) fL Immature Gran % (Auto) 0.3 % Neut % (Auto) 92.9 % Lymph % (Auto) 1.2 % [place] % (Auto) 5.4 % Eos % (Auto) 0.0 % Baso % (Auto) 0.2 % Neut # (Auto) 15.50 H (1.4-6.5) K/uL Lymph # (Auto) 0.20 L (1.2-3.4) K/uL [place] # (Auto) 0.90 H (0.24-0.82) K/uL Eos # (Auto) 0.00 (0-0.50) K/uL Baso # (Auto) 0.04 (0-0.2) K/uL Immature Gran # (Auto) 0.05 H (0.00-0.02) K/uL Sodium 137 (136-145) mmol/L Potassium 4.4 (3.5-5.1) mmol/L Chloride 103 (98-107) mmol/L Carbon Dioxide 23 (21-32) mmol/L Anion Gap 11 (3-11) BUN 19 (6-23) mg/dl Creatinine 0.82 (0.6-1.4) mg/dl Est Cr Clr Drug Dosing 74.3 ml/min Est GFR ( Amer) 108.3 ml/min Est GFR (Non-Af Amer) 93.5 ml/min BUN/Creatinine Ratio 23.2 H (10-20) Glucose 139 H (70-99(Fasting)) mg/dl Calcium 9.6 (8.5-10.1) mg/dl Total Bilirubin 1.0 (0.2-1.0) mg/dl AST 18 (13-39) U/L ALT 13 (7-52) U/L Alkaline Phosphatase 60 (34-104) U/L Troponin I High Sens 2.9 (0-20) pg/ml Total Protein 7.5 (6.0-8.3) gm/dl Albumin 4.8 (3.4-5.0) gm/dl Globulin 2.7 (2.5-4.0) gm/dl Albumin/Globulin Ratio 1.8 (0.9-2) Lipase 31 (11-82) U/L Urine Color Dark Yellow Urine Appearance Clear (Clear) Urine pH 5.5 (4.5-7.5) Ur Specific [place] 1.030 (1.000-1.030) Urine Protein 1+ H (Negative) Urine Glucose (UA) Negative (Negative) Urine Ketones 3+ H (Negative) Urine Blood Trace H (Negative) Urine Nitrite Negative (Negative) Urine Bilirubin Negative (Negative) Urine Urobilinogen Negative (Negative) Ur Leukocyte Esterase Negative (Negative) Urine WBC (Auto) 1-5 (0-5) /hpf Urine RBC (Auto) 0-4 (0-4) /hpf U Hyaline Cast (Auto) 5-10 H (0-5) /lpf U Epithel Cells (Auto) 20-30 H (0-5) /lpf Urine Bacteria (Auto) Negative (Negative) SARS-CoV-2, RNA, NAAT (NEGATIVE) 10/06/21 Range/Units 08:08 WBC (4.8-10.8) K/ul RBC (4.63-6.08) M/uL Hgb (14.0-18.0) g/dl Hct (40.1-51.0) % MCV (80.0-100.0) fL MCH (25.0-34.0) pg MCHC (32.0-36.0) g/dL RDW Std Deviation (36.4-46.3) fL RDW Coeff of Harika (11.5-14.5) % Plt Count (130-400) K/uL MPV (9.4-12.4) fL Immature Gran % (Auto) % Neut % (Auto) % Lymph % (Auto) % [place] % (Auto) % Eos % (Auto) % Baso % (Auto) % Neut # (Auto) (1.4-6.5) K/uL Lymph # (Auto) (1.2-3.4) K/uL [place] # (Auto) (0.24-0.82) K/uL Eos # (Auto) (0-0.50) K/uL Baso # (Auto) (0-0.2) K/uL Immature Gran # (Auto) (0.00-0.02) K/uL Sodium (136-145) mmol/L Potassium (3.5-5.1) mmol/L Chloride (98-107) mmol/L Carbon Dioxide (21-32) mmol/L Anion Gap (3-11) BUN (6-23) mg/dl Creatinine (0.6-1.4) mg/dl Est Cr Clr Drug Dosing ml/min Est GFR ( Amer) ml/min Est GFR (Non-Af Amer) ml/min BUN/Creatinine Ratio (10-20) Glucose (70-99(Fasting)) mg/dl Calcium (8.5-10.1) mg/dl Total Bilirubin (0.2-1.0) mg/dl AST (13-39) U/L ALT (7-52) U/L Alkaline Phosphatase (34-104) U/L Troponin I High Sens (0-20) pg/ml Total Protein (6.0-8.3) gm/dl Albumin (3.4-5.0) gm/dl Globulin (2.5-4.0) gm/dl Albumin/Globulin Ratio (0.9-2) Lipase (11-82) U/L Urine Color Urine Appearance (Clear) Urine pH (4.5-7.5) Ur Specific [place] (1.000-1.030) Urine Protein (Negative) Urine Glucose (UA) (Negative) Urine Ketones (Negative) Urine Blood (Negative) Urine Nitrite (Negative) Urine Bilirubin (Negative) Urine Urobilinogen (Negative) Ur Leukocyte Esterase (Negative) Urine WBC (Auto) (0-5) /hpf Urine RBC (Auto) (0-4) /hpf U Hyaline Cast (Auto) (0-5) /lpf U Epithel Cells (Auto) (0-5) /lpf Urine Bacteria (Auto) (Negative) SARS-CoV-2, RNA, NAAT NEGATIVE (NEGATIVE) Administered Medications Lactated Ringer's (Lr) 1,000 mls @ 100 mls/hr IV .Q10H DEZ Stop: 11/05/21 17:37 Last Admin: 10/06/21 17:57 Dose: 100 mls/hr Documented By: GUANAKITO Pantoprazole Sodium 40 mg/ (Syringe) 10 mls @ 5 mls/min IV QAM DEZ Stop: 11/05/21 17:37 Last Admin: 10/06/21 17:57 Dose: 5 mls/min Documented By: GUANAKITO Ketorolac Tromethamine (Ketorolac Tromethamine 15 Mg/Ml Vial) 15 mg IV Q6H PRN PRN Reason: Pain (5-7) Stop: 10/11/21 17:37 Last Admin: 10/06/21 17:57 Dose: 15 mg Documented By: GUANAKITO Ondansetron HCl (Ondansetron Inj 2 Mg/Ml 2 Ml Vial) 4 mg IV Q6H PRN PRN Reason: Nausea Stop: 11/05/21 17:37 Last Admin: 10/06/21 17:58 Dose: 4 mg Documented By: GUANAKITO Discontinued Medications Al Hydrox/Mg Hydrox/Simethicone (Aluminum/Magnesium Susp 30 Ml Udc) 15 ml PO NOW STA Stop: 10/06/21 17:26 Last Admin: 10/06/21 17:57 Dose: 15 ml Documented By: GUANAKITO Sodium Chloride (Nss 1000ml) 1,000 mls @ 999 mls/hr IV .Q1H1M ONE Stop: 10/06/21 05:59 Last Infusion: 10/06/21 07:20 Dose: 0 mls/hr Documented By: Admin: 10/06/21 05:26 Dose: 999 mls/hr Documented By: MELONY Lactated Ringer's (Lr) 1,000 mls @ 100 mls/hr IV .Q10H DEZ Stop: 11/05/21 13:29 Last Infusion: 10/06/21 17:59 Dose: 0 mls/hr Documented By: Admin: 10/06/21 13:50 Dose: 100 mls/hr Documented By: BOUBACAR Famotidine 20 mg/ Syringe 5 mls @ 2.5 mls/min IV ONE ONE Stop: 10/06/21 17:26 Last Admin: 10/06/21 17:57 Dose: 2.5 mls/min Documented By: GUANAKITO Ioversol (Optiray 300 500ml) 90 ml IV ONCE ONE Stop: 10/06/21 06:01 Last Admin: 10/06/21 06:01 Dose: 90 ml Documented By: ROLAND Ketorolac Tromethamine (Ketorolac Tromethamine 15 Mg/Ml Vial) 15 mg IV NOW ONE Stop: 10/06/21 13:04 Last Admin: 10/06/21 13:19 Dose: 15 mg Documented By: BOUBACAR Lidocaine HCl (Lidocaine Viscous 2% 15 Ml Udc) 15 ml PO NOW ONE Stop: 10/06/21 17:26 Last Admin: 10/06/21 17:57 Dose: 15 ml Documented By: ES Morphine Sulfate (Morphine Sulfate 4 Mg/Ml 1 Ml Carp\Vial) 4 mg IV NOW STA Stop: 10/06/21 05:00 Last Admin: 10/06/21 05:24 Dose: 4 mg Documented By: MED Morphine Sulfate (Morphine Sulfate 4 Mg/Ml 1 Ml Carp\Vial) 4 mg IV NOW STA Stop: 10/06/21 07:39 Last Admin: 10/06/21 07:43 Dose: 4 mg Documented By: TRH Ondansetron HCl (Ondansetron Inj 2 Mg/Ml 2 Ml Vial) 4 mg IV NOW STA Stop: 10/06/21 05:00 Last Admin: 10/06/21 05:17 Dose: 4 mg Documented By: MED Imaging Data Radiologist's Impression: Abdomen/Pelvis CT 10/06/21 04:[address] WITH IV CONTRAST CT DOSE: 304.97 mGy.cm HISTORY: epigastric pain, hx. SBO TECHNIQUE: Multiaxial CT images of the abdomen and pelvis were performed following the use of intravenous contrast. A dose lowering technique was utilized adhering to the principles of ALARA. COMPARISON STUDY: Abdomen and pelvis CT 01/15/2021. FINDINGS: The lung bases are clear. No pneumoperitoneum. No pneumatosis. Stable lucent lesion within the proximal right femur. This is likely benign. Mild elevation of the left hemidiaphragm. The liver, gallbladder, spleen, adrenal glands, and pancreas are unremarkable. Stable bilateral renal hypodense lesions. These likely represent cysts. No hydronephrosis. The bladder is unremarkable. The main portal vein is patent. No retroperitoneal lymphadenopathy. Normal caliber abdominal aorta. Trace pelvic free fluid. Enlarged and heterogeneous prostate gland with an indistinct border. This remains unchanged. Low-density structures adjacent to the inguinal canals favor prior mesh repair. Colonic di verticulosis. No evidence for acute diverticulitis. The majority of the colon is decompressed. Postoperative changes consistent with prior right ileocolonic anastomosis. There is also evidence for right lower quadrant small bowel anastomosis. There is a focal transition point at the small bowel anastomosis within the right lower quadrant best seen on image 280. Proximal to this transition point there is evidence for fecal stasis and distended loops of proximal to mid small bowel consistent with a bowel obstruction. The stomach is also mildly distended and fluid-filled. Distal to this transition point the ileal loops are decompressed. The distended loops of small bowel are fluid- filled and measure up to 3.7 cm in diameter. IMPRESSION: 1. Small bowel obstruction with the transition point located at the right lower quadrant small bowel anastomosis. This has progressed in the interval. 2. Trace pelvic free fluid. 3. Redemonstration of the enlarged and heterogeneous prostate gland with an indistinct border. Follow-up urology consultation recommended to exclude the possibility of underlying malignancy. 4. Additional findings as described above. ACT 112: Positive. There are findings on this exam that require communication between the performing entity and the patient following Patient Test Result Information Act ([place] Act 112) guidelines. Electronically signed by: Harry Arroyo M.D. 10/06/2021 7:40 AM Chest X-Ray 10/06/21 04:17 XR chest 1V portable HISTORY: epigastric pain COMPARISON: None. FINDINGS: The lungs are clear. Cardiac silhouette is normal in size. No pleural effusions. No pneumothorax. A coronary artery stent is noted. IMPRESSION: No acute process. ACT 112: Negative or not required by law. Electronically signed by: Harry Arroyo M.D. 10/06/2021 8:10 AM Discharge Plan Visit Data Chief Complaint: Abdominal Pain Stated Complaint: SEVERE ABD PAIN ED Provider: Diallo Calvo Discharge Problem: Small bowel obstruction Patient Disposition: Admitted As Inpatient Condition: Good Discharge Instructions Interventions: ED Discharge Assessment Last Done: 10/06/21 18:24
[2021-10-06] MEDS ORDERED: MoRPHine SULFATE 4 MG/ML 1 ML CARP\\VIAL IV STA ×2 (04:59→07:38)
[2021-10-06] MEDS ORDERED: ONDANSETRON INJ 2 MG/ML 2 ML VIAL IV STA (04:59)
[2021-10-06] MEDS ORDERED: SODIUM CHLORIDE 0.9% 1000ML 1,000 ML IV ONE (04:59)
[2021-10-06 05:05] LABS: Hemoglobin 17.4 g/dl (14.0-18.0); Mean Corpuscular Hemoglobin 29.9 pg (25.0-34.0); Mean Corpuscular Hgb Conc 34.8 g/dL (32.0-36.0); Mean Corpuscular Volume 86.1 fL (80.0-100.0); Platelet Count 273 K/uL (130-400); RDW Standard Deviation 40.2 fL (36.4-46.3); Red Blood Count 5.81 M/uL (4.63-6.08); White Blood Count 16.69 K/ul (4.8-10.8)
[2021-10-06 05:34] LABS: Troponin I High Sensitivity 2.9 pg/ml (0-20)
[2021-10-06 05:42] LABS: Albumin Globulin Ratio 1.8 (0.9-2); Albumin Level 4.8 gm/dl (3.4-5.0); BUN Creatinine Ratio 23.2 (10-20); Calcium 9.6 mg/dl (8.5-10.1); Creatinine Clr Calc Pharmacy 74.3 ml/min; Est GFR (African American) 108.3 ml/min; Est GFR (Non-African American) 93.5 ml/min; Globulin 2.7 gm/dl (2.5-4.0); Potassium 4.4 mmol/L (3.5-5.1); Total Protein 7.5 gm/dl (6.0-8.3)
[2021-10-06 05:50] LABS: Basophils # (auto) 0.04 K/uL (0-0.2); Basophils % (auto) 0.2 %; Immature Granulocytes # (auto) 0.05 K/uL (0.00-0.02); Immature Granulocytes % (auto) 0.3 %; Lymphocytes % (auto) 1.2 %; Monocytes % (auto) 5.4 %; Neutrophils % (auto) 92.9 %
[2021-10-06 05:57] LABS: Appearance Urine Clear (Clear); Bacteria Urine Automated Negative (Negative); Bilirubin Urine Negative (Negative); Blood Urine Trace (Negative); Color Urine Dark Yellow; Epithelial Cell Urine Auto 20-30 /lpf (0-5); Glucose Urine UA Negative (Negative); Ketones Urine 3+ (Negative); Leukocyte Esterase Urine Negative (Negative); Nitrite Urine Negative (Negative); Protein Urine 1+ (Negative); RBC Urine Automated 0-4 /hpf (0-4); Urobilinogen Urine Negative (Negative); pH Urine 5.5 (4.5-7.5)
[2021-10-06] MEDS ORDERED: OPTIRAY 300 500mL IV ONE (06:00)
--- NOTE | 2021-10-06 07:42 | CT Scan Report ---
ABDOMEN AND PELVIS CT WITH IV CONTRAST CT DOSE: 304.97 mGy.cm HISTORY: epigastric pain, hx. SBO TECHNIQUE: Multiaxial CT images of the abdomen and pelvis were performed following the use of intrave nous contrast. A dose lowering technique was utilized adhering to the principles of ALARA. COMPARISON STUDY: Abdomen and pelvis CT 01/15/2021. FINDINGS: The lung bases are clear. No pneumoperitoneum. No pneumatosis. Stable lucent lesion within the proximal right femur. This is likely benign. Mild elevation of the left hemidiaphragm. The liver, gallbladder, spleen, adrenal glands, and pancreas are unremarkable. Stable bilateral renal hypodense lesions. These likely represent cysts. No hydronephrosis. The bladder is unremarkable. The main port al vein is patent. No retroperitoneal lymphadenopathy. Normal caliber abdominal aorta. Trace pelvic f ree fluid. Enlarged and heterogeneous prostate gland with an indistinct border. This remains unchange d. Low-density structures adjacent to the inguinal canals favor prior mesh repair. Colonic diverticul osis. No evidence for acute diverticulitis. The majority of the colon is decompressed. Postoperative changes consistent with prior right ileocolonic anastomosis. There is also evidence for right lower q uadrant small bowel anastomosis. There is a focal transition point at the small bowel anastomosis wit hin the right lower quadrant best seen on image 280. Proximal to this transition point there is evide nce for fecal stasis and distended loops of proximal to mid small bowel consistent with a bowel obstr uction. The stomach is also mildly distended and fluid-filled. Distal to this transition point the il eal loops are decompressed. The distended loops of small bowel are fluid-filled and measure up to 3.7 cm in diameter. IMPRESSION: 1. Small bowel obstruction with the transition point located at the right lower quadrant small bowel anastomosis. This has progressed in the interval. 2. Trace pelvic free fluid. 3. Redemonstration of the enlarged and heterogeneous prostate gland with an indistinct border. Follow -up urology consultation recommended to exclude the possibility of underlying malignancy. 4. Additional findings as described above. ACT 112: Positive. There are findings on this exam that require communication between the performing entity and the patient following Patient Test Result Information Act ([place] Act 112) guidelines. Electronically signed by: Harry Arroyo M.D. 10/06/2021 7:40 AM
--- NOTE | 2021-10-06 08:12 | XRay Report ---
XR chest 1V portable HISTORY: epigastric pain COMPARISON: None. FINDINGS: The lungs are clear. Cardiac silhouette is normal in size. No pleural effusions. No pneumot horax. A coronary artery stent is noted. IMPRESSION: No acute process. ACT 112: Negative or not required by law. Electronically signed by: Harry Arroyo M.D. 10/06/2021 8:10 AM
--- NOTE | 2021-10-06 08:49 | History & Physical Report ---
Date of Service October 06, 2021 Assessment & Plan (1) Small bowel obstruction: Plan: Small Bowel Obstruction CT of abdomen showed SBO with a transition point in the RLQ at the site of prior small bowel anastomosis One episode of emesis yesterday afternoon, denies any further nausea/vomiting Will hold on NGT for now Continue NPO Will continue with maintenance fluids while he is NPO- LR at 100ml/hr Pain scale with Tylenol, Toradol and morphine GERD Does not take anything on a regular basis for GERD 40 mg IV Protonix qAM while NPO HTN Blood pressures have ranged from 130s-150s/80-90s since admission Holding home medications while NPO- lisinopril 5mg, amlodipine 2.5mg HLD Hold statin while NPO BPH Abdominal CT showed Redemonstration of the enlarged and heterogeneous prostate gland with an indistinct border. Follow-up urology consultation recommended to exclude the possibility of underlying malignancy. Recommend following up with urology as an outpatient CAD Hold aspirin/ nitroglycerin while NPO Gynecomastia Hold tamoxifen while NPO Diet: NPO Code Status: Full DVT: ambulatory Dispo: Admit to med telemetry (2) Hypertension: (3) Hyperlipidemia: (4) GERD without esophagitis: (5) CAD (coronary artery disease): (6) Gynecomastia, male: History of Present Illness Chief Complaint: Abdominal Pain Primary Care Provider: Ari You MD 65 year old male with a past medical history of HTN, HLD,CAD s/p stent, CVA, adenomyomatosis of gallbladder, right hemicolectomy for polyp 2010 and partial resection of the distal ileum for bleeding polyp in 2017 . He has a history of partial small bowel obstruction in December 2020 that had a transition point at the site of small bowel anastomosis. He began to have abdominal pain Thursday morning, similar to pain he had with prior SBO. It got worse throughout the day Thursday, describes as diffuse sharp abdominal pain without radiation. One episode of emesis Thursday afternoon. Work up in the ED significant for leukocytosis to 16.69, normal CXR, CT of abdomen showed small bowel obstruction with the transition point located in the RLQ at t he spot of the small bowel anastomosis. It also showed Remonstration of the enlarged and heterogeneous prostate gland with an indistinct border. He received morphine for pain control and was made NPO. Denies nausea/vomiting today. Does have some burping/acid reflux symptoms. He has a history of GERD, but does not take anything regularly for it.Last normal bowel movement was Thursday morning, had a small bowel movement Thursday morning. States he was passing gas last night, but none so far this morning. Denies chest pain, dyspnea, headache. Social History: denies tobacco, alcohol, or substance use. Allergies Allergy/AdvReac Type Severity Reaction Status Date / Time penicillamine Allergy Severe Throat Verified 09/02/21 09:25 infection cat dander Allergy Mild Congestion Verified 09/02/21 09:25 lactose Allergy Mild Abdominal Verified 09/02/21 09:25 discomfort, adverse GI symptpoms Macrolide Antibiotics Allergy Mild Rash, Verified 09/02/21 09:25 diarrhea Penicillins Allergy Mild Rash Verified 09/02/21 09:25 oxycodone AdvReac Intermediate Syncope Verified 09/02/21 09:25 erythromycin base AdvReac Mild Diarrhea Verified 09/02/21 09:25 Home Medications Medication Instructions Recorded Confirmed Type ascorbic acid (vitamin C) 1,000 mg 1,000 mg PO QAM 08/03/18 09/02/21 History tablet coenzyme Q10 10 mg capsule 10 mg PO QAM 08/03/18 09/02/21 History zinc gluconate 50 mg tablet 50 mg PO QAM 08/03/18 09/02/21 History aspirin 81 mg tablet,delayed 81 mg PO QAM 08/23/18 09/02/21 History release glucosamine sulfate 500 mg tablet 500 mg PO QAM 08/23/18 09/02/21 History (Glucosamine) nitroglycerin 0.4 mg sublingual 0.4 mg sublingual ONCE PRN Chest 08/23/18 09/02/21 History tablet Pain #25 tabs albuterol sulfate 90 mcg/actuation 2 puffs inhalation Q6H PRN allergy 02/24/19 09/02/21 Rx aerosol inhaler to cats #3 grams cholecalciferol (vitamin D3) 50 4,000 unit PO QAM 09/20/20 09/02/21 History mcg (2,000 unit) capsule tadalafil 5 mg tablet (Cialis) 5 mg PO DAILY #90 tabs 04/09/21 09/02/21 Rx tamoxifen 10 mg tablet 10 mg PO BID #180 tabs 07/04/21 09/02/21 Rx amlodipine 2.5 mg tablet 2.5 mg PO QAM #90 tabs 09/02/21 09/02/21 Rx atorvastatin 80 mg tablet 80 mg PO QAM #90 tabs 09/02/21 09/02/21 Rx lisinopril 5 mg tablet 5 mg PO QAM #90 tabs 09/02/21 09/02/21 Rx Past Med/Surg History Medical History (Updated 10/06/21 @ 10:17 by Joyce Lord DO) Allergy to cats Reason for inhaler per pt (denies asthma/copd) Basilar artery stenosis BPH (benign prostatic hyperplasia) CAD (coronary artery disease) 2017 (stent x1), 2018 (stent x1), Follows with Dr. 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 40% diameter stenosis of the right internal carotid artery origin. 70% diameter stenosis of the left internal carotid artery origin. Chronic web/dissection of the high cervical left internal carotid artery origin. 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 Calcification within the high right vertebral artery with probable underlying luminal narrowing. CVA (cerebral vascular accident) 2017 (during cardiac cath/stent) Depression with anxiety GERD without esophagitis History of GI bleed Hyperlipidemia Hypertension IBS (irritable bowel syndrome) Kidney stone Nephrolithiasis Sciatica Sensorineural hearing loss (SNHL) of left ear with restricted hearing of right ear Small bowel obstruction, partial Solitary thyroid nodule Tinnitus Surgical History History of cardiac cath 2017 (stent x1), 2018 (stent x1) History of colonoscopy History of esophagogastroduodenoscopy (EGD) History of inguinal hernia repair, bilateral Right (2006), left (2010) History of lithotripsy History of surgery laparoscopic enterectomy - 2018 > 1 stent LAD History of tooth extraction History of urinary tract surgery age 6 > blockage corrected Status post small bowel resection 2018 Family History Grandmother (Paternal) Alzheimer disease Brother Heart disease Myocardial infarction COPD (chronic obstructive pulmonary disease) Grandmother (Maternal) Diabetes Mother Pancreatic cancer Heart disease Cancer Hypertension Other No family history of adverse response to anesthesia No family history of allergies No family history of bleeding disorder Denies family history of Rheumatoid arthritis Ovarian cancer Prostate cancer Hearing loss Bipolar disorder Crohn's disease Depression Kidney disease Breast cancer Schizophrenia Lung cancer Colorectal cancer Stroke Asthma Social History Smoking Status: Never smoker Second Hand Exposure: No; Do You Dip or Chew Tobacco: No; Tobacco Cessation Education Requested by Patient: No Hx Alcohol Use: Yes Alcohol type: wine Hx Substance Use: No Preferred Language: Kiswahili Communication Ability: Effective Hearing Ability: Normal Tap Dancer Required: No Beliefs That Will Affect Care: None marital status: Single Current Living Situation: Spouse current occupational status: employed 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 Other Information That Helps Us Care for You: No Feels Safe at Home: Yes Safety Concerns: Feels Safe At This Time Childhood Exposure to Second-Hand Smoke: No Dental Care, Regularly: Yes Physical Activity Frequency: Daily Seatbelt Use: always Sunscreen Use: Yes Assistive Devices: Glasses Physical Exam Physical Exam: Constitutional: well-appearing, no acute distress HEENT: NCAT, no conjunctival injection CV: regular rhythm, no murmur appreciated, extremities well-perfused, no LE edema Resp: CTABL, no wheezes/rales/rhonchi appreciated, no increased work of breathing GI: soft, nondistended, mild diffuse tenderness to palpitation, no rebound or guarding, BS hypoactive MSK: no gross deformities appreciated Skin: warm, dry, no rash appreciated Neuro: alert, oriented, no focal neurologic deficit appreciated Results & Data Results & Data ([facility]) Vital Signs (Past 12 Hours) Vital Signs Temp Pulse Pulse Resp BP BP Pulse Ox 10/06/21 07:33 81 18 152/89 H 95 10/06/21 05:40 75 19 94 10/06/21 05:33 88 18 138/83 97 10/06/21 04:09 37.1 C 91 H 16 144/94 H 96 O2 Del Method 10/06/21 07:33 Room Air 10/06/21 05:40 Room Air 10/06/21 05:33 Room Air 10/06/21 04:09 Laboratory Results 10/06/21 10/06/2110/06/22 Range/Units 08:08 05:35 04:55 WBC (4.8-10.8) K/ul RBC (4.63-6.08) M/uL Hgb (14.0-18.0) g/dl Hct (40.1-51.0) % MCV (80.0-100.0) fL MCH (25.0-34.0) pg MCHC (32.0-36.0) g/dL RDW Std Deviation (36.4-46.3) fL RDW Coeff of Harika (11.5-14.5) % Plt Count (130-400) K/uL MPV (9.4-12.4) fL Immature Gran % (Auto) % Neut % (Auto) % Lymph % (Auto) % [place] % (Auto) % Eos % (Auto) % Baso % (Auto) % Neut # (Auto) (1.4-6.5) K/uL Lymph # (Auto) (1.2-3.4) K/uL [place] # (Auto) (0.24-0.82) K/uL Eos # (Auto) (0-0.50) K/uL Baso # (Auto) (0-0.2) K/uL Immature Gran # (Auto) (0.00-0.02) K/uL Sodium 137 (136-145) mmol/L Potassium 4.4 (3.5-5.1) mmol/L Chloride 103 (98-107) mmol/L Carbon Dioxide 23 (21-32) mmol/L Anion Gap 11 (3-11) BUN 19 (6-23) mg/dl Creatinine 0.82 (0.6-1.4) mg/dl Est Cr Clr Drug Dosing 74.3 ml/min Est GFR ( Amer) 108.3 ml/min Est GFR (Non-Af Amer) 93.5 ml/min BUN/Creatinine Ratio 23.2 H (10-20) Glucose 139 H (70-99(Fasting)) mg/dl Calcium 9.6 (8.5-10.1) mg/dl Total Bilirubin 1.0 (0.2-1.0) mg/dl AST 18 (13-39) U/L ALT 13 (7-52) U/L Alkaline Phosphatase 60 (34-104) U/L Troponin I High Sens 2.9 (0-20) pg/ml Total Protein 7.5 (6.0-8.3) gm/dl Albumin 4.8 (3.4-5.0) gm/dl Globulin 2.7 (2.5-4.0) gm/dl Albumin/Globulin Ratio 1.8 (0.9-2) Lipase 31 (11-82) U/L Urine Color Dark Yellow Urine Appearance Clear (Clear) Urine pH 5.5 (4.5-7.5) Ur Specific [place] 1.030 (1.000-1.030) Urine Protein 1+ H (Negative) Urine Glucose (UA) Negative (Negative) Urine Ketones 3+ H (Negative) Urine Blood Trace H (Negative) Urine Nitrite Negative (Negative) Urine Bilirubin Negative (Negative) Urine Urobilinogen Negative (Negative) Ur Leukocyte Esterase Negative (Negative) Urine WBC (Auto) 1-5 (0-5) /hpf Urine RBC (Auto) 0-4 (0-4) /hpf U Hyaline Cast (Auto) 5-10 H (0-5) /lpf U Epithel Cells (Auto) 20-30 H (0-5) /lpf Urine Bacteria (Auto) Negative (Negative) SARS-CoV-2, RNA, NAAT NEGATIVE (NEGATIVE) 10/06/21 Range/Units 04:55 WBC 16.69 H (4.8-10.8) K/ul RBC 5.81 (4.63-6.08) M/uL Hgb 17.4 (14.0-18.0) g/dl Hct 50.0 (40.1-51.0) % MCV 86.1 (80.0-100.0) fL MCH 29.9 (25.0-34.0) pg MCHC 34.8 (32.0-36.0) g/dL RDW Std Deviation 40.2 (36.4-46.3) fL RDW Coeff of Harika 13.0 (11.5-14.5) % Plt Count 273 (130-400) K/uL MPV 9.0 L (9.4-12.4) fL Immature Gran % (Auto) 0.3 % Neut % (Auto) 92.9 % Lymph % (Auto) 1.2 % [place] % (Auto) 5.4 % Eos % (Auto) 0.0 % Baso % (Auto) 0.2 % Neut # (Auto) 15.50 H (1.4-6.5) K/uL Lymph # (Auto) 0.20 L (1.2-3.4) K/uL [place] # (Auto) 0.90 H (0.24-0.82) K/uL Eos # (Auto) 0.00 (0-0.50) K/uL Baso # (Auto) 0.04 (0-0.2) K/uL Immature Gran # (Auto) 0.05 H (0.00-0.02) K/uL Sodium (136-145) mmol/L Potassium (3.5-5.1) mmol/L Chloride (98-107) mmol/L Carbon Dioxide (21-32) mmol/L Anion Gap (3-11) BUN (6-23) mg/dl Creatinine (0.6-1.4) mg/dl Est Cr Clr Drug Dosing ml/min Est GFR ( Amer) ml/min Est GFR (Non-Af Amer) ml/min BUN/Creatinine Ratio (10-20) Glucose (70-99(Fasting)) mg/dl Calcium (8.5-10.1) mg/dl Total Bilirubin (0.2-1.0) mg/dl AST (13-39) U/L ALT (7-52) U/L Alkaline Phosphatase (34-104) U/L Troponin I High Sens (0-20) pg/ml Total Protein (6.0-8.3) gm/dl Albumin (3.4-5.0) gm/dl Globulin (2.5-4.0) gm/dl Albumin/Globulin Ratio (0.9-2) Lipase (11-82) U/L Urine Color Urine Appearance (Clear) Urine pH (4.5-7.5) Ur Specific [place] (1.000-1.030) Urine Protein (Negative) Urine Glucose (UA) (Negative) Urine Ketones (Negative) Urine Blood (Negative) Urine Nitrite (Negative) Urine Bilirubin (Negative) Urine Urobilinogen (Negative) Ur Leukocyte Esterase (Negative) Urine WBC (Auto) (0-5) /hpf Urine RBC (Auto) (0-4) /hpf U Hyaline Cast (Auto) (0-5) /lpf U Epithel Cells (Auto) (0-5) /lpf Urine Bacteria (Auto) (Negative) SARS-CoV-2, RNA, NAAT (NEGATIVE) Diagnostic Findings ABDOMEN AND PELVIS CT WITH IV CONTRAST CT DOSE: 304.97 mGy.cm HISTORY: epigastric pain, hx. SBO TECHNIQUE: Multiaxial CT images of the abdomen and pelvis were performed following the use of intravenous contrast. A dose lowering technique was utilized adhering to the principles of ALARA. COMPARISON STUDY: Abdomen and pelvis CT 01/15/2021. FINDINGS: The lung bases are clear. No pneumoperitoneum. No pneumatosis. Stable lucent lesion within the proximal right femur. This is likely benign. Mild elevation of the left hemidiaphragm. The liver, gallbladder, spleen, adrenal glands, and pancreas are unremarkable. Stable bilateral renal hypodense lesions. These likely represent cysts. No hydronephrosis. The bladder is unremarkable. The main portal vein is patent. No retroperitoneal lymphadenopathy. Normal caliber abdominal aorta. Trace pelvic free fluid. Enlarged and heterogeneous prostate gland with an indistinct border. This remains unchanged. Low-density structures adjacent to the inguinal canals favor prior mesh repair. Colonic diverticulosis. No evidence for acute diverticulitis. The majority of the colon is decompressed. Postoperative changes consistent with prior right ileocolonic anastomosis. There is also evidence for right lower quadrant small bowel anastomosis. There is a focal transition point at the small bowel anastomosis within the right lower quadrant best seen on image 280. Proximal to this transition point there is evidence for fecal stasis and distended loops of proximal to mid small bowel consistent with a bowel obstruction. The stomach is also mildly distended and fluid-filled. Distal to this transition point the ileal loops are decompressed. The distended loops of small bowel are fluid- filled and measure up to 3.7 cm in diameter. IMPRESSION: 1. Small bowel obstruction with the transition point located at the right lower quadrant small bowel anastomosis. This has progressed in the interval. 2. Trace pelvic free fluid. 3. Redemonstration of the enlarged and heterogeneous prostate gland with an indistinct border. Follow-up urology consultation recommended to exclude the possibility of underlying malignancy. 4. Additional findings as described above. XR chest 1V portable HISTORY: epigastric pain COMPARISON: None. FINDINGS: The lungs are clear. Cardiac silhouette is normal in size. No pleural effusions. No pneumothorax. A coronary artery stent is noted. IMPRESSION: No acute process. Supervising Physician Co-Signing Physician Notes I personally examined the patient and verified all miller points of history and exam, discussed case, and agree with decision making with Dr Lord. Feeling better by the time I see him. Pain is a lot betterstill has a lot of indigestion reflux/sour stomach type feeling, but lower abdominal pain that felt very intense and almost like gas pain is now a lot better. Vitals noted, in general he is awake and alert pleasant no distress. HEENT normocephalic atraumatic mucous membranes moist. Breathing unlabored no accessory muscle use good effort. Skin shows no rashes no pallor or icterus. Abdomen is soft nondistended may be minimally distended at worst very mild tenderness in his right mid upper abdomen without guarding rebound or rigidity nowhere else is it tender. Neuro without focal deficits. Small bowel obstructionn.p.o.but now that he is feeling a bit bettertrial of ice chips. IV fluids, pain control/nausea control and supportive care. As he improves, advance diet as tolerated. DVT proph - ambulation Resident Activity Tracking Resident Involvement: Resident Care Provided Care Provided: Adult Hospital Medicine
[2021-10-06] MEDS ORDERED: KETOROLAC TROMETHAMINE 15 MG/ML VIAL IV ONE (13:03)
[2021-10-06] MEDS ORDERED: LACTATED RINGER'S 1,000 ML IV SCH (13:30)
[2021-10-06] MEDS ORDERED: FAMOTIDINE 20 MG in SYRINGE 3 ML IV ONE (17:25)
[2021-10-06] MEDS ORDERED: LIDOCAINE VISCOUS 2% 15 ML UDC PO ONE (17:25)
[2021-10-06] MEDS ORDERED: ALUMINUM/MAGNESIUM SUSP 30 ML UDC PO STA (17:25)
[2021-10-06] MEDS ORDERED: ONDANSETRON INJ 2 MG/ML 2 ML VIAL IV PRN (17:38)
[2021-10-06] MEDS ORDERED: MoRPHine SULFATE 2 MG/ML CARP IV PRN (17:38)
[2021-10-06] MEDS ORDERED: ACETAMINOPHEN 1000 MG/100 ML IV IV PRN (17:38)
[2021-10-06] MEDS: KETOROLAC TROMETHAMINE 15 MG/ML VIAL IV PRN (17:57)
[2021-10-06] MEDS: PANTOprazole 40 MG in SYRINGE 0 ML IV SCH (17:57)
[2021-10-06] MEDS: LACTATED RINGER'S 1,000 ML IV SCH ×2 (17:57→20:53)
--- NOTE | 2021-10-06 18:36 | Billing Data ---
Date of Service October 06, 2021 Coding Level of Care Code 29127 Initial Inpt Care Lvl 3
--- NOTE | 2021-10-06 21:10 | Electrocardiogram Report ---
Test Reason : Blood Pressure : / mmHG Vent. Rate : 058 BPM Atrial Rate : 058 BPM P-R Int : 130 ms QRS Dur : 084 ms QT Int : 404 ms P-R-T Axes : 051 021 056 degrees QTc Int : 396 ms Sinus bradycardia with sinus arrhythmia Otherwise normal ECG When compared with ECG of 15-JAN-2021 00:40, Vent. rate has decreased BY 30 BPM Confirmed by Get Mahmood ([id number]) on 10/06/2021 9:09:56 PM Referred By: REFERRED SELF Confirmed By:Get Mahmood
[2021-10-07] MEDS: KETOROLAC TROMETHAMINE 15 MG/ML VIAL IV PRN ×2 (00:43→08:48)
[2021-10-07] MEDS: LACTATED RINGER'S 1,000 ML IV SCH ×2 (06:09→16:32)
[2021-10-07 08:34] LABS: Basophils # (auto) 0.03 K/uL (0-0.2); Basophils % (auto) 0.5 %; Eosinophils # (auto) 0.07 K/uL (0-0.50); Eosinophils % (auto) 1.1 %; Hematocrit (blood only) 43.8 % (40.1-51.0); Hemoglobin 14.9 g/dl (14.0-18.0); Immature Granulocytes # (auto) 0.01 K/uL (0.00-0.02); Immature Granulocytes % (auto) 0.2 %; Lymphocytes # (auto) 0.52 K/uL (1.2-3.4); Lymphocytes % (auto) 8.1 %; Mean Corpuscular Volume 88.1 fL (80.0-100.0); Mean Platelet Volume 9.5 fL (9.4-12.4); Monocytes # (auto) 0.95 K/uL (0.24-0.82); Monocytes % (auto) 14.8 %; Neutrophils # (auto) 4.85 K/uL (1.4-6.5); Neutrophils % (auto) 75.3 %; Platelet Count 207 K/uL (130-400); RDW Standard Deviation 41.7 fL (36.4-46.3); Red Blood Count 4.97 M/uL (4.63-6.08); White Blood Count 6.43 K/ul (4.8-10.8)
--- NOTE | 2021-10-07 08:38 | Hospitalist Progress Note ---
Date of Service October 07, 2021 Assessment & Plan (1) Small bowel obstruction: Plan: Small Bowel Obstruction In patient with history of R hemicolectomy 2010 and partial resection of distal ileum for bleeding polyp in 2018. Also with partial SBO in December 2020 w/ transition point at site of small bowel anastomosis CT of abdomen showed SBO with a transition point in the RLQ at the site of prior small bowel anastomosis One episode of emesis afternoon 10/05, denies any further nausea/vomiting and can hold off NNGT for now LR @ 100cc/hr, decrease to 80cc/hr Continue NPO for now, possible clear liquids this evening as patient passing gas but will defer to surgery, consulted -- appreciate assistance WBC normalized on repeat, afebrile Supportive care/electrolyte replacement as needed Protonix IVP daily while NPO Pain control, antiemetics prn Ambulation encouraged, Repeat KUB GERD Does not take anything on a regular basis for GERD 40 mg IV Protonix qAM while NPO , consider H2 vs PPI at d/c? HTN Blood pressures have ranged from 130s-150s/80-90s since admission BP stable [id number] currently and will monitor as holding home lisinopril 5mg, amlodipine 2.5mg while NPO Hydralazine available prn Monitor HLD Hold statin while NPO (on lipitor 80mg daily) BPH Abdominal CT showed Re-demonstration of the enlarged and heterogeneous prostate gland with an indistinct border. Follow-up urology consultation recommended to exclude the possibility of underlying malignancy. Recommend following up with urology as an outpatient . Will start flomax HS CAD s/p PCI to LAD x2 Follows with Dr Worthington, holding ASA/nitro while NPO. NO CP/SOB reported EKG on admit with sinus rich/sinus arrhythmia, no ischemic changes Continue ASA/statin when taking PO Gynecomastia Hold tamoxifen while NPO no hx breast ca, but patient reported tenderness to L breast w/ lump after exercising in the past Did have imaging f/u but states they were going to trial the tamoxifen for a couple of weeks reported prior gynecomastia symptoms after starting a statin (no new meds) B12 deficiency -- B12 231 in april earlier this year, stated he did recently start OTC B12 supplementation Diet: NPO for now, consider clear liquids later this evening after eval by general surgery Repeat KUB pending DVT Proph: Added SCDs, encouraged ambulation If remains inpatient, consider adding chemo prophylaxis (2) Hypertension: (3) Hyperlipidemia: (4) GERD without esophagitis: (5) CAD (coronary artery disease): (6) Gynecomastia, male: Admission and Anticipated Discharge Date Admission Date: October 06, 2021 Supervising Physician Co-Signing Physician Notes Attending Attestation - Chart reviewed, care plan d/w PA Arlin Maldonado. I agree w/ the miller components of his documentation. SBO - likely 2nd to adhesions from prior surgery. Appreciate gen surg assistance. Luis Cope MD Subjective Evaluated this morning. Doing alright Had some improvement of discomfort and then worsened a little overnight but is better this morning. Passing some gas but no BM. No further emesis and can hold off NGT placement at this time. He does note stomach less distended. Discussed continuing NPO and encouraged ambulation -- he feels that up/moving around a little more may help, agreed and encouraged. No fever/chills, chest pain, shortness of breath. Discussed tamoxifen use -- he states temporarily for lump to left breast after doing excersise (history of gynecomasatia after statin use but no recent med -- excpet did start B12 replacement). Discussed continued inpatient stay/general surgery to follow. Review of Systems Review of Systems: All systems reviewed & are unremarkable except as noted in HPI & below Physical Exam Physical Exam: General: WD/WN male, general pallor, sitting up in bed, NAD HEENT: head normocephalic, atraumatic, mmm, trachea midline without deviation Resp: CTAB, diminished in the bases, no w/r, on room air CV: RRR, no m/r/g, no calf edema or tenderness to palpation GI: +BS throughout, slightly diminished RUQ, no guarding or rigidity, prior scar s well healed from previous surgeries : no camarena MSK/Neuro: moves all extremities, no focal deficits Psych: AOx3, pleasant and cooperative Results & Data Results & Data ([facility]) Vital Signs (Past 12 Hours) Vital Signs Temp Pulse Resp BP Pulse Ox O2 Del Method 10/07/21 07:03 37.2 C 78 16 128/75 91 Room Air 10/06/21 20:45 37 C 71 16 168/76 H 96 Room Air Laboratory Results 10/07/21 10/07/21 Range/Units 07:46 07:46 WBC 6.43 (4.8-10.8) K/ul RBC 4.97 (4.63-6.08) M/uL Hgb 14.9 (14.0-18.0) g/dl Hct 43.8 (40.1-51.0) % MCV 88.1 (80.0-100.0) fL MCH 30.0 (25.0-34.0) pg MCHC 34.0 (32.0-36.0) g/dL RDW Std Deviation 41.7 (36.4-46.3) fL RDW Coeff of Harika 13.0 (11.5-14.5) % Plt Count 207 (130-400) K/uL MPV 9.5 (9.4-12.4) fL Immature Gran % (Auto) 0.2 % Neut % (Auto) 75.3 % Lymph % (Auto) 8.1 % Scott % (Auto) 14.8 % Eos % (Auto) 1.1 % Baso % (Auto) 0.5 % Neut # (Auto) 4.85 (1.4-6.5) K/uL Lymph # (Auto) 0.52 L (1.2-3.4) K/uL Scott # (Auto) 0.95 H (0.24-0.82) K/uL Eos # (Auto) 0.07 (0-0.50) K/uL Baso # (Auto) 0.03 (0-0.2) K/uL Immature Gran # (Auto) 0.01 (0.00-0.02) K/uL Sodium 140 (136-145) mmol/L Potassium 4.3 (3.5-5.1) mmol/L Chloride 106 (98-107) mmol/L Carbon Dioxide 29 (21-32) mmol/L Anion Gap 5 (3-11) BUN 20 (6-23) mg/dl Creatinine 0.96 (0.6-1.4) mg/dl Est Cr Clr Drug Dosing 75.2 ml/min Est GFR ( Amer) 96.4 ml/min Est GFR (Non-Af Amer) 83.2 ml/min BUN/Creatinine Ratio 20.8 H (10-20) Glucose 96 (70-99(Fasting)) mg/dl Calcium 8.6 (8.5-10.1) mg/dl Total Bilirubin 0.9 (0.2-1.0) mg/dl AST 13 (13-39) U/L ALT 8 (7-52) U/L Alkaline Phosphatase 42 (34-104) U/L Total Protein 5.9 L D (6.0-8.3) gm/dl Albumin 3.7 (3.4-5.0) gm/dl Globulin 2.2 L (2.5-4.0) gm/dl Albumin/Globulin Ratio 1.7 (0.9-2) PG Care Time/CCT Total # of Minutes Spent Total Time Spent with Patient: Total time spent is greater than 50% in coordination of care (as documented) at patient's floor/unit and/or counseling patient: Coding Level of Care Code 34098 Subseq Hosp Care Lvl 3 Diagnoses Small bowel obstruction K56.609 Hypertension I10 Hyperlipidemia E78.5 GERD without esophagitis K21.9 CAD (coronary artery disease) I25.10 Gynecomastia, male N62
[2021-10-07] MEDS: PANTOprazole 40 MG in SYRINGE 0 ML IV SCH (08:48)
[2021-10-07 08:58] LABS: Albumin Globulin Ratio 1.7 (0.9-2); Albumin Level 3.7 gm/dl (3.4-5.0); BUN Creatinine Ratio 20.8 (10-20); Bilirubin,Total 0.9 mg/dl (0.2-1.0); Calcium 8.6 mg/dl (8.5-10.1); Creatinine Clr Calc Pharmacy 75.2 ml/min; Est GFR (African American) 96.4 ml/min; Est GFR (Non-African American) 83.2 ml/min; Globulin 2.2 gm/dl (2.5-4.0); Potassium 4.3 mmol/L (3.5-5.1); Total Protein 5.9 gm/dl (6.0-8.3)
[2021-10-07] MEDS ORDERED: hydrALAZINE HCL 20 MG/ML VIAL IV PRN (12:05)
--- NOTE | 2021-10-07 13:59 | XRay Report ---
KUB HISTORY: Follow up study in a patient with a known small bowel obstruction f/u SBO COMPARISON: CT abdomen and pelvis 10/06/2021 FINDINGS: Persistent small bowel obstruction with dilated loops measuring up to approximately 5.4 cm previous measuring up to approximately 3.6 cm. Anastomotic suture material noted within the right abd omen with moderate fecal retention of the right hemicolon. No urolith identified. Pelvic basin calci fications are likely vascular. No pneumoperitoneum or pneumatosis. No fracture. IMPRESSION: Persistent small bowel obstruction with stable to mildly worsened distention of the small bowel. Cont inued follow-up is needed. ACT 112: Negative or not required by law. The above report was generated using voice recognition software. It may contain grammatical, syntax o r spelling errors. Electronically signed by: Jim Quiroz M.D. 10/07/2021 1:57 PM
--- NOTE | 2021-10-07 15:22 | Surgery Consultation ---
Date of Consultation October 07, 2021 Assessment & Plan (1) Small bowel obstruction: Plan 65 year-old male with history of Right hemicolectomy (2010) and small bowel resection (2018) at [facility] and a SBO in December of 2020 treated conservatively presented to ED with abdominal pain, n,v, and bloating that began on Thursday. CT scan showing SBO with narrowing at site of small bowel anastomosis as cause of SBO which has slightly progressed since last CT scan in December. No leukocytosis today, abdomen is soft, mildly tender, clinically improving, passing some gas. Plan: Discussed with patient imaging findings and recommendation of conservative treatment. He is clinically feeling better and no further nausea so can hold off on NGT at this time. Would keep NPO for bowel rest. Highly encouraged ambulating hallway. Could consider a small bowel follow through as an outpatient once through this acute phase to further evaluate the small bowel anastomosis. Continue current medical management will continue to follow Dr. Kelly has seen patient, please see addendum for further recommendations/plan. Supervising Physician Co-Signing Physician Notes I have seen and examined the patient and agree with the above assessment and plan. We will continue conservative management at this time. He seems to be passing a small amount of gas and is having less pain and tenderness. We discussed possibility of small bowel follow-through if he does not improve or as an outpatient after he is better to determine whether there is a stricture at the anastomosis. We will continue to follow. History of Present Illness Reason for Consultation: SBO Requesting Physician: Arlin Maldonado PA-C Attending Physician: Luis Cope History of Present Illness João is a pleasant 65 year-old male with history of right hemicolectomy for large unresectable polyp in 2010 at [facility] and small bowel resection in 2018 for polyp again at [facility] who presented to emergency room with complaint of abdominal pain, bloating, nausea and vomiting that began Thursday afternoon. Previously admitted to hospital in December with SBO which resolved with conservative measures. This is similar to that episode in December. He states he is feeling better since admission. Still feeling slightly bloated but that has improved. Pain improved. Passing small amount of flatus. No bowel movement yet. Denies further nausea, vomiting, or belching. Had reflux yesterday but that has since resolved. States he feels things moving around in his abdomen more today. Allergies Allergy/AdvReac Type Severity Reaction Status Date / Time penicillamine Allergy Severe Throat Verified 09/02/21 09:25 infection cat dander Allergy Mild Congestion Verified 09/02/21 09:25 lactose Allergy Mild Abdominal Verified 09/02/21 09:25 discomfort, adverse GI symptpoms Macrolide Antibiotics Allergy Mild Rash, Verified 09/02/21 09:25 diarrhea Penicillins Allergy Mild Rash Verified 09/02/21 09:25 oxycodone AdvReac Intermediate Syncope Verified 09/02/21 09:25 erythromycin base AdvReac Mild Diarrhea Verified 09/02/21 09:25 Home Medications Medication Instructions Recorded Confirmed Type ascorbic acid (vitamin C) 1,000 mg 1,000 mg PO QAM 08/03/18 09/02/21 History tablet coenzyme Q10 10 mg capsule 10 mg PO QAM 08/03/18 09/02/21 History zinc gluconate 50 mg tablet 50 mg PO QAM 08/03/18 09/02/21 History aspirin 81 mg tablet,delayed 81 mg PO QAM 08/23/18 09/02/21 History release glucosamine sulfate 500 mg tablet 500 mg PO QAM 08/23/18 09/02/21 History (Glucosamine) nitroglycerin 0.4 mg sublingual 0.4 mg sublingual ONCE PRN Chest 08/23/18 09/02/21 History tablet Pain #25 tabs albuterol sulfate 90 mcg/actuation 2 puffs inhalation Q6H PRN allergy 02/24/19 09/02/21 Rx aerosol inhaler to cats #3 grams cholecalciferol (vitamin D3) 50 4,000 unit PO QAM 09/20/20 09/02/21 History mcg (2,000 unit) capsule tadalafil 5 mg tablet (Cialis) 5 mg PO DAILY #90 tabs 04/09/21 09/02/21 Rx tamoxifen 10 mg tablet 10 mg PO BID #180 tabs 07/04/21 09/02/21 Rx amlodipine 2.5 mg tablet 2.5 mg PO QAM #90 tabs 09/02/21 09/02/21 Rx atorvastatin 80 mg tablet 80 mg PO QAM #90 tabs 09/02/21 09/02/21 Rx lisinopril 5 mg tablet 5 mg PO QAM #90 tabs 09/02/21 09/02/21 Rx Patient History Medical History (Updated 10/06/21 @ 19:17 by Diallo Calvo DO) Allergy to cats Reason for inhaler per pt (denies asthma/copd) Basilar artery stenosis BPH (benign prostatic hyperplasia) CAD (coronary artery disease) 2017 (stent x1), 2018 (stent x1), Follows with Dr. 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 40% diameter stenosis of the right internal carotid artery origin. 70% diameter stenosis of the left internal carotid artery origin. Chronic web/dissection of the high cervical left internal carotid artery origin. 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 Calcification within the high right vertebral artery with probable underlying luminal narrowing. CVA (cerebral vascular accident) 2017 (during cardiac cath/stent) Depression with anxiety GERD without esophagitis History of GI bleed Hyperlipidemia Hypertension IBS (irritable bowel syndrome) Kidney stone Nephrolithiasis Sciatica Sensorineural hearing loss (SNHL) of left ear with restricted hearing of right ear Small bowel obstruction, partial Solitary thyroid nodule Tinnitus Surgical History History of cardiac cath 2017 (stent x1), 2018 (stent x1) History of colonoscopy History of esophagogastroduodenoscopy (EGD) History of inguinal hernia repair, bilateral Right (2006), left (2010) History of lithotripsy History of surgery laparoscopic enterectomy - 2018 > 1 stent LAD History of tooth extraction History of urinary tract surgery age 6 > blockage corrected Status post small bowel resection 2018 Family History Grandmother (Paternal) Alzheimer disease Brother Heart disease Myocardial infarction COPD (chronic obstructive pulmonary disease) Grandmother (Maternal) Diabetes Mother Pancreatic cancer Heart disease Cancer Hypertension Other No family history of adverse response to anesthesia No family history of allergies No family history of bleeding disorder Denies family history of Rheumatoid arthritis Ovarian cancer Prostate cancer Hearing loss Bipolar disorder Crohn's disease Depression Kidney disease Breast cancer Schizophrenia Lung cancer Colorectal cancer Stroke Asthma Social History Smoking Status: Never smoker Second Hand Exposure: No; Hx Alcohol Use: Yes Alcohol type: wine Hx Substance Use: No Preferred Language: Maltese Communication Ability: Effective Hearing Ability: Normal 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 Required: No Beliefs That Will Affect Care: None marital status: Single Current Living Situation: Spouse current occupational status: employed 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 Feels Safe at Home: Yes Childhood Exposure to Second-Hand Smoke: No Dental Care, Regularly: Yes Physical Activity Frequency: Daily Seatbelt Use: always Sunscreen Use: Yes Assistive Devices: None Physical Exam Constitutional: WD/WN, vitals as above no acute distress and not ill appearing Neck: normal visual inspection and trachea midline Respiratory: normal respiratory effort; no respiratory distress, no labored breathing and no retractions Gastrointestinal (Abdomen): Inspection/Auscultation: abdomen normal to inspection, + abdomen distended (very mildly), + abdominal surgical scar (laparoscopic surgical scars) and + hypoactive bowel sounds; + abnormal bowel sounds Percussion/Palpation: + abdomen tender (mild in rlq on deep palpation) and abdomen soft; no guarding and abdomen not rigid Skin: no rashes, warm and dry Psychiatric: A+Ox3, euthymic affect Results & Data ([facility]) Vital Signs (Past 12 Hours) Vital Signs Temp Pulse Resp BP Pulse Ox O2 Del Method 10/07/21 07:03 37.2 C 78 16 128/75 91 Room Air Laboratory Results 10/07/21 10/07/21 Range/Units 07:46 07:46 WBC 6.43 (4.8-10.8) K/ul RBC 4.97 (4.63-6.08) M/uL Hgb 14.9 (14.0-18.0) g/dl Hct 43.8 (40.1-51.0) % MCV 88.1 (80.0-100.0) fL MCH 30.0 (25.0-34.0) pg MCHC 34.0 (32.0-36.0) g/dL RDW Std Deviation 41.7 (36.4-46.3) fL RDW Coeff of Harika 13.0 (11.5-14.5) % Plt Count 207 (130-400) K/uL MPV 9.5 (9.4-12.4) fL Immature Gran % (Auto) 0.2 % Neut % (Auto) 75.3 % Lymph % (Auto) 8.1 % [place] % (Auto) 14.8 % Eos % (Auto) 1.1 % Baso % (Auto) 0.5 % Neut # (Auto) 4.85 (1.4-6.5) K/uL Lymph # (Auto) 0.52 L (1.2-3.4) K/uL [place] # (Auto) 0.95 H (0.24-0.82) K/uL Eos # (Auto) 0.07 (0-0.50) K/uL Baso # (Auto) 0.03 (0-0.2) K/uL Immature Gran # (Auto) 0.01 (0.00-0.02) K/uL Sodium 140 (136-145) mmol/L Potassium 4.3 (3.5-5.1) mmol/L Chloride 106 (98-107) mmol/L Carbon Dioxide 29 (21-32) mmol/L Anion Gap 5 (3-11) BUN 20 (6-23) mg/dl Creatinine 0.96 (0.6-1.4) mg/dl Est Cr Clr Drug Dosing 75.2 ml/min Est GFR ( Amer) 96.4 ml/min Est GFR (Non-Af Amer) 83.2 ml/min BUN/Creatinine Ratio 20.8 H (10-20) Glucose 96 (70-99(Fasting)) mg/dl Calcium 8.6 (8.5-10.1) mg/dl Total Bilirubin 0.9 (0.2-1.0) mg/dl AST 13 (13-39) U/L ALT 8 (7-52) U/L Alkaline Phosphatase 42 (34-104) U/L Total Protein 5.9 L D (6.0-8.3) gm/dl Albumin 3.7 (3.4-5.0) gm/dl Globulin 2.2 L (2.5-4.0) gm/dl Albumin/Globulin Ratio 1.7 (0.9-2) Diagnostic Findings ABDOMEN AND PELVIS CT WITH IV CONTRAST CT DOSE: 304.97 mGy.cm HISTORY: epigastric pain, hx. SBO TECHNIQUE: Multiaxial CT images of the abdomen and pelvis were performed following the use of intravenous contrast. A dose lowering technique was utilized adhering to the principles of ALARA. COMPARISON STUDY: Abdomen and pelvis CT 01/15/2021. FINDINGS: The lung bases are clear. No pneumoperitoneum. No pneumatosis. Stable lucent lesion within the proximal right femur. This is likely benign. Mild elevation of the left hemidiaphragm. The liver, gallbladder, spleen, adrenal glands, and pancreas are unremarkable. Stable bilateral renal hypodense lesions. These likely represent cysts. No hydronephrosis. The bladder is unremarkable. The main portal vein is patent. No retroperitoneal lymphadenopathy. Normal caliber abdominal aorta. Trace pelvic free fluid. Enlarged and heterogeneous prostate gland with an indistinct border. This remains unchanged. Low-density structures adjacent to the inguinal canals favor prior mesh repair. Colonic diverticulosis. No evidence for acute diverticulitis. The majority of the colon is decompressed. Postoperative changes consistent with prior right ileocolonic anastomosis. There is also evidence for right lower quadrant small bowel anastomosis. There is a focal transition point at the small bowel anastomosis within the right lower quadrant best seen on image 280. Proximal to this transition point there is evidence for fecal stasis and distended loops of proximal to mid small bowel consistent with a bowel obstruction. The stomach is also mildly distended and fluid-filled. Distal to this transition point the ileal loops are decompressed. The distended loops of small bowel are fluid- filled and measure up to 3.7 cm in diameter. IMPRESSION: 1. Small bowel obstruction with the transition point located at the right lower quadrant small bowel anastomosis. This has progressed in the interval. 2. Trace pelvic free fluid. 3. Redemonstration of the enlarged and heterogeneous prostate gland with an indistinct border. Follow-up urology consultation recommended to exclude the possibility of underlying malignancy. 4. Additional findings as described above. KUB HISTORY: Follow up study in a patient with a known small bowel obstruction f/u SBO COMPARISON: CT abdomen and pelvis 10/06/2021 FINDINGS: Persistent small bowel obstruction with dilated loops measuring up to approximately 5.4 cm previous measuring up to approximately 3.6 cm. Anastomotic suture material noted within the right abdomen with moderate fecal retention of the right hemicolon. No urolith identified. Pelvic basin calcifications are likely vascular. No pneumoperitoneum or pneumatosis. No fracture. IMPRESSION: Persistent small bowel obstruction with stable to mildly worsened distention of the small bowel. Continued follow-up is needed.
[2021-10-07] MEDS: HEPARIN SOD 5,000 UNIT/0.5 ML VIAL SQ SCH (20:58)
[2021-10-08] MEDS: TAMSULOSIN HCL 0.4 MG CAP PO SCH ×2 (05:14→20:57)
[2021-10-08] MEDS: LACTATED RINGER'S 1,000 ML IV SCH ×2 (05:52→18:55)
--- NOTE | 2021-10-08 08:12 | Hospitalist Progress Note ---
Date of Service October 08, 2021 Assessment & Plan (1) Small bowel obstruction: Plan: Small Bowel Obstruction In patient with history of R hemicolectomy 2010 and partial resection of distal ileum for bleeding polyp in 2018. Also with partial SBO in December 2020 w/ transition point at site of small bowel anastomosis CT of abdomen showed SBO with a transition point in the RLQ at the site of prior small bowel anastomosis One episode of emesis afternoon 10/05, denies any further nausea/vomiting and can hold off NGT for now General surgery consulted WBC normalized on repeat, afebrile LR @ 80cc/hr for now NPO continued, but likely able to order clear liquids later today and discontinue IVF Reported +moderate BM overnight 10/07-10/08 x2 Repeat KUB pending for this morning Protonix IVP daily while NPO Pain control, antiemetics prn Ambulation encouraged Continue supportive care/electrolyte replacement as needed Will order 2gm IV magnesium for mag 1.7 to keep closer to 2. K 4.0 Of note, he wants follow up with Dr Mena after discharge GERD Does not take anything on a regular basis for GERD 40 mg IV Protonix qAM while NPO , consider H2 vs PPI at d/c? HTN Blood pressures have ranged from 130s-150s/80-90s since admission BP stable 133/77 and home lisinopril 5 mg, amlodipine 2.5mg are on hold Will hold for today/monitor as advancing diet Hydralazine available prn HLD Hold statin while NPO (on lipitor 80mg daily) BPH Abdominal CT showed Re-demonstration of the enlarged and heterogeneous prostate gland with an indistinct border. Follow-up urology consultation recommended to exclude the possibility of underlying malignancy. Recommend following up with urology as an outpatient . Started flomax, will check PSA with AM labs CAD s/p PCI to LAD x2 Follows with Dr Worthington, holding ASA/nitro while NPO. NO CP/SOB reported EKG on admit with sinus rich/sinus arrhythmia, no ischemic changes Continue ASA/statin when taking PO -- will resume ASA , statin for tomorrow Gynecomastia Hold tamoxifen while NPO --no hx breast ca, but patient reported tenderness to L breast w/ lump after exercising in the past to his PCP, ref to endocrinology Did have imaging f/u but states they were going to trial the tamoxifen for a couple of weeks reported prior gynecomastia symptoms after starting a statin (no new meds) No tenderness on examination following with endocrinology for the tamoxifen B12 deficiency -- B12 231 in april earlier this year, stated he did recently start OTC B12 supplementation recommended continued supplementation at discharge Diet: NPO for this morning until eval, repeat KUB pending, possible trial clear liquids this morning DVT Proph: SCDs, Heparin SQ added 10/07, ambulation encouraged (2) Hypertension: (3) Hyperlipidemia: (4) GERD without esophagitis: (5) CAD (coronary artery disease): (6) Gynecomastia, male: Admission and Anticipated Discharge Date Admission Date: October 06, 2021 Supervising Physician Co-Signing Physician Notes PA Supervision Note: I did not personally see or examine the patient today, but I verified all miller points of PAUL Maldonado's assessment and plan with the following exceptions/additions: None Subjective Evaluated this morning. Doing much better. BM around 3, smaller, then another larger substantial brown BM around 5am. Less distention, no abdominal pain but some minimal cramping. Ambulation has helped and encouraged continued ambulation. KUB for this morning but planning for some clear liquids for today given abdominal sounds all four quadrants, no tenderness, no nausea or vomiting. He would like to have follow up scheduled with Dr Jett after discharge Review of Systems Review of Systems: All systems reviewed & are unremarkable except as noted in HPI & below Physical Exam Physical Exam: General: WD/WN male, general pallor, sitting up in bed, NAD HEENT: head normocephalic, atraumatic, mmm, trachea midline without deviation Resp: CTAB, no w/r, on room air CV: RRR, no m/r/g, no calf edema or tenderness to palpation GI: +BS throughout, no guarding or rigidity, prior scars well healed from previous surgeries : no camarena MSK/Neuro: moves all extremities, no focal deficits Psych: AOx3, pleasant and cooperative Results & Data Results & Data ([facility]) Vital Signs (Past 12 Hours) Vital Signs Temp Pulse Resp BP Pulse Ox O2 Del Method 10/08/21 07:14 36.7 C 68 16 133/77 97 Room Air 10/07/21 22:38 36.7 C 68 18 139/72 97 Room Air Laboratory Results 10/08/21 10/07/21 Range/Units 07:49 07:46 Sodium 138 140 (136-145) mmol/L Potassium 4.0 4.3 (3.5-5.1) mmol/L Chloride 105 106 (98-107) mmol/L Carbon Dioxide 27 29 (21-32) mmol/L Anion Gap 6 5 (3-11) BUN 15 20 (6-23) mg/dl Creatinine 0.80 0.96 (0.6-1.4) mg/dl Est Cr Clr Drug Dosing 90.3 75.2 ml/min Est GFR ( Amer) 109.4 96.4 ml/min Est GFR (Non-Af Amer) 94.4 83.2 ml/min BUN/Creatinine Ratio 18.8 20.8 H (10-20) Glucose 76 96 (70-99(Fasting)) mg/dl Calcium 8.5 8.6 (8.5-10.1) mg/dl Magnesium 1.7 (1.7-2.4) mg/dl Total Bilirubin 1.0 0.9 (0.2-1.0) mg/dl AST 14 13 (13-39) U/L ALT 8 8 (7-52) U/L Alkaline Phosphatase 40 42 (34-104) U/L Total Protein 5.5 L 5.9 L D (6.0-8.3) gm/dl Albumin 3.5 3.7 (3.4-5.0) gm/dl Globulin 2.0 L 2.2 L (2.5-4.0) gm/dl Albumin/Globulin Ratio 1.8 1.7 (0.9-2) PG Care Time/CCT Total # of Minutes Spent Total Time Spent with Patient: Total time spent is greater than 50% in coordination of care (as documented) at patient's floor/unit and/or counseling patient: Coding Level of Care Code 23461 Subseq Hosp Care Lvl 2 Diagnoses Small bowel obstruction K56.609 Hypertension I10 Hyperlipidemia E78.5 GERD without esophagitis K21.9 CAD (coronary artery disease) I25.10 Gynecomastia, male N62
[2021-10-08 08:42] LABS: Albumin Globulin Ratio 1.8 (0.9-2); Albumin Level 3.5 gm/dl (3.4-5.0); BUN Creatinine Ratio 18.8 (10-20); Calcium 8.5 mg/dl (8.5-10.1); Creatinine Clr Calc Pharmacy 90.3 ml/min; Est GFR (African American) 109.4 ml/min; Est GFR (Non-African American) 94.4 ml/min; Magnesium 1.7 mg/dl (1.7-2.4); Total Protein 5.5 gm/dl (6.0-8.3)
[2021-10-08] MEDS: PANTOprazole 40 MG in SYRINGE 0 ML IV SCH (09:44)
[2021-10-08] MEDS: HEPARIN SOD 5,000 UNIT/0.5 ML VIAL SQ SCH ×2 (09:52→20:57)
[2021-10-08] MEDS: MAGNESIUM SULFATE / D5W 1 GM/100 ML BAG IV SCH ×2 (10:21→12:16)
[2021-10-08] MEDS ORDERED: hydrOXYzine HCl 10 MG TAB PO PRN (11:21)
[2021-10-08] MEDS ORDERED: MELATONIN 3 MG TAB PO PRN (11:21)
--- NOTE | 2021-10-08 13:54 | XRay Report ---
KUB CLINICAL HISTORY: Small bowel obstruction. FINDINGS: 2 AP supine abdominal radiographs are compared to study dated 10/07/2021 and correlated with abdominal CT dated 10/06/2021. There is persistent small bowel obstruction. Distended small bowel loo ps measure up to 5 cm. No evidence of intraperitoneal free air is seen on these supine images. Suture material is noted in the right mid abdomen. Phleboliths are seen in the pelvis. The bony structures appear intact. IMPRESSION: Persistent small bowel obstruction, similar in appearance to yesterday. Electronically signed by: Kraig Elias M.D. 10/08/2021 1:53 PM
--- NOTE | 2021-10-08 14:00 | Surgery Progress Note ---
Date of Service October 08, 2021 Assessment & Plan (1) Small bowel obstruction: Plan 65 year-old male with history of Right hemicolectomy (2010) and small bowel resection (2018) at [facility] and a SBO in December of 2020 treated conservatively presented to ED with abdominal pain, n,v, and bloating that began on Thursday. CT scan showing SBO with narrowing at site of small bowel anastomosis as cause of SBO which has slightly progressed since last CT scan in December. 10/08/2021 afebrile + bowel function KUB still showing dilated small bowel but gas within colon abdomen soft, nontender Plan: continue conservative measures okay for clear liquids, advised to go slowly continue ambulating hallway continue medical management Can consider SBFT as an outpatient to further evaluation the anastomosis site once through this acute phase Dr. Kelly has seen patient and agrees with above. Admission and Anticipated Discharge Date Admission Date: October 06, 2021 Supervising Physician Co-Signing Physician Notes I have seen and examined the patient and agree with the above assessment and plan. He is doing better today. We will continue conservative measures. We will advance his diet slowly as tolerated. We will continue to follow. Subjective feeling better today only having some mild abdominal discomfort but the pain has resolved passed two bowel movements and passing gas no n,v Physical Exam Constitutional: WD/WN, vitals as above no acute distress and not ill appearing Neck: normal visual inspection Respiratory: normal respiratory effort; no respiratory distress and no labored breathing Gastrointestinal (Abdomen): Inspection/Auscultation: abdomen normal to inspection; abdomen not distended Percussion/Palpation: abdomen soft; abdomen nontender, no guarding and abdomen not rigid Skin: no rashes, warm and dry Psychiatric: A+Ox3, euthymic affect Results & Data ([facility]) Vital Signs (Past 12 Hours) Vital Signs Temp Pulse Resp BP Pulse Ox O2 Del Method 10/08/21 07:14 36.7 C 68 16 133/77 97 Room Air Laboratory Results 10/08/21 Range/Units 07:49 Sodium 138 (136-145) mmol/L Potassium 4.0 (3.5-5.1) mmol/L Chloride 105 (98-107) mmol/L Carbon Dioxide 27 (21-32) mmol/L Anion Gap 6 (3-11) BUN 15 (6-23) mg/dl Creatinine 0.80 (0.6-1.4) mg/dl Est Cr Clr Drug Dosing 90.3 ml/min Est GFR ( Amer) 109.4 ml/min Est GFR (Non-Af Amer) 94.4 ml/min BUN/Creatinine Ratio 18.8 (10-20) Glucose 76 (70-99(Fasting)) mg/dl Calcium 8.5 (8.5-10.1) mg/dl Magnesium 1.7 (1.7-2.4) mg/dl Total Bilirubin 1.0 (0.2-1.0) mg/dl AST 14 (13-39) U/L ALT 8 (7-52) U/L Alkaline Phosphatase 40 (34-104) U/L Total Protein 5.5 L (6.0-8.3) gm/dl Albumin 3.5 (3.4-5.0) gm/dl Globulin 2.0 L (2.5-4.0) gm/dl Albumin/Globulin Ratio 1.8 (0.9-2) Diagnostic Findings KUB CLINICAL HISTORY: Small bowel obstruction. FINDINGS: 2 AP supine abdominal radiographs are compared to study dated 022 and correlated with abdominal CT dated 10/06/2021. There is persistent small bowel obstruction. Distended small bowel loops measure up to 5 cm. No evidence of intraperitoneal free air is seen on these supine images. Suture material is noted in the right mid abdomen. Phleboliths are seen in the pelvis. The bony structures appear intact. IMPRESSION: Persistent small bowel obstruction, similar in appearance to yesterday.
[2021-10-08] MEDS: ASPIRIN 81 MG ECTAB PO SCH (14:14)
[2021-10-09] MEDS: LACTATED RINGER'S 1,000 ML IV SCH (07:20)
[2021-10-09] MEDS: HEPARIN SOD 5,000 UNIT/0.5 ML VIAL SQ SCH (07:55)
[2021-10-09] MEDS: ASPIRIN 81 MG ECTAB PO SCH (07:55)
--- NOTE | 2021-10-09 08:06 | Hospitalist Progress Note ---
Date of Service October 09, 2021 Assessment & Plan (1) Small bowel obstruction: Plan: Small Bowel Obstruction In patient with history of R hemicolectomy 2010 and partial resection of distal ileum for bleeding polyp in 2018. Also with partial SBO in December 2020 w/ transition point at site of small bowel anastomosis CT of abdomen showed SBO with a transition point in the RLQ at the site of prior small bowel anastomosis One episode of emesis afternoon 10/05, denies any further nausea/vomiting and can hold off NGT for now General surgery on consult WBC normalized on repeat, elevation likely 2nd to n/v/obstruction Afebrile LR @ 80cc/hr -- plans to d/c tonight 2BM 10/08, additional large BM 10/09 KUB official read pending but with good bowel sounds throughout, soft abd, and discussion with surgery MERARI, advanced to low fiber this afternoon Arranged for GI f/u with [facility] for October 15 Recommending small bowel follow through to be arranged at follow up visit (or can be ordered by harriett, per Inge) Supportive care/electrolyte replacement as needed. Keep K ~4, Mag ~2 (additional 2gm IV mag to be ordered for today for Mag 1.8 which improved from 1.7 day prior) GERD Does not take anything on a regular basis for GERD Protonix 40mg daily ordered -- consider continuing at discharge HTN Blood pressures have ranged from 130s-150s/80-90s since admission but typically well controlled at home BP elevated this morning and home lisinopril 5 mg, amlodipine 2.5mg are on hold --> resumed amlodipine for this morning but hold lisinopril for now Asymptomatic from such, no VALENCIA/CP/SOb Hydralazine available prn HLD Held statin while NPO (on lipitor 80mg daily), can resume BPH Abdominal CT showed Re-demonstration of the enlarged and heterogeneous prostate gland with an indistinct border. Follow-up urology consultation recommended to exclude the possibility of underlying malignancy. Recommend following up with urology as an outpatient . --> follows with Dr Chamorro for prior history of kidney stones, has flomax at home but refusing, encouraged use as has some issues with stream on occasion at night PSA checked with AM labs, not elevated -- 1.135. Outpt f/u Dr Chamorro CAD s/p PCI to LAD x2 Follows with Dr Worthington, holding ASA/nitro while NPO. NO CP/SOB reported EKG on admit with sinus rich/sinus arrhythmia, no ischemic changes Continue ASA/statin when taking PO -- will resume ASA , statin for tomorrow Gynecomastia Hold tamoxifen while NPO --no hx breast ca, but patient reported tenderness to L breast w/ lump after exercising in the past to his PCP, ref to endocrinology Did have imaging f/u but states they were going to trial the tamoxifen for a couple of weeks reported prior gynecomastia symptoms after starting a statin (no new meds) No tenderness on examination following with endocrinology for the tamoxifen B12 deficiency -- B12 231 in april earlier this year, stated he did recently start OTC B12 supplementation recommended continued supplementation at discharge Also with known carotid stenosis, has been seen by specialist, had routine monitoring and no further f/u required. Remains on ASA daily and had no residual symptoms from prior events years ago Diet: NPO for this morning until eval, repeat KUB pending, possible trial clear liquids this morning DVT Proph: SCDs, Heparin SQ added 10/07 (refusing), ambulation encouraged (2) Hypertension: (3) Hyperlipidemia: (4) GERD without esophagitis: (5) CAD (coronary artery disease): (6) Gynecomastia, male: Admission and Anticipated Discharge Date Admission Date: October 06, 2021 Supervising Physician Co-Signing Physician Notes PA Supervision Note: I did not personally see or examine the patient today, but I verified all miller points of PAUL Maldonado's assessment and plan with the following exceptions/additions: None Subjective Eval this morning. Had another BM this morning, feeling much improved. Abdomen soft, no pain. No nausea/vomiting, fever/chills. Surgery PA in room and considering soft diet for today. Discussed f/u GI, he just got a call on phone for October 15. Discussion had regarding SBFT that can be arranged in follow up visit as will be recovered from current SBO. Discussed checking PSA and urology outpt f/u. He states he had kidney stones last year and seen by Dr Chamorro. Will have f/u outpatient . Patient denies change in urinary symptoms however did note at night occasionally with trickle. Does have flomax at home but doesn't take. States he had f/u Renal US and was told he was free of stones. Review of Systems Review of Systems: All systems reviewed & are unremarkable except as noted in HPI & below Physical Exam Physical Exam: General: WD/WN male, general pallor, sitting up in bed, NAD HEENT: head normocephalic, atraumatic, mmm, trachea midline without deviation, +bruit (chronic) Resp: CTAB, no w/r, on room air CV: RRR, no m/r/g, no calf edema or tenderness to palpation GI: SOFT, NONTENDER, BS throughout, increased : no camarena MSK/Neuro: moves all extremities, no focal deficits Psych: AOx3, pleasant and cooperative Results & Data Results & Data ([facility]) Vital Signs (Past 12 Hours) Vital Signs Temp Pulse Resp BP Pulse Ox O2 Del Method 10/09/21 07:05 36.7 C 61 16 154/90 H 99 Room Air 10/08/21 21:10 36.9 C 59 L 15 155/83 H 98 Room Air Laboratory Results 10/09/21 10/09/21 Range/Units 10:48 09:11 Sodium 137 (136-145) mmol/L Potassium 4.0 (3.5-5.1) mmol/L Chloride 102 (98-107) mmol/L Carbon Dioxide 29 (21-32) mmol/L Anion Gap 6 (3-11) BUN 10 (6-23) mg/dl Creatinine 0.84 (0.6-1.4) mg/dl Est Cr Clr Drug Dosing 86.0 ml/min Est GFR ( Amer) 107.2 ml/min Est GFR (Non-Af Amer) 92.5 ml/min BUN/Creatinine Ratio 11.9 (10-20) Glucose 151 H (70-99(Fasting)) mg/dl Calcium 9.1 (8.5-10.1) mg/dl Magnesium 1.8 (1.7-2.4) mg/dl Prostate Specific Ag 1.135 (0-4) ng/ml PG Care Time/CCT Total # of Minutes Spent Total Time Spent with Patient: Total time spent is greater than 50% in coordination of care (as documented) at patient's floor/unit and/or counseling patient: Coding Level of Care Code None Diagnoses Small bowel obstruction K56.609 Hypertension I10 Hyperlipidemia E78.5 GERD without esophagitis K21.9 CAD (coronary artery disease) I25.10 Gynecomastia, male N62
[2021-10-09] MEDS ORDERED: amLODIPine BESYLATE 5 MG TAB PO ONE (08:15)
[2021-10-09] MEDS ORDERED: PANTOprazole 40 MG TAB PO SCH (09:00)
[2021-10-09 10:36] LABS: BUN Creatinine Ratio 11.9 (10-20); Calcium 9.1 mg/dl (8.5-10.1); Est GFR (African American) 107.2 ml/min; Est GFR (Non-African American) 92.5 ml/min; Magnesium 1.8 mg/dl (1.7-2.4)
[2021-10-09] MEDS ORDERED: MAGNESIUM SULFATE / D5W 1 GM/100 ML BAG IV ONE (10:38)
--- NOTE | 2021-10-09 11:44 | Surgery Progress Note ---
Date of Service October 09, 2021 Assessment & Plan (1) Small bowel obstruction: Plan 65 year-old male with history of Right hemicolectomy (2010) and small bowel resection (2018) at [facility] and a SBO in December of 2020 treated conservatively presented to ED with abdominal pain, n,v, and bloating that began on Thursday. CT scan showing SBO with narrowing at site of small bowel anastomosis as cause of SBO which has slightly progressed since last CT scan in December. 10/09/2021 afebrile + bowel function, good bowel sounds, benign abdomen KUB with improvement Plan: will advance diet to low fiber for lunch if does well with diet advancement okay from surgery perspective for discharge this evening continue medical management SBFT as an outpatient to further evaluate the anastomosis site once through this acute phase Dr. Kelly has seen patient and agrees with above. Admission and Anticipated Discharge Date Admission Date: October 06, 2021 Supervising Physician Co-Signing Physician Notes I have seen and examined the patient personally and agree with the above assessment and plan. Of note he is doing very well. His x-ray this morning was normal. He is passing flatus and having bowel movements. He is tolerating a diet. We will advance his diet, and anticipate discharge to home this evening. He will follow-up with us in clinic in 1 to 2 weeks. Subjective feeling better today had another bowel movement this morning and passing gas tolerating clear liquids no abdominal pain no n,v Physical Exam Constitutional: WD/WN, vitals as above no acute distress and not ill appearing Gastrointestinal (Abdomen): Inspection/Auscultation: abdomen normal to inspection and normal bowel sounds; abdomen not distended Percussion/Palpation: abdomen soft; abdomen nontender, no guarding and abdomen not rigid Skin: no rashes, warm and dry Psychiatric: A+Ox3, euthymic affect Results & Data ([facility]) Vital Signs (Past 12 Hours) Vital Signs Temp Pulse Resp BP Pulse Ox O2 Del Method 10/09/21 07:05 36.7 C 61 16 154/90 H 99 Room Air Laboratory Results 10/09/21 10/09/21 Range/Units 10:48 09:11 Sodium 137 (136-145) mmol/L Potassium 4.0 (3.5-5.1) mmol/L Chloride 102 (98-107) mmol/L Carbon Dioxide 29 (21-32) mmol/L Anion Gap 6 (3-11) BUN 10 (6-23) mg/dl Creatinine 0.84 (0.6-1.4) mg/dl Est Cr Clr Drug Dosing 86.0 ml/min Est GFR ( Amer) 107.2 ml/min Est GFR (Non-Af Amer) 92.5 ml/min BUN/Creatinine Ratio 11.9 (10-20) Glucose 151 H (70-99(Fasting)) mg/dl Calcium 9.1 (8.5-10.1) mg/dl Magnesium 1.8 (1.7-2.4) mg/dl Prostate Specific Ag 1.135 (0-4) ng/ml Diagnostic Findings XR KUB/Abdomen 1 view CLINICAL HISTORY: follow up SBO TECHNIQUE: 1 view of the abdomen was obtained. Comparison: Comparison is made to abdomen radiographs 10/08/2021 FINDINGS: Lung bases are unremarkable. The osseous structures are grossly unremarkable. Many of the previously noted distended loops of small bowel are less prominent on today's exam. However, a prominent 50 mm loop of bowel remains in the mid abdomen. Small stool burden is seen. This likely represents an improvement from the prior exam. IMPRESSION: Likely interval improvement in small bowel obstruction, however a prominently distended loop of bowel remains in the mid abdomen.
--- NOTE | 2021-10-09 13:45 | XRay Report ---
XR KUB/Abdomen 1 view CLINICAL HISTORY: follow up SBO TECHNIQUE: 1 view of the abdomen was obtained. Comparison: Comparison is made to abdomen radiographs 10/08/2021 FINDINGS: Lung bases are unremarkable. The osseous structures are grossly unremarkable. Many of the previously noted distended loops of small bowel are less prominent on today's exam. However, a prominent 50 mm l oop of bowel remains in the mid abdomen. Small stool burden is seen. This likely represents an improv ement from the prior exam. IMPRESSION: Likely interval improvement in small bowel obstruction, however a prominently distended loop of bowel remains in the mid abdomen. ACT 112: Negative or not required by law. Electronically signed by: Alhaji Srivastava M.D. 10/09/2021 1:43 PM
[2021-10-09] MEDS ORDERED: MAGNESIUM SULFATE / D5W 1 GM/100 ML BAG IV SCH (15:00)
--- NOTE | 2021-10-09 17:33 | Discharge Summary ---
Date of Service October 09, 2021 Admission HPI Per Admitting Provider 65 year old male with a past medical history of HTN, HLD,CAD s/p stent, CVA, adenomyomatosis of gallbladder, right hemicolectomy for polyp 2010 and partial resection of the distal ileum for bleeding polyp in 2017 . He has a history of partial small bowel obstruction in December 2020 that had a transition point at the site of small bowel anastomosis. He began to have abdominal pain Thursday morning, similar to pain he had with prior SBO. It got worse throughout the day Thursday, describes as diffuse sharp abdominal pain without radiation. One episode of emesis Thursday afternoon. Work up in the ED significant for leukocytosis to 16.69, normal CXR, CT of abdomen showed small bowel obstruction with the transition point located in the RLQ at the spot of the small bowel anastomosis. It also showed Remonstration of the enlarged and heterogeneous prostate gland with an indistinct border. He received morphine for pain control and was made NPO. Denies nausea/vomiting today. Does have some burping/acid reflux symptoms. He has a history of GERD, but does not take anything regularly for it.Last normal bowel movement was Thursday morning, had a small bowel movement Thursday morning. States he was passing gas last night, but none so far this morning. Denies chest pain, dyspnea, headache. Social History: denies tobacco, alcohol, or substance use. Admission Exam Per Admitting Provider Constitutional: well-appearing, no acute distress HEENT: NCAT, no conjunctival injection CV: regular rhythm, no murmur appreciated, extremities well-perfused, no LE edema Resp: CTABL, no wheezes/rales/rhonchi appreciated, no increased work of breathing GI: soft, nondistended, mild diffuse tenderness to palpitation, no rebound or guarding, BS hypoactive MSK: no gross deformities appreciated Skin: warm, dry, no rash appreciated Neuro: alert, oriented, no focal neurologic deficit appreciated Principal Diagnosis SBO Discharge Exam General: WD/WN male, general pallor, sitting up in bed, NAD HEENT: head normocephalic, atraumatic, mmm, trachea midline without deviation, +bruit (chronic) Resp: CTAB, no w/r, on room air CV: RRR, no m/r/g, no calf edema or tenderness to palpation GI: SOFT, NONTENDER, BS throughout, increased : no camarena MSK/Neuro: moves all extremities, no focal deficits Psych: AOx3, pleasant and cooperative Discharge Data Allergies Allergy/AdvReac Type Severity Reaction Status Date / Time penicillamine Allergy Severe Throat Verified 09/02/21 09:25 infection cat dander Allergy Mild Congestion Verified 09/02/21 09:25 lactose Allergy Mild Abdominal Verified 09/02/21 09:25 discomfort, adverse GI symptpoms Macrolide Antibiotics Allergy Mild Rash, Verified 09/02/21 09:25 diarrhea Penicillins Allergy Mild Rash Verified 09/02/21 09:25 oxycodone AdvReac Intermediate Syncope Verified 09/02/21 09:25 erythromycin base AdvReac Mild Diarrhea Verified 09/02/21 09:25 Consultations 10/06/21 08:03 ED Decision to Admit Stat 10/07/21 08:31 Consult General Surgery Routine Ordered Studies Abdomen/Pelvis CT 10/06/21 04:[address] WITH IV CONTRAST CT DOSE: 304.97 mGy.cm HISTORY: epigastric pain, hx. SBO TECHNIQUE: Multiaxial CT images of the abdomen and pelvis were performed following the use of intravenous contrast. A dose lowering technique was utilized adhering to the principles of ALARA. COMPARISON STUDY: Abdomen and pelvis CT 01/15/2021. FINDINGS: The lung bases are clear. No pneumoperitoneum. No pneumatosis. Stable lucent lesion within the proximal right femur. This is likely benign. Mild elevation of the left hemidiaphragm. The liver, gallbladder, spleen, adrenal glands, and pancreas are unremarkable. Stable bilateral renal hypodense lesions. These likely represent cysts. No hydronephrosis. The bladder is unremarkable. The main portal vein is patent. No retroperitoneal lymphadenopathy. Normal caliber abdominal aorta. Trace pelvic free fluid. Enlarged and heterogeneous prostate gland with an indistinct border. This remains unchanged. Low-density structures adjacent to the inguinal canals favor prior mesh repair. Colonic diverticulosis. No evidence for acute diverticulitis. The majority of the colon is decompressed. Postoperative changes consistent with prior right ileocolonic anastomosis. There is also evidence for right lower quadrant small bowel anastomosis. There is a focal transition point at the small bowel anastomosis within the right lower quadrant best seen on image 280. Proximal to this transition point there is evidence for fecal stasis and distended loops of proximal to mid small bowel consistent with a bowel obstruction. The stomach is also mildly distended and fluid-filled. Distal to this transition point the ileal loops are decompressed. The distended loops of small bowel are fluid- filled and measure up to 3.7 cm in diameter. IMPRESSION: 1. Small bowel obstruction with the transition point located at the right lower quadrant small bowel anastomosis. This has progressed in the interval. 2. Trace pelvic free fluid. 3. Redemonstration of the enlarged and heterogeneous prostate gland with an indistinct border. Follow-up urology consultation recommended to exclude the possibility of underlying malignancy. 4. Additional findings as described above. ACT 112: Positive. There are findings on this exam that require communication between the performing entity and the patient following Patient Test Result Information Act ([place] Act 112) guidelines. Electronically signed by: Harry Arroyo M.D. 10/06/2021 7:40 AM Chest X-Ray 10/06/21 04:17 XR chest 1V portable HISTORY: epigastric pain COMPARISON: None. FINDINGS: The lungs are clear. Cardiac silhouette is normal in size. No pleural effusions. No pneumothorax. A coronary artery stent is noted. IMPRESSION: No acute process. ACT 112: Negative or not required by law. Electronically signed by: Harry Arroyo M.D. 10/06/2021 8:10 AM KUB X-Ray 10/07/21 00:00 KUB HISTORY: Follow up study in a patient with a known small bowel obstruction f/u SBO COMPARISON: CT abdomen and pelvis 10/06/2021 FINDINGS: Persistent small bowel obstruction with dilated loops measuring up to approximately 5.4 cm previous measuring up to approximately 3.6 cm. Anastomotic suture material noted within the right abdomen with moderate fecal retention of the right hemicolon. No urolith identified. Pelvic basin calcifications are likely vascular. No pneumoperitoneum or pneumatosis. No fracture. IMPRESSION: Persistent small bowel obstruction with stable to mildly worsened distention of the small bowel. Continued follow-up is needed. ACT 112: Negative or not required by law. The above report was generated using voice recognition software. It may contain grammatical, syntax or spelling errors. Electronically signed by: Jim Quiroz M.D. 10/07/2021 1:57 PM KUB X-Ray 10/08/21 08:07 KUB CLINICAL HISTORY: Small bowel obstruction. FINDINGS: 2 AP supine abdominal radiographs are compared to study dated 10/07/2021 and correlated with abdominal CT dated 10/06/2021. There is persistent small bowel obstruction. Distended small bowel loops measure up to 5 cm. No evidence of intraperitoneal free air is seen on these supine images. Suture material is noted in the right mid abdomen. Phleboliths are seen in the pelvis. The bony structures appear intact. IMPRESSION: Persistent small bowel obstruction, similar in appearance to yesterday. Electronically signed by: Kraig Elias M.D. 10/08/2021 1:53 PM KUB X-Ray 10/09/21 08:01 XR KUB/Abdomen 1 view CLINICAL HISTORY: follow up SBO TECHNIQUE: 1 view of the abdomen was obtained. Comparison: Comparison is made to abdomen radiographs 10/08/2021 FINDINGS: Lung bases are unremarkable. The osseous structures are grossly unremarkable. Many of the previously noted distended loops of small bowel are less prominent on today's exam. However, a prominent 50 mm loop of bowel remains in the mid abdomen. Small stool burden is seen. This likely represents an improvement from the prior exam. IMPRESSION: Likely interval improvement in small bowel obstruction, however a prominently distended loop of bowel remains in the mid abdomen. ACT 112: Negative or not required by law. Electronically signed by: Alhaji Srivastava M.D. 10/09/2021 1:43 PM Hospital Course (1) Small bowel obstruction: Small Bowel Obstruction In patient with history of R hemicolectomy 2010 and partial resection of distal ileum for bleeding polyp in 2017. Also with partial SBO in December 2020 w/ transition point at site of small bowel anastomosis CT of abdomen showed SBO with a transition point in the RLQ at the site of prior small bowel anastomosis One episode of emesis afternoon 10/05, denies any further nausea/vomiting and can hold off NGT for now General surgery on consult WBC normalized on repeat, elevation likely 2nd to n/v/obstruction Afebrile LR @ 80cc/hr -- d/c'd afternoon 10/09 2BM 10/08, additional large BM 10/09 KUB with improvement, good bowel sounds throughout, soft abd, and discussion with surgery PA-C, advanced to low fiber this afternoon and tolerated without further issue Supportive care/electrolyte replacement as needed. Keep K ~4, Mag ~2 (additional 2gm IV mag to be ordered for today for Mag 1.8 which improved from 1.7 day prior) Discussed with GI and stable for d/c this evening after repeat eval in the afternoon with advancement in diet. F/u 1-2 weeks outpatient continue low fiber diet Arranged for GI f/u with [facility] for October 15 Recommending small bowel follow through to be arranged at follow up visit (or can be ordered by surgery, per Inge) GERD Does not take anything on a regular basis for GERD Protonix 40mg daily ordered while inpatient, consider H2 OTC at dc if any issues in f/u HTN Blood pressures have ranged from 130s-150s/80-90s since admission but typically well controlled at home BP elevated in AM 10/09 but asymptomatic, amlodipine 2,5mg resumed and BP 131/71 prior to d/c Can resume his lisinopril tomorrow but encouraged increased PO intake/water to help w/ bowels HLD Held statin while NPO (on lipitor 80mg daily), resumed BPH Abdominal CT showedRe-demonstration of the enlarged and heterogeneous prostate gland with an indistinct border. Follow-up urology consultation recommended to exclude the possibility of underlying malignancy. Recommend following up with urology as an outpatient . --> for prior history of kidney stones, has flomax at home but refusing, encouraged use as has some issues with stream on occasion at night PSA checked with AM labs, not elevated -- 1.135. . Outpt f/u Dr Chamorro recommended for further evaluation/consideration MRI. CAD s/p PCI to LAD x2 Follows with Dr Worthington, holding ASA/nitro while NPO. NO CP/SOB reported EKG on admit with sinus rich/sinus arrhythmia, no ischemic changes Continued ASA/statin once taking PO Gynecomastia Held tamoxifen while NPO --no hx breast ca, but patient reported tenderness to L breast w/ lump after exercising in the past to his PCP, ref to endocrinology Did have imaging f/u but states they were going to trial the tamoxifen for a couple of weeks reported prior gynecomastia symptoms after starting a statin (no new meds) No tenderness on examination following with endocrinology for the tamoxifen and can resume at d/c however would defer to endocrine in f/u B12 deficiency -- B12 231 in april earlier this year, stated he did recently start OTC B12 supplementation, recommended continued supplementation at d/c and f/u PCP for repeat testing recommended continued supplementation at discharge Also with known carotid stenosis, has been seen by specialist, had routine monitoring and no further f/u required. Remains on ASA daily and had no residual symptoms from prior events years ago DVT Proph: SCDs, Heparin SQ added 10/07 (refusing at times), ambulation encouraged (2) Hypertension: (3) Hyperlipidemia: (4) GERD without esophagitis: (5) CAD (coronary artery disease): (6) Gynecomastia, male: Plan discharged home after tolerating low fiber diet -- continue x 2 weeks outpt f/u with GI/general surgery for SBFT Outpt f/u Urology for prostate, Dr Chamorro Total Time Total Time Spent Total Time Spent (In Minutes): 50 Discharge Plan Discharge Items Patient Disposition: Home - Self-Care Reason For Visit: SBO Discharge Diagnosis: Small Bowel Obstruction Condition on Discharge: Good Goals: You have been hospitalized for an acute medical problem. During your stay at [facility], we have made an effort to correct the problem that brought you to the hospital while keeping you as comfortable as possible. Medications were used to bring your condition under control and your discharge instructions will include directions for any medications you should take after leaving the hospital. Please make sure you see your Primary Care Provider as part of your follow up plan. Activity: Resume your previous activity Non-emergency contact: Primary Care Provider, Surgeon and Service Order Clerk Call non-emergency contact if: you have any medication questions, your symptoms worsen, your pain is concerning for you and you have a fever Follow-up/Referrals: Daryl Kelly MD [Physician] - (follow-up with Dr. Kelly in 1-2 weeks) Ari You MD [Primary Care Provider] - Daryl Chamorro DO [Physician] - Rina Mena MD [Physician] - 10/16/21 12:15 pm (APPT WITH [facility]) Diet: Low Fiber Addtl Attending Provider Instructions: You have been hospitalized for a small bowel obstruction, likely from adhesions from prior surgeries. You were treated conservatively with bowel rest, IV fluids, and electrolyte replacement/pain control. You had several bowel movements and imaging shows improvement and examination by myself and general surgery feels your obstruction has resolved and you have been tolerating a low fiber diet. You should continue the low fiber diet for the next 1-2 weeks and then will need follow up small bowel follow through testing as discussed by myself and Inge from surgery to evaluate the area "anastomosis" from your prior hemicolectomy. You have also been set up with follow up with GI at the end of the month. They can schedule this test, or you can have this scheduled by general surgery in follow up. I also checked a PSA level given irregular borders on imaging, which was normal, and you can continue regular follow up with Dr Chamorro/consider continuing flomax if any urinary issues. Make sure to drink plenty of fluids to stay hydrated/prevent dehydration which can worsen constipation. Please follow up with your PCP in the next 7-10 days to monitor you progress after discharge from the hospital. Please return to the ER with any increased abdominal pain, inability to keep up with oral intake, fever, or for any other symptoms concerning for you. It has been a pleasure being a part of the medical team providing for you while you have been in the hospital. Take care! Addtl Manual Plate Filler Provider Instructions: Surgical recommendations: - Recommend low fiber diet for next 1-2 weeks - Eat slow and small bites, do not continue to eat when you feel full - Would recommend outpatient follow-up and small bowel follow through study to further evaluate the connection site from your prior bowel surgery. - Please call office with any questions/concerns , Pending Studies at Discharge: No Stand-Alone Forms: [facility] Medications and DC Order Prescriptions: Continued cholecalciferol (vitamin D3) 50 mcg (2,000 unit) capsule 4,000 unit PO QAM tadalafil [Cialis] 5 mg tablet 5 mg PO DAILY Qty: 90 1RF Label Comments: TAKES PRN Rx Instructions: PRN amlodipine 2.5 mg tablet 2.5 mg PO QAM Qty: 90 3RF atorvastatin 80 mg tablet 80 mg PO QAM Qty: 90 3RF lisinopril 5 mg tablet 5 mg PO QAM Qty: 90 3RF tamoxifen 10 mg tablet 10 mg PO BID Qty: 180 1RF albuterol sulfate 90 mcg/actuation HFA aerosol inhaler 2 puffs inhalation Q6H PRN (Reason: allergy to cats) Qty: 3 1RF zinc gluconate 50 mg tablet 50 mg PO QAM ascorbic acid (vitamin C) 1,000 mg tablet 1,000 mg PO QAM coenzyme Q10 10 mg capsule 10 mg PO QAM aspirin 81 mg tablet,delayed release (DR/EC) 81 mg PO QAM glucosamine sulfate [Glucosamine] 500 mg tablet 500 mg PO QAM nitroglycerin 0.4 mg tablet, sublingual 0.4 mg SL ONCE PRN (Reason: Chest Pain) Qty: 25 Discharge Orders: Discharge Order (Routine); Ordered 10/09/21 Ordered By: Arlin Adan/Other Patient Handouts: Low-Fiber Diet Admission Data Admit Date/Time: 10/06/21 08:13 Attending Provider: Marilyn Pedersen Admit Provider: Brandon Villanueva Primary Care Provider: Ari You Other Providers: Luis Cope ; Daryl Kelly Other Interventions: Discharge Summary Assessment (RN) Last Done: 10/09/21 17:44 Supervising Physician Co-Signing Physician Notes PA Supervision Note: I personally saw and examined the patient. I verified all miller points and agree with PAUL Maldonado with the following exceptions and/or additions: S-Pt doing better, moving bowels, tolerating food O- Vitals reviewed Gen: [AA, NAD] A/P-65 yo male here with SBO, resolved f/u with Surgery and GI in 1-2 weeks for SBFT, further assessment. Plan otherwise outlined as above Coding Level of Care Code D/C DAY MANAGEMENT >30 MINS Diagnoses Small bowel obstruction K56.609 Hypertension I10 Hyperlipidemia E78.5 GERD without esophagitis K21.9 CAD (coronary artery disease) I25.10 Gynecomastia, male N62
[2021-10-10] MEDS ORDERED: amLODIPine BESYLATE 5 MG TAB PO SCH (09:00)
[2021-10-10] MEDS ORDERED: ATORVASTATIN 40 MG TAB PO SCH (09:00)
== END 2021-10-09 20:15 | disposition home or self-care (01) | DRG 390 ==
LOC: ED 04:02 → SUATTDRO 08:13 → EDINP 08:13 → 3W 20:18

== ENCOUNTER 2022-02-11 12:30 | Inpatient (IN) ==
[2022-02-11] MEDS ORDERED: SODIUM CHLORIDE 0.9% 1000ML 1,000 ML IV SCH (16:00)
[2022-02-11 16:07] LABS: Albumin Globulin Ratio 1.5 (0.9-2); Albumin Level 4.9 gm/dl (3.4-5.0); Calcium 9.6 mg/dl (8.5-10.1); Creatinine Clr Calc Pharmacy 75.8 ml/min; Est GFR (African American) 98.2 ml/min; Est GFR (Non-African American) 84.7 ml/min; Globulin 3.3 gm/dl (2.5-4.0); Potassium 4.9 mmol/L (3.5-5.1); Total Protein 8.2 gm/dl (6.0-8.3)
[2022-02-11 16:14] LABS: Appearance Urine Clear (Clear); Bacteria Urine Automated Negative (Negative); Blood Urine Negative (Negative); Color Urine Dark Yellow; Epithelial Cell Urine Auto 20-30 /lpf (0-5); Glucose Urine UA Negative (Negative); Ketones Urine 2+ (Negative); Leukocyte Esterase Urine Negative (Negative); Nitrite Urine Negative (Negative); Protein Urine 2+ (Negative); Specific Gravity Urine 1.031 (1.000-1.030); Urobilinogen Urine Negative (Negative); pH Urine 5.5 (4.5-7.5)
[2022-02-11 16:15] LABS: Bilirubin Urine 1+ (Negative)
[2022-02-11] MEDS ORDERED: OPTIRAY 350 100ml IV ONE (17:39)
--- NOTE | 2022-02-11 18:00 | CT Scan Report ---
CT abd pelvis IV con only CLINICAL HISTORY: hx bowel obstruction TECHNIQUE: Helical axial images of the abdomen and pelvis were obtained and displayed. Automated dose lowering techniques and/or adjustment according to patient size were utilized for this exam. This e xam was performed with intravenous contrast. CT DOSE: 357.87 mGy.cm COMPARISON: Comparison is made to CT abdomen pelvis 10/06/2021 FINDINGS: Lower chest: No acute abnormality. Liver: Unremarkable. No focal lesions are seen. Gallbladder and biliary tree: No calcified gallstones. Normal caliber wall. No intra- or extrahepatic biliary ductal dilation. Pancreas: Unremarkable, no focal lesions. Spleen: Splenule is incidentally noted. Adrenals: Unremarkable. Kidneys and ureters: Subcentimeter hypodensities are too small to characterize. Right renal cysts not ed. Bladder: Unremarkable. Reproductive organs: Prostatomegaly is seen. Bowel: Postsurgical changes of ileocolonic resection noted there is distention of multiple loops of s mall bowel extending to the ileum with a transition point at the anastomosis. Overall findings are so mewhat decreased from prior exam with loops of bowel measuring up to 33 mm 38 mm in prior exam.. Lymph nodes Retroperitoneal: Unremarkable. Pelvic: Unremarkable. Mesenteric: Unremarkable. Peritoneum: Normal. Vessels: Atherosclerotic calcifications are seen. Abdominal wall: Unremarkable. Bones: Degenerative changes in the visualized spine. IMPRESSION: Interval improvement in previously noted small bowel obstruction. Mild dilation of the small bowel re kashif. ACT 112: Negative or not required by law. Electronically signed by: Alhaji Srivastava M.D. 02/11/2022 5:58 PM
--- NOTE | 2022-02-11 18:30 | Emergency Department Note ---
Impression & Plan SBO (small bowel obstruction), Abdominal pain ED Provider Note NAME: JOSE MARTIN RIVERA AGE: 66 SEX: M : 1955 ARRIVES VIA: Walk-In INFORMANT: Patient ED PROVIDER(S): Brandon Johnson DO CHIEF COMPLAINT: abdominal pain HPI: Patient is a 66-year-old male who presents to the ER for abdominal pain associate with vomiting which started around 11 PM last night. He had a previous segment of his bowel removed secondary to a large polyp. Since then he has been getting small bowel obstructions related to this. Pain is currently a 0 out of 10. He denies any more nausea or vomiting. Has been sitting in the waiting room for over 6 hours symptoms have resolved. He denies any chest pain or shortness of breath. No dysuria, urgency, or frequency. No other exac erbating or remitting factors. ROS: See above HPI for pertinent positives & negatives. A total of 10 systems reviewed and were otherwise negative. PAST MEDICAL HISTORY:See Below PAST SURGICAL HISTORY:See Below FAMILY HISTORY:See Below SOCIAL HISTORY:See Below HOME MEDICATIONS:See Below ALLERGIES:See Below VITALS:See Below PHYSICAL EXAMINATION: GENERAL: Sitting up in bed, alert, well appearing, well nourished, no distress, non-toxic EYE EXAM: normal conjunctiva. OROPHARYNX: no exudate, no erythema, lips, buccal mucosa, and tongue normal and mucous membranes are moist NECK: supple, no nuchal rigidity, no adenopathy, non-tender LUNGS: Clear to auscultation. Normal chest wall mechanics HEART: no murmurs, S1 normal and S2 normal ABDOMEN: abdomen soft, non-tender, normo-active bowel sounds, no masses, no rebound or guarding. UPPER EXTREMITIES: upper extremities are grossly normal. LOWER EXTREMITIES: No pitting edema. NEURO EXAM: Normal sensorium, cranial nerves II-XII grossly intact, normal speech, no gross weakness of arms, no gross weakness of legs. MEDICAL DECISION MAKING: Patient is a 66-year-old male with past medical history of small bowel obstruc tions who presents ER for abdominal pain associate with nausea and vomiting. IV was established blood work was obtained. Labs show mild leukocytosis of 13,000. No significant anemia. BMP with LFTs bilirubin and lipase is unremarkable. UA was clean. COVID influenza and RSV was negative. CT abdomen pelvis shows dilated loops of small bowel which improved from previous. Was given morphine and Zofran and fluids. Updated bedside. Discussed with the hospitalist for further evaluation for likely small bowel obstruction. Triage Nursing notes reviewed. Limited review of prior medical records performed Vital Signs: reviewed and remarkable for tachy Differential diagnosis: Differential diagnoses includes but is not limited to gastritis, peptic ulcer disease, GERD, gallbladder disease, pancreatitis, small bowel obstruction, acute coronary syndrome, pericarditis, ischemic bowel, irritable bowel disease, irritable bowel syndrome, appendicitis, diverticulitis, malignancy, hernia, urinary tract infection, torsion, perforation, trauma, infectious. ER treatment provided: See below Diagnostics interpreted by me: ECG: none Cardiac Monitoring: An order was placed for continuous cardiac monitoring. The monitor shows a rate of 92 with sinus rhythm. Laboratory studies: As stated above and show below. Imaging studies: CT abdomen pelvis as described above Consultation(s): Discussed with Dr. Kelly for further evaluation. Procedures: none Critical Care: None Past Med/Surg History Medical History Allergy to cats Reason for inhaler per pt (denies asthma/copd) Basilar artery stenosis BPH (benign prostatic hyperplasia) CAD (coronary artery disease) 2017 (stent x1), 2018 (stent x1), Follows with Dr. 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 40% diameter stenosis of the right internal carotid artery origin. 70% diameter stenosis of the left internal carotid artery origin. Chronic web/dissection of the high cervical left internal carotid artery origin. 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 Calcification within the high right vertebral artery with probable underlying luminal narrowing. CVA (cerebral vascular accident) 2016 (during cardiac cath/stent) Depression with anxiety GERD without esophagitis History of GI bleed Hyperlipidemia Hypertension IBS (irritable bowel syndrome) Kidney stone Microscopic hematuria Nephrolithiasis Proteinuria Sciatica Sensorineural hearing loss (SNHL) of left ear with restricted hearing of right ear Small bowel obstruction Small bowel obstruction, partial Solitary thyroid nodule Tinnitus Surgical History History of cardiac cath 2017 (stent x1), 2018 (stent x1) History of colonoscopy History of esophagogastroduodenoscopy (EGD) History of inguinal hernia repair, bilateral Right (2006), left (2010) History of lithotripsy History of surgery laparoscopic enterectomy - 2018 > 1 stent LAD History of tooth extraction History of urinary tract surgery age 6 > blockage corrected Status post small bowel resection 2018 Family History Grandmother (Paternal) Alzheimer disease Brother Heart disease Myocardial infarction COPD (chronic obstructive pulmonary disease) Grandmother (Maternal) Diabetes Mother Pancreatic cancer Heart disease Cancer Hypertension Other No family history of adverse response to anesthesia No family history of allergies No family history of bleeding disorder Denies family history of Rheumatoid arthritis Ovarian cancer Prostate cancer Hearing loss Bipolar disorder Crohn's disease Depression Kidney disease Breast cancer Schizophrenia Lung cancer Colorectal cancer Stroke Asthma Social History Smoking Status: Never smoker Second Hand Exposure: No; Hx Alcohol Use: Yes Alcohol type: wine Hx Substance Use: No Preferred Language: Citizen Of [place] Communication Ability: Effective Hearing Ability: Normal Reo Asset Manager Required: No Beliefs That Will Affect Care: None marital status: Single Current Living Situation: Spouse current occupational status: employed 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 Feels Safe at Home: Yes Childhood Exposure to Second-Hand Smoke: No Dental Care, Regularly: Yes Physical Activity Frequency: Daily Seatbelt Use: always Sunscreen Use: Yes Assistive Devices: None Allergies Allergies Allergy/AdvReac Type Severity Reaction Status Date / Time penicillamine Allergy Severe Throat Verified 02/11/22 19:57 infection Macrolide Antibiotics Allergy Intermediate Rash, Verified 02/11/22 19:57 diarrhea Penicillins Allergy Intermediate Rash Verified 02/11/22 19:57 cat dander Allergy Mild Congestion Verified 02/11/22 19:57 erythromycin base AdvReac Intermediate Diarrhea Verified 02/11/22 19:57 lactose AdvReac Intermediate Abdominal Verified 02/11/22 19:57 discomfort, adverse GI symptpoms oxycodone AdvReac Intermediate Syncope Verified 02/11/22 19:57 Home Meds Home Medications Medication Instructions Recorded Confirmed ascorbic acid (vitamin C) 1,000 mg 1,000 mg PO QAM 08/03/18 02/11/22 tablet coenzyme Q10 10 mg capsule 10 mg PO QAM 08/03/18 02/11/22 zinc gluconate 50 mg tablet 50 mg PO QAM 08/03/18 02/11/22 aspirin 81 mg tablet,delayed 81 mg PO QAM 08/23/18 02/11/22 release glucosamine sulfate 500 mg tablet 500 mg PO QAM 08/23/18 02/11/22 (Glucosamine) nitroglycerin 0.4 mg sublingual 0.4 mg sublingual ONCE PRN Chest 08/23/18 02/11/22 tablet Pain #25 tabs cholecalciferol (vitamin D3) 50 4,000 unit PO QAM 09/20/20 02/11/22 mcg (2,000 unit) capsule mecobalamin (vitamin B12) 1,000 3,000 mcg PO DAILY 10/17/21 02/11/22 mcg chewable tablet (B12 Active) Previous Rx's Medication Instructions Recorded amlodipine 2.5 mg tablet 2.5 mg PO QAM #90 tabs 09/02/21 atorvastatin 80 mg tablet 80 mg PO QAM #90 tabs 09/02/21 tadalafil 5 mg tablet (Cialis) 5 mg PO DAILY #90 tabs 11/15/21 albuterol sulfate 90 mcg/actuation 2 inh inhalation Q6H PRN allergy 12/04/21 aerosol inhaler to cats #3 grams lisinopril 10 mg tablet 10 mg PO QAM #90 tabs 12/09/21 potassium citrate 10 mEq (1,080 10 meq PO BID #180 tabs 12/09/21 mg) tablet,extended release famotidine 20 mg tablet (Pepcid) 20 mg PO BID 6 weeks #84 tabs 12/16/21 Results & Data (ED) Vital Signs Vital Signs - 24 hr 02/11/22 12:45 02/11/22 19:31 02/11/22 21:00 Temperature 36.4 C L Temperature Source Temporal Artery Scan Pulse Rate 120 H Pulse Rate [Apical] 103 H Pulse Rhythm [Apical] Regular Regular Pulse Strength [Apical] Normal Normal Respiratory Rate 15 18 18 Respiratory Effort / Characteristics Non-Labored Non-Labored Respiratory Depth Normal Normal Respiratory Pattern Regular Regular Blood Pressure 132/73 Blood Pressure [Right Arm] 156/90 H 149/87 H Blood Pressure Mean 92 Blood Pressure Mean [Right Arm] 112 107 Blood Pressure Position [Right Arm] Sitting Lying Pulse Oximetry 97 97 98 Oxygen Delivery Method Room Air Room Air Room Air Sepsis Recent Fever Within 48 Hours No Sepsis New/Unexplained Change in Mental Status N/A Sepsis Action Taken by Nursing No Action Required 02/11/22 23:00 Temperature Temperature Source Pulse Rate Pulse Rate [Apical] 95 H Pulse Rhythm [Apical] Irregular Pulse Strength [Apical] Normal Respiratory Rate 18 Respiratory Effort / Characteristics Non-Labored Respiratory Depth Normal Respiratory Pattern Regular Blood Pressure Blood Pressure [Right Arm] 117/86 Blood Pressure Mean Blood Pressure Mean [Right Arm] 96 Blood Pressure Position [Right Arm] Lying Pulse Oximetry 96 Oxygen Delivery Method Room Air Sepsis Recent Fever Within 48 Hours Sepsis New/Unexplained Change in Mental Status Sepsis Action Taken by Nursing Laboratory Data Result diagrams: 02/11/22 19:40 02/11/22 Unknown Lab Results 02/11/22 02/11/22 02/11/22 Range/Units 19:40 21:19 Unknown WBC 13.31 H Cancelled (4.8-10.8) K/ul RBC 5.70 Cancelled (4.63-6.08) M/uL Hgb 17.6 Cancelled (14.0-18.0) g/dl Hct 49.9 Cancelled (40.1-51.0) % MCV 87.5 Cancelled (80.0-100.0) fL MCH 30.9 Cancelled (25.0-34.0) pg MCHC 35.3 Cancelled (32.0-36.0) g/dL RDW Std Deviation 41.7 Cancelled (36.4-46.3) fL RDW Coeff of Harika 13.1 Cancelled (11.5-14.5) % Plt Count 276 Cancelled (130-400) K/uL MPV 9.1 L Cancelled (9.4-12.4) fL Immature Gran % (Auto) 0.3 Cancelled % Neut % (Auto) 86.3 Cancelled % Lymph % (Auto) 5.0 Cancelled % [place] % (Auto) 8.1 Cancelled % Eos % (Auto) 0.1 Cancelled % Baso % (Auto) 0.2 Cancelled % Neut # (Auto) 11.48 H Cancelled (1.4-6.5) K/uL Lymph # (Auto) 0.67 L Cancelled (1.2-3.4) K/uL [place] # (Auto) 1.08 H Cancelled (0.24-0.82) K/uL Eos # (Auto) 0.01 Cancelled (0-0.50) K/uL Baso # (Auto) 0.03 Cancelled (0-0.2) K/uL Immature Gran # (Auto) 0.04 H Cancelled (0.00-0.02) K/uL Absolute Nucleated RBC Cancelled Nucleated RBC % (auto) Cancelled Neutrophils % (Manual) Cancelled Band Neutrophils % Cancelled Lymphocytes % (Manual) Cancelled Prolymphocyte % Cancelled Reactive Lymphs % (Man) Cancelled Monocytes % (Manual) Cancelled Eosinophils % (Manual) Cancelled Basophils % (Manual) Cancelled Metamyelocytes % (Man) Cancelled Myelocytes % (Man) Cancelled Promyelocytes % (Man) Cancelled Blast Cells % (Manual) Cancelled Plasma Cell % (Manual) Cancelled Other Cells % Cancelled Nucleated RBC % Cancelled Neutrophils # (Manual) Cancelled Band Neutrophils # Cancelled Total Absolute Neuts Cancelled Lymphocytes # (Manual) Cancelled Prolymphocyte # Cancelled Reactive Lymphs # Cancelled Total Abs Lymphocytes Cancelled Monocytes # (Manual) Cancelled Eosinophils # (Manual) Cancelled Basophils # (Manual) Cancelled Metamyelocytes # (Man) Cancelled Myelocytes # (Manual) Cancelled Promyelocytes # (Man) Cancelled Blast Cells # (Man) Cancelled Plasma Cell # (Manual) Cancelled Other Cells # Cancelled Nucleated RBCs # (Man) Cancelled Hypersegmented Neuts Cancelled Hyposegmented Neuts Cancelled Hypogranular Neuts Cancelled Large Granular Lymphs Cancelled # Lrg Granular Lymphs Cancelled Hairy Cells Cancelled Smudge Cells Cancelled Toxic Granulation Cancelled Toxic Vacuolation Cancelled Dohle Bodies Cancelled Brice Rods Cancelled Platelet Estimate Cancelled Hypogranular Platelets Cancelled Clumped Platelets Cancelled Giant Platelets Cancelled Platelet Satelliting Cancelled RBC Morphology Cancelled Polychromasia Cancelled Hypochromasia Cancelled Poikilocytosis Cancelled Basophilic Stippling Cancelled Anisocytosis Cancelled Microcytosis Cancelled Macrocytosis Cancelled Spherocytes Cancelled Pappenheimer Bodies Cancelled Sickle Cells Cancelled Target Cells Cancelled Tear Drop Cells Cancelled Ovalocytes Cancelled Stomatocytes Cancelled [place] Bodies Cancelled Echinocytes Cancelled Acanthocytes (Spur) Cancelled Rouleaux Cancelled RBC Agglutinates Cancelled Schistocytes Cancelled Sezary Cell Cancelled Sodium (136-145) mmol/L Potassium (3.5-5.1) mmol/L Chloride (98-107) mmol/L Carbon Dioxide (21-32) mmol/L Anion Gap (3-11) BUN (6-23) mg/dl Creatinine (0.6-1.4) mg/dl Est Cr Clr Drug Dosing ml/min Est GFR ( Amer) ml/min Est GFR (Non-Af Amer) ml/min BUN/Creatinine Ratio (10-20) Glucose (70-99(Fasting)) mg/dl Calcium (8.5-10.1) mg/dl Total Bilirubin (0.2-1.0) mg/dl AST (13-39) U/L ALT (7-52) U/L Alkaline Phosphatase (34-104) U/L Total Protein (6.0-8.3) gm/dl Albumin (3.4-5.0) gm/dl Globulin (2.5-4.0) gm/dl Albumin/Globulin Ratio (0.9-2) Lipase (11-82) U/L Urine Color Urine Appearance (Clear) Urine pH (4.5-7.5) Ur Specific [place] (1.000-1.030) Urine Protein (Negative) Urine Glucose (UA) (Negative) Urine Ketones (Negative) Urine Blood (Negative) Urine Nitrite (Negative) Urine Bilirubin (Negative) Urine Urobilinogen (Negative) Ur Leukocyte Esterase (Negative) Urine WBC (Auto) (0-5) /hpf Urine RBC (Auto) (0-4) /hpf U Hyaline Cast (Auto) (0-5) /lpf U Epithel Cells (Auto) (0-5) /lpf Urine Bacteria (Auto) (Negative) SARS-CoV-2 (PCR) NEGATIVE (Negative) Influenza Type A (PCR) Negative (Neg) Influenza Type B (PCR) Negative (Neg) RSV (RT-PCR) Negative (Neg) Blood Parasites ID Cancelled 02/11/22 02/11/22 02/11/22 Range/Units Unknown Unknown Unknown WBC Cancelled (4.8-10.8) K/ul RBC Cancelled (4.63-6.08) M/uL Hgb Cancelled (14.0-18.0) g/dl Hct Cancelled (40.1-51.0) % MCV Cancelled (80.0-100.0) fL MCH Cancelled (25.0-34.0) pg MCHC Cancelled (32.0-36.0) g/dL RDW Std Deviation Cancelled (36.4-46.3) fL RDW Coeff of Harika Cancelled (11.5-14.5) % Plt Count Cancelled (130-400) K/uL MPV Cancelled (9.4-12.4) fL Immature Gran % (Auto) Cancelled % Neut % (Auto) Cancelled % Lymph % (Auto) Cancelled % [place] % (Auto) Cancelled % Eos % (Auto) Cancelled % Baso % (Auto) Cancelled % Neut # (Auto) Cancelled (1.4-6.5) K/uL Lymph # (Auto) Cancelled (1.2-3.4) K/uL [place] # (Auto) Cancelled (0.24-0.82) K/uL Eos # (Auto) Cancelled (0-0.50) K/uL Baso # (Auto) Cancelled (0-0.2) K/uL Immature Gran # (Auto) Cancelled (0.00-0.02) K/uL Absolute Nucleated RBC Cancelled Nucleated RBC % (auto) Cancelled Neutrophils % (Manual) Cancelled Band Neutrophils % Cancelled Lymphocytes % (Manual) Cancelled Prolymphocyte % Cancelled Reactive Lymphs % (Man) Cancelled Monocytes % (Manual) Cancelled Eosinophils % (Manual) Cancelled Basophils % (Manual) Cancelled Metamyelocytes % (Man) Cancelled Myelocytes % (Man) Cancelled Promyelocytes % (Man) Cancelled Blast Cells % (Manual) Cancelled Plasma Cell % (Manual) Cancelled Other Cells % Cancelled Nucleated RBC % Cancelled Neutrophils # (Manual) Cancelled Band Neutrophils # Cancelled Total Absolute Neuts Cancelled Lymphocytes # (Manual) Cancelled Prolymphocyte # Cancelled Reactive Lymphs # Cancelled Total Abs Lymphocytes Cancelled Monocytes # (Manual) Cancelled Eosinophils # (Manual) Cancelled Basophils # (Manual) Cancelled Metamyelocytes # (Man) Cancelled Myelocytes # (Manual) Cancelled Promyelocytes # (Man) Cancelled Blast Cells # (Man) Cancelled Plasma Cell # (Manual) Cancelled Other Cells # Cancelled Nucleated RBCs # (Man) Cancelled Hypersegmented Neuts Cancelled Hyposegmented Neuts Cancelled Hypogranular Neuts Cancelled Large Granular Lymphs Cancelled # Lrg Granular Lymphs Cancelled Hairy Cells Cancelled Smudge Cells Cancelled Toxic Granulation Cancelled Toxic Vacuolation Cancelled Dohle Bodies Cancelled Brice Rods Cancelled Platelet Estimate Cancelled Hypogranular Platelets Cancelled Clumped Platelets Cancelled Giant Platelets Cancelled Platelet Satelliting Cancelled RBC Morphology Cancelled Polychromasia Cancelled Hypochromasia Cancelled Poikilocytosis Cancelled Basophilic Stippling Cancelled Anisocytosis Cancelled Microcytosis Cancelled Macrocytosis Cancelled Spherocytes Cancelled Pappenheimer Bodies Cancelled Sickle Cells Cancelled Target Cells Cancelled Tear Drop Cells Cancelled Ovalocytes Cancelled Stomatocytes Cancelled [place] Bodies Cancelled Echinocytes Cancelled Acanthocytes (Spur) Cancelled Rouleaux Cancelled RBC Agglutinates Cancelled Schistocytes Cancelled Sezary Cell Cancelled Sodium 139 (136-145) mmol/L Potassium 4.9 (3.5-5.1) mmol/L Chloride 102 (98-107) mmol/L Carbon Dioxide 28 (21-32) mmol/L Anion Gap 9 (3-11) BUN 15 (6-23) mg/dl Creatinine 0.94 (0.6-1.4) mg/dl Est Cr Clr Drug Dosing 75.8 ml/min Est GFR ( Amer) 98.2 ml/min Est GFR (Non-Af Amer) 84.7 ml/min BUN/Creatinine Ratio 16.0 (10-20) Glucose 115 H (70-99(Fasting)) mg/dl Calcium 9.6 (8.5-10.1) mg/dl Total Bilirubin 1.0 (0.2-1.0) mg/dl AST 27 (13-39) U/L ALT 28 (7-52) U/L Alkaline Phosphatase 93 (34-104) U/L Total Protein 8.2 (6.0-8.3) gm/dl Albumin 4.9 (3.4-5.0) gm/dl Globulin 3.3 (2.5-4.0) gm/dl Albumin/Globulin Ratio 1.5 (0.9-2) Lipase 17 (11-82) U/L Urine Color Dark Yellow Urine Appearance Clear (Clear) Urine pH 5.5 (4.5-7.5) Ur Specific [place] 1.031 H (1.000-1.030) Urine Protein 2+ H (Negative) Urine Glucose (UA) Negative (Negative) Urine Ketones 2+ H (Negative) Urine Blood Negative (Negative) Urine Nitrite Negative (Negative) Urine Bilirubin 1+ H (Negative) Urine Urobilinogen Negative (Negative) Ur Leukocyte Esterase Negative (Negative) Urine WBC (Auto) 1-5 (0-5) /hpf Urine RBC (Auto) 5-10 H (0-4) /hpf U Hyaline Cast (Auto) 5-10 H (0-5) /lpf U Epithel Cells (Auto) 20-30 H (0-5) /lpf Urine Bacteria (Auto) Negative (Negative) SARS-CoV-2 (PCR) (Negative) Influenza Type A (PCR) (Neg) Influenza Type B (PCR) (Neg) RSV (RT-PCR) (Neg) Blood Parasites ID Cancelled Administered Medications Discontinued Medications Albuterol (Albuterol 0.083% Nebu Soln 3 Ml Vial) 10 mg NEB NOW STA; Protocol Stop: 02/11/22 20:18 Last Admin: 02/11/22 21:02 Dose: Not Given Documented By: ELAINA Benzonatate (Benzonatate 100 Mg Capsule) 100 mg PO NOW ONE Stop: 02/11/22 20:18 Last Admin: 02/11/22 21:01 Dose: Not Given Documented By: ELAINA Sodium Chloride (Nss 1000ml) 1,000 mls @ 999 mls/hr IV .Q1H1M DEZ Stop: 02/11/22 17:00 Last Infusion: 02/11/22 19:24 Dose: 0 mls/hr Documented By: Admin: 02/11/22 15:52 Dose: 999 mls/hr Documented By: GIANCARLO Ioversol (Optiray 350 100ml) 84 ml IV ONCE ONE Stop: 02/11/22 17:40 Last Admin: 02/11/22 17:39 Dose: 84 ml Documented By: [facility] Ketorolac Tromethamine (Ketorolac Tromethamine 15 Mg/Ml Vial) 15 mg IV NOW ONE Stop: 02/11/22 20:09 Last Admin: 02/11/22 21:03 Dose: 15 mg Documented By: LRS Imaging Data Radiologist's Impression: Abdomen/Pelvis CT 02/11/22 15:18 CT abd pelvis IV con only CLINICAL HISTORY: hx bowel obstruction TECHNIQUE: Helical axial images of the abdomen and pelvis were obtained and displayed. Automated dose lowering techniques and/or adjustment according to patient size were utilized for this exam. This exam was performed with i ntravenous contrast. CT DOSE: 357.87 mGy.cm COMPARISON: Comparison is made to CT abdomen pelvis 10/06/2021 FINDINGS: Lower chest: No acute abnormality. Liver: Unremarkable. No focal lesions are seen. Gallbladder and biliary tree: No calcified gallstones. Normal caliber wall. No intra- or extrahepatic biliary ductal dilation. Pancreas: Unremarkable, no focal lesions. Spleen: Splenule is incidentally noted. Adrenals: Unremarkable. Kidneys and ureters: Subcentimeter hypodensities are too small to characterize. Right renal cysts noted. Bladder: Unremarkable. Reproductive organs: Prostatomegaly is seen. Bowel: Postsurgical changes of ileocolonic resection noted there is distention of multiple loops of small bowel extending to the ileum with a transition point at the anastomosis. Overall findings are somewhat decreased from prior exam with loops of bowel measuring up to 33 mm 38 mm in prior exam.. Lymph nodes Retroperitoneal: Unremarkable. Pelvic: Unremarkable. Mesenteric: Unremarkable. Peritoneum: Normal. Vessels: Atherosclerotic calcifications are seen. Abdominal wall: Unremarkable. Bones: Degenerative changes in the visualized spine. IMPRESSION: Interval improvement in previously noted small bowel obstruction. Mild dilation of the small bowel remains. ACT 112: Negative or not required by law. Electronically signed by: Alhaji Srivastava M.D. 02/11/2022 5:58 PM Discharge Plan Visit Data Chief Complaint: Abdominal Pain Stated Complaint: SMALL BOWEL OBSTRUCTION ED Provider: Brandon Johnson Discharge Problem: SBO (small bowel obstruction), Abdominal pain Patient Disposition: Admitted As Inpatient Discharge Instructions Interventions: ED Discharge Assessment Last Done: 02/11/22 23:34 Forms Stand Alone Forms: [employer] Prescriptions Prescriptions: No Action cholecalciferol (vitamin D3) 50 mcg (2,000 unit) capsule 4,000 unit PO QAM tadalafil [Cialis] 5 mg tablet 5 mg PO DAILY Qty: 90 1RF Label Comments: TAKES PRN albuterol sulfate 90 mcg/actuation HFA aerosol inhaler 2 inh inhalation Q6H PRN (Reason: allergy to cats) Qty: 3 1RF amlodipine 2.5 mg tablet 2.5 mg PO QAM Qty: 90 3RF atorvastatin 80 mg tablet 80 mg PO QAM Qty: 90 3RF B12 Active 1,000 mcg tablet,chewable 3,000 mcg PO DAILY potassium citrate 10 mEq (1,080 mg) tablet extended release 10 meq PO BID Qty: 180 3RF lisinopril 10 mg tablet 10 mg PO QAM Qty: 90 3RF famotidine [Pepcid] 20 mg tablet 20 mg PO BID 42 Days Qty: 84 2RF zinc gluconate 50 mg tablet 50 mg PO QAM ascorbic acid (vitamin C) 1,000 mg tablet 1,000 mg PO QAM coenzyme Q10 10 mg capsule 10 mg PO QAM aspirin 81 mg tablet,delayed release (DR/EC) 81 mg PO QAM glucosamine sulfate [Glucosamine] 500 mg tablet 500 mg PO QAM nitroglycerin 0.4 mg tablet, sublingual 0.4 mg SL ONCE PRN (Reason: Chest Pain) Qty: 25 Referrals Referrals: ProAri MD [Primary Care Provider] -
[2022-02-11 19:51] LABS: Basophils # (auto) 0.03 K/uL (0-0.2); Basophils % (auto) 0.2 %; Eosinophils # (auto) 0.01 K/uL (0-0.50); Eosinophils % (auto) 0.1 %; Hematocrit (blood only) 49.9 % (40.1-51.0); Hemoglobin 17.6 g/dl (14.0-18.0); Immature Granulocytes # (auto) 0.04 K/uL (0.00-0.02); Immature Granulocytes % (auto) 0.3 %; Lymphocytes # (auto) 0.67 K/uL (1.2-3.4); Mean Corpuscular Hemoglobin 30.9 pg (25.0-34.0); Mean Corpuscular Hgb Conc 35.3 g/dL (32.0-36.0); Mean Corpuscular Volume 87.5 fL (80.0-100.0); Mean Platelet Volume 9.1 fL (9.4-12.4); Monocytes # (auto) 1.08 K/uL (0.24-0.82); Monocytes % (auto) 8.1 %; Neutrophils # (auto) 11.48 K/uL (1.4-6.5); Neutrophils % (auto) 86.3 %; Platelet Count 276 K/uL (130-400); RDW Coefficient of Variation 13.1 % (11.5-14.5); RDW Standard Deviation 41.7 fL (36.4-46.3); White Blood Count 13.31 K/ul (4.8-10.8)
[2022-02-11] MEDS ORDERED: KETOROLAC TROMETHAMINE 15 MG/ML VIAL IV ONE (20:08)
[2022-02-11] MEDS ORDERED: ALBUTEROL 0.083% NEBU SOLN 3 ML VIAL NEB STA (20:17)
[2022-02-11] MEDS ORDERED: BENZONATATE 100 MG CAPSULE PO ONE (20:17)
--- NOTE | 2022-02-11 21:16 | History & Physical Report ---
Date of Service February 11, 2022 Assessment & Plan (1) Small bowel obstruction: Plan: Many prior occurrences. Reports to me that surgeons have consistently said there is no benefit to further surgery to try to revise the area. CT a/p on 02/11 with less severe SBO than priors, and patient's symptoms are more mild than prior SBO as well. Mild leukocytosis similar to prior episode as well is likely reactive. - NPO for now - Gen surg consulted - Tiered pain control and nausea meds PRN - IV fluids for now - Defer NG tube as he has done well without them previously (2) Hypertension: Plan: BP is 155/90 in the ER. - Hold home oral meds - Can use low-dose hydralazine PRN for SBP > 190 or DBP > 110 (3) CAD (coronary artery disease): Plan: Hx of two stents in past (>1 year ago). No present chest pain. - Hold ASA & atorvastatin until not NPO, then resume (4) CVA (cerebral vascular accident): Plan: In 2017 during cardiac cath. - As above (5) GERD without esophagitis: Plan: Patient reports significant GERD after emesis today. - Start PPI IV BID until able to switch to oral (6) BPH (benign prostatic hyperplasia): Plan: Follows with urology for BPH and possible prostate cancer (following with surveillance). Denies ongoing LUTS at this time. - Monitor (7) DVT prophylaxis: Plan: Heparin 5,000 units SQ Q12h - Likely moderate risk of VTE given prolonged hospital course. No acute surgical needs right now, so I think heparin ppx benefits are greater than risks at this time. FULL CODE - Per patient in the ER with present. History of Present Illness Primary Care Provider: Ari You MD 66yo M w/ hx of HTN and prior partial colon resection due to a polyp who presents with SBO. He has had many SBOs in the past, usually (always?) centered on the area where his polyp was resected in 2018. He reports at least 1 episode of SBO a year with 3 this year. His last event was in 09/2021, and he had been doing well since then. However, on Thursday, 02/10, he had some snap peas which he reports were more fibrous than his usual diet as he had been following the low fiber diet since his last SBO. He had abdominal pain and nausea beginning around 11pm last night. The pain is in the mid-abdomen without any relieving factors. It came on in waves throughout the night and he ended up throwing up twice today which caused him to present to the ER. Otherwise, ROS is negative. Denies any f/c/ns, denies dysuria or loss of urine output, denies chest pain or shortness of breath. Had his last BM yesterday around 11am and was without any blood or melena. Allergies Allergy/AdvReac Type Severity Reaction Status Date / Time penicillamine Allergy Severe Throat Verified 02/11/22 19:57 infection Macrolide Antibiotics Allergy Intermediate Rash, Verified 02/11/22 19:57 diarrhea Penicillins Allergy Intermediate Rash Verified 02/11/22 19:57 cat dander Allergy Mild Congestion Verified 02/11/22 19:57 erythromycin base AdvReac Intermediate Diarrhea Verified 02/11/22 19:57 lactose AdvReac Intermediate Abdominal Verified 02/11/22 19:57 discomfort, adverse GI symptpoms oxycodone AdvReac Intermediate Syncope Verified 02/11/22 19:57 Home Medications Medication Instructions Recorded Confirmed Type ascorbic acid (vitamin C) 1,000 mg 1,000 mg PO QAM 08/03/18 02/11/22 History tablet coenzyme Q10 10 mg capsule 10 mg PO QAM 08/03/18 02/11/22 History zinc gluconate 50 mg tablet 50 mg PO QAM 08/03/18 02/11/22 History aspirin 81 mg tablet,delayed 81 mg PO QAM 08/23/18 02/11/22 History release glucosamine sulfate 500 mg tablet 500 mg PO QAM 08/23/18 02/11/22 History (Glucosamine) nitroglycerin 0.4 mg sublingual 0.4 mg sublingual ONCE PRN Chest 08/23/18 02/11/22 History tablet Pain #25 tabs cholecalciferol (vitamin D3) 50 4,000 unit PO QAM 09/20/20 02/11/22 History mcg (2,000 unit) capsule amlodipine 2.5 mg tablet 2.5 mg PO QAM #90 tabs 09/02/21 02/11/22 Rx atorvastatin 80 mg tablet 80 mg PO QAM #90 tabs 09/02/21 02/11/22 Rx mecobalamin (vitamin B12) 1,000 3,000 mcg PO DAILY 10/17/21 02/11/22 History mcg chewable tablet (B12 Active) tadalafil 5 mg tablet (Cialis) 5 mg PO DAILY #90 tabs 11/15/21 02/11/22 Rx albuterol sulfate 90 mcg/actuation 2 inh inhalation Q6H PRN allergy 12/04/21 02/11/22 Rx aerosol inhaler to cats #3 grams lisinopril 10 mg tablet 10 mg PO QAM #90 tabs 12/09/21 02/11/22 Rx potassium citrate 10 mEq (1,080 10 meq PO BID #180 tabs 12/09/21 02/11/22 Rx mg) tablet,extended release famotidine 20 mg tablet (Pepcid) 20 mg PO BID 6 weeks #84 tabs 12/16/21 02/11/22 Rx Past Med/Surg History Medical History Allergy to cats Reason for inhaler per pt (denies asthma/copd) Basilar artery stenosis BPH (benign prostatic hyperplasia) CAD (coronary artery disease) 2017 (stent x1), 2018 (stent x1), Follows with Dr. 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 40% diameter stenosis of the right internal carotid artery origin. 70% diameter stenosis of the left internal carotid artery origin. Chronic web/dissection of the high cervical left internal carotid artery origin. 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 Calcification within the high right vertebral artery with probable underlying luminal narrowing. CVA (cerebral vascular accident) 2017 (during cardiac cath/stent) Depression with anxiety GERD without esophagitis History of GI bleed Hyperlipidemia Hypertension IBS (irritable bowel syndrome) Kidney stone Microscopic hematuria Nephrolithiasis Proteinuria Sciatica Sensorineural hearing loss (SNHL) of left ear with restricted hearing of right ear Small bowel obstruction Small bowel obstruction, partial Solitary thyroid nodule Tinnitus Surgical History History of cardiac cath 2017 (stent x1), 2018 (stent x1) History of colonoscopy History of esophagogastroduodenoscopy (EGD) History of inguinal hernia repair, bilateral Right (2006), left (2010) History of lithotripsy History of surgery laparoscopic enterectomy - 2018 > 1 stent LAD History of tooth extraction History of urinary tract surgery age 6 > blockage corrected Status post small bowel resection 2018 Family History Grandmother (Paternal) Alzheimer disease Brother Heart disease Myocardial infarction COPD (chronic obstructive pulmonary disease) Grandmother (Maternal) Diabetes Mother Pancreatic cancer Heart disease Cancer Hypertension Other No family history of adverse response to anesthesia No family history of allergies No family history of bleeding disorder Denies family history of Rheumatoid arthritis Ovarian cancer Prostate cancer Hearing loss Bipolar disorder Crohn's disease Depression Kidney disease Breast cancer Schizophrenia Lung cancer Colorectal cancer Stroke Asthma Social History Smoking Status: Never smoker Second Hand Exposure: No; Hx Alcohol Use: Yes Alcohol type: wine Hx Substance Use: No Preferred Language: Cameroonian Communication Ability: Effective Hearing Ability: Normal Housing Project Manager Required: No Beliefs That Will Affect Care: None marital status: Single Current Living Situation: Spouse current occupational status: employed 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 Feels Safe at Home: Yes Childhood Exposure to Second-Hand Smoke: No Dental Care, Regularly: Yes Physical Activity Frequency: Daily Seatbelt Use: always Sunscreen Use: Yes Assistive Devices: None Review of Systems Review of Systems: All systems reviewed & are unremarkable except as noted in HPI & below Physical Exam Constitutional: WD/WN, vitals as above + acute distress Eyes: EOM intact bilaterally; no conjunctival abnormality ENMT: external ear and nose normal, oropharynx normal Neck: trachea midline, no thyromegaly normal visual inspection Respiratory: normal respiratory effort, lungs clear to auscultation no respiratory distress Cardiovascular: RRR, no murmur, no edema Gastrointestinal (Abdomen): Inspection/Auscultation: abdomen normal to inspection and + hypoactive bowel sounds; abdomen not distended Perc ussion/Palpation: + abdomen tender (Epigastric region) and abdomen soft; no guarding and abdomen not rigid Musculoskeletal: no cyanosis or clubbing, extremities motor strength 5/5 Skin: no rashes, warm and dry Neurologic: moves all extremities and awake Psychiatric: Orientation: alert, oriented to person and cooperative Results & Data Results & Data ([place]) Vital Signs (Past 12 Hours) Vital Signs Temp Pulse Pulse Resp BP BP Pulse Ox 02/11/22 19:31 103 H 18 156/90 H 97 02/11/22 12:45 36.4 C L 120 H 15 132/73 97 O2 Del Method 02/11/22 19:31 Room Air 02/11/22 12:45 Room Air Code Status & VTE Plan VTE Prophylaxis Plan VTE Prophylaxis will be ordered: Yes PG Care Time/CCT Total # of Minutes Spent Total Time Spent with Patient: Total time spent is greater than 50% in coordination of care (as documented) at patient's floor/unit and/or counseling patient: Coding Level of Care Code 31278 Initial Inpt Care Lvl 3 Diagnoses Small bowel obstruction K56.609 Hypertension I10 CAD (coronary artery disease) I25.10 CVA (cerebral vascular accident) I63.9 GERD without esophagitis K21.9 BPH (benign prostatic hyperplasia) N40.0 DVT prophylaxis Z29.9
[2022-02-11 22:06] LABS: Influenza A virus by PCR Negative (Neg); Influenza B virus by PCR Negative (Neg); RSV by PCR Negative (Neg); SARS CoV2 RNA(COVID-19) Ceph NEGATIVE (Negative)
[2022-02-12] MEDS ORDERED: KETOROLAC TROMETHAMINE 15 MG/ML VIAL IV PRN (00:21)
[2022-02-12] MEDS ORDERED: MoRPHine SULFATE 4 MG/ML 1 ML CARP\\VIAL IV PRN (00:21)
[2022-02-12] MEDS ORDERED: ALBUTEROL HFA 8 GM INHALER INH PRN (00:21)
[2022-02-12] MEDS ORDERED: ACETAMINOPHEN 1,000 MG/100 ML VIAL IV PRN (00:21)
[2022-02-12] MEDS ORDERED: ONDANSETRON INJ 2 MG/ML 2 ML VIAL IV PRN (00:21)
[2022-02-12] MEDS: LACTATED RINGER'S 1,000 ML IV SCH ×2 (00:50→13:22)
[2022-02-12] MEDS: PANTOprazole 40 MG in SYRINGE 0 ML IV SCH ×3 (00:52→20:28)
[2022-02-12] MEDS: HEPARIN SOD 5,000 UNIT/0.5 ML VIAL SQ SCH ×3 (00:55→20:28)
[2022-02-12] MEDS ORDERED: diphenhydrAMINE 50 MG/ML VIAL IV STA (02:51)
--- NOTE | 2022-02-12 08:47 | Hospitalist Progress Note ---
Date of Service February 12, 2022 Assessment & Plan (1) SBO (small bowel obstruction): Plan: Small bowel obstruction: Many prior occurrences. Reports to me that surgeons have consistently said there is no benefit to further surgery to try to revise the area. CT a/p on 02/11 with less severe SBO than priors, and patient's symptoms are more mild than prior SBO as well. Mild leukocytosis similar to prior episode as well is likely reactive. - NPO for now - Gen surg consulted - Tiered pain control and nausea meds PRN - IV fluids for now - Defer NG tube as he has done well without them previously (2) Hypertension: Plan: BP stable 114/73 Home lisinopril 10mg, amlodipine 2.5mg daily on hold on admit as NPO Hydralazine available prn (3) CAD (coronary artery disease): Plan: Hx of two stents in past (>1 year ago) to LAD. No present chest pain. Follows with Dr Worthington Hold ASA & atorvastatin until not NPO, then resume -- possiblly tomorrow (4) CVA (cerebral vascular accident): Plan: In 2017 during cardiac cath. - As above Also with known carotid stenosis, has been seen by specialist in past, had routine monitoring and no further f/u required. Remains on ASA daily and had no residual symptoms from prior events years ago (5) GERD without esophagitis: Plan: Patient reports significant GERD after emesis on admit Placed on protonix IV BID until able to switch back to PO on famotidine BID at home, ?switching to PPI at d/c?? (6) BPH (benign prostatic hyperplasia): Plan: Follows with urology for BPH and possible prostate cancer (following with surveillance). Denies ongoing LUTS at this time. Of note, irregular border prostate last URology visit, bx performed, no evidence for CA at that time Rec continued f/u urology (7) DVT prophylaxis: Plan: Heparin 5,000 units SQ Q12h Plan continued inpatient stay possible advancement to clear liquids later today Admission and Anticipated Discharge Date Admission Date: February 11, 2022 Supervising Physician Co-Signing Physician Notes I did not interview or examine the patient. I did review PAUL Maldonado's assessment and plan and agree with the following exceptions: none. Subjective eval this morning, up in bathroom, attempting to have a bowel movement. remembers me from prior admission back in September. passing gas, much less severe than prior obstructions. thinks from increased fiber with snow peas [employer]. Discussed if moving bowels possible diet for today around lunch but will monitor overnight/course. No fever/chills, chest pain, shortness of breath, nausea or vomiting. Questions/concerns addressed at this time. No longer taking tamoxifen for gynecomastia and this has been completed for several weeks. Review of Systems Review of Systems: All systems reviewed & are unremarkable except as noted in HPI & below Physical Exam Physical Exam: General: WD/WN male ambulating to bathroom in room, NAD HEENT: head bald, pupils equal in size, mmm, trachea midline, no deviation Resp: CTAB, no w/c/r, on room air CV: RRR, no m/r/g, no calf edema appreciated GI: +BS, soft, nontender, no guarding/rigidity MSK/NEUro: moves all extremities, no focal deficits Skin: warm, dry Psych: AOx3, pleasant and cooperative Results & Data Results & Data ([place]) Vital Signs (Past 12 Hours) Vital Signs Temp Pulse Pulse Resp BP BP Pulse Ox 02/12/22 07:37 36.8 C 92 H 14 114/73 96 02/12/22 00:23 36.8 C 81 20 152/81 H 94 02/11/22 23:00 95 H 18 117/86 96 02/11/22 21:00 18 149/87 H 98 O2 Del Method 02/12/22 07:37 Room Air 02/12/22 00:23 Room Air 02/11/22 23:00 Room Air 02/11/22 21:00 Room Air Laboratory Results 02/12/22 02/12/22 02/11/22 Range/Units 09:23 09:23 Unknown WBC 6.37 (4.8-10.8) K/ul RBC 5.02 (4.63-6.08) M/uL Hgb 15.1 (14.0-18.0) g/dl Hct 44.3 (40.1-51.0) % MCV 88.2 (80.0-100.0) fL MCH 30.1 (25.0-34.0) pg MCHC 34.1 (32.0-36.0) g/dL RDW Std Deviation 42.3 (36.4-46.3) fL RDW Coeff of Harika 13.1 (11.5-14.5) % Plt Count 223 (130-400) K/uL MPV 9.5 (9.4-12.4) fL Immature Gran % (Auto) % Neut % (Auto) % Lymph % (Auto) % [place] % (Auto) % Eos % (Auto) % Baso % (Auto) % Neut # (Auto) (1.4-6.5) K/uL Lymph # (Auto) (1.2-3.4) K/uL [place] # (Auto) (0.24-0.82) K/uL Eos # (Auto) (0-0.50) K/uL Baso # (Auto) (0-0.2) K/uL Immature Gran # (Auto) (0.00-0.02) K/uL Absolute Nucleated RBC Nucleated RBC % (auto) Neutrophils % (Manual) Band Neutrophils % Lymphocytes % (Manual) Prolymphocyte % Reactive Lymphs % (Man) Monocytes % (Manual) Eosinophils % (Manual) Basophils % (Manual) Metamyelocytes % (Man) Myelocytes % (Man) Promyelocytes % (Man) Blast Cells % (Manual) Plasma Cell % (Manual) Other Cells % Nucleated RBC % Neutrophils # (Manual) Band Neutrophils # Total Absolute Neuts Lymphocytes # (Manual) Prolymphocyte # Reactive Lymphs # Total Abs Lymphocytes Monocytes # (Manual) Eosinophils # (Manual) Basophils # (Manual) Metamyelocytes # (Man) Myelocytes # (Manual) Promyelocytes # (Man) Blast Cells # (Man) Plasma Cell # (Manual) Other Cells # Nucleated RBCs # (Man) Hypersegmented Neuts Hyposegmented Neuts Hypogranular Neuts Large Granular Lymphs # Lrg Granular Lymphs Hairy Cells Smudge Cells Toxic Granulation Toxic Vacuolation Dohle Bodies Brice Rods Platelet Estimate Hypogranular Platelets Clumped Platelets Giant Platelets Platelet Satelliting RBC Morphology Polychromasia Hypochromasia Poikilocytosis Basophilic Stippling Anisocytosis Microcytosis Macrocytosis Spherocytes Pappenheimer Bodies Sickle Cells Target Cells Tear Drop Cells Ovalocytes Stomatocytes [place] Bodies Echinocytes Acanthocytes (Spur) Rouleaux RBC Agglutinates Schistocytes Sezary Cell Sodium 141 (136-145) mmol/L Potassium 4.6 (3.5-5.1) mmol/L Chloride 108 H (98-107) mmol/L Carbon Dioxide 28 (21-32) mmol/L Anion Gap 5 (3-11) BUN 23 (6-23) mg/dl Creatinine 0.90 (0.6-1.4) mg/dl Est Cr Clr Drug Dosing 79.2 ml/min Est GFR ( Amer) 103.5 ml/min Est GFR (Non-Af Amer) 89.3 ml/min BUN/Creatinine Ratio 25.6 H (10-20) Glucose 94 (70-99(Fasting)) mg/dl Calcium 8.6 (8.5-10.1) mg/dl Magnesium 1.9 (1.7-2.4) mg/dl Total Bilirubin (0.2-1.0) mg/dl AST (13-39) U/L ALT (7-52) U/L Alkaline Phosphatase (34-104) U/L Total Protein (6.0-8.3) gm/dl Albumin (3.4-5.0) gm/dl Globulin (2.5-4.0) gm/dl Albumin/Globulin Ratio (0.9-2) Lipase (11-82) U/L Urine Color Dark Yellow Urine Appearance Clear (Clear) Urine pH 5.5 (4.5-7.5) Ur Specific Mather 1.031 H (1.000-1.030) Urine Protein 2+ H (Negative) Urine Glucose (UA) Negative (Negative) Urine Ketones 2+ H (Negative) Urine Blood Negative (Negative) Urine Nitrite Negative (Negative) Urine Bilirubin 1+ H (Negative) Urine Urobilinogen Negative (Negative) Ur Leukocyte Esterase Negative (Negative) Urine WBC (Auto) 1-5 (0-5) /hpf Urine RBC (Auto) 5-10 H (0-4) /hpf U Hyaline Cast (Auto) 5-10 H (0-5) /lpf U Epithel Cells (Auto) 20-30 H (0-5) /lpf Urine Bacteria (Auto) Negative (Negative) SARS-CoV-2 (PCR) (Negative) Influenza Type A (PCR) (Neg) Influenza Type B (PCR) (Neg) RSV (RT-PCR) (Neg) Blood Parasites ID 02/11/22 02/11/22 02/11/22 Range/Units Unknown Unknown Unknown WBC Cancelled Cancelled (4.8-10.8) K/ul RBC Cancelled Cancelled (4.63-6.08) M/uL Hgb Cancelled Cancelled (14.0-18.0) g/dl Hct Cancelled Cancelled (40.1-51.0) % MCV Cancelled Cancelled (80.0-100.0) fL MCH Cancelled Cancelled (25.0-34.0) pg MCHC Cancelled Cancelled (32.0-36.0) g/dL RDW Std Deviation Cancelled Cancelled (36.4-46.3) fL RDW Coeff of Harika Cancelled Cancelled (11.5-14.5) % Plt Count Cancelled Cancelled (130-400) K/uL MPV Cancelled Cancelled (9.4-12.4) fL Immature Gran % (Auto) Cancelled Cancelled % Neut % (Auto) Cancelled Cancelled % Lymph % (Auto) Cancelled Cancelled % [place] % (Auto) Cancelled Cancelled % Eos % (Auto) Cancelled Cancelled % Baso % (Auto) Cancelled Cancelled % Neut # (Auto) Cancelled Cancelled (1.4-6.5) K/uL Lymph # (Auto) Cancelled Cancelled (1.2-3.4) K/uL [place] # (Auto) Cancelled Cancelled (0.24-0.82) K/uL Eos # (Auto) Cancelled Cancelled (0-0.50) K/uL Baso # (Auto) Cancelled Cancelled (0-0.2) K/uL Immature Gran # (Auto) Cancelled Cancelled (0.00-0.02) K/uL Absolute Nucleated RBC Cancelled Cancelled Nucleated RBC % (auto) Cancelled Cancelled Neutrophils % (Manual) Cancelled Cancelled Band Neutrophils % Cancelled Cancelled Lymphocytes % (Manual) Cancelled Cancelled Prolymphocyte % Cancelled Cancelled Reactive Lymphs % (Man) Cancelled Cancelled Monocytes % (Manual) Cancelled Cancelled Eosinophils % (Manual) Cancelled Cancelled Basophils % (Manual) Cancelled Cancelled Metamyelocytes % (Man) Cancelled Cancelled Myelocytes % (Man) Cancelled Cancelled Promyelocytes % (Man) Cancelled Cancelled Blast Cells % (Manual) Cancelled Cancelled Plasma Cell % (Manual) Cancelled Cancelled Other Cells % Cancelled Cancelled Nucleated RBC % Cancelled Cancelled Neutrophils # (Manual) Cancelled Cancelled Band Neutrophils # Cancelled Cancelled Total Absolute Neuts Cancelled Cancelled Lymphocytes # (Manual) Cancelled Cancelled Prolymphocyte # Cancelled Cancelled Reactive Lymphs # Cancelled Cancelled Total Abs Lymphocytes Cancelled Cancelled Monocytes # (Manual) Cancelled Cancelled Eosinophils # (Manual) Cancelled Cancelled Basophils # (Manual) Cancelled Cancelled Metamyelocytes # (Man) Cancelled Cancelled Myelocytes # (Manual) Cancelled Cancelled Promyelocytes # (Man) Cancelled Cancelled Blast Cells # (Man) Cancelled Cancelled Plasma Cell # (Manual) Cancelled Cancelled Other Cells # Cancelled Cancelled Nucleated RBCs # (Man) Cancelled Cancelled Hypersegmented Neuts Cancelled Cancelled Hyposegmented Neuts Cancelled Cancelled Hypogranular Neuts Cancelled Cancelled Large Granular Lymphs Cancelled Cancelled # Lrg Granular Lymphs Cancelled Cancelled Hairy Cells Cancelled Cancelled Smudge Cells Cancelled Cancelled Toxic Granulation Cancelled Cancelled Toxic Vacuolation Cancelled Cancelled Dohle Bodies Cancelled Cancelled Brice Rods Cancelled Cancelled Platelet Estimate Cancelled Cancelled Hypogranular Platelets Cancelled Cancelled Clumped Platelets Cancelled Cancelled Giant Platelets Cancelled Cancelled Platelet Satelliting Cancelled Cancelled RBC Morphology Cancelled Cancelled Polychromasia Cancelled Cancelled Hypochromasia Cancelled Cancelled Poikilocytosis Cancelled Cancelled Basophilic Stippling Cancelled Cancelled Anisocytosis Cancelled Cancelled Microcytosis Cancelled Cancelled Macrocytosis Cancelled Cancelled Spherocytes Cancelled Cancelled Pappenheimer Bodies Cancelled Cancelled Sickle Cells Cancelled Cancelled Target Cells Cancelled Cancelled Tear Drop Cells Cancelled Cancelled Ovalocytes Cancelled Cancelled Stomatocytes Cancelled Cancelled Merritt-[place] Bodies Cancelled Cancelled Echinocytes Cancelled Cancelled Acanthocytes (Spur) Cancelled Cancelled Rouleaux Cancelled Cancelled RBC Agglutinates Cancelled Cancelled Schistocytes Cancelled Cancelled Sezary Cell Cancelled Cancelled Sodium 139 (136-145) mmol/L Potassium 4.9 (3.5-5.1) mmol/L Chloride 102 (98-107) mmol/L Carbon Dioxide 28 (21-32) mmol/L Anion Gap 9 (3-11) BUN 15 (6-23) mg/dl Creatinine 0.94 (0.6-1.4) mg/dl Est Cr Clr Drug Dosing 75.8 ml/min Est GFR ( Amer) 98.2 ml/min Est GFR (Non-Af Amer) 84.7 ml/min BUN/Creatinine Ratio 16.0 (10-20) Glucose 115 H (70-99(Fasting)) mg/dl Calcium 9.6 (8.5-10.1) mg/dl Magnesium (1.7-2.4) mg/dl Total Bilirubin 1.0 (0.2-1.0) mg/dl AST 27 (13-39) U/L ALT 28 (7-52) U/L Alkaline Phosphatase 93 (34-104) U/L Total Protein 8.2 (6.0-8.3) gm/dl Albumin 4.9 (3.4-5.0) gm/dl Globulin 3.3 (2.5-4.0) gm/dl Albumin/Globulin Ratio 1.5 (0.9-2) Lipase 17 (11-82) U/L Urine Color Urine Appearance (Clear) Urine pH (4.5-7.5) Ur Specific Mather (1.000-1.030) Urine Protein (Negative) Urine Glucose (UA) (Negative) Urine Ketones (Negative) Urine Blood (Negative) Urine Nitrite (Negative) Urine Bilirubin (Negative) Urine Urobilinogen (Negative) Ur Leukocyte Esterase (Negative) Urine WBC (Auto) (0-5) /hpf Urine RBC (Auto) (0-4) /hpf U Hyaline Cast (Auto) (0-5) /lpf U Epithel Cells (Auto) (0-5) /lpf Urine Bacteria (Auto) (Negative) SARS-CoV-2 (PCR) (Negative) Influenza Type A (PCR) (Neg) Influenza Type B (PCR) (Neg) RSV (RT-PCR) (Neg) Blood Parasites ID Cancelled Cancelled 02/11/22 02/11/22 Range/Units 21:19 19:40 WBC 13.31 H (4.8-10.8) K/ul RBC 5.70 (4.63-6.08) M/uL Hgb 17.6 (14.0-18.0) g/dl Hct 49.9 (40.1-51.0) % MCV 87.5 (80.0-100.0) fL MCH 30.9 (25.0-34.0) pg MCHC 35.3 (32.0-36.0) g/dL RDW Std Deviation 41.7 (36.4-46.3) fL RDW Coeff of Harika 13.1 (11.5-14.5) % Plt Count 276 (130-400) K/uL MPV 9.1 L (9.4-12.4) fL Immature Gran % (Auto) 0.3 % Neut % (Auto) 86.3 % Lymph % (Auto) 5.0 % [place] % (Auto) 8.1 % Eos % (Auto) 0.1 % Baso % (Auto) 0.2 % Neut # (Auto) 11.48 H (1.4-6.5) K/uL Lymph # (Auto) 0.67 L (1.2-3.4) K/uL [place] # (Auto) 1.08 H (0.24-0.82) K/uL Eos # (Auto) 0.01 (0-0.50) K/uL Baso # (Auto) 0.03 (0-0.2) K/uL Immature Gran # (Auto) 0.04 H (0.00-0.02) K/uL Absolute Nucleated RBC Nucleated RBC % (auto) Neutrophils % (Manual) Band Neutrophils % Lymphocytes % (Manual) Prolymphocyte % Reactive Lymphs % (Man) Monocytes % (Manual) Eosinophils % (Manual) Basophils % (Manual) Metamyelocytes % (Man) Myelocytes % (Man) Promyelocytes % (Man) Blast Cells % (Manual) Plasma Cell % (Manual) Other Cells % Nucleated RBC % Neutrophils # (Manual) Band Neutrophils # Total Absolute Neuts Lymphocytes # (Manual) Prolymphocyte # Reactive Lymphs # Total Abs Lymphocytes Monocytes # (Manual) Eosinophils # (Manual) Basophils # (Manual) Metamyelocytes # (Man) Myelocytes # (Manual) Promyelocytes # (Man) Blast Cells # (Man) Plasma Cell # (Manual) Other Cells # Nucleated RBCs # (Man) Hypersegmented Neuts Hyposegmented Neuts Hypogranular Neuts Large Granular Lymphs # Lrg Granular Lymphs Hairy Cells Smudge Cells Toxic Granulation Toxic Vacuolation Dohle Bodies Brice Rods Platelet Estimate Hypogranular Platelets Clumped Platelets Giant Platelets Platelet Satelliting RBC Morphology Polychromasia Hypochromasia Poikilocytosis Basophilic Stippling Anisocytosis Microcytosis Macrocytosis Spherocytes Pappenheimer Bodies Sickle Cells Target Cells Tear Drop Cells Ovalocytes Stomatocytes [place] Bodies Echinocytes Acanthocytes (Spur) Rouleaux RBC Agglutinates Schistocytes Sezary Cell Sodium (136-145) mmol/L Potassium (3.5-5.1) mmol/L Chloride (98-107) mmol/L Carbon Dioxide (21-32) mmol/L Anion Gap (3-11) BUN (6-23) mg/dl Creatinine (0.6-1.4) mg/dl Est Cr Clr Drug Dosing ml/min Est GFR ( Amer) ml/min Est GFR (Non-Af Amer) ml/min BUN/Creatinine Ratio (10-20) Glucose (70-99(Fasting)) mg/dl Calcium (8.5-10.1) mg/dl Magnesium (1.7-2.4) mg/dl Total Bilirubin (0.2-1.0) mg/dl AST (13-39) U/L ALT (7-52) U/L Alkaline Phosphatase (34-104) U/L Total Protein (6.0-8.3) gm/dl Albumin (3.4-5.0) gm/dl Globulin (2.5-4.0) gm/dl Albumin/Globulin Ratio (0.9-2) Lipase (11-82) U/L Urine Color Urine Appearance (Clear) Urine pH (4.5-7.5) Ur Specific Mather (1.000-1.030) Urine Protein (Negative) Urine Glucose (UA) (Negative) Urine Ketones (Negative) Urine Blood (Negative) Urine Nitrite (Negative) Urine Bilirubin (Negative) Urine Urobilinogen (Negative) Ur Leukocyte Esterase (Negative) Urine WBC (Auto) (0-5) /hpf Urine RBC (Auto) (0-4) /hpf U Hyaline Cast (Auto) (0-5) /lpf U Epithel Cells (Auto) (0-5) /lpf Urine Bacteria (Auto) (Negative) SARS-CoV-2 (PCR) NEGATIVE (Negative) Influenza Type A (PCR) Negative (Neg) Influenza Type B (PCR) Negative (Neg) RSV (RT-PCR) Negative (Neg) Blood Parasites ID PG Care Time/CCT Total # of Minutes Spent Total Time Spent with Patient: Total time spent is greater than 50% in coordination of care (as documented) at patient's floor/unit and/or counseling patient: Coding Level of Care Code 77205 Subseq Hosp Care Lvl 2 Diagnoses SBO (small bowel obstruction) K56.609 Hypertension I10 CAD (coronary artery disease) I25.10 CVA (cerebral vascular accident) I63.9 GERD without esophagitis K21.9 BPH (benign prostatic hyperplasia) N40.0 DVT prophylaxis Z29.9
--- NOTE | 2022-02-12 09:43 | Electrocardiogram Report ---
Test Reason : Blood Pressure : / mmHG Vent. Rate : 098 BPM Atrial Rate : 098 BPM P-R Int : 124 ms QRS Dur : 082 ms QT Int : 334 ms P-R-T Axes : 066 012 069 degrees QTc Int : 426 ms Normal sinus rhythm When compared with ECG of 06-OCT-2021 04:36, Vent. rate has increased BY 40 BPM Confirmed by Lalito Worthington ([id number]) on 02/12/2022 9:43:16 AM Referred By: REFERRED SELF Confirmed By:Donovan Worthington
--- NOTE | 2022-02-12 09:45 | Electrocardiogram Report ---
Test Reason : Blood Pressure : / mmHG Vent. Rate : 095 BPM Atrial Rate : 095 BPM P-R Int : 124 ms QRS Dur : 088 ms QT Int : 354 ms P-R-T Axes : 071 022 047 degrees QTc Int : 444 ms Poor data quality, interpretation may be adversely affected Sinus rhythm with Premature supraventricular complexes Abnormal ECG When compared with ECG of 11-FEB-2022 19:43, (unconfirmed) Premature supraventricular complexes are now Present Nonspecific T wave abnormality now evident in Inferior leads Confirmed by Llaito Worthington ([id number] on 02/12/2022 9:45:14 AM Referred By: REFERRED SELF Confirmed By:Donovan Worthington
[2022-02-12 09:57] LABS: Hematocrit (blood only) 44.3 % (40.1-51.0); Hemoglobin 15.1 g/dl (14.0-18.0); Mean Corpuscular Hemoglobin 30.1 pg (25.0-34.0); Mean Corpuscular Hgb Conc 34.1 g/dL (32.0-36.0); Mean Corpuscular Volume 88.2 fL (80.0-100.0); Mean Platelet Volume 9.5 fL (9.4-12.4); Platelet Count 223 K/uL (130-400); RDW Coefficient of Variation 13.1 % (11.5-14.5); RDW Standard Deviation 42.3 fL (36.4-46.3); Red Blood Count 5.02 M/uL (4.63-6.08); White Blood Count 6.37 K/ul (4.8-10.8)
--- NOTE | 2022-02-12 10:07 | Surgery Consultation ---
Date of Consultation February 12, 2022 Assessment & Plan (1) SBO (small bowel obstruction): (2) Abdominal pain: Plan 66 year-old male with history of Right hemicolectomy (2010), small bowel resection (2018) at [facility], and recurrent SBOs with last admission being in September of 2021. Outpatient small bowel follow through in October showed no signs of anastmotic stricture. Presented to ED with complaint of abdominal pain, nausea, vomiting and dizziness that began Thursday evening after eating snow peas. CT scan showing evidence of SBO however not as significant as prior CT in September. Abdomen is soft, nontender today. Plan: No surgical intervention recommended at this time. Would continue conservative treatment with NPO for bowel rest until starts to pass flatus, ambulating hallway, IV fluids until taking PO well, and Pain management as needed. Likely could start clears today as he was passing gas last evening but would like to see some flatus today prior to starting clears continue medical management Discussed with Dr. Kelly who agrees with above. History of Present Illness Reason for Consultation: SBO Requesting Physician: En Kelly MD Attending Physician: Yisel Rodriguez MD History of Present Illness 66 year-old male with history of Right hemicolectomy (2010) for cecal polyp and small bowel resection for ileal mass (2018) at [facility] with recurrent SBOs treated conservatively presented to ED with abdominal pain and two episodes of vomiting that began at 11 pm Thursday evening. He was recently admitted here in September for a SBO treated conservatively without needing NGT. He states he had snow peas on Thursday that were not cooked or steamed and believes he may have ate too much as the pain started about 4 hours later and came in waves. [place] slightly dizzy because of feeling dehydrated and came to the ED. Had a CT scan showing SBO with dilated small bowel however not as significant as the prior CT scan in September. He had a outpatient small bowel follow through in October for follow-up of his last admission which was unremarkable for any small bowel stricture. He currently states he is feeling well. No abdominal pain, no nausea, or vomiting. Has not passed any gas today but did have some last evening. Wants to get up and walk hallways this morning. States he is taking ice chips okay. Allergies Allergy/AdvReac Type Severity Reaction Status Date / Time penicillamine Allergy Severe Throat Verified 02/11/22 19:57 infection Macrolide Antibiotics Allergy Intermediate Rash, Verified 02/11/22 19:57 diarrhea Penicillins Allergy Intermediate Rash Verified 02/11/22 19:57 cat dander Allergy Mild Congestion Verified 02/11/22 19:57 erythromycin base AdvReac Intermediate Diarrhea Verified 02/11/22 19:57 lactose AdvReac Intermediate Abdominal Verified 02/11/22 19:57 discomfort, adverse GI symptpoms oxycodone AdvReac Intermediate Syncope Verified 02/11/22 19:57 Home Medications Medication Instructions Recorded Confirmed Type ascorbic acid (vitamin C) 1,000 mg 1,000 mg PO QAM 08/03/18 02/11/22 History tablet coenzyme Q10 10 mg capsule 10 mg PO QAM 08/03/18 02/11/22 History zinc gluconate 50 mg tablet 50 mg PO QAM 08/03/18 02/11/22 History aspirin 81 mg tablet,delayed 81 mg PO QAM 08/23/18 02/11/22 History release glucosamine sulfate 500 mg tablet 500 mg PO QAM 08/23/18 02/11/22 History (Glucosamine) nitroglycerin 0.4 mg sublingual 0.4 mg sublingual ONCE PRN Chest 08/23/18 History tablet Pain #25 tabs cholecalciferol (vitamin D3) 50 4,000 unit PO QAM 09/20/20 02/11/22 History mcg (2,000 unit) capsule amlodipine 2.5 mg tablet 2.5 mg PO QAM #90 tabs 09/02/21 02/11/22 Rx atorvastatin 80 mg tablet 80 mg PO QAM #90 tabs 09/02/21 02/11/22 Rx mecobalamin (vitamin B12) 1,000 3,000 mcg PO DAILY 10/17/21 02/11/22 History mcg chewable tablet (B12 Active) tadalafil 5 mg tablet (Cialis) 5 mg PO DAILY #90 tabs 11/15/21 02/11/22 Rx albuterol sulfate 90 mcg/actuation 2 inh inhalation Q6H PRN allergy 12/04/21 02/11/22 Rx aerosol inhaler to cats #3 grams lisinopril 10 mg tablet 10 mg PO QAM #90 tabs 12/09/21 02/11/22 Rx potassium citrate 10 mEq (1,080 10 meq PO BID #180 tabs 12/09/21 02/11/22 Rx mg) tablet,extended release famotidine 20 mg tablet (Pepcid) 20 mg PO BID 6 weeks #84 tabs 12/16/21 02/11/22 Rx Patient History Medical History Allergy to cats Reason for inhaler per pt (denies asthma/copd) Basilar artery stenosis BPH (benign prostatic hyperplasia) CAD (coronary artery disease) 2017 (stent x1), 2018 (stent x1), Follows with Dr. 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 40% diameter stenosis of the right internal carotid artery origin. 70% diameter stenosis of the left internal carotid artery origin. Chronic web/dissection of the high cervical left internal carotid artery origin. 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 Calcification within the high right vertebral artery with probable underlying luminal narrowing. CVA (cerebral vascular accident) 2017 (during cardiac cath/stent) Depression with anxiety GERD without esophagitis History of GI bleed Hyperlipidemia Hypertension IBS (irritable bowel syndrome) Kidney stone Microscopic hematuria Nephrolithiasis Proteinuria Sciatica Sensorineural hearing loss (SNHL) of left ear with restricted hearing of right ear Small bowel obstruction Small bowel obstruction, partial Solitary thyroid nodule Tinnitus Surgical History History of cardiac cath 2017 (stent x1), 2018 (stent x1) History of colonoscopy History of esophagogastroduodenoscopy (EGD) History of inguinal hernia repair, bilateral Right (2006), left (2010) History of lithotripsy History of surgery laparoscopic enterectomy - 2018 > 1 stent LAD History of tooth extraction History of urinary tract surgery age 6 > blockage corrected Status post small bowel resection 2018 Family History Grandmother (Paternal) Alzheimer disease Brother Heart disease Myocardial infarction COPD (chronic obstructive pulmonary disease) Grandmother (Maternal) Diabetes Mother Pancreatic cancer Heart disease Cancer Hypertension Other No family history of adverse response to anesthesia No family history of allergies No family history of bleeding disorder Denies family history of Rheumatoid arthritis Ovarian cancer Prostate cancer Hearing loss Bipolar disorder Crohn's disease Depression Kidney disease Breast cancer Schizophrenia Lung cancer Colorectal cancer Stroke Asthma Social History Smoking Status: Never smoker Second Hand Exposure: No; Hx Alcohol Use: Yes Alcohol type: beer, wine and hard liquor Hx Substance Use: No Preferred Language: Panamanian Communication Ability: Effective Hearing Ability: Normal Nuclear Design Engineer Required: No Beliefs That Will Affect Care: None marital status: Single Current Living Situation: Spouse current occupational status: employed 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 Safe at Home: Yes Childhood Exposure to Second-Hand Smoke: No Dental Care, Regularly: Yes Physical Activity Frequency: Daily Seatbelt Use: always Sunscreen Use: Yes Assistive Devices: None Review of Systems Review of Systems: All systems reviewed & are unremarkable except as noted in HPI & below Physical Exam Constitutional: WD/WN, vitals as above healthy appearing, well groomed, cooperative and comfortable; no acute distress and not ill appearing Neck: normal visual inspection and trachea midline Respiratory: normal respiratory effort; no respiratory distress and no labored breathing Gastrointestinal (Abdomen): Inspection/Auscultation: abdomen normal to inspection, + abdominal surgical scar (laparoscopic scars present) and + hypoactive bowel sounds; abdomen not distended, + abnormal bowel sounds and no high-pitched sounds Percussion/Palpation: + abdomen tender (very mild in the right mid to lower quadrant) and abdomen soft; no guarding, abdomen not rigid and abdomen not firm Skin: no rashes, warm and dry Psychiatric: A+Ox3, euthymic affect Results & Data ([facility]) Vital Signs (Past 12 Hours) Vital Signs Temp Pulse Pulse Resp BP BP Pulse Ox 02/12/22 07:37 36.8 C 92 H 14 114/73 96 02/12/22 00:23 36.8 C 81 20 152/81 H 94 02/11/22 23:00 95 H 18 117/86 96 O2 Del Method 02/12/22 07:37 Room Air 02/12/22 00:23 Room Air 02/11/22 23:00 Room Air Laboratory Results 02/12/22 02/12/22 02/11/22 Range/Units 09:23 09:23 Unknown WBC 6.37 (4.8-10.8) K/ul RBC 5.02 (4.63-6.08) M/uL Hgb 15.1 (14.0-18.0) g/dl Hct 44.3 (40.1-51.0) % MCV 88.2 (80.0-100.0) fL MCH 30.1 (25.0-34.0) pg MCHC 34.1 (32.0-36.0) g/dL RDW Std Deviation 42.3 (36.4-46.3) fL RDW Coeff of Harika 13.1 (11.5-14.5) % Plt Count 223 (130-400) K/uL MPV 9.5 (9.4-12.4) fL Immature Gran % (Auto) % Neut % (Auto) % Lymph % (Auto) % [place] % (Auto) % Eos % (Auto) % Baso % (Auto) % Neut # (Auto) (1.4-6.5) K/uL Lymph # (Auto) (1.2-3.4) K/uL [place] # (Auto) (0.24-0.82) K/uL Eos # (Auto) (0-0.50) K/uL Baso # (Auto) (0-0.2) K/uL Immature Gran # (Auto) (0.00-0.02) K/uL Absolute Nucleated RBC Nucleated RBC % (auto) Neutrophils % (Manual) Band Neutrophils % Lymphocytes % (Manual) Prolymphocyte % Reactive Lymphs % (Man) Monocytes % (Manual) Eosinophils % (Manual) Basophils % (Manual) Metamyelocytes % (Man) Myelocytes % (Man) Promyelocytes % (Man) Blast Cells % (Manual) Plasma Cell % (Manual) Other Cells % Nucleated RBC % Neutrophils # (Manual) Band Neutrophils # Total Absolute Neuts Lymphocytes # (Manual) Prolymphocyte # Reactive Lymphs # Total Abs Lymphocytes Monocytes # (Manual) Eosinophils # (Manual) Basophils # (Manual) Metamyelocytes # (Man) Myelocytes # (Manual) Promyelocytes # (Man) Blast Cells # (Man) Plasma Cell # (Manual) Other Cells # Nucleated RBCs # (Man) Hypersegmented Neuts Hyposegmented Neuts Hypogranular Neuts Large Granular Lymphs # Lrg Granular Lymphs Hairy Cells Smudge Cells Toxic Granulation Toxic Vacuolation Dohle Bodies Brice Rods Platelet Estimate Hypogranular Platelets Clumped Platelets Giant Platelets Platelet Satelliting RBC Morphology Polychromasia Hypochromasia Poikilocytosis Basophilic Stippling Anisocytosis Microcytosis Macrocytosis Spherocytes Pappenheimer Bodies Sickle Cells Target Cells Tear Drop Cells Ovalocytes Stomatocytes [place] Bodies Echinocytes Acanthocytes (Spur) Rouleaux RBC Agglutinates Schistocytes Sezary Cell Sodium Pending (136-145) mmol/L Potassium Pending (3.5-5.1) mmol/L Chloride Pending (98-107) mmol/L Carbon Dioxide Pending (21-32) mmol/L Anion Gap Pending (3-11) BUN Pending (6-23) mg/dl Creatinine Pending (0.6-1.4) mg/dl Est Cr Clr Drug Dosing Pending ml/min Est GFR ( Amer) Pending ml/min Est GFR (Non-Af Amer) Pending ml/min BUN/Creatinine Ratio Pending (10-20) Glucose Pending (70-99(Fasting)) mg/dl Calcium Pending (8.5-10.1) mg/dl Magnesium Pending Total Bilirubin (0.2-1.0) mg/dl AST (13-39) U/L ALT (7-52) U/L Alkaline Phosphatase (34-104) U/L Total Protein (6.0-8.3) gm/dl Albumin (3.4-5.0) gm/dl Globulin (2.5-4.0) gm/dl Albumin/Globulin Ratio (0.9-2) Lipase (11-82) U/L Urine Color Dark Yellow Urine Appearance Clear (Clear) Urine pH 5.5 (4.5-7.5) Ur Specific [place] 1.031 H (1.000-1.030) Urine Protein 2+ H (Negative) Urine Glucose (UA) Negative (Negative) Urine Ketones 2+ H (Negative) Urine Blood Negative (Negative) Urine Nitrite Negative (Negative) Urine Bilirubin 1+ H (Negative) Urine Urobilinogen Negative (Negative) Ur Leukocyte Esterase Negative (Negative) Urine WBC (Auto) 1-5 (0-5) /hpf Urine RBC (Auto) 5-10 H (0-4) /hpf U Hyaline Cast (Auto) 5-10 H (0-5) /lpf U Epithel Cells (Auto) 20-30 H (0-5) /lpf Urine Bacteria (Auto) Negative (Negative) SARS-CoV-2 (PCR) (Negative) Influenza Type A (PCR) (Neg) Influenza Type B (PCR) (Neg) RSV (RT-PCR) (Neg) Blood Parasites ID 02/11/22 02/11/22 02/11/22 Range/Units Unknown Unknown Unknown WBC Cancelled Cancelled (4.8-10.8) K/ul RBC Cancelled Cancelled (4.63-6.08) M/uL Hgb Cancelled Cancelled (14.0-18.0) g/dl Hct Cancelled Cancelled (40.1-51.0) % MCV Cancelled Cancelled (80.0-100.0) fL MCH Cancelled Cancelled (25.0-34.0) pg MCHC Cancelled Cancelled (32.0-36.0) g/dL RDW Std Deviation Cancelled Cancelled (36.4-46.3) fL RDW Coeff of Harika Cancelled Cancelled (11.5-14.5) % Plt Count Cancelled Cancelled (130-400) K/uL MPV Cancelled Cancelled (9.4-12.4) fL Immature Gran % (Auto) Cancelled Cancelled % Neut % (Auto) Cancelled Cancelled % Lymph % (Auto) Cancelled Cancelled % [place] % (Auto) Cancelled Cancelled % Eos % (Auto) Cancelled Cancelled % Baso % (Auto) Cancelled Cancelled % Neut # (Auto) Cancelled Cancelled (1.4-6.5) K/uL Lymph # (Auto) Cancelled Cancelled (1.2-3.4) K/uL [place] # (Auto) Cancelled Cancelled (0.24-0.82) K/uL Eos # (Auto) Cancelled Cancelled (0-0.50) K/uL Baso # (Auto) Cancelled Cancelled (0-0.2) K/uL Immature Gran # (Auto) Cancelled Cancelled (0.00-0.02) K/uL Absolute Nucleated RBC Cancelled Cancelled Nucleated RBC % (auto) Cancelled Cancelled Neutrophils % (Manual) Cancelled Cancelled Band Neutrophils % Cancelled Cancelled Lymphocytes % (Manual) Cancelled Cancelled Prolymphocyte % Cancelled Cancelled Reactive Lymphs % (Man) Cancelled Cancelled Monocytes % (Manual) Cancelled Cancelled Eosinophils % (Manual) Cancelled Cancelled Basophils % (Manual) Cancelled Cancelled Metamyelocytes % (Man) Cancelled Cancelled Myelocytes % (Man) Cancelled Cancelled Promyelocytes % (Man) Cancelled Cancelled Blast Cells % (Manual) Cancelled Cancelled Plasma Cell % (Manual) Cancelled Cancelled Other Cells % Cancelled Cancelled Nucleated RBC % Cancelled Cancelled Neutrophils # (Manual) Cancelled Cancelled Band Neutrophils # Cancelled Cancelled Total Absolute Neuts Cancelled Cancelled Lymphocytes # (Manual) Cancelled Cancelled Prolymphocyte # Cancelled Cancelled Reactive Lymphs # Cancelled Cancelled Total Abs Lymphocytes Cancelled Cancelled Monocytes # (Manual) Cancelled Cancelled Eosinophils # (Manual) Cancelled Cancelled Basophils # (Manual) Cancelled Cancelled Metamyelocytes # (Man) Cancelled Cancelled Myelocytes # (Manual) Cancelled Cancelled Promyelocytes # (Man) Cancelled Cancelled Blast Cells # (Man) Cancelled Cancelled Plasma Cell # (Manual) Cancelled Cancelled Other Cells # Cancelled Cancelled Nucleated RBCs # (Man) Cancelled Cancelled Hypersegmented Neuts Cancelled Cancelled Hyposegmented Neuts Cancelled Cancelled Hypogranular Neuts Cancelled Cancelled Large Granular Lymphs Cancelled Cancelled # Lrg Granular Lymphs Cancelled Cancelled Hairy Cells Cancelled Cancelled Smudge Cells Cancelled Cancelled Toxic Granulation Cancelled Cancelled Toxic Vacuolation Cancelled Cancelled Dohle Bodies Cancelled Cancelled Brice Rods Cancelled Cancelled Platelet Estimate Cancelled Cancelled Hypogranular Platelets Cancelled Cancelled Clumped Platelets Cancelled Cancelled Giant Platelets Cancelled Cancelled Platelet Satelliting Cancelled Cancelled RBC Morphology Cancelled Cancelled Polychromasia Cancelled Cancelled Hypochromasia Cancelled Cancelled Poikilocytosis Cancelled Cancelled Basophilic Stippling Cancelled Cancelled Anisocytosis Cancelled Cancelled Microcytosis Cancelled Cancelled Macrocytosis Cancelled Cancelled Spherocytes Cancelled Cancelled Pappenheimer Bodies Cancelled Cancelled Sickle Cells Cancelled Cancelled Target Cells Cancelled Cancelled Tear Drop Cells Cancelled Cancelled Ovalocytes Cancelled Cancelled Stomatocytes Cancelled Cancelled [place] Bodies Cancelled Cancelled Echinocytes Cancelled Cancelled Acanthocytes (Spur) Cancelled Cancelled Rouleaux Cancelled Cancelled RBC Agglutinates Cancelled Cancelled Schistocytes Cancelled Cancelled Sezary Cell Cancelled Cancelled Sodium 139 (136-145) mmol/L Potassium 4.9 (3.5-5.1) mmol/L Chloride 102 (98-107) mmol/L Carbon Dioxide 28 (21-32) mmol/L Anion Gap 9 (3-11) BUN 15 (6-23) mg/dl Creatinine 0.94 (0.6-1.4) mg/dl Est Cr Clr Drug Dosing 75.8 ml/min Est GFR ( Amer) 98.2 ml/min Est GFR (Non-Af Amer) 84.7 ml/min BUN/Creatinine Ratio 16.0 (10-20) Glucose 115 H (70-99(Fasting)) mg/dl Calcium 9.6 (8.5-10.1) mg/dl Magnesium Total Bilirubin 1.0 (0.2-1.0) mg/dl AST 27 (13-39) U/L ALT 28 (7-52) U/L Alkaline Phosphatase 93 (34-104) U/L Total Protein 8.2 (6.0-8.3) gm/dl Albumin 4.9 (3.4-5.0) gm/dl Globulin 3.3 (2.5-4.0) gm/dl Albumin/Globulin Ratio 1.5 (0.9-2) Lipase 17 (11-82) U/L Urine Color Urine Appearance (Clear) Urine pH (4.5-7.5) Ur Specific [place] (1.000-1.030) Urine Protein (Negative) Urine Glucose (UA) (Negative) Urine Ketones (Negative) Urine Blood (Negative) Urine Nitrite (Negative) Urine Bilirubin (Negative) Urine Urobilinogen (Negative) Ur Leukocyte Esterase (Negative) Urine WBC (Auto) (0-5) /hpf Urine RBC (Auto) (0-4) /hpf U Hyaline Cast (Auto) (0-5) /lpf U Epithel Cells (Auto) (0-5) /lpf Urine Bacteria (Auto) (Negative) SARS-CoV-2 (PCR) (Negative) Influenza Type A (PCR) (Neg) Influenza Type B (PCR) (Neg) RSV (RT-PCR) (Neg) Blood Parasites ID Cancelled Cancelled 02/11/22 02/11/22 Range/Units 21:19 19:40 WBC 13.31 H (4.8-10.8) K/ul RBC 5.70 (4.63-6.08) M/uL Hgb 17.6 (14.0-18.0) g/dl Hct 49.9 (40.1-51.0) % MCV 87.5 (80.0-100.0) fL MCH 30.9 (25.0-34.0) pg MCHC 35.3 (32.0-36.0) g/dL RDW Std Deviation 41.7 (36.4-46.3) fL RDW Coeff of Harika 13.1 (11.5-14.5) % Plt Count 276 (130-400) K/uL MPV 9.1 L (9.4-12.4) fL Immature Gran % (Auto) 0.3 % Neut % (Auto) 86.3 % Lymph % (Auto) 5.0 % [place] % (Auto) 8.1 % Eos % (Auto) 0.1 % Baso % (Auto) 0.2 % Neut # (Auto) 11.48 H (1.4-6.5) K/uL Lymph # (Auto) 0.67 L (1.2-3.4) K/uL [place] # (Auto) 1.08 H (0.24-0.82) K/uL Eos # (Auto) 0.01 (0-0.50) K/uL Baso # (Auto) 0.03 (0-0.2) K/uL Immature Gran # (Auto) 0.04 H (0.00-0.02) K/uL Absolute Nucleated RBC Nucleated RBC % (auto) Neutrophils % (Manual) Band Neutrophils % Lymphocytes % (Manual) Prolymphocyte % Reactive Lymphs % (Man) Monocytes % (Manual) Eosinophils % (Manual) Basophils % (Manual) Metamyelocytes % (Man) Myelocytes % (Man) Promyelocytes % (Man) Blast Cells % (Manual) Plasma Cell % (Manual) Other Cells % Nucleated RBC % Neutrophils # (Manual) Band Neutrophils # Total Absolute Neuts Lymphocytes # (Manual) Prolymphocyte # Reactive Lymphs # Total Abs Lymphocytes Monocytes # (Manual) Eosinophils # (Manual) Basophils # (Manual) Metamyelocytes # (Man) Myelocytes # (Manual) Promyelocytes # (Man) Blast Cells # (Man) Plasma Cell # (Manual) Other Cells # Nucleated RBCs # (Man) Hypersegmented Neuts Hyposegmented Neuts Hypogranular Neuts Large Granular Lymphs # Lrg Granular Lymphs Hairy Cells Smudge Cells Toxic Granulation Toxic Vacuolation Dohle Bodies Brice Rods Platelet Estimate Hypogranular Platelets Clumped Platelets Giant Platelets Platelet Satelliting RBC Morphology Polychromasia Hypochromasia Poikilocytosis Basophilic Stippling Anisocytosis Microcytosis Macrocytosis Spherocytes Pappenheimer Bodies Sickle Cells Target Cells Tear Drop Cells Ovalocytes Stomatocytes [place] Bodies Echinocytes Acanthocytes (Spur) Rouleaux RBC Agglutinates Schistocytes Sezary Cell Sodium (136-145) mmol/L Potassium (3.5-5.1) mmol/L Chloride (98-107) mmol/L Carbon Dioxide (21-32) mmol/L Anion Gap (3-11) BUN (6-23) mg/dl Creatinine (0.6-1.4) mg/dl Est Cr Clr Drug Dosing ml/min Est GFR ( Amer) ml/min Est GFR (Non-Af Amer) ml/min BUN/Creatinine Ratio (10-20) Glucose (70-99(Fasting)) mg/dl Calcium (8.5-10.1) mg/dl Magnesium Total Bilirubin (0.2-1.0) mg/dl AST (13-39) U/L ALT (7-52) U/L Alkaline Phosphatase (34-104) U/L Total Protein (6.0-8.3) gm/dl Albumin (3.4-5.0) gm/dl Globulin (2.5-4.0) gm/dl Albumin/Globulin Ratio (0.9-2) Lipase (11-82) U/L Urine Color Urine Appearance (Clear) Urine pH (4.5-7.5) Ur Specific [place] (1.000-1.030) Urine Protein (Negative) Urine Glucose (UA) (Negative) Urine Ketones (Negative) Urine Blood (Negative) Urine Nitrite (Negative) Urine Bilirubin (Negative) Urine Urobilinogen (Negative) Ur Leukocyte Esterase (Negative) Urine WBC (Auto) (0-5) /hpf Urine RBC (Auto) (0-4) /hpf U Hyaline Cast (Auto) (0-5) /lpf U Epithel Cells (Auto) (0-5) /lpf Urine Bacteria (Auto) (Negative) SARS-CoV-2 (PCR) NEGATIVE (Negative) Influenza Type A (PCR) Negative (Neg) Influenza Type B (PCR) Negative (Neg) RSV (RT-PCR) Negative (Neg) Blood Parasites ID Diagnostic Findings CT abd pelvis IV con only CLINICAL HISTORY: hx bowel obstruction TECHNIQUE: Helical axial images of the abdomen and pelvis were obtained and displayed. Automated dose lowering techniques and/or adjustment according to patient size were utilized for this exam. This exam was performed with intravenous contrast. CT DOSE: 357.87 mGy.cm COMPARISON: Comparison is made to CT abdomen pelvis 10/06/2021 FINDINGS: Lower chest: No acute abnormality. Liver: Unremarkable. No focal lesions are seen. Gallbladder and biliary tree: No calcified gallstones. Normal caliber wall. No intra- or extrahepatic biliary ductal dilation. Pancreas: Unremarkable, no focal lesions. Spleen: Splenule is incidentally noted. Adrenals: Unremarkable. Kidneys and ureters: Subcentimeter hypodensities are too small to characterize. Right renal cysts noted. Bladder: Unremarkable. Reproductive organs: Prostatomegaly is seen. Bowel: Postsurgical changes of ileocolonic resection noted there is distention of multiple loops of small bowel extending to the ileum with a transition point at the anastomosis. Overall findings are somewhat decreased from prior exam with loops of bowel measuring up to 33 mm 38 mm in prior exam.. Lymph nodes Retroperitoneal: Unremarkable. Pelvic: Unremarkable. Mesenteric: Unremarkable. Peritoneum: Normal. Vessels: Atherosclerotic calcifications are seen. Abdominal wall: Unremarkable. Bones: Degenerative changes in the visualized spine. IMPRESSION: Interval improvement in previously noted small bowel obstruction. Mild dilation of the small bowel remains. [place] small bowel follow through (10/2021) CLINICAL HISTORY: SMALL BOWEL OBSTRUCTION. History of small bowel resection. COMPARISON STUDY: KUB 10/09/2021. Abdomen and pelvis CT 10/06/2021. FLUOROSCOPY TIME: 0.4 minutes. 10 fluoroscopic spot and overhead images of the abdomen and pelvis were obtained. 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 The patient swallowed barium without difficulty. Contrast reached the cecum by 20 minutes. No dilated loops of bowel to suggest an obstruction. No strictures or filling defects identified within the small bowel. IMPRESSION: No evidence for bowel obstruction.
[2022-02-12 10:28] LABS: BUN Creatinine Ratio 25.6 (10-20); Calcium 8.6 mg/dl (8.5-10.1); Creatinine Clr Calc Pharmacy 79.2 ml/min; Est GFR (African American) 103.5 ml/min; Est GFR (Non-African American) 89.3 ml/min; Magnesium 1.9 mg/dl (1.7-2.4); Potassium 4.6 mmol/L (3.5-5.1)
[2022-02-13] MEDS: LACTATED RINGER'S 1,000 ML IV SCH (01:35)
--- NOTE | 2022-02-13 08:04 | Hospitalist Progress Note ---
Date of Service February 13, 2022 Assessment & Plan (1) Small bowel obstruction: Plan: 66 year-old male with history of Right hemicolectomy (2010), small bowel resection (2018) at [facility], and recurrent SBOs with last admission being in September of 2021. 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 No present chest pain. Follows with Dr Worthington Hold ASA & atorvastatin until not NPO, then resume -- possiblly tomorrow (4) CVA (cerebral vascular accident): Plan: In 2017 during cardiac cath. - As above Also with known carotid stenosis, has been seen by specialist in past, had ro utine monitoring and no further f/u required. Remains on ASA daily and had no residual symptoms from prior events years ago (5) GERD without esophagitis: Plan: Patient reports significant GERD after emesis on admit Placed on protonix IV BID until able to switch back to PO on famotidine BID at home, ?switching to PPI at d/c?? (6) BPH (benign prostatic hyperplasia): Plan: Follows with urology for BPH and possible prostate cancer (following with surveillance). Denies ongoing LUTS at this time. Of note, irregular border prostate last URology visit, bx performed, no evidence for CA at that time Rec continued f/u urology (7) DVT prophylaxis: Plan: Heparin 5,000 units SQ Q12h Plan continued inpatient stay possible advancement to clear liquids later today Admission and Anticipated Discharge Date Admission Date: February 11, 2022 Results & Data Results & Data ([facility]) Vital Signs (Past 12 Hours) Vital Signs Temp Pulse Pulse Resp BP Pulse Ox O2 Del Method 02/13/22 07:35 36.5 C 74 18 128/82 98 Room Air 02/12/22 22:28 36.4 C L 76 20 150/74 H 95 Room Air PG Care Time/CCT Total # of Minutes Spent Total Time Spent with Patient: Total time spent is greater than 50% in coordination of care (as documented) at patient's floor/unit and/or counseling patient: Coding Diagnoses Small bowel obstruction K56.609 Hypertension I10 CAD (coronary artery disease) I25.10 CVA (cerebral vascular accident) I63.9 GERD without esophagitis K21.9 BPH (benign prostatic hyperplasia) N40.0 DVT prophylaxis Z29.9
[2022-02-13] MEDS: PANTOprazole 40 MG in SYRINGE 0 ML IV SCH (08:10)
[2022-02-13] MEDS ORDERED: ASPIRIN 81 MG ECTAB PO SCH (09:00)
--- NOTE | 2022-02-13 09:33 | Discharge Summary ---
Date of Service February 13, 2022 Admission HPI Per Admitting Provider 66yo M w/ hx of HTN and prior partial colon resection due to a polyp who presents with SBO. He has had many SBOs in the past, usually (always?) centered on the area where his polyp was resected in 2018. He reports at least 1 episode of SBO a year with 3 this year. His last event was in 09/2021, and he had been doing well since then. However, on Thursday, 02/10, he had some snap peas which he reports were more fibrous than his usual diet as he had been following the low fiber diet since his last SBO. He had abdominal pain and nausea beginning around 11pm last night. The pain is in the mid-abdomen without any relieving factors. It came on in waves throughout the night and he ended up throwing up twice today which caused him to present to the ER. Otherwise, ROS is negative. Denies any f/c/ns, denies dysuria or loss of urine output, denies chest pain or shortness of breath. Had his last BM yesterday around 11am and was without any blood or melena. Admission Exam Per Admitting Provider Constitutional: WD/WN, vitals as above + acute distress Eyes: EOM intact bilaterally; no conjunctival abnormality ENMT: external ear and nose normal, oropharynx normal Neck: trachea midline, no thyromegaly normal visual inspection Respiratory: normal respiratory effort, lungs clear to auscultation no respiratory distress Cardiovascular: RRR, no murmur, no edema Gastrointestinal (Abdomen): Inspection/Auscultation: abdomen normal to inspection and + hypoactive bowel sounds; abdomen not distended Percussion/Palpation: + abdomen tender (Epigastric region) and abdomen soft; no guarding and abdomen not rigid Musculoskeletal: no cyanosis or clubbing, extremities motor strength 5/5 Skin: no rashes, warm and dry Neurologic: moves all extremities and awake Psychiatric: Orientation: alert, oriented to person and cooperative Principal Diagnosis SBO Discharge Exam General: WD/WN male ambulating to bathroom in room, NAD HEENT: head bald, pupils equal in size, mmm, trachea midline, no deviation Resp: CTAB, no w/c/r, on room air CV: RRR, no m/r/g, no calf edema appreciated GI: +BS, soft, nontender, no guarding/rigidity MSK/NEUro: moves all extremities, no focal deficits Skin: warm, dry Psych: AOx3, pleasant and cooperative Discharge Data Allergies Allergy/AdvReac Type Severity Reaction Status Date / Time penicillamine Allergy Severe Throat Verified 02/11/22 19:57 infection Macrolide Antibiotics Allergy Intermediate Rash, Verified 02/11/22 19:57 diarrhea Penicillins Allergy Intermediate Rash Verified 02/11/22 19:57 cat dander Allergy Mild Congestion Verified 02/11/22 19:57 erythromycin base AdvReac Intermediate Diarrhea Verified 02/11/22 19:57 lactose AdvReac Intermediate Abdominal Verified 02/11/22 19:57 discomfort, adverse GI symptpoms oxycodone AdvReac Intermediate Syncope Verified 02/11/22 19:57 Consultations 02/11/22 20:08 ED Decision to Admit Stat 02/12/22 00:21 Consult General Surgery Routine Ordered Studies Abdomen/Pelvis CT 02/11/22 15:18 CT abd pelvis IV con only CLINICAL HISTORY: hx bowel obstruction TECHNIQUE: Helical axial images of the abdomen and pelvis were obtained and displayed. Automated dose lowering techniques and/or adjustment according to patient size were utilized for this exam. This exam was performed with intravenous contrast. CT DOSE: 357.87 mGy.cm COMPARISON: Comparison is made to CT abdomen pelvis 10/06/2021 FINDINGS: Lower chest: No acute abnormality. Liver: Unremarkable. No focal lesions are seen. Gallbladder and biliary tree: No calcified gallstones. Normal caliber wall. No intra- or extrahepatic biliary ductal dilation. Pancreas: Unremarkable, no focal lesions. Spleen: Splenule is incidentally noted. Adrenals: Unremarkable. Kidneys and ureters: Subcentimeter hypodensities are too small to characterize. Right renal cysts noted. Bladder: Unremarkable. Reproductive organs: Prostatomegaly is seen. Bowel: Postsurgical changes of ileocolonic resection noted there is distention of multiple loops of small bowel extending to the ileum with a transition point at the anastomosis. Overall findings are somewhat decreased from prior exam with loops of bowel measuring up to 33 mm 38 mm in prior exam.. Lymph nodes Retroperitoneal: Unremarkable. Pelvic: Unremarkable. Mesenteric: Unremarkable. Peritoneum: Normal. Vessels: Atherosclerotic calcifications are seen. Abdominal wall: Unremarkable. Bones: Degenerative changes in the visualized spine. IMPRESSION: Interval improvement in previously noted small bowel obstruction. Mild dilation of the small bowel remains. ACT 112: Negative or not required by law. Electronically signed by: Alhaji Srivastava M.D. 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 +BS, no abdominal pain/nausea/vomiting on exam, planning for d/c today and can advance low fiber diet x 2 weeks and then advance at home. Patient very educated on what to/not eat. Also rec'd to steam all high fibrous vegetables Given reported reflux at home and on famotidine BID, decision to d/c on protonix daily and can have [facility] symptoms controlled inpatient with use. Also discussed black box warning for cdiff/etc/ (2) Hypertension: BP stable 128/82 Home lisinopril 10mg, amlodipine 2.5mg daily on hold on admit as NPO, resumed at d/c (3) CAD (coronary artery disease): Hx of two stents in past (>1 year ago) to LAD. No present chest pain. Follows with Dr Worthington Held ASA/statin while NPO, ASA resumed AM 12/29 and statin at d/c (4) CVA (cerebral vascular accident): In 2017 during cardiac cath. - As above Also with known carotid stenosis, has been seen by specialist in past, had routine monitoring and no further f/u required. Remains on ASA daily (resumed this morning) and had no residual symptoms from prior events years ago (5) GERD without esophagitis: Patient reports significant GERD after emesis on admit Placed on protonix IV BID until able to switch back to PO --on famotidine BID at home, and given improvement in reflux during inpatient stays w/ PPI, decision to dc on protonix 40mg daily and can increase to BID in f/u with GI if needed (6) BPH (benign prostatic hyperplasia): Follows with urology for BPH and possible prostate cancer (following with surveillance). Denies ongoing LUTS at this time. Of note, irregular border prostate last URology visit, bx performed, no evidence for CA at that time Rec continued f/u urology (7) DVT prophylaxis: Heparin 5,000 units SQ Q12h while inpatient frequent ambulation -- has been doing great Plan stable for discharge, to continue low fiber diet x 2 weeks and advance as tolerated Total Time Total Time Spent Total Time Spent (In Minutes): 45 Discharge Plan Discharge Items Patient Disposition: Home - Self-Care Reason For Visit: SMALL BOWEL OBSTRUCTION Discharge Diagnosis: Small Bowel Obstruction Goals: You have been hospitalized for an acute medical problem. During your stay at [facility], we have made an effort to correct the problem that brought you to the hospital while keeping you as comfortable as possible. Medications were used to bring your condition under control and your discharge instructions will include directions for any medications you should take after leaving the hospital. Please make sure you see your Primary Care Provider as part of your follow up plan. Activity: Resume your previous activity Non-emergency contact: Primary Care Provider and Surgeon Call non-emergency contact if: you have any medication questions and your symptoms worsen Follow-up/Referrals: Ari You MD [Primary Care Provider] - 02/21/22 11:00 am (APPOINTMENT WITH GUILLERMO CURRY PA-C) Shannon Reyes PA-C [Physician Wild Life Manager] - (No follow-up needed but call with any questions/concerns) Ashleigh Jacob CRNP [Nurse Practitioner] - Diet: Heart Healthy and Low Fiber Diet Comment: steam and cook any high fibrous vegetables Addtl Attending Provider Instructions: You have been hospitalized for a small bowel obstruction, likely from adhesions from prior surgeries. You were treated conservatively with bowel rest, IV fluids, and electrolyte replacement/pain control and consultation with general surgery. You have had your diet advanced and have been moving your bowels. You should continue a low fiber diet for the next 1-2 weeks and then can advance your diet as tolerated. I have also sent in a prescription for protonix daily for reflux symptoms. Please follow up with your PCP in the next 7-10 days to monitor you progress after discharge from the hospital and with general surgery to monitor your progress. Please return to the ER with any increased abdominal pain, inability to keep up with oral intake, fever, or for any other symptoms concerning for you. It has been a pleasure being a part of the medical team providing for you while you have been in the hospital. Take care! 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: General Surgery Instructions: - low fiber diet for 2 weeks, then advance fiber in diet slowly - recommend steaming/cooking any vegetables - call surgery office with any questions/concerns Pending Studies at Discharge: No Stand-Alone Forms: [facility] Medications and DC Order Prescriptions: New pantoprazole 40 mg tablet,delayed release (DR/EC) 40 mg PO DAILY 28 Days Qty: 30 0RF Continued cholecalciferol (vitamin D3) 50 mcg (2,000 unit) capsule 4,000 unit PO QAM tadalafil [Cialis] 5 mg tablet 5 mg PO DAILY Qty: 90 1RF Label Comments: TAKES PRN albuterol sulfate 90 mcg/actuation HFA aerosol inhaler 2 inh inhalation Q6H PRN (Reason: allergy to cats) Qty: 3 1RF amlodipine 2.5 mg tablet 2.5 mg PO QAM Qty: 90 3RF atorvastatin 80 mg tablet 80 mg PO QAM Qty: 90 3RF B12 Active 1,000 mcg tablet,chewable 3,000 mcg PO DAILY potassium citrate 10 mEq (1,080 mg) tablet extended release 10 meq PO BID Qty: 180 3RF lisinopril 10 mg tablet 10 mg PO QAM Qty: 90 3RF famotidine [Pepcid] 20 mg tablet 20 mg PO BID 42 Days Qty: 84 2RF zinc gluconate 50 mg tablet 50 mg PO QAM ascorbic acid (vitamin C) 1,000 mg tablet 1,000 mg PO QAM coenzyme Q10 10 mg capsule 10 mg PO QAM aspirin 81 mg tablet,delayed release (DR/EC) 81 mg PO QAM glucosamine sulfate [Glucosamine] 500 mg tablet 500 mg PO QAM nitroglycerin 0.4 mg tablet, sublingual 0.4 mg SL ONCE PRN (Reason: Chest Pain) Qty: 25 Discharge Orders: Discharge Order (Routine); Ordered 02/13/22 Ordered By: Arlin Adan/Other Patient Handouts: Small Bowel Obstruction, Low-Fiber Diet Admission Data Admit Date/Time: 02/11/22 20:46 Attending Provider: Yisel Rodriguez Admit Provider: En Kelly Primary Care Provider: Ari You Other Providers: En Kelly ; Daryl Kelly Other Interventions: Discharge Summary Assessment (RN) Last Done: 02/13/22 10:40 Supervising Physician Co-Signing Physician Notes I did personally see and examine patient prior to this hospital discharge. He was feeling very well at the time and tolerating PO intake without recurrent symptoms. I agree with PAUL Maldonado's assessment and plan as it appears above without any exceptions Coding Level of Care Code HOSP INP/OBS DISCH >30 MIN Diagnoses Small bowel obstruction K56.609 Hypertension I10 CAD (coronary artery disease) I25.10 CVA (cerebral vascular accident) I63.9 GERD without esophagitis K21.9 BPH (benign prostatic hyperplasia) N40.0 DVT prophylaxis Z29.9
--- NOTE | 2022-02-13 09:40 | Surgery Progress Note ---
Date of Service February 13, 2022 Assessment & Plan (1) SBO (small bowel obstruction): (2) Abdominal pain: Plan 66 year-old male with history of Right hemicolectomy (2010), small bowel resection (2017) at [facility], and recurrent SBOs with last admission being in September of 2021. Outpatient small bowel follow through in October showed no signs of anastomotic stricture. Presented to ED with complaint of abdominal pain, nausea, vomiting and dizziness that began Thursday evening after eating snow peas. CT scan showing evidence of SBO however not as significant as prior CT in September. Plan: advanced to full liquids this am for breakfast if tolerates can discharge to home low fiber diet for 2 weeks and then slowly advance fiber in diet as tolerated Discussed with Dr. Kelly who agrees with above. Admission and Anticipated Discharge Date Admission Date: February 11, 2022 Subjective feeling great no abdominal pain no nausea or vomiting had two bowel movements yesterday and continues to pass gas tolerated clear liquids Physical Exam Constitutional: WD/WN, vitals as above no acute distress and not ill appearing Neck: normal visual inspection and trachea midline Respiratory: normal respiratory effort; no respiratory distress, no labored breathing and no retractions Gastrointestinal (Abdomen): Inspection/Auscultation: abdomen normal to in spection, normal bowel sounds and + abdominal surgical scar (laparoscopic scars); abdomen not distended Percussion/Palpation: abdomen soft; abdomen nontender, no guarding and abdomen not rigid Skin: no rashes, warm and dry Psychiatric: A+Ox3, euthymic affect Results & Data ([facility] [place]) Vital Signs (Past 12 Hours) Vital Signs Temp Pulse Pulse Resp BP Pulse Ox O2 Del Method 02/13/22 07:35 36.5 C 74 18 128/82 98 Room Air 02/12/22 22:28 36.4 C L 76 20 150/74 H 95 Room Air Laboratory Results 02/13/22 02/13/22 02/12/22 Range/Units 08:30 08:30 09:23 WBC (4.8-10.8) K/ul RBC (4.63-6.08) M/uL Hgb (14.0-18.0) g/dl Hct (40.1-51.0) % MCV (80.0-100.0) fL MCH (25.0-34.0) pg MCHC (32.0-36.0) g/dL RDW Std Deviation (36.4-46.3) fL RDW Coeff of Harika (11.5-14.5) % Plt Count (130-400) K/uL MPV (9.4-12.4) fL Sodium Pending 141 (136-145) mmol/L Potassium Pending 4.6 (3.5-5.1) mmol/L Chloride Pending 108 H (98-107) mmol/L Carbon Dioxide Pending 28 (21-32) mmol/L Anion Gap Pending 5 (3-11) BUN Pending 23 (6-23) mg/dl Creatinine Pending 0.90 (0.6-1.4) mg/dl Est Cr Clr Drug Dosing Pending 79.2 ml/min Est GFR ( Amer) Pending 103.5 ml/min Est GFR (Non-Af Amer) Pending 89.3 ml/min BUN/Creatinine Ratio Pending 25.6 H (10-20) Glucose Pending 94 (70-99(Fasting)) mg/dl Calcium Pending 8.6 (8.5-10.1) mg/dl Magnesium Pending 1.9 (1.7-2.4) mg/dl 25-OH Vitamin D Total Pending 02/12/22 Range/Units 09:23 WBC 6.37 (4.8-10.8) K/ul RBC 5.02 (4.63-6.08) M/uL Hgb 15.1 (14.0-18.0) g/dl Hct 44.3 (40.1-51.0) % MCV 88.2 (80.0-100.0) fL MCH 30.1 (25.0-34.0) pg MCHC 34.1 (32.0-36.0) g/dL RDW Std Deviation 42.3 (36.4-46.3) fL RDW Coeff of Harika 13.1 (11.5-14.5) % Plt Count 223 (130-400) K/uL MPV 9.5 (9.4-12.4) fL Sodium (136-145) mmol/L Potassium (3.5-5.1) mmol/L Chloride (98-107) mmol/L Carbon Dioxide (21-32) mmol/L Anion Gap (3-11) BUN (6-23) mg/dl Creatinine (0.6-1.4) mg/dl Est Cr Clr Drug Dosing ml/min Est GFR ( Amer) ml/min Est GFR (Non-Af Amer) ml/min BUN/Creatinine Ratio (10-20) Glucose (70-99(Fasting)) mg/dl Calcium (8.5-10.1) mg/dl Magnesium (1.7-2.4) mg/dl 25-OH Vitamin D Total
[2022-02-13 09:59] LABS: BUN Creatinine Ratio 16.4 (10-20); Calcium 8.8 mg/dl (8.5-10.1); Creatinine Clr Calc Pharmacy 97.6 ml/min; Est GFR (African American) 112.8 ml/min; Est GFR (Non-African American) 97.3 ml/min; Magnesium 1.7 mg/dl (1.7-2.4); Potassium 4.1 mmol/L (3.5-5.1)
[2022-02-13] MEDS: HEPARIN SOD 5,000 UNIT/0.5 ML VIAL SQ SCH (10:26)
== END 2022-02-13 11:29 | disposition home or self-care (01) | DRG 390 ==
LOC: ED 12:30 → SUATTDRO 20:46 → 3N 20:46